=== PATIENT | male | born 1935 | race Caucasian/White ===

== ENCOUNTER 2018-10-14 09:29 | Emergency (ER) | payer BC, OTHER ==
[~2018-10-14] VITALS: Ht 175.3 cm; Wt 113.9 kg
[~2018-10-14 09:29] MED LIST: AMLO10TA6 PO; ASPI-630 PO; BUDE10.2 IH; FURO20TA3 PO; ISOS10TA4 PO; LOSA1TAB19 PO; LOSA25TA54 PO; MECL12.52 PO; METO25TA4 PO; MULT-245 PO; NIAC50TA3 PO; NITR1OIN TD; OMEG500C PO; PROAIR HFA8.5 GM INH; TAMS0.4C2 PO
--- NOTE | 2018-10-14 09:59 | PHYS DOC ---
Past Medical History Past Medical History: Asthma, COPD (none smoker), High Cholesterol, Hypertension, Stroke Past Surgical History: Knee Replacement, Other Additional Past Surgical Histo: CARDIAC CATH WITH STENTS Alcohol Use: None Drug Use: None Adult General Chief Complaint Chief Complaint: Congestion HPI HPI Patient is a 83 year old male with history of hypertension, high cholesterol, asthma, COPD-nonsmoker, bronchitis, who presents today complaining of cough and nasal congestion for one week. Patient denies any fever. Patient states he has been trying to use [id number] remedies with no relief. PCP Dr. Oakley Review of Systems Review of Systems Constitutional: Denies fever or chills [] Eyes: Denies change in visual acuity, redness, or eye pain [] HENT: Reports nasal congestion, denies sore throat [] Respiratory: Reports cough, denies shortness of breath [] Cardiovascular: No additional information not addressed in HPI [] GI: Denies abdominal pain, nausea, vomiting, bloody stools or diarrhea [] : Denies dysuria or hematuria [] Musculoskeletal: Denies back pain or joint pain [] Integument: Denies rash or skin lesions [] Neurologic: Denies headache, focal weakness or sensory changes [] All other systems were reviewed and found to be within normal limits, except as documented in this note. Current Medications Current Medications Current Medications Medications (Trade) Dose Ordered Sig/Adri Start Time Stop Time Status Last Admin Dose Admin Albuterol/ Ipratropium (Duoneb) 3 ml 1X ONCE 10/14/18 10:00 10/14/18 10:01 DC 10/14/18 10:11 3 ML Benzonatate (Tessalon Perle) 100 mg 1X ONCE 10/14/18 10:00 10/14/18 10:01 DC 10/14/18 10:17 100 MG Prednisone (Prednisone) 50 mg 1X ONCE 10/14/18 10:00 10/14/18 10:01 DC 10/14/18 10:17 50 MG Allergies Allergies Allergies Coded Allergies Type Severity Reaction Last Updated Verified No Known Drug Allergies 09/05/14 No Physical Exam Physical Exam Constitutional: Well developed, well nourished, no acute distress, non-toxic appearance. [] HENT: Normocephalic, atraumatic, bilateral external ears normal, oropharynx moist, no oral exudates, patient sounds congested nasally, posterior pharynx with mild erythema and post nasal drainage Eyes: PERRLA, EOMI, conjunctiva normal, no discharge. [] Neck: Normal range of motion, no tenderness, supple, no stridor. [] Cardiovascular:Heart rate regular rhythm, no murmur [] Lungs & Thorax: Diffuse wheezing throughout the lung bases. Abdomen: Bowel sounds normal, soft, no tenderness, no masses, no pulsatile masses. [] Skin: Warm, dry, no erythema, no rash. [] Back: No tenderness, no CVA tenderness. [] Extremities: No tenderness, no cyanosis, no clubbing, ROM intact, no edema. [] Neurologic: Alert and oriented X 3, normal motor function, normal sensory function, no focal deficits noted. [] Psychologic: Affect normal, judgement normal, mood normal. [] Current Patient Data Vital Signs Vital Signs Date Time Temp Pulse Resp B/P (MAP) Pulse Ox O2 Delivery O2 Flow Rate FiO2 10/14/18 10:13 82 16 141/73 (95) 99 Room Air 10/14/18 09:38 97.6 97.6 EKG EKG [] Radiology/Procedures Radiology/Procedures []PROCEDURE: CHEST PA & LATERAL Chest, 2 views, 10/14/2018: HISTORY: Cough and congestion The heart size and pulmonary vascularity are normal. No pulmonary infiltrate is seen. There is no evidence of pleural fluid. Moderate hypertrophic spurring is present in the spine. IMPRESSION: No acute cardiopulmonary abnormality is detected. Electronically signed by: Chan Mcginnis MD (10/14/2018 11:07 AM) [facility] DICTATED and SIGNED BY: CHAN MCGINNIS MD DATE: 10/14/18 3771 Course & Med Decision Making Course & Med Decision Making Pertinent Labs and Imaging studies reviewed. (See chart for details) This is a 83-year-old male patient presented to the ED today with cough and nasal congestion for one week. Chest x-ray interpreted by radiologist was negative for any acute findings, patient was given a DuoNeb treatment, prednisone and Tessalon Perles, his lungs have cleared up, he states he feels better. Patient likely has bronchitis. Will discharge patient with albuterol inhaler, Tessalon Perles, prednisone for 5 days and doxycycline. Follow-up with primary care doctor in one week Dragkatina Disclaimer Dragon Disclaimer This electronic medical record was generated, in whole or in part, using a voice recognition dictation system. Departure Departure Impression: Primary Impression: Acute bronchitis Additional Impression: URI (upper respiratory infection) Disposition: 01 HOME, SELF-CARE Condition: STABLE Referrals: CHRIS OAKLEY MD (PCP) follow up in 1-2 weeks Patient Instructions: Acute Bronchitis, Upper Respiratory Infection, Adult, [id number] Additional Instructions: You were evaluated in the emergency room and noted to have acute bronchitis. Take the prescribed medications as ordered. Follow-up with your doctor in the next 1-2 weeks. Come back to the ED at any point symptoms worsen. Scripts Doxycycline Hyclate (DOXYCYCLINE HYCLATE) 100 Mg Tablet.dr 1 TAB PO BID, #14 TAB Prov: DANAE KAT APRN 10/14/18 Prednisone (PREDNISONE) 50 Mg Tablet 1 TAB PO DAILY, #4 TAB Prov: DANAE KAT APRN 10/14/18 Benzonatate (TESSALON PERLE) 100 Mg Capsule 1 CAP PO TID, #21 CAP Prov: DANAE KAT APRN 10/14/18 Albuterol Sulfate (VENTOLIN HFA INHALER) 18 Gm Hfa.aer.ad 2 PUFF INH Q4HRS for FOR ASTHMA, #1 INHALER 0 Refills Prov: DANAE KAT APRN 10/14/18 Problem Qualifiers Primary Impression: Acute bronchitis Bronchitis organism: unspecified organism Qualified Codes: J20.9 - Acute bronchitis, unspecified Additional Impression: URI (upper respiratory infection) URI type: unspecified URI Qualified Codes: J06.9 - Acute upper respiratory infection, unspecified DANAE KAT APRN Oct 14, 2018 09:59
[2018-10-14] MEDS ORDERED: predniSONE 10 MG TABLET PO ONE (10:00)
[2018-10-14] MEDS ORDERED: IPRATRPIUM/ALBUTEROL 0.5/2.5MG 3 ML NEBU. NEB ONE (10:00)
[2018-10-14] MEDS ORDERED: BENZONATATE 100 MG CAPSULE. PO ONE (10:00)
--- NOTE | 2018-10-14 11:11 | RAD ---
Chest, 2 views, 10/14/2018: HISTORY: Cough and congestion The heart size and pulmonary vascularity are normal. No pulmonary infiltrate is seen. There is no evidence of pleural fluid. Moderate hypertrophic spurring is present in the spine. IMPRESSION: No acute cardiopulmonary abnormality is detected. Electronically signed by: Chan Mcginnis MD (10/14/2018 11:07 AM) [facility]
[2018-10-14 12:00] VITALS: BP 151/66
[2018-10-14] MEDS ORDERED: VENTOLIN HFA18 GM INH (12:04)
[2018-10-14] MEDS ORDERED: BENZ100C PO (12:04)
[2018-10-14] MEDS ORDERED: DOXY100T9 PO (12:04)
[2018-10-14] MEDS ORDERED: PRED50TA PO (12:04)
== END 2018-10-14 12:04 | disposition home or self-care (01) ==
LOC: ER 09:29
DX: J06.9 Acute upper respiratory infection, unspecified (principal); J20.9 Acute bronchitis, unspecified; I10 Essential (primary) hypertension; E78.00 Pure hypercholesterolemia, unspecified; J44.9 Chronic obstructive pulmonary disease, unspecified; Z86.73 Personal history of transient ischemic attack (TIA), and cerebral infarction without residual deficits
CPT/HCPCS: 71046; 94640; 99284; J7512; J7620

== ENCOUNTER 2019-04-04 21:46 | Inpatient (IN) | payer BC ==
[~2019-04-04] VITALS: Ht 175.3 cm; Wt 120.2 kg
[~2019-04-04 21:46] MED LIST changes: +ALBU2.5V8 INH; -AMLO10TA6 PO; +AMLO10TA8 PO; +BENZ100C PO; +DOXY100T9 PO; +PRED50TA PO; -PROAIR HFA8.5 GM INH; +VENTOLIN HFA18 GM INH
[2019-04-04 22:53] LABS: BASO # 0.1 x10^3/uL (0.0-0.2); BASO % 0 % (0-3); EOS % 0 % (0-3); HEMATOCRIT 44.6 % (39.0-53.0); HEMOGLOBIN 14.7 g/dL (13.0-17.5); LYMPH % 10 % (24-48); MEAN CORPUSCULAR HEMOGLOBIN 29 pg (25-35); MEAN CORPUSCULAR HGB CONC 33 g/dL (31-37); MEAN CORPUSCULAR VOLUME 89 fL (79-100); MONO # 1.4 x10^3/uL (0.0-1.1); MONO % 7 % (0-9); NEUT % 83 % (31-73); PLATELET COUNT 232 x10^3/uL (140-400); RED CELL DISTRIBUTION WIDTH 14.6 % (11.5-14.5); WHITE BLOOD COUNT 20.4 x10^3/uL (4.0-11.0)
[2019-04-04] MEDS ORDERED: IV NORMAL SALINE 1000ML BAG 1,000 ML IV ONE (23:00)
[2019-04-04 23:03] LABS: PROTHROMBIN TIME PATIENT 16.7 SEC (11.7-14.0)
[2019-04-04 23:16] LABS: ALBUMIN 2.1 g/dL (3.4-5.0); ALBUMIN/GLOBULIN RATIO 0.6 (1.0-1.7); CALCIUM 7.8 mg/dL (8.5-10.1); CREATININE 9.8 mg/dL (0.7-1.3); GFR 5.1; MAGNESIUM 2.4 mg/dL (1.8-2.4); POTASSIUM 4.6 mmol/L (3.5-5.1); TOTAL BILIRUBIN 0.6 mg/dL (0.2-1.0); TOTAL PROTEIN 5.4 g/dL (6.4-8.2)
--- NOTE | 2019-04-04 23:41 | PHYS DOC ---
Past Medical History Past Medical History: Asthma, COPD, High Cholesterol, Hypertension, Stroke Past Surgical History: Knee Replacement, Other Additional Past Surgical Histo: CARDIAC CATH WITH STENTS; cataracts Alcohol Use: None Drug Use: None Adult General Chief Complaint Chief Complaint: ABDOMINAL PAIN HPI HPI Patient is a 83 year old [f__sex] who presents with [] Review of Systems Review of Systems Constitutional: Denies fever or chills [] Eyes: Denies change in visual acuity, redness, or eye pain [] HENT: Denies nasal congestion or sore throat [] Respiratory: Denies cough or shortness of breath [] Cardiovascular: No additional information not addressed in HPI [] GI: Denies abdominal pain, nausea, vomiting, bloody stools or diarrhea [] : Denies dysuria or hematuria [] Musculoskeletal: Denies back pain or joint pain [] Integument: Denies rash or skin lesions [] Neurologic: Denies headache, focal weakness or sensory changes [] Endocrine: Denies polyuria or polydipsia [] All other systems were reviewed and found to be within normal limits, except as documented in this note. Current Medications Current Medications Current Medications Medications (Trade) Dose Ordered Sig/Adri Start Time Stop Time Status Last Admin Dose Admin Sodium Chloride 1,000 ml @ 1,000 mls/hr 1X ONCE 04/04/19 23:00 04/04/19 23:59 04/04/19 22:55 1,000 MLS/HR Vancomycin HCl (Vancomycin Oral Solution) 125 mg 1X ONCE 04/05/19 00:00 04/05/19 00:01 Allergies Allergies Allergies Coded Allergies Type Severity Reaction Last Updated Verified No Known Drug Allergies 09/05/14 No Physical Exam Physical Exam Constitutional: Well developed, well nourished, no acute distress, non-toxic appearance. [] HENT: Normocephalic, atraumatic, bilateral external ears normal, oropharynx moist, no oral exudates, nose normal. [] Eyes: PERRLA, EOMI, conjunctiva normal, no discharge. [] Neck: Normal range of motion, no tenderness, supple, no stridor. [] Cardiovascular:Heart rate regular rhythm, no murmur [] Lungs & Thorax: Bilateral breath sounds clear to auscultation [] Abdomen: Bowel sounds normal, soft, no tenderness, no masses, no pulsatile masses. [] Skin: Warm, dry, no erythema, no rash. [] Back: No tenderness, no CVA tenderness. [] Extremities: No tenderness, no cyanosis, no clubbing, ROM intact, no edema. [] Neurologic: Alert and oriented X 3, normal motor function, normal sensory function, no focal deficits noted. [] Psychologic: Affect normal, judgement normal, mood normal. [] Current Patient Data Vital Signs Vital Signs Date Time Temp Pulse Resp B/P (MAP) Pulse Ox O2 Delivery O2 Flow Rate FiO2 04/04/19 23:24 82 20 99/57 (71) 97 Room Air 04/04/19 21:51 79.6 79.6 Lab Values Laboratory Tests Test 04/04/19 22:10 White Blood Count 20.4 x10^3/uL (4.0-11.0) H Red Blood Count 5.00 x10^6/uL (4.30-5.70) Hemoglobin 14.7 g/dL (13.0-17.5) Hematocrit 44.6 % (39.0-53.0) Mean Corpuscular Volume 89 fL (79-100) Mean Corpuscular Hemoglobin 29 pg (25-35) Mean Corpuscular Hemoglobin Concent 33 g/dL (31-37) Red Cell Distribution Width 14.6 % (11.5-14.5) H Platelet Count 232 x10^3/uL (140-400) Neutrophils (%) (Auto) 83 % (31-73) H Lymphocytes (%) (Auto) 10 % (24-48) L Monocytes (%) (Auto) 7 % (0-9) Eosinophils (%) (Auto) 0 % (0-3) Basophils (%) (Auto) 0 % (0-3) Neutrophils # (Auto) 17.0 x10^3uL (1.8-7.7) H Lymphocytes # (Auto) 2.0 x10^3/uL (1.0-4.8) Monocytes # (Auto) 1.4 x10^3/uL (0.0-1.1) H Eosinophils # (Auto) 0.0 x10^3/uL (0.0-0.7) Basophils # (Auto) 0.1 x10^3/uL (0.0-0.2) Platelet Estimate Pending Prothrombin Time 16.7 SEC (11.7-14.0) H Prothrombin Time INR 1.4 (0.8-1.1) H PTT 27 SEC (24-38) Sodium Level 128 mmol/L (136-145) L Potassium Level 4.6 mmol/L (3.5-5.1) Chloride Level 94 mmol/L (98-107) L Carbon Dioxide Level 11 mmol/L (21-32) *L Anion Gap 23 (6-14) H Blood Urea Nitrogen 115 mg/dL (8-26) H Creatinine 9.8 mg/dL (0.7-1.3) H Estimated GFR (Cockcroft-Gault) 5.1 BUN/Creatinine Ratio 12 (6-20) Glucose Level 109 mg/dL (70-99) H Lactic Acid Level 1.5 mmol/L (0.4-2.0) Calcium Level 7.8 mg/dL (8.5-10.1) L Magnesium Level 2.4 mg/dL (1.8-2.4) Total Bilirubin 0.6 mg/dL (0.2-1.0) Aspartate Amino Transferase (AST) 19 U/L (15-37) Alanine Aminotransferase (ALT) 21 U/L (16-63) Alkaline Phosphatase 62 U/L (46-116) Total Protein 5.4 g/dL (6.4-8.2) L Albumin 2.1 g/dL (3.4-5.0) L Albumin/Globulin Ratio 0.6 (1.0-1.7) L Lipase 102 U/L (73-393) Laboratory Tests 04/04/19 22:10 Laboratory Tests 04/04/19 22:10 EKG EKG [] Radiology/Procedures Radiology/Procedures [] Course & Med Decision Making Course & Med Decision Making Pertinent Labs and Imaging studies reviewed. (See chart for details) [] Dragon Disclaimer Dragon Disclaimer This electronic medical record was generated, in whole or in part, using a voice recognition dictation system. Departure Departure Impression: Primary Impression: Clostridium difficile colitis Additional Impressions: Acute renal failure Metabolic acidosis Hyponatremia Disposition: ADMITTED INPATIENT Admitting Physician: Balwinder Oakley Referrals: BALWINDER OAKLEY MD (PCP) Problem Qualifiers Additional Impressions: Acute renal failure Acute renal failure type: unspecified Qualified Codes: N17.9 - Acute kidney failure, unspecified BALWINDER CRAWLEY DO April 04, 2019 23:41
[2019-04-04] MEDS ORDERED: fentaNYL PF VIAL 100 MCG/2 ML VIAL IV PRN (23:45)
[2019-04-04] MEDS ORDERED: ONDANSETRON PF 4 MG/2 ML VIAL. IV PRN (23:45)
[2019-04-05] MEDS ORDERED: VANCOMYCIN 125 MG/2.5 ML ORAL SOLUTION. PO ONE
[2019-04-05] MEDS: SODIUM BICARBONATE VIAL 100 MEQ in IV 1/2 NORMAL SALINE 1,000 ML IV SCH ×4 (00:23→22:53)
--- NOTE | 2019-04-05 00:29 | RAD ---
PQRS Compliance statement: One or more of the following individualized dose reduction techniques were utilized for this examination: 1. Automated exposure control. 2. Adjustment of the mA and/or kV according to patient size. 3. Use of iterative reconstruction technique. Indication:Abdominal pain, diarrhea. TECHNIQUE: CT abdomen and pelvis without IV contrast with multiplanar reformats. COMPARISON: None FINDINGS: Limited evaluation of solid abdominal and pelvic organs due to lack of IV contrast. Heart is normal in size. No pericardial or pleural effusion. 5 mm triangular opacity in the left lower lobe. Otherwise, clear lung bases. Noncontrast appearance of the liver, spleen, gallbladder, pancreas, adrenals and kidneys within normal limits. No enlarged retroperitoneal or pelvic adenopathy. No free pelvic fluid. Trace perihepatic and perisplenic ascites. Long segment circumferential wall thickening is seen of the descending colon, transverse colon and ascending colon. Normal appendix. No evidence of bowel obstruction. No pneumoperitoneum or pneumatosis intestinalis. Small bowel within normal limits. Prostate is enlarged measuring 7.0 x 5.7 cm. Urinary bladder demonstrates no radiopaque stones. No suspicious bony lesion. Multilevel disc disease in the visualized spine. IMPRESSION: Limited evaluation of solid abdominal and pelvic organs due to lack of IV contrast. 1. Long segment colitis. 2. Enlarged prostate. Clinically correlate with physical exam and PSA. 3. Left lower lobe triangular opacity, nonspecific and may be intrapulmonic lymph node. CT chest in 6 month recommended. Electronically signed by: Shreyas Coronel DO (04/05/2019 12:26 AM) [facility]
[2019-04-05 02:22] LABS: FECAL OB PT NEGATIVE (NEG)
[2019-04-05 03:00] VITALS: BP 133/68
[2019-04-05 03:32] LABS: % LYMPHS 8 % (24-48); % MONOS 7 % (0-10); % SEGS 85 % (35-66); PLT ESTIMATE ADEQUATE (ADEQUATE); TOXIC VACUOLATION SLIGHT
[2019-04-05 07:00] VITALS: BP 122/56
[2019-04-05 07:34] LABS: CALCIUM 7.5 mg/dL (8.5-10.1); CREATININE 9.9 mg/dL (0.7-1.3); GFR 5.1; POTASSIUM 4.4 mmol/L (3.5-5.1)
--- NOTE | 2019-04-05 07:47 | RAD ---
RENAL COMPLETE BILATERAL History: Acute renal failure Comparison: None. Findings: Multiple sonographic images of the kidneys and retroperitoneal structures are submitted. Right kidney measured 11.6 x 5.4 x 5.2 cm. Left kidney measures 11 x 6.3 x 4.3 cm. There is no hydronephrosis of either kidney. There is increased echogenicity of the renal parenchyma bilaterally. There is prostatomegaly on the order of 5.6 x 5 x 3.9 cm. Urinary bladder morphology is within normal limits. Impression: 1. There is no hydronephrosis of either kidney. Both kidneys are echogenic, may be seen with medical renal disease. 2. There is prostatomegaly. Electronically signed by: Des Cisneros MD (04/05/2019 7:44 AM) [id number]
[2019-04-05] MEDS ORDERED: VANCOMYCIN 125 MG/2.5 ML ORAL SOLUTION. PO SCH ×2 (09:00→13:00)
[2019-04-05 11:00] VITALS: BP 105/58
[2019-04-05] MEDS ORDERED: ONDANSETRON PF 4 MG/2 ML VIAL. IV PRN (11:15)
[2019-04-05] MEDS ORDERED: fentaNYL PF VIAL 100 MCG/2 ML VIAL IV PRN (11:15)
[2019-04-05] MEDS ORDERED: ACETAMINOPHEN 325 MG TABLET. PO PRN (11:15)
--- NOTE | 2019-04-05 11:33 | PDOC ---
Provider Note Provider Note history and physical dictated # [id number] CHRIS STEIN MD April 05, 2019 11:33
[2019-04-05] MEDS ORDERED: LIDOCAINE 2% JELLY 6ML IN APPLICATOR. MM ONE (11:45)
[2019-04-05] MEDS: NYSTATIN TOPICAL POWDER 15GM BOTTLE. TP SCH ×2 (11:52→21:28)
[2019-04-05] MEDS: TAMSULOSIN 0.4 MG CAP.ER.24H. PO SCH (11:53)
[2019-04-05] MEDS: VANCOMYCIN 125 MG/2.5 ML ORAL SOLUTION. PO SCH ×3 (11:53→21:29)
[2019-04-05] MEDS: ISOSORBIDE MONONITRATE ER 30 MG TAB.ER.24H PO SCH (11:54)
[2019-04-05] MEDS: METOPROLOL SUCC 24HR ER 25 MG TAB.ER.24H. PO SCH (11:54)
[2019-04-05] MEDS: IPRATRPIUM/ALBUTEROL 0.5/2.5MG 3 ML NEBU. NEB SCH ×3 (12:00→21:03)
--- NOTE | 2019-04-05 12:08 | PDOC2 ---
GI CONSULT Reason For Consult: diarrhea HPI: HPI: 83 year old male who began having 10 - 20 BMs on saturday. His BMs are nonbloody. He denies N/V/ Abd pain. He recently took abx for a cold. Labs with WBC 20/4, Na down to 129 and occult blood negative. CT A/P with Long segment circumferential wall thickening is seen of the descending colon, transverse colon and ascending colon. PMH: PMH: Past Medical History Past Medical History: Asthma, COPD, High Cholesterol, Hypertension, Stroke Past Surgical History: Knee Replacement, Other Additional Past Surgical Histo: CARDIAC CATH WITH STENTS; cataracts Alcohol Use: None Drug Use: None Meds: per MAR FMH: no CRC All NKDA Social History: Smoke: No ALCOHOL: none Drugs: None ROS: GEN: Denies fevers, chills, sweats HEENT: Denies blurred vision, sore throat CV: Denies chest pain RESP: recent cold treated with Abx GI: Per HPI : Denies hematuria, dysuria ENDO: Denies weight changes NEURO: Denies confusion, dizziness MSK: Denies weakness, joint pain/swelling SKIN: Denies jaundice, pruritus VItals: Vitals: Vital Signs Date Time Temp Pulse Resp B/P (MAP) Pulse Ox O2 Delivery O2 Flow Rate FiO2 04/05/19 07:00 Room Air 04/05/19 07:00 97.7 65 18 122/56 (78) 97 97.7 Labs: Labs: Laboratory Tests Test 04/04/19 22:10 04/04/19 23:59 04/05/19 07:05 White Blood Count 20.4 x10^3/uL (4.0-11.0) Red Blood Count 5.00 x10^6/uL (4.30-5.70) Hemoglobin 14.7 g/dL (13.0-17.5) Hematocrit 44.6 % (39.0-53.0) Mean Corpuscular Volume 89 fL (79-100) Mean Corpuscular Hemoglobin 29 pg (25-35) Mean Corpuscular Hemoglobin Concent 33 g/dL (31-37) Red Cell Distribution Width 14.6 % (11.5-14.5) Platelet Count 232 x10^3/uL (140-400) Neutrophils (%) (Auto) 83 % (31-73) Lymphocytes (%) (Auto) 10 % (24-48) Monocytes (%) (Auto) 7 % (0-9) Eosinophils (%) (Auto) 0 % (0-3) Basophils (%) (Auto) 0 % (0-3) Neutrophils # (Auto) 17.0 x10^3uL (1.8-7.7) Lymphocytes # (Auto) 2.0 x10^3/uL (1.0-4.8) Monocytes # (Auto) 1.4 x10^3/uL (0.0-1.1) Eosinophils # (Auto) 0.0 x10^3/uL (0.0-0.7) Basophils # (Auto) 0.1 x10^3/uL (0.0-0.2) Segmented Neutrophils % 85 % (35-66) Lymphocytes % 8 % (24-48) Monocytes % 7 % (0-10) Toxic Vacuolation Slight Platelet Estimate Adequate (ADEQUATE) Prothrombin Time 16.7 SEC (11.7-14.0) Prothromb Time International Ratio 1.4 (0.8-1.1) Activated Partial Thromboplast Time 27 SEC (24-38) Sodium Level 128 mmol/L (136-145) 129 mmol/L (136-145) Potassium Level 4.6 mmol/L (3.5-5.1) 4.4 mmol/L (3.5-5.1) Chloride Level 94 mmol/L (98-107) 96 mmol/L (98-107) Carbon Dioxide Level 11 mmol/L (21-32) 12 mmol/L (21-32) Anion Gap 23 (6-14) 21 (6-14) Blood Urea Nitrogen 115 mg/dL (8-26) 113 mg/dL (8-26) Creatinine 9.8 mg/dL (0.7-1.3) 9.9 mg/dL (0.7-1.3) Estimated GFR (Cockcroft-Gault) 5.1 5.1 BUN/Creatinine Ratio 12 (6-20) Glucose Level 109 mg/dL (70-99) 101 mg/dL (70-99) Lactic Acid Level 1.5 mmol/L (0.4-2.0) Calcium Level 7.8 mg/dL (8.5-10.1) 7.5 mg/dL (8.5-10.1) Magnesium Level 2.4 mg/dL (1.8-2.4) Total Bilirubin 0.6 mg/dL (0.2-1.0) Aspartate Amino Transf (AST/SGOT) 19 U/L (15-37) Alanine Aminotransferase (ALT/SGPT) 21 U/L (16-63) Alkaline Phosphatase 62 U/L (46-116) Total Protein 5.4 g/dL (6.4-8.2) Albumin 2.1 g/dL (3.4-5.0) Albumin/Globulin Ratio 0.6 (1.0-1.7) Lipase 102 U/L (73-393) Stool Occult Blood Negative (NEG) Imaging: Imaging: PROCEDURE: CT ABDOMEN PELVIS WO CONTRAST PQRS Compliance statement: One or more of the following individualized dose reduction techniques were utilized for this examination: 1. Automated exposure control. 2. Adjustment of the mA and/or kV according to patient size. 3. Use of iterative reconstruction technique. Indication:Abdominal pain, diarrhea. TECHNIQUE: CT abdomen and pelvis without IV contrast with multiplanar reformats. COMPARISON: None FINDINGS: Limited evaluation of solid abdominal and pelvic organs due to lack of IV contrast. Heart is normal in size. No pericardial or pleural effusion. 5 mm triangular opacity in the left lower lobe. Otherwise, clear lung bases. Noncontrast appearance of the liver, spleen, gallbladder, pancreas, adrenals and kidneys within normal limits. No enlarged retroperitoneal or pelvic adenopathy. No free pelvic fluid. Trace perihepatic and perisplenic ascites. Long segment circumferential wall thickening is seen of the descending colon, transverse colon and ascending colon. Normal appendix. No evidence of bowel obstruction. No pneumoperitoneum or pneumatosis intestinalis. Small bowel within normal limits. Prostate is enlarged measuring 7.0 x 5.7 cm. Urinary bladder demonstrates no radiopaque stones. No suspicious bony lesion. Multilevel disc disease in the visualized spine. IMPRESSION: Limited evaluation of solid abdominal and pelvic organs due to lack of IV contrast. 1. Long segment colitis. 2. Enlarged prostate. Clinically correlate with physical exam and PSA. 3. Left lower lobe triangular opacity, nonspecific and may be intrapulmonic lymph node. CT chest in 6 month recommended. Electronically signed by: Shreyas Coronel DO (04/05/2019 12:26 AM) [id number] RENAL COMPLETE BILATERAL History: Acute renal failure Comparison: None. Findings: Multiple sonographic images of the kidneys and retroperitoneal structures are submitted. Right kidney measured 11.6 x 5.4 x 5.2 cm. Left kidney measures 11 x 6.3 x 4.3 cm. There is no hydronephrosis of either kidney. There is increased echogenicity of the renal parenchyma bilaterally. There is prostatomegaly on the order of 5.6 x 5 x 3.9 cm. Urinary bladder morphology is within normal limits. Impression: 1. There is no hydronephrosis of either kidney. Both kidneys are echogenic, may be seen with medical renal disease. 2. There is prostatomegaly. Electronically signed by: Des Cisneros MD (04/05/2019 7:44 AM) [id number] PE: GEN: NAD HEENT: Atraumatic, PERRLA LUNGS: CTAB HEART: RRR, no murmurs ABD: NABS, S/ND/NT, no masses EXTREMITY: No edema SKIN: No rashes, no jaundice NEURO/PSYCH: A & O 3 A/P: A/P: A&P) 1) Colitis: Long segment circumferential wall thickening is seen of the descending colon, transverse colon and ascending colon. 2) Cdiff with recent abx use for cold: vanco and colestipol 3) Diarrhea4) Hyponatrmia 4) Leukocytosis GERALD DANIELS MD April 05, 2019 12:08
[2019-04-05] MEDS: COLESTIPOL HCL 1 GM TABLET PO SCH ×2 (12:53→22:53)
--- NOTE | 2019-04-05 12:57 | PDOC ---
Infectious Disease Note Vital Sign Vital Signs Vital Signs Date Time Temp Pulse Resp B/P (MAP) Pulse Ox O2 Delivery O2 Flow Rate FiO2 04/05/19 11:54 66 105/58 04/05/19 11:00 97.9 17 97 Room Air 97.9 Labs Lab Laboratory Tests Test 04/04/19 22:10 04/04/19 23:59 04/05/19 07:05 White Blood Count 20.4 x10^3/uL (4.0-11.0) Red Blood Count 5.00 x10^6/uL (4.30-5.70) Hemoglobin 14.7 g/dL (13.0-17.5) Hematocrit 44.6 % (39.0-53.0) Mean Corpuscular Volume 89 fL (79-100) Mean Corpuscular Hemoglobin 29 pg (25-35) Mean Corpuscular Hemoglobin Concent 33 g/dL (31-37) Red Cell Distribution Width 14.6 % (11.5-14.5) Platelet Count 232 x10^3/uL (140-400) Neutrophils (%) (Auto) 83 % (31-73) Lymphocytes (%) (Auto) 10 % (24-48) Monocytes (%) (Auto) 7 % (0-9) Eosinophils (%) (Auto) 0 % (0-3) Basophils (%) (Auto) 0 % (0-3) Neutrophils # (Auto) 17.0 x10^3uL (1.8-7.7) Lymphocytes # (Auto) 2.0 x10^3/uL (1.0-4.8) Monocytes # (Auto) 1.4 x10^3/uL (0.0-1.1) Eosinophils # (Auto) 0.0 x10^3/uL (0.0-0.7) Basophils # (Auto) 0.1 x10^3/uL (0.0-0.2) Segmented Neutrophils % 85 % (35-66) Lymphocytes % 8 % (24-48) Monocytes % 7 % (0-10) Toxic Vacuolation Slight Platelet Estimate Adequate (ADEQUATE) Prothrombin Time 16.7 SEC (11.7-14.0) Prothromb Time International Ratio 1.4 (0.8-1.1) Activated Partial Thromboplast Time 27 SEC (24-38) Sodium Level 128 mmol/L (136-145) 129 mmol/L (136-145) Potassium Level 4.6 mmol/L (3.5-5.1) 4.4 mmol/L (3.5-5.1) Chloride Level 94 mmol/L (98-107) 96 mmol/L (98-107) Carbon Dioxide Level 11 mmol/L (21-32) 12 mmol/L (21-32) Anion Gap 23 (6-14) 21 (6-14) Blood Urea Nitrogen 115 mg/dL (8-26) 113 mg/dL (8-26) Creatinine 9.8 mg/dL (0.7-1.3) 9.9 mg/dL (0.7-1.3) Estimated GFR (Cockcroft-Gault) 5.1 5.1 BUN/Creatinine Ratio 12 (6-20) Glucose Level 109 mg/dL (70-99) 101 mg/dL (70-99) Lactic Acid Level 1.5 mmol/L (0.4-2.0) Calcium Level 7.8 mg/dL (8.5-10.1) 7.5 mg/dL (8.5-10.1) Magnesium Level 2.4 mg/dL (1.8-2.4) Total Bilirubin 0.6 mg/dL (0.2-1.0) Aspartate Amino Transf (AST/SGOT) 19 U/L (15-37) Alanine Aminotransferase (ALT/SGPT) 21 U/L (16-63) Alkaline Phosphatase 62 U/L (46-116) Total Protein 5.4 g/dL (6.4-8.2) Albumin 2.1 g/dL (3.4-5.0) Albumin/Globulin Ratio 0.6 (1.0-1.7) Lipase 102 U/L (73-393) Stool Occult Blood Negative (NEG) Objective Assessment pt seen, consult dictated Plan Plan of Care -- LIZZIE DANIELS MD April 05, 2019 12:57
--- NOTE | 2019-04-05 13:04 | HP ---
ADMIT DATE: 04/05/2019 LOCATION: He is in room 444. HISTORY OF PRESENT ILLNESS: The patient is an 83-year-old morbidly obese white male who has a history of hypertension, hyperlipidemia and coronary artery disease, who also has a history of asthma and was initially seen in the office on 03/20/2019 with asthma exacerbation and acute bronchitis with bronchospasm, treated with a 7-day course of Augmentin and an 8-day course of tapering prednisone, who was seen in the office on 03/30/2019 with a 4-day history of loose stools. The patient had completed his Augmentin and stool was sent for Clostridium difficile toxin. He was given a prescription that was sent to the Pharmacy for oral vancomycin liquid 125 mg every 6 hours as Clostridium difficile colitis was suspected. Stool was sent for Clostridium difficile toxin and the results were not obtained by myself until 04/03/2019. However, he could not fill the oral vancomycin at any pharmacy and on , 04/02/2019, in the morning, a prescription for Flagyl 500 mg p.o. every 8 hours was sent to the Pharmacy. He started the Flagyl, but he did not like the bitter taste and did not like taking it. While he was at home, he was still having 4-5 loose stools a day, liquid mixed in with some formed stool. He denied any abdominal cramping. He denied any fever or blood in the stool or nausea or vomiting, but had a decreased appetite. He also was drinking water. He did take his 's Aleve. In the office, on 03/30/2019, his amlodipine was discontinued, as his systolic blood pressure was 118, but his losartan was continued. He had laboratory test on 03/30/2019 with serum creatinine 1.15, with a baseline of 1.03 and his BUN was 32, with a baseline of 25. The patient had taken Imodium and Pepto-Bismol prior to his 03/30/2019 appointment. The patient became very weak yesterday and needed help to get on his feet and continued to have 4-5 loose stools a day. He went to the Emergency Room at [facility] on 04/04/2019. He had a CAT scan of his abdomen and pelvis, which showed thickening of the bowel wall, involving the ascending, transverse and descending colon. He had a white count that was elevated at 20.4 and his BUN was 115 with a creatinine of 9.8 with a bicarbonate level of 11. His albumin was 2.1. The patient received IV fluids in the Emergency Room and was given a bag of normal saline and then started normal saline at 125 mL an hour, which was switched to IV half normal saline with 3 amps of sodium bicarbonate at 125 mL an hour. He says he has urinated some, but he had some bladder incontinence. So, a Sharp catheter will be placed. He was noted to have an enlarged prostate on his CAT scan of his abdomen and pelvis. Renal ultrasound showed no evidence of hydronephrosis. The patient was started on oral vancomycin 125 mg p.o. q.i.d. He is therefore admitted for further evaluation and treatment of his Clostridium difficile colitis, acute kidney injury and metabolic acidosis. ALLERGIES AND INTOLERANCES: None. MEDICATIONS PRIOR TO ADMISSION: Include aspirin 325 mg every day, atorvastatin 10 mg at bedtime, finasteride 5 mg every day, fish oil 1 g daily, Flomax 0.4 mg every day, Imdur 30 mg every day, losartan 100 mg every day, metoprolol succinate 25 mg every day, ProAir inhaler p.r.n., Symbicort 160/4.5 mcg 2 puffs b.i.d. and Zofran 4 mg p.o. every 6 hours p.r.n. His amlodipine was stopped on 03/30/2019. PAST MEDICAL HISTORY: Past history is significant for morbid obesity, osteoarthritis, hypertension, hyperlipidemia, coronary artery disease, benign prostatic hypertrophy and asthma. He had right total knee arthroplasty, left cataract extraction and benign prostate biopsy. He had a cardiac catheterization in 2010, which showed disease of the circumflex coronary artery. His last colonoscopy was in 2010. He had a basal cell carcinoma removed from the left cheek. SOCIAL HISTORY: He does not drink alcohol nor does he smoke cigarettes. He is . FAMILY HISTORY: Noncontributory. REVIEW OF SYSTEMS: GENERAL: He denies any fever, chills or sweats in the last 3 days. CARDIOVASCULAR: No chest pain. PULMONARY: Occasional cough. No shortness of breath. GASTROINTESTINAL: He had the diarrhea. ENDOCRINE: No diabetes mellitus. SKIN: No rashes, but the FORK ASSEMBLER notes some redness in the buttock area. He apparently had some small amount of liquid stool noted by the FORK ASSEMBLER also this morning. PHYSICAL EXAMINATION: VITAL SIGNS: Temperature is 97.7 degrees, apical pulse is regular at 65, respiratory rate 18, blood pressure 122/56 and oxygen saturation 97% on room air. HEENT: Eyes, gaze is conjugate. Extraocular muscles are intact. Mouth, tongue is midline. He is edentulous. NECK: There is no cervical lymphadenopathy or thyroid enlargement. HEART: Reveals an S1, S2. There is no S3 or murmur. LUNGS: Clear. ABDOMEN: Obese and soft. Bowel sounds are positive. It is mildly distended. He did not have any tenderness in the abdomen. No rebound. EXTREMITIES: Lower extremities with trace to 1+ pretibial and bipedal edema bilaterally. SKIN: No rashes. I did not look at his buttock area. NEUROLOGICAL EXAMINATION: Shows he is coherent. 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 He is able to dorsiflex and plantar flex his feet, bend his knees and raise his legs up in the air. Both feet are warm. LABORATORY DATA: Review of his laboratory tests, his white count was 20.4, hemoglobin 14.7 with a platelet count of 232,000, polys 83 and lymphocytes 10 on the white cell differential. His INR was 1.4 with a PTT of 27. Sodium was 128, potassium 4.6, chloride 94 and total CO2 was 11 last night around 10:10 p.m. His BUN was 115, creatinine 9.8 and blood sugar 109. Liver function tests were normal. Albumin 2.1. Lipase was normal at 102 today. This morning, his sodium is 129, potassium 4.4, chloride 96, total CO2 is 12, BUN 113, creatinine 9.9, blood sugar 101 and his calcium level is 7.5. Stool was negative for occult blood. In the office, as mentioned, the stool was positive for Clostridium difficile toxin. He had a renal ultrasound, which showed no hydronephrosis. He had an enlarged prostate. He had a CAT scan of the abdomen and pelvis done, without IV contrast, which showed a long segment of colitis involving the ascending, transverse and descending colon, with prostate enlargement, measuring 7 x 5.7 cm. He had a left lower lobe triangular opacity, nonspecific and could be an lymph node and a CAT scan of the chest was recommended in 6 months. I do not see a urinalysis here or a chest x-ray. I do not see any EKG on the chart. ASSESSMENT: 1. Clostridium difficile colitis. 2. Acute kidney injury, most likely secondary to intravascular volume depletion from the diarrhea and also contributing could be the nonsteroidal anti-inflammatory drug that he took at home and also the losartan. 3. Hyponatremia. 4. Metabolic acidosis secondary to the diarrhea and acute kidney injury. 5. History of hypertension. 6. Hyperlipidemia. 7. Coronary artery disease. 8. Asthma. 9. Morbid obesity. 10. Debility from his acute illness. PLAN: The plan at this time is to consult Dr. Gil Wiseman for Infectious Disease, Dr. Wong for GI and Dr. Antonio Wiseman for Nephrology. We will increase his IV fluids to 150 mL an hour to try to improve his acute renal function to treat his acute kidney injury. We will continue with oral vancomycin. We will continue the sodium bicarbonate drip and increase the rate to 150 an hour. We will repeat the CBC and BMP tomorrow. We will renew the finasteride and the Flomax and the Imdur and the metoprolol from home. We will put him on DuoNebs nebulized treatments q.i.d. and IV Zofran p.r.n. Change the fentanyl to 25 mcg IV every 2 hours p.r.n. to every 4 hours p.r.n. and use only if necessary. We will make him n.p.o., except for sips of his water for his medications to help rest his colon. CHRIS STEIN MD DR: CHAPARRO/rhett JOB#: [id number] / [id number]
[2019-04-05] MEDS ORDERED: MAGNESIUM SULFATE 2GM 50 ML IV PRN (13:15)
[2019-04-05] MEDS ORDERED: IV NORMAL SALINE 500ML BAG 500 ML IV PRN (13:15)
--- NOTE | 2019-04-05 13:18 | PDOC2 ---
CONSULT Date of Consult Date of Consult DATE: 04/05/19 TIME: 13:13 Reason for Consult Reason for Consult: Acute kidney injury Referring Physician Referring Physician: Adin Identification/Chief Complaint Chief Complaint Diarrhea, now positive for C. difficile colitis Source Source: Chart review, Patient History of Present Illness Reason for Visit: Mr. Perez is a pleasant 83-year-old obese gentleman who is not the best historian with regards to his health issues. I have reviewed Dr. Oakley's detailed history of present illness for his current health issues. It appears that he does not have known underlying renal insufficiency. He has had diarrhea and presented to the hospital due to increased generalized weakness. At presentation here he was noted to have a sodium of 128 bicarbonate of 11, anion gap 23 BUN of 115 and a creatinine of 9.8. As reported by Dr. Oakley he has been taken his 's Aleve. Patient would not admit to the same. His lactic acid was only 1.5 at presentation. He has no current uremic symptoms. Denies nausea vomiting etc. at this time. A UA is not available at this time since his urine has been mixed with his liquid stools. A Sharp catheter is currently being placed and he is not happy about it. Past Medical History Past Medical History PAST MEDICAL HISTORY: Past history is significant for morbid obesity, osteoarthritis, hypertension, hyperlipidemia, coronary artery disease, benign prostatic hypertrophy and asthma. He had right total knee arthroplasty, left cataract extraction and benign prostate biopsy. He had a cardiac catheterization in 2010, which showed disease of the circumflex coronary artery. His last colonoscopy was in 2010. He had a basal cell carcinoma removed from the left cheek. Cataract extraction and lens implants, CVA/TIA SOCIAL HISTORY: He does not drink alcohol nor does he smoke cigarettes. He is and lives with his family FAMILY HISTORY: Noncontributory at his age Social History No ALCOHOL: none Drugs: None Lives: with Family Current Problem List Problem List Problems Medical Problems: (1) Acute renal failure Status: Acute (2) Clostridium difficile colitis Status: Acute (3) Hyponatremia Status: Acute (4) Metabolic acidosis Status: Acute Current Medications Current Medications Current Medications Sodium Chloride 1,000 ml @ 1,000 mls/hr 1X ONCE IV Last administered on 04/04/19at 22:55; Start 04/04/19 at 23:00; Stop 04/04/19 at 23:59; Status DC Vancomycin HCl (Vancomycin Oral Solution) 125 mg 1X ONCE PO Last administered on 04/04/19at 23:51; Start 04/05/19 at 00:00; Stop 04/05/19 at 00:01; Status DC Ondansetron HCl (Zofran) 4 mg PRN Q8HRS PRN IV NAUSEA/VOMITING 1ST CHOICE; Start 04/04/19 at 23:45; Stop 04/05/19 at 23:44 Fentanyl Citrate (Fentanyl 2ml Vial) 25 mcg PRN Q2HRS PRN IV SEVERE PAIN; Start 04/04/19 at 23:45; Stop 04/05/19 at 11:21; Status DC Vancomycin HCl (Vancomycin Oral Solution) 125 mg [id number] PO Last administered on 04/05/19at 08:04; Start 04/05/19 at 09:00; Stop 04/05/19 at 11:24; Status DC Sodium Bicarbonate 100 meq/Sodium Chloride 1,100 ml @ 125 mls/hr Q8H48M IV Last administered on 04/05/19at 08:05; Start 04/05/19 at 00:00; Stop 04/05/19 at 15:59 Sodium Bicarbonate 100 meq/Sodium Chloride 1,100 ml @ 150 mls/hr Q7H20M IV ; Start 04/05/19 at 16:00 Fentanyl Citrate (Fentanyl 2ml Vial) 25 mcg PRN Q4HRS PRN IV SEVERE PAIN; Start 04/05/19 at 11:15 Vancomycin HCl (Vancomycin Oral Solution) 125 mg [id number] PO Last administered on 04/05/19at 11:53; Start 04/05/19 at 13:00 Tamsulosin HCl (Flomax) 0.4 mg DAILY PO Last administered on 04/05/19at 11:53; Start 04/05/19 at 12:30 Metoprolol Succinate (Toprol Xl) 25 mg DAILY PO ; Start 04/05/19 at 12:30 Isosorbide Mononitrate (Imdur) 30 mg DAILY PO ; Start 04/05/19 at 12:30 Nystatin (Nystop) 1 dionna BID TP Last administered on 04/05/19at 11:52; Start 04/05/19 at 12:30 Ondansetron HCl (Zofran) 4 mg PRN Q6HRS PRN IV NAUSEA/VOMITING; Start 04/05/19 at 11:15 Albuterol/ Ipratropium (Duoneb) 3 ml RTQID NEB ; Start 04/05/19 at 12:00 Acetaminophen (Tylenol) 325 mg PRN Q6HRS PRN PO MILD PAIN / TEMP; Start 04/05/19 at 11:15 Lidocaine HCl (Glydo (Lidocaine) Jelly) 1 dionna 1X ONCE MM ; Start 04/05/19 at 11:45; Stop 04/05/19 at 11:46; Status DC Metronidazole 100 ml @ 100 mls/hr Q8HRS IV ; Start 04/05/19 at 12:30; Stop 04/05/19 at 12:30; Status DC Vancomycin HCl (Vancomycin Oral Solution) 125 mg [id number] PO ; Start 04/05/19 at 13:00; Stop 04/05/19 at 13:00; Status DC Colestipol HCl (Colestid) 1 gm BID@10,22 PO ; Start 04/05/19 at 13:00 Active Scripts Active Reported Proair Hfa Inhaler (Albuterol Sulfate) 8.5 Gm Hfa.aer.ad 1 Puff INH PRN Q6HRS PRN Losartan-Hctz 50-12.5 Mg Tab (Losartan/Hydrochlorothiazide) 1 Each Tablet 1 Each PO DAILY Metoprolol Tartrate 25 Mg Tablet 25 Mg PO BID Furosemide 20 Mg Tablet 20 Mg PO DAILY Isosorbide Mononitrate 10 Mg Tablet 10 Mg PO DAILY Amlodipine Besylate 10 Mg Tablet 10 Mg PO DAILY Tamsulosin Hcl 0.4 Mg Cap.er.24h 0.4 Mg PO DAILY Fish Oil ([place]-3 Fatty Acids) 500 Mg Capsule.dr 1,000 Mg PO DAILY Multi Vitamin Daily (Multivitamin) 1 Each Tablet 1 Each PO Symbicort 160-4.5 Mcg Inhaler (Budesonide/Formoterol Fumarate) 10.2 Gm Hfa.aer.ad 1 Puff IH BID Aspirin 81 Mg Tab.chew 325 Tab PO DAILY Losartan Potassium (Losartan Potassium) 25 Mg Tablet 1 Tab PO DAILY Allergies Allergies: Coded Allergies: No Known Drug Allergies (Unverified , 09/05/14) ROS Review of System 14 point review of systems reviewed with the patient is grossly negative other than as outlined in history of present illness. Physical Exam Physical Exam General Appearance: Awake Alert Oriented x 3 In no Distress Eyes: VIsion Unchanged Conjunctiva Normal EN: No EN Drainage Mucous Memb. moist Neck: no JVD no JVP Supple no Thyromegaly; short thick neck CVS: S1 S2 no Murmur No Gallop No Rub no Edema Resp: no Rales no Rhonchi no Acc. Muscle use GI: Bowel sounds are hypoactive NO Bruit Non Tender Non Distended, obese abdomen : no CVA tenderness; no Suprapubic Tenderness SKIN: no visible Rashes Breast Exam deferred Mu.Sk: Adequate ROM no Muscle Atrophy Heme: Unable to palpate Obvious LAD no palp Splenomegaly NEURO: Good Strength and Tone Cranial Nerves II - XII grossly intact Psych: not Depressed no Active hallucination Vital Signs Vital Signs Date Time Temp Pulse Resp B/P (MAP) Pulse Ox O2 Delivery O2 Flow Rate FiO2 04/05/19 11:54 66 105/58 04/05/19 11:00 97.9 17 97 Room Air 97.9 Assessment & Plan ARF: Differentials include sepsis associated with C. difficile colitis, volume depletion associated with diarrhea, allergic interstitial nephritis associated with recent antibiotic use cannot be ruled out. A low likelihood appears to be the possibility of ANCA vasculitis given his history of asthma. Current FLuid and E-lyte status does not necessitate emergent need for Dialysis. Will re- evaluate for Dialysis in am. Assess response to volume repletion. Hyponatremia: Continue with isotonic IV fluids as ordered Wide anion gap metabolic acidosis check phosphorus. Lactate is normal. Hypocalcemia: Patient is asymptomatic at this time. This corrects for low albumin. Severe intravascular volume depletion: IV fluids as ordered. Continue same her now. Oliguria: Urine output difficult to document in the setting of perfuse diarrhea hence Sharp catheter has been placed HTN: Current BP meds reviewed. See orders for changes. Discussed Plan of Care and prognosis etc. at length with family. Labs Labs Laboratory Tests Test 04/04/19 22:10 04/04/19 23:59 04/05/19 07:05 White Blood Count 20.4 x10^3/uL (4.0-11.0) Red Blood Count 5.00 x10^6/uL (4.30-5.70) Hemoglobin 14.7 g/dL (13.0-17.5) Hematocrit 44.6 % (39.0-53.0) Mean Corpuscular Volume 89 fL (79-100) Mean Corpuscular Hemoglobin 29 pg (25-35) Mean Corpuscular Hemoglobin Concent 33 g/dL (31-37) Red Cell Distribution Width 14.6 % (11.5-14.5) Platelet Count 232 x10^3/uL (140-400) Neutrophils (%) (Auto) 83 % (31-73) Lymphocytes (%) (Auto) 10 % (24-48) Monocytes (%) (Auto) 7 % (0-9) Eosinophils (%) (Auto) 0 % (0-3) Basophils (%) (Auto) 0 % (0-3) Neutrophils # (Auto) 17.0 x10^3uL (1.8-7.7) Lymphocytes # (Auto) 2.0 x10^3/uL (1.0-4.8) Monocytes # (Auto) 1.4 x10^3/uL (0.0-1.1) Eosinophils # (Auto) 0.0 x10^3/uL (0.0-0.7) Basophils # (Auto) 0.1 x10^3/uL (0.0-0.2) Segmented Neutrophils % 85 % (35-66) Lymphocytes % 8 % (24-48) Monocytes % 7 % (0-10) Toxic Vacuolation Slight Platelet Estimate Adequate (ADEQUATE) Prothrombin Time 16.7 SEC (11.7-14.0) Prothromb Time International Ratio 1.4 (0.8-1.1) Activated Partial Thromboplast Time 27 SEC (24-38) Sodium Level 128 mmol/L (136-145) 129 mmol/L (136-145) Potassium Level 4.6 mmol/L (3.5-5.1) 4.4 mmol/L (3.5-5.1) Chloride Level 94 mmol/L (98-107) 96 mmol/L (98-107) Carbon Dioxide Level 11 mmol/L (21-32) 12 mmol/L (21-32) Anion Gap 23 (6-14) 21 (6-14) Blood Urea Nitrogen 115 mg/dL (8-26) 113 mg/dL (8-26) Creatinine 9.8 mg/dL (0.7-1.3) 9.9 mg/dL (0.7-1.3) Estimated GFR (Cockcroft-Gault) 5.1 5.1 BUN/Creatinine Ratio 12 (6-20) Glucose Level 109 mg/dL (70-99) 101 mg/dL (70-99) Lactic Acid Level 1.5 mmol/L (0.4-2.0) Calcium Level 7.8 mg/dL (8.5-10.1) 7.5 mg/dL (8.5-10.1) Magnesium Level 2.4 mg/dL (1.8-2.4) Total Bilirubin 0.6 mg/dL (0.2-1.0) Aspartate Amino Transf (AST/SGOT) 19 U/L (15-37) Alanine Aminotransferase (ALT/SGPT) 21 U/L (16-63) Alkaline Phosphatase 62 U/L (46-116) Total Protein 5.4 g/dL (6.4-8.2) Albumin 2.1 g/dL (3.4-5.0) Albumin/Globulin Ratio 0.6 (1.0-1.7) Lipase 102 U/L (73-393) Stool Occult Blood Negative (NEG) Laboratory Tests Test 04/04/19 22:10 04/04/19 23:59 04/05/19 07:05 White Blood Count 20.4 x10^3/uL (4.0-11.0) Red Blood Count 5.00 x10^6/uL (4.30-5.70) Hemoglobin 14.7 g/dL (13.0-17.5) Hematocrit 44.6 % (39.0-53.0) Mean Corpuscular Volume 89 fL (79-100) Mean Corpuscular Hemoglobin 29 pg (25-35) Mean Corpuscular Hemoglobin Concent 33 g/dL (31-37) Red Cell Distribution Width 14.6 % (11.5-14.5) Platelet Count 232 x10^3/uL (140-400) Neutrophils (%) (Auto) 83 % (31-73) Lymphocytes (%) (Auto) 10 % (24-48) Monocytes (%) (Auto) 7 % (0-9) Eosinophils (%) (Auto) 0 % (0-3) Basophils (%) (Auto) 0 % (0-3) Neutrophils # (Auto) 17.0 x10^3uL (1.8-7.7) Lymphocytes # (Auto) 2.0 x10^3/uL (1.0-4.8) Monocytes # (Auto) 1.4 x10^3/uL (0.0-1.1) Eosinophils # (Auto) 0.0 x10^3/uL (0.0-0.7) Basophils # (Auto) 0.1 x10^3/uL (0.0-0.2) Segmented Neutrophils % 85 % (35-66) Lymphocytes % 8 % (24-48) Monocytes % 7 % (0-10) Toxic Vacuolation Slight Platelet Estimate Adequate (ADEQUATE) Prothrombin Time 16.7 SEC (11.7-14.0) Prothromb Time International Ratio 1.4 (0.8-1.1) Activated Partial Thromboplast Time 27 SEC (24-38) Sodium Level 128 mmol/L (136-145) 129 mmol/L (136-145) Potassium Level 4.6 mmol/L (3.5-5.1) 4.4 mmol/L (3.5-5.1) Chloride Level 94 mmol/L (98-107) 96 mmol/L (98-107) Carbon Dioxide Level 11 mmol/L (21-32) 12 mmol/L (21-32) Anion Gap 23 (6-14) 21 (6-14) Blood Urea Nitrogen 115 mg/dL (8-26) 113 mg/dL (8-26) Creatinine 9.8 mg/dL (0.7-1.3) 9.9 mg/dL (0.7-1.3) Estimated GFR (Cockcroft-Gault) 5.1 5.1 BUN/Creatinine Ratio 12 (6-20) Glucose Level 109 mg/dL (70-99) 101 mg/dL (70-99) Lactic Acid Level 1.5 mmol/L (0.4-2.0) Calcium Level 7.8 mg/dL (8.5-10.1) 7.5 mg/dL (8.5-10.1) Magnesium Level 2.4 mg/dL (1.8-2.4) Total Bilirubin 0.6 mg/dL (0.2-1.0) Aspartate Amino Transf (AST/SGOT) 19 U/L (15-37) Alanine Aminotransferase (ALT/SGPT) 21 U/L (16-63) Alkaline Phosphatase 62 U/L (46-116) Total Protein 5.4 g/dL (6.4-8.2) Albumin 2.1 g/dL (3.4-5.0) Albumin/Globulin Ratio 0.6 (1.0-1.7) Lipase 102 U/L (73-393) Stool Occult Blood Negative (NEG) Review All relevant outside records, renal labs, imaging studies, telemetry/EKG's were reviewed. Images Images US Impression: 1. There is no hydronephrosis of either kidney. Both kidneys are echogenic, may be seen with medical renal disease. 2. There is prostatomegaly. CT ABd/ Pelvias: IMPRESSION: Limited evaluation of solid abdominal and pelvic organs due to lack of IV contrast. 1. Long segment colitis. 2. Enlarged prostate. Clinically correlate with physical exam and PSA. 3. Left lower lobe triangular opacity, nonspecific and may be intrapulmonic lymph node. CT chest in 6 month recommended. ROSE DANIELS MD April 05, 2019 13:18
[2019-04-05 14:04] LABS: URIC ACID 14.8 mg/dL (3.5-7.2)
--- NOTE | 2019-04-05 14:24 | RAD ---
CHEST AP ONLY Clinical indications: Hypertension. COMPARISON: October 14, 2018. Findings: No acute lung infiltrate or pleural effusion or pulmonary edema or lung mass or pneumothorax is seen. The heart size, pulmonary vasculature, mediastinum and both hector are unremarkable. Impression: No acute radiographic abnormality is seen. Electronically signed by: Sb Vee MD (04/05/2019 2:21 PM) [facility]
[2019-04-05 15:00] VITALS: BP 112/57
--- NOTE | 2019-04-05 15:41 | EKG ---
[facility] [address] [place] [address] Test Date: 2019-04-05 Test Time: 15:19:55 Pat Name: SHAHEEN FORREST Department: Room: 444 Gender: M Fruit Sorter: : 1935 Requested By: CHRIS STEIN Order Number: [id number] Reading MD: Measurements Intervals [place] Rate: 95 P: 28 OK: 142 QRS: 54 QRSD: 88 T: 28 QT: 368 QTc: 466 Interpretive Statements SINUS RHYTHM ATRIAL PREMATURE COMPLEX(ES) OTHERWISE NORMAL ECG RI6.01 No previous ECG available for comparison
[2019-04-05 16:17] LABS: CLARITY,URINE TURBID; COLOR,URINE RED; PROTEIN,URINE 100 mg/dL (NEG-TRACE); UROBILINOGEN,URINE 0.2 mg/dL (0.2 mg/dL)
[2019-04-05 16:24] LABS: RBC,URINE TNTC /HPF (0-2)
[2019-04-05 16:27] LABS: BACTERIA,URINE 0 /HPF (0-FEW); HYALINE CASTS, URINE FEW /HPF; WBC,URINE >40 /HPF (0-4)
[2019-04-05 19:00] VITALS: BP 109/57
[2019-04-05 23:00] VITALS: BP 103/55
--- NOTE | 2019-04-06 02:28 | CONS ---
DATE OF CONSULTATION: 04/05/2019 REQUESTING PHYSICIAN: Dr. Oakley. REASON FOR CONSULTATION: C. diff. HISTORY OF PRESENT ILLNESS: This is an 83-year-old gentleman, who was admitted after having severe diarrhea and some abdominal pain. The patient says it started about a week or 10 days ago. The patient was seen by Dr. Oakley, diagnosed with C. diff, started on Flagyl and it continued to not get into control; hence, he came to the ER and admitted. The patient had a white count of 20,000, creatinine of 9.9 that is new with BUN 113 and bicarbonate was down to 11. The patient is put on vancomycin and Flagyl and Flagyl has been discontinued now. The patient is otherwise alert, awake. He denies any abdominal pain right now. He denies any chest pain, nausea, vomiting. Denies any headache, visual symptoms, fever or chills. PAST MEDICAL HISTORY: Positive for COPD, hyperlipidemia, hypertension, CVA, obesity, knee replacement done as well as cardiac stenting done, cataract extraction done, benign prostatic hypertrophy. SOCIAL HISTORY: Negative for smoking, alcohol, illicit drug use. ALLERGIES: No known drug allergies. CURRENT MEDICATIONS: Reviewed. REVIEW OF SYSTEMS: As per HPI, all other systems reviewed are negative. PHYSICAL EXAMINATION: GENERAL: Alert, oriented gentleman, not in distress. VITAL SIGNS: Stable, afebrile. HEENT: NAD. NECK: Supple. No JVP, no lymphadenopathy. LUNGS: Clear. HEART: S1, S2 regular. ABDOMEN: Slightly distended, no organomegaly appreciated. No rebound or guarding. EXTREMITIES: About 1+ to 2+ pitting edema present. No cyanosis. NEUROLOGICAL: The patient is alert, awake and appropriate. No focal neurologic deficit. LABORATORY DATA: White count is 20.4, BUN and creatinine is 113 and 9.9. Stool for C. diff was outpatient done, is not done here yet. CT of the abdomen and pelvis showed colitis and enlarged prostate. IMPRESSION: 1. Clostridium difficile colitis. 2. Leukocytosis. 3. Acute kidney injury. 4. Hypertension. 5. Obesity. 6. Cerebrovascular accident. RECOMMENDATIONS: We would continue with p.o. vancomycin. No need for Flagyl. Supportive care, hydration, monitoring of the WBC and we will continue to follow. Thank you very much, Dr. Oakley for giving me the opportunity to participate in this patient's care. LIZZIE DANIELS MD DR: FREDRICK/rhett JOB#: [id number] / [id number]
[2019-04-06 03:00] VITALS: BP 115/64
[2019-04-06 04:48] LABS: BASO % 0 % (0-3); EOS % 0 % (0-3); HEMATOCRIT 43.2 % (39.0-53.0); HEMOGLOBIN 14.3 g/dL (13.0-17.5); LYMPH # 1.5 x10^3/uL (1.0-4.8); LYMPH % 9 % (24-48); MEAN CORPUSCULAR HEMOGLOBIN 29 pg (25-35); MEAN CORPUSCULAR HGB CONC 33 g/dL (31-37); MEAN CORPUSCULAR VOLUME 88 fL (79-100); MONO % 6 % (0-9); NEUT # 13.8 x10^3uL (1.8-7.7); NEUT % 85 % (31-73); PLATELET COUNT 200 x10^3/uL (140-400); RED BLOOD COUNT 4.88 x10^6/uL (4.30-5.70); RED CELL DISTRIBUTION WIDTH 14.1 % (11.5-14.5); WHITE BLOOD COUNT 16.3 x10^3/uL (4.0-11.0)
[2019-04-06 05:24] LABS: ALBUMIN 1.9 g/dL (3.4-5.0); CALCIUM 7.2 mg/dL (8.5-10.1); CREATININE 9.5 mg/dL (0.7-1.3); GFR 5.3; MAGNESIUM 2.2 mg/dL (1.8-2.4); POTASSIUM 3.6 mmol/L (3.5-5.1)
[2019-04-06] MEDS: SODIUM BICARBONATE VIAL 100 MEQ in IV 1/2 NORMAL SALINE 1,000 ML IV SCH ×2 (06:23→15:05)
[2019-04-06 07:00] VITALS: BP 114/57
[2019-04-06] MEDS: IPRATRPIUM/ALBUTEROL 0.5/2.5MG 3 ML NEBU. NEB SCH ×4 (08:29→20:00)
--- NOTE | 2019-04-06 08:33 | PDOC ---
PROGRESS NOTES Subjective Subjective last BM 3 PM yesterday per patient. passing gas.. no nausea or vomiting or abdominal pain. afebrile. stool neg for c. diff but positive in office. lab reviewed. renal function the same. still with metabolic acidosis. 400 cc urine output. wbc better 16K. Objective Objective Vital Signs Date Time Temp Pulse Resp B/P (MAP) Pulse Ox O2 Delivery O2 Flow Rate FiO2 04/06/19 03:00 98.1 108 17 115/64 (81) 96 Room Air 98.1 Intake and Output 04/06/19 06:59 Intake Total 440 ml Output Total 400 ml Balance 40 ml Intake Oral 440 ml Output Urine Total 400 ml # Voids 1 # Bowel Movements 3 Physical Exam Abdomen: Soft, Other (mild tenderness LUQ. no rebound. obese and soft) Heart: Regular rate, Normal S1, Normal S2 Extremities: No edema General: Alert HEENT: Atraumatic Lungs: Clear to auscultation Neuro: Normal speech Psych/Mental Status: Mental status NL Skin: No rashes Assessment Assessment Problems1. Clostridium difficile colitis. stool for c. diff positive in office and neg in hospital 2. Acute kidney injury, most likely secondary to intravascular volume depletion from the diarrhea and also contributing could be the nonsteroidal anti-inflammatory drug that he took at home and also the losartan. 3. Hyponatremia. 4. Metabolic acidosis secondary to the diarrhea and acute kidney injury. 5. History of hypertension. 6. Hyperlipidemia. 7. Coronary artery disease. 8. Asthma. 9. Morbid obesity. 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 Labs Laboratory Tests Test 04/04/19 22:10 04/04/19 23:59 04/05/19 07:05 04/05/19 15:30 White Blood Count 20.4 x10^3/uL (4.0-11.0) Red Blood Count 5.00 x10^6/uL (4.30-5.70) Hemoglobin 14.7 g/dL (13.0-17.5) Hematocrit 44.6 % (39.0-53.0) Mean Corpuscular Volume 89 fL (79-100) Mean Corpuscular Hemoglobin 29 pg (25-35) Mean Corpuscular Hemoglobin Concent 33 g/dL (31-37) Red Cell Distribution Width 14.6 % (11.5-14.5) Platelet Count 232 x10^3/uL (140-400) Neutrophils (%) (Auto) 83 % (31-73) Lymphocytes (%) (Auto) 10 % (24-48) Monocytes (%) (Auto) 7 % (0-9) Eosinophils (%) (Auto) 0 % (0-3) Basophils (%) (Auto) 0 % (0-3) Neutrophils # (Auto) 17.0 x10^3uL (1.8-7.7) Lymphocytes # (Auto) 2.0 x10^3/uL (1.0-4.8) Monocytes # (Auto) 1.4 x10^3/uL (0.0-1.1) Eosinophils # (Auto) 0.0 x10^3/uL (0.0-0.7) Basophils # (Auto) 0.1 x10^3/uL (0.0-0.2) Segmented Neutrophils % 85 % (35-66) Lymphocytes % 8 % (24-48) Monocytes % 7 % (0-10) Toxic Vacuolation Slight Platelet Estimate Adequate (ADEQUATE) Prothrombin Time 16.7 SEC (11.7-14.0) Prothromb Time International Ratio 1.4 (0.8-1.1) Activated Partial Thromboplast Time 27 SEC (24-38) Sodium Level 128 mmol/L (136-145) 129 mmol/L (136-145) Potassium Level 4.6 mmol/L (3.5-5.1) 4.4 mmol/L (3.5-5.1) Chloride Level 94 mmol/L (98-107) 96 mmol/L (98-107) Carbon Dioxide Level 11 mmol/L (21-32) 12 mmol/L (21-32) Anion Gap 23 (6-14) 21 (6-14) Blood Urea Nitrogen 115 mg/dL (8-26) 113 mg/dL (8-26) Creatinine 9.8 mg/dL (0.7-1.3) 9.9 mg/dL (0.7-1.3) Estimated GFR (Cockcroft-Gault) 5.1 5.1 BUN/Creatinine Ratio 12 (6-20) Glucose Level 109 mg/dL (70-99) 101 mg/dL (70-99) Lactic Acid Level 1.5 mmol/L (0.4-2.0) Calcium Level 7.8 mg/dL (8.5-10.1) 7.5 mg/dL (8.5-10.1) Magnesium Level 2.4 mg/dL (1.8-2.4) Total Bilirubin 0.6 mg/dL (0.2-1.0) Aspartate Amino Transf (AST/SGOT) 19 U/L (15-37) Alanine Aminotransferase (ALT/SGPT) 21 U/L (16-63) Alkaline Phosphatase 62 U/L (46-116) Total Protein 5.4 g/dL (6.4-8.2) Albumin 2.1 g/dL (3.4-5.0) Albumin/Globulin Ratio 0.6 (1.0-1.7) Lipase 102 U/L (73-393) Stool Occult Blood Negative (NEG) Clostridium difficile Toxin B Gene Negative (Negative) Uric Acid 14.8 mg/dL (3.5-7.2) Creatine Kinase 65 U/L (39-308) Urine Collection Type Unknown Urine Color Red Urine Clarity Turbid Urine pH 5.0 Urine Specific [place] 1.015 Urine Protein 100 mg/dL (NEG-TRACE) Urine Glucose (UA) Negative mg/dL (NEG) Urine Ketones (Stick) 15 mg/dL (NEG) Urine Blood Large (NEG) Urine Nitrite (NEG) Urine Bilirubin (NEG) Urine Urobilinogen Dipstick 0.2 mg/dL (0.2 mg/dL) Urine Leukocyte Esterase Large (NEG) Urine RBC Tntc /HPF (0-2) Urine WBC >40 /HPF (0-4) Urine Bacteria 0 /HPF (0-FEW) Urine Hyaline Casts Few /HPF Test 04/06/19 03:55 White Blood Count 16.3 x10^3/uL (4.0-11.0) Red Blood Count 4.88 x10^6/uL (4.30-5.70) Hemoglobin 14.3 g/dL (13.0-17.5) Hematocrit 43.2 % (39.0-53.0) Mean Corpuscular Volume 88 fL (79-100) Mean Corpuscular Hemoglobin 29 pg (25-35) Mean Corpuscular Hemoglobin Concent 33 g/dL (31-37) Red Cell Distribution Width 14.1 % (11.5-14.5) Platelet Count 200 x10^3/uL (140-400) Neutrophils (%) (Auto) 85 % (31-73) Lymphocytes (%) (Auto) 9 % (24-48) Monocytes (%) (Auto) 6 % (0-9) Eosinophils (%) (Auto) 0 % (0-3) Basophils (%) (Auto) 0 % (0-3) Neutrophils # (Auto) 13.8 x10^3uL (1.8-7.7) Lymphocytes # (Auto) 1.5 x10^3/uL (1.0-4.8) Monocytes # (Auto) 1.0 x10^3/uL (0.0-1.1) Eosinophils # (Auto) 0.0 x10^3/uL (0.0-0.7) Basophils # (Auto) 0.0 x10^3/uL (0.0-0.2) Sodium Level 131 mmol/L (136-145) Potassium Level 3.6 mmol/L (3.5-5.1) Chloride Level 95 mmol/L (98-107) Carbon Dioxide Level 14 mmol/L (21-32) Anion Gap 22 (6-14) Blood Urea Nitrogen 110 mg/dL (8-26) Creatinine 9.5 mg/dL (0.7-1.3) Estimated GFR (Cockcroft-Gault) 5.3 Glucose Level 88 mg/dL (70-99) Calcium Level 7.2 mg/dL (8.5-10.1) Phosphorus Level 9.0 mg/dL (2.6-4.7) Magnesium Level 2.2 mg/dL (1.8-2.4) Albumin 1.9 g/dL (3.4-5.0) Laboratory Tests Test 04/05/19 15:30 04/06/19 03:55 Urine Collection Type Unknown Urine Color Red Urine Clarity Turbid Urine pH 5.0 Urine Specific [place] 1.015 Urine Protein 100 mg/dL (NEG-TRACE) Urine Glucose (UA) Negative mg/dL (NEG) Urine Ketones (Stick) 15 mg/dL (NEG) Urine Blood Large (NEG) Urine Nitrite (NEG) Urine Bilirubin (NEG) Urine Urobilinogen Dipstick 0.2 mg/dL (0.2 mg/dL) Urine Leukocyte Esterase Large (NEG) Urine RBC Tntc /HPF (0-2) Urine WBC >40 /HPF (0-4) Urine Bacteria 0 /HPF (0-FEW) Urine Hyaline Casts Few /HPF White Blood Count 16.3 x10^3/uL (4.0-11.0) Red Blood Count 4.88 x10^6/uL (4.30-5.70) Hemoglobin 14.3 g/dL (13.0-17.5) Hematocrit 43.2 % (39.0-53.0) Mean Corpuscular Volume 88 fL (79-100) Mean Corpuscular Hemoglobin 29 pg (25-35) Mean Corpuscular Hemoglobin Concent 33 g/dL (31-37) Red Cell Distribution Width 14.1 % (11.5-14.5) Platelet Count 200 x10^3/uL (140-400) Neutrophils (%) (Auto) 85 % (31-73) Lymphocytes (%) (Auto) 9 % (24-48) Monocytes (%) (Auto) 6 % (0-9) Eosinophils (%) (Auto) 0 % (0-3) Basophils (%) (Auto) 0 % (0-3) Neutrophils # (Auto) 13.8 x10^3uL (1.8-7.7) Lymphocytes # (Auto) 1.5 x10^3/uL (1.0-4.8) Monocytes # (Auto) 1.0 x10^3/uL (0.0-1.1) Eosinophils # (Auto) 0.0 x10^3/uL (0.0-0.7) Basophils # (Auto) 0.0 x10^3/uL (0.0-0.2) Sodium Level 131 mmol/L (136-145) Potassium Level 3.6 mmol/L (3.5-5.1) Chloride Level 95 mmol/L (98-107) Carbon Dioxide Level 14 mmol/L (21-32) Anion Gap 22 (6-14) Blood Urea Nitrogen 110 mg/dL (8-26) Creatinine 9.5 mg/dL (0.7-1.3) Estimated GFR (Cockcroft-Gault) 5.3 Glucose Level 88 mg/dL (70-99) Calcium Level 7.2 mg/dL (8.5-10.1) Phosphorus Level 9.0 mg/dL (2.6-4.7) Magnesium Level 2.2 mg/dL (1.8-2.4) Albumin 1.9 g/dL (3.4-5.0) Medications Current Medications Sodium Chloride 1,000 ml @ 1,000 mls/hr 1X ONCE IV Last administered on 04/04/19at 22:55; Start 04/04/19 at 23:00; Stop 04/04/19 at 23:59; Status DC Vancomycin HCl (Vancomycin Oral Solution) 125 mg 1X ONCE PO Last administered on 04/04/19at 23:51; Start 04/05/19 at 00:00; Stop 04/05/19 at 00:01; Status DC Ondansetron HCl (Zofran) 4 mg PRN Q8HRS PRN IV NAUSEA/VOMITING 1ST CHOICE; Start 04/04/19 at 23:45; Stop 04/05/19 at 13:24; Status DC Fentanyl Citrate (Fentanyl 2ml Vial) 25 mcg PRN Q2HRS PRN IV SEVERE PAIN; Start 04/04/19 at 23:45; Stop 04/05/19 at 11:21; Status DC Vancomycin HCl (Vancomycin Oral Solution) 125 mg [id number] PO Last administered on 04/05/19at 08:04; Start 04/05/19 at 09:00; Stop 04/05/19 at 11:24; Status DC Sodium Bicarbonate 100 meq/Sodium Chloride 1,100 ml @ 125 mls/hr Q8H48M IV Last administered on 04/05/19at 08:05; Start 04/05/19 at 00:00; Stop 04/05/19 at 15:59; Status DC Sodium Bicarbonate 100 meq/Sodium Chloride 1,100 ml @ 150 mls/hr Q7H20M IV Last administered on 04/06/19at 06:23; Start 04/05/19 at 16:00 Fentanyl Citrate (Fentanyl 2ml Vial) 25 mcg PRN Q4HRS PRN IV MODERATE TO SEVERE PAIN; Start 04/05/19 at 11:15 Vancomycin HCl (Vancomycin Oral Solution) 125 mg [id number] PO Last administered on 04/05/19at 21:29; Start 04/05/19 at 13:00 Tamsulosin HCl (Flomax) 0.4 mg DAILY PO Last administered on 04/05/19at 11:53; Start 04/05/19 at 12:30 Metoprolol Succinate (Toprol Xl) 25 mg DAILY PO ; Start 04/05/19 at 12:30 Isosorbide Mononitrate (Imdur) 30 mg DAILY PO ; Start 04/05/19 at 12:30 Nystatin (Nystop) 1 dionna BID TP Last administered on 04/05/19at 21:28; Start 04/05/19 at 12:30 Ondansetron HCl (Zofran) 4 mg PRN Q6HRS PRN IV NAUSEA/VOMITING; Start 04/05/19 at 11:15 Albuterol/ Ipratropium (Duoneb) 3 ml RTQID NEB Last administered on 04/05/19at 21:03; Start 04/05/19 at 12:00 Acetaminophen (Tylenol) 325 mg PRN Q6HRS PRN PO MILD PAIN / TEMP; Start 04/05/19 at 11:15 Lidocaine HCl (Glydo (Lidocaine) Jelly) 1 dionna 1X ONCE MM Last administered on 04/05/19at 12:54; Start 04/05/19 at 11:45; Stop 04/05/19 at 11:46; Status DC Metronidazole 100 ml @ 100 mls/hr Q8HRS IV ; Start 04/05/19 at 12:30; Stop 04/05/19 at 12:30; Status DC Vancomycin HCl (Vancomycin Oral Solution) 125 mg [id number] PO ; Start 04/05/19 at 13:00; Stop 04/05/19 at 13:00; Status DC Colestipol HCl (Colestid) 1 gm BID@10,22 PO Last administered on 04/05/19at 22:53; Start 04/05/19 at 13:00 Sodium Chloride 500 ml @ 0 mls/hr PRN QID PRN IV UO< 30cc/hr over previous 6hrs; Start 04/05/19 at 13:15 Magnesium Sulfate 50 ml @ 25 mls/hr PRN DAILY PRN IV for Mag < 1.7 on am labs; Start 04/05/19 at 13:15 Active Scripts Active Reported Proair Hfa Inhaler (Albuterol Sulfate) 8.5 Gm Hfa.aer.ad 1 Puff INH PRN Q6HRS PRN Losartan-Hctz 50-12.5 Mg Tab (Losartan/Hydrochlorothiazide) 1 Each Tablet 1 Each PO DAILY Metoprolol Tartrate 25 Mg Tablet 25 Mg PO BID Furosemide 20 Mg Tablet 20 Mg PO DAILY Isosorbide Mononitrate 10 Mg Tablet 10 Mg PO DAILY Amlodipine Besylate 10 Mg Tablet 10 Mg PO DAILY Tamsulosin Hcl 0.4 Mg Cap.er.24h 0.4 Mg PO DAILY Fish Oil ([place]-3 Fatty Acids) 500 Mg Capsule.dr 1,000 Mg PO DAILY Multi Vitamin Daily (Multivitamin) 1 Each Tablet 1 Each PO Symbicort 160-4.5 Mcg Inhaler (Budesonide/Formoterol Fumarate) 10.2 Gm Hfa.aer.ad 1 Puff IH BID Aspirin 81 Mg Tab.chew 325 Tab PO DAILY Losartan Potassium (Losartan Potassium) 25 Mg Tablet 1 Tab PO DAILY Vitals/I & O Vital Sign - Last 24 Hours 04/05/19 04/05/19 04/05/19 04/05/19 11:00 11:54 11:54 15:00 Temp 97.9 97.7 97.9 97.7 Pulse 66 66 66 75 Resp 17 17 B/P (MAP) 105/58 (74) 105/58 105/58 112/57 (75) Pulse Ox 97 97 O2 Delivery Room Air Room Air 04/05/19 04/05/19 04/05/19 04/05/19 15:26 19:00 20:00 21:04 Temp 97.5 97.5 Pulse 84 Resp 17 B/P (MAP) 109/57 (74) Pulse Ox 92 97 O2 Delivery Room Air Room Air Room Air Room Air 04/05/19 04/06/19 23:00 03:00 Temp 98.0 98.1 98.0 98.1 Pulse 101 108 Resp 17 17 B/P (MAP) 103/55 (71) 115/64 (81) Pulse Ox 97 96 O2 Delivery Room Air Room Air Intake and Output 04/05/19 04/05/19 04/06/19 14:59 22:59 06:59 Intake Total 440 ml Output Total 400 ml Balance 440 ml -400 ml CHRIS STEIN MD April 06, 2019 08:33
[2019-04-06] MEDS: METOPROLOL SUCC 24HR ER 25 MG TAB.ER.24H. PO SCH (09:00)
[2019-04-06] MEDS: NYSTATIN TOPICAL POWDER 15GM BOTTLE. TP SCH ×2 (09:00→20:55)
[2019-04-06] MEDS ORDERED: PHYTONADIONE 10 MG/ML ORAL SOLUTION. PO ONE (09:30)
[2019-04-06 09:35] LABS: PROTHROMBIN TIME PATIENT 17.2 SEC (11.7-14.0)
--- NOTE | 2019-04-06 09:49 | PDOC ---
SUBJECTIVE ROS Follow-up for acute kidney injury Patient claims is feeling good overall. No further diarrhea currently. Sharp catheter in place now. CVS: no Orthopnea, no CP RESP: no SOB, no SULLIVAN GI: no Nausea, no Vomiting : no Dysuria, no Urgency OBJECTIVE Vital Signs Vital Signs Date Time Temp Pulse Resp B/P (MAP) Pulse Ox O2 Delivery O2 Flow Rate FiO2 04/06/19 08:29 96 Room Air 04/06/19 07:00 98.2 97 16 114/57 (76) 98.2 I & 0 Intake and Output 04/06/19 07:00 Intake Total 440 ml Output Total 400 ml Balance 40 ml Intake Oral 440 ml Output Urine Total 400 ml # Voids 1 # Bowel Movements 3 PHYSICAL EXAM Physical Exam General Appearance: Awake Alert Oriented x 3 In no Distress Eyes: VIsion Unchanged Conjunctiva Normal EN: No EN Drainage Mucous Memb. moist Neck: no JVD no JVP Supple no Thyromegaly; short thick neck CVS: S1 S2 no Murmur No Gallop No Rub no Edema Resp: no Rales no Rhonchi no Acc. Muscle use GI: Bowel sounds are hypoactive NO Bruit Non Tender Non Distended, obese abdomen : no CVA tenderness; no Suprapubic Tenderness SKIN: no visible Rashes Breast Exam deferred Mu.Sk: Adequate ROM no Muscle Atrophy Heme: Unable to palpate Obvious LAD no palp Splenomegaly NEURO: Good Strength and Tone Cranial Nerves II - XII grossly intact Psych: not Depressed no Active hallucination Assessment & Plan ARF: Differentials include sepsis associated with C. difficile colitis, volume depletion associated with diarrhea, allergic interstitial nephritis associated with recent antibiotic use cannot be ruled out. A low likelihood appears to be the possibility of ANCA vasculitis given his history of asthma. Current FLuid and E-lyte status does not necessitate emergent need for Dialysis. Will re- evaluate for Dialysis in am. Assess response to volume repletion. Hematuria: Clear to Me If This Is Due To His Prostate Is Due To Possible Vasculitic Process. Serologies As Ordered. Check Sedimentation Rate. If Sedimentation Rate Is Elevated I Have a Low Suspicion for a Kidney Biopsy Especially since He Has Not Responded to IV Fluids Alone yet. Hyponatremia: Improving with isotonic IV fluids as ordered Wide anion gap metabolic acidosis suspect early due to elevated phosphorus. Lactate is normal. Hyperphosphatemia: Start calcium based binder Hypocalcemia: Patient is asymptomatic at this time. This corrects for low albumin. Elevated phosphorus may be contributed to the same also Severe intravascular volume depletion: IV fluids as ordered. Continue same for now. Oliguria: Urine output picking up now. May need IV albumin also for volume repletion HTN: Current BP meds reviewed. See orders for changes. History of BPH: May have contributed to hematuria while Sharp was placed. Remains on Flomax for now. Urine does appears somewhat dark and concentrated, hence continue IV fluids another day Marginally elevated INR: We'll use vitamin K PO 1 given recent C. difficile and antibiotic use Discussed Plan of Care and prognosis etc. at length with patient regarding possible need for upcoming dialysis and/or kidney biopsy. COMMENT/RELEVANT DATA Meds Current Medications Medications (Trade) Dose Ordered Sig/Adri Start Time Stop Time Status Last Admin Dose Admin Acetaminophen (Tylenol) 325 mg PRN Q6HRS PRN 04/05/19 11:15 Albuterol/ Ipratropium (Duoneb) 3 ml RTQID 04/05/19 12:00 04/06/19 08:29 3 ML Colestipol HCl (Colestid) 1 gm BID@10,22 04/05/19 13:00 04/05/19 22:53 1 GM Fentanyl Citrate (Fentanyl 2ml Vial) 25 mcg PRN Q4HRS PRN 04/05/19 11:15 Isosorbide Mononitrate (Imdur) 30 mg DAILY 04/05/19 12:30 Lidocaine HCl (Glydo (Lidocaine) Jelly) 1 dionna 1X ONCE 04/05/19 11:45 04/05/19 11:46 DC 04/05/19 12:54 1 DIONNA Magnesium Sulfate 50 ml @ 25 mls/hr PRN DAILY PRN 04/05/19 13:15 Metoprolol Succinate (Toprol Xl) 25 mg DAILY 04/05/19 12:30 Metronidazole 100 ml @ 100 mls/hr Q8HRS 04/05/19 12:30 04/05/19 12:30 DC Nystatin (Nystop) 1 dionna BID 04/05/19 12:30 04/05/19 21:28 1 DIONNA Ondansetron HCl (Zofran) 4 mg PRN Q6HRS PRN 04/05/19 11:15 Phytonadione (Mephyton Oral Soln) 5 mg 1X ONCE 04/06/19 09:30 04/06/19 09:31 DC Sodium Bicarbonate 100 meq/Sodium Chloride 1,100 ml @ 125 mls/hr Q8H48M 04/05/19 16:00 04/06/19 06:23 150 MLS/HR Sodium Bicarbonate (Sodium Bicarb Adult 8.4% Syr) 50 meq Q2H 04/06/19 09:30 04/06/19 11:31 Sodium Chloride 500 ml @ 0 mls/hr PRN QID PRN 04/05/19 13:15 Tamsulosin HCl (Flomax) 0.4 mg DAILY 04/05/19 12:30 04/05/19 11:53 0.4 MG Vancomycin HCl (Vancomycin Oral Solution) 125 mg [id number] 04/05/19 13:00 04/05/19 13:00 DC Lab Laboratory Tests Test 04/05/19 15:30 04/06/19 03:55 Urine Collection Type Unknown Urine Color Red Urine Clarity Turbid Urine pH 5.0 Urine Specific [place] 1.015 Urine Protein 100 mg/dL (NEG-TRACE) Urine Glucose (UA) Negative mg/dL (NEG) Urine Ketones (Stick) 15 mg/dL (NEG) Urine Blood Large (NEG) Urine Nitrite (NEG) Urine Bilirubin (NEG) Urine Urobilinogen Dipstick 0.2 mg/dL (0.2 mg/dL) Urine Leukocyte Esterase Large (NEG) Urine RBC Tntc /HPF (0-2) Urine WBC >40 /HPF (0-4) Urine Bacteria 0 /HPF (0-FEW) Urine Hyaline Casts Few /HPF White Blood Count 16.3 x10^3/uL (4.0-11.0) Red Blood Count 4.88 x10^6/uL (4.30-5.70) Hemoglobin 14.3 g/dL (13.0-17.5) Hematocrit 43.2 % (39.0-53.0) Mean Corpuscular Volume 88 fL (79-100) Mean Corpuscular Hemoglobin 29 pg (25-35) Mean Corpuscular Hemoglobin Concent 33 g/dL (31-37) Red Cell Distribution Width 14.1 % (11.5-14.5) Platelet Count 200 x10^3/uL (140-400) Neutrophils (%) (Auto) 85 % (31-73) Lymphocytes (%) (Auto) 9 % (24-48) Monocytes (%) (Auto) 6 % (0-9) Eosinophils (%) (Auto) 0 % (0-3) Basophils (%) (Auto) 0 % (0-3) Neutrophils # (Auto) 13.8 x10^3uL (1.8-7.7) Lymphocytes # (Auto) 1.5 x10^3/uL (1.0-4.8) Monocytes # (Auto) 1.0 x10^3/uL (0.0-1.1) Eosinophils # (Auto) 0.0 x10^3/uL (0.0-0.7) Basophils # (Auto) 0.0 x10^3/uL (0.0-0.2) Sodium Level 131 mmol/L (136-145) Potassium Level 3.6 mmol/L (3.5-5.1) Chloride Level 95 mmol/L (98-107) Carbon Dioxide Level 14 mmol/L (21-32) Anion Gap 22 (6-14) Blood Urea Nitrogen 110 mg/dL (8-26) Creatinine 9.5 mg/dL (0.7-1.3) Estimated GFR (Cockcroft-Gault) 5.3 Glucose Level 88 mg/dL (70-99) Calcium Level 7.2 mg/dL (8.5-10.1) Phosphorus Level 9.0 mg/dL (2.6-4.7) Magnesium Level 2.2 mg/dL (1.8-2.4) Albumin 1.9 g/dL (3.4-5.0) Results All relevant outside records, renal labs, imaging studies, telemetry/EKG's were reviewed. ROSE DANIELS MD April 06, 2019 09:49
[2019-04-06] MEDS: TAMSULOSIN 0.4 MG CAP.ER.24H. PO SCH (09:56)
[2019-04-06] MEDS: ISOSORBIDE MONONITRATE ER 30 MG TAB.ER.24H PO SCH (09:58)
[2019-04-06] MEDS: VANCOMYCIN 125 MG/2.5 ML ORAL SOLUTION. PO SCH ×4 (10:00→20:54)
--- NOTE | 2019-04-06 10:53 | PDOC ---
Infectious Disease Note Subjective: Subjective pt is doing ok no n/v/abdo pain loose bm is improving in frequency d/w RN ROS: ROS Negative except for above. Vital Signs: Vital Signs Vital Signs Date Time Temp Pulse Resp B/P (MAP) Pulse Ox O2 Delivery O2 Flow Rate FiO2 04/06/19 09:58 97 114/57 04/06/19 08:29 96 Room Air 04/06/19 07:00 98.2 16 98.2 Physical Exam: PHYSICAL EXAM HEENT: alert awake, no icterus NECK: Supple. No JVP, no lymphadenopathy. LUNGS: Clear. HEART: S1, S2 regular. ABDOMEN: Slightly distended, no organomegaly appreciated. No rebound or guarding. EXTREMITIES: About 1+ to 2+ pitting edema present. No cyanosis. NEUROLOGICAL: The patient is alert, awake and appropriate. No focal neurologic deficit. Medications: Inpatient Meds: Current Medications Medications (Trade) Dose Ordered Sig/Adri Start Time Stop Time Status Last Admin Dose Admin Acetaminophen (Tylenol) 325 mg PRN Q6HRS PRN 04/05/19 11:15 Albuterol/ Ipratropium (Duoneb) 3 ml RTQID 04/05/19 12:00 04/06/19 08:29 3 ML Calcium Acetate (Phoslo) 1,334 mg [id number] 04/06/19 12:00 Colestipol HCl (Colestid) 1 gm BID@10,22 04/05/19 13:00 04/05/19 22:53 1 GM Fentanyl Citrate (Fentanyl 2ml Vial) 25 mcg PRN Q4HRS PRN 04/05/19 11:15 Isosorbide Mononitrate (Imdur) 30 mg DAILY 04/05/19 12:30 04/06/19 09:58 30 MG Lidocaine HCl (Glydo (Lidocaine) Jelly) 1 dionna 1X ONCE 04/05/19 11:45 04/05/19 11:46 DC 04/05/19 12:54 1 DIONNA Magnesium Sulfate 50 ml @ 25 mls/hr PRN DAILY PRN 04/05/19 13:15 Metoprolol Succinate (Toprol Xl) 25 mg DAILY 04/05/19 12:30 Metronidazole 100 ml @ 100 mls/hr Q8HRS 04/05/19 12:30 04/05/19 12:30 DC Nystatin (Nystop) 1 dionna BID 04/05/19 12:30 04/06/19 09:00 1 DIONNA Ondansetron HCl (Zofran) 4 mg PRN Q6HRS PRN 04/05/19 11:15 Phytonadione (Mephyton Oral Soln) 5 mg 1X ONCE 04/06/19 09:30 04/06/19 09:31 DC 04/06/19 10:00 5 MG Sodium Bicarbonate 100 meq/Sodium Chloride 1,100 ml @ 125 mls/hr Q8H48M 04/05/19 16:00 04/06/19 06:23 150 MLS/HR Sodium Bicarbonate (Sodium Bicarb Adult 8.4% Syr) 50 meq Q2H 04/06/19 09:30 04/06/19 11:31 Sodium Chloride 500 ml @ 0 mls/hr PRN QID PRN 04/05/19 13:15 Tamsulosin HCl (Flomax) 0.4 mg DAILY 04/05/19 12:30 04/06/19 09:56 0.4 MG Vancomycin HCl (Vancomycin Oral Solution) 125 mg [id number] 04/05/19 13:00 04/05/19 13:00 DC Labs: Lab Laboratory Tests Test 04/05/19 15:30 04/06/19 03:55 04/06/19 09:00 Urine Collection Type Unknown Urine Color Red Urine Clarity Turbid Urine pH 5.0 Urine Specific [place] 1.015 Urine Protein 100 mg/dL (NEG-TRACE) Urine Glucose (UA) Negative mg/dL (NEG) Urine Ketones (Stick) 15 mg/dL (NEG) Urine Blood Large (NEG) Urine Nitrite (NEG) Urine Bilirubin (NEG) Urine Urobilinogen Dipstick 0.2 mg/dL (0.2 mg/dL) Urine Leukocyte Esterase Large (NEG) Urine RBC Tntc /HPF (0-2) Urine WBC >40 /HPF (0-4) Urine Bacteria 0 /HPF (0-FEW) Urine Hyaline Casts Few /HPF White Blood Count 16.3 x10^3/uL (4.0-11.0) Red Blood Count 4.88 x10^6/uL (4.30-5.70) Hemoglobin 14.3 g/dL (13.0-17.5) Hematocrit 43.2 % (39.0-53.0) Mean Corpuscular Volume 88 fL (79-100) Mean Corpuscular Hemoglobin 29 pg (25-35) Mean Corpuscular Hemoglobin Concent 33 g/dL (31-37) Red Cell Distribution Width 14.1 % (11.5-14.5) Platelet Count 200 x10^3/uL (140-400) Neutrophils (%) (Auto) 85 % (31-73) Lymphocytes (%) (Auto) 9 % (24-48) Monocytes (%) (Auto) 6 % (0-9) Eosinophils (%) (Auto) 0 % (0-3) Basophils (%) (Auto) 0 % (0-3) Neutrophils # (Auto) 13.8 x10^3uL (1.8-7.7) Lymphocytes # (Auto) 1.5 x10^3/uL (1.0-4.8) Monocytes # (Auto) 1.0 x10^3/uL (0.0-1.1) Eosinophils # (Auto) 0.0 x10^3/uL (0.0-0.7) Basophils # (Auto) 0.0 x10^3/uL (0.0-0.2) Sodium Level 131 mmol/L (136-145) Potassium Level 3.6 mmol/L (3.5-5.1) Chloride Level 95 mmol/L (98-107) Carbon Dioxide Level 14 mmol/L (21-32) Anion Gap 22 (6-14) Blood Urea Nitrogen 110 mg/dL (8-26) Creatinine 9.5 mg/dL (0.7-1.3) Estimated GFR (Cockcroft-Gault) 5.3 Glucose Level 88 mg/dL (70-99) Calcium Level 7.2 mg/dL (8.5-10.1) Phosphorus Level 9.0 mg/dL (2.6-4.7) Magnesium Level 2.2 mg/dL (1.8-2.4) Albumin 1.9 g/dL (3.4-5.0) Prothrombin Time 17.2 SEC (11.7-14.0) Prothromb Time International Ratio 1.4 (0.8-1.1) Activated Partial Thromboplast Time 31 SEC (24-38) Objective: Assessment: 1. Clostridium difficile colitis. 2. Leukocytosis.from above,improving 3. Acute kidney injury ,metabolic acidosis 4. Hypertension. 5. Obesity. 6. Cerebrovascular accident. Plan: Plan of Care continue with p.o. vancomycin. Supportive care, maintain hydration, monitoring of the WBC and electrolytes KELY DANIELS MD April 06, 2019 10:53
[2019-04-06 11:00] VITALS: BP 117/55
[2019-04-06] MEDS: COLESTIPOL HCL 1 GM TABLET PO SCH ×2 (11:28→22:22)
[2019-04-06] MEDS: SODIUM BICARB ADULT 8.4% 50 MEQ/50 ML DISP.SYRIN. IV SCH ×2 (11:29→13:17)
[2019-04-06] MEDS: CALCIUM ACETATE 667 MG CAPSULE PO SCH ×2 (13:13→16:30)
--- NOTE | 2019-04-06 14:39 | PDOC ---
G I PROGRESS NOTE Subjective Asleep, not awakened. Objective Others' notes reviewed. Diarrhea apparently better. Physical Exam No PE. Review of Relevant I have reviewed the following items arnav (where applicable) has been applied. Labs Laboratory Tests Test 04/04/19 22:10 04/04/19 23:59 04/05/19 07:05 04/05/19 15:30 White Blood Count 20.4 x10^3/uL (4.0-11.0) Red Blood Count 5.00 x10^6/uL (4.30-5.70) Hemoglobin 14.7 g/dL (13.0-17.5) Hematocrit 44.6 % (39.0-53.0) Mean Corpuscular Volume 89 fL (79-100) Mean Corpuscular Hemoglobin 29 pg (25-35) Mean Corpuscular Hemoglobin Concent 33 g/dL (31-37) Red Cell Distribution Width 14.6 % (11.5-14.5) Platelet Count 232 x10^3/uL (140-400) Neutrophils (%) (Auto) 83 % (31-73) Lymphocytes (%) (Auto) 10 % (24-48) Monocytes (%) (Auto) 7 % (0-9) Eosinophils (%) (Auto) 0 % (0-3) Basophils (%) (Auto) 0 % (0-3) Neutrophils # (Auto) 17.0 x10^3uL (1.8-7.7) Lymphocytes # (Auto) 2.0 x10^3/uL (1.0-4.8) Monocytes # (Auto) 1.4 x10^3/uL (0.0-1.1) Eosinophils # (Auto) 0.0 x10^3/uL (0.0-0.7) Basophils # (Auto) 0.1 x10^3/uL (0.0-0.2) Segmented Neutrophils % 85 % (35-66) Lymphocytes % 8 % (24-48) Monocytes % 7 % (0-10) Toxic Vacuolation Slight Platelet Estimate Adequate (ADEQUATE) Prothrombin Time 16.7 SEC (11.7-14.0) Prothromb Time International Ratio 1.4 (0.8-1.1) Activated Partial Thromboplast Time 27 SEC (24-38) Sodium Level 128 mmol/L (136-145) 129 mmol/L (136-145) Potassium Level 4.6 mmol/L (3.5-5.1) 4.4 mmol/L (3.5-5.1) Chloride Level 94 mmol/L (98-107) 96 mmol/L (98-107) Carbon Dioxide Level 11 mmol/L (21-32) 12 mmol/L (21-32) Anion Gap 23 (6-14) 21 (6-14) Blood Urea Nitrogen 115 mg/dL (8-26) 113 mg/dL (8-26) Creatinine 9.8 mg/dL (0.7-1.3) 9.9 mg/dL (0.7-1.3) Estimated GFR (Cockcroft-Gault) 5.1 5.1 BUN/Creatinine Ratio 12 (6-20) Glucose Level 109 mg/dL (70-99) 101 mg/dL (70-99) Lactic Acid Level 1.5 mmol/L (0.4-2.0) Calcium Level 7.8 mg/dL (8.5-10.1) 7.5 mg/dL (8.5-10.1) Magnesium Level 2.4 mg/dL (1.8-2.4) Total Bilirubin 0.6 mg/dL (0.2-1.0) Aspartate Amino Transf (AST/SGOT) 19 U/L (15-37) Alanine Aminotransferase (ALT/SGPT) 21 U/L (16-63) Alkaline Phosphatase 62 U/L (46-116) Total Protein 5.4 g/dL (6.4-8.2) Albumin 2.1 g/dL (3.4-5.0) Albumin/Globulin Ratio 0.6 (1.0-1.7) Lipase 102 U/L (73-393) Stool Occult Blood Negative (NEG) Clostridium difficile Toxin B Gene Negative (Negative) Uric Acid 14.8 mg/dL (3.5-7.2) Creatine Kinase 65 U/L (39-308) Urine Collection Type Unknown Urine Color Red Urine Clarity Turbid Urine pH 5.0 Urine Specific [place] 1.015 Urine Protein 100 mg/dL (NEG-TRACE) Urine Glucose (UA) Negative mg/dL (NEG) Urine Ketones (Stick) 15 mg/dL (NEG) Urine Blood Large (NEG) Urine Nitrite (NEG) Urine Bilirubin (NEG) Urine Urobilinogen Dipstick 0.2 mg/dL (0.2 mg/dL) Urine Leukocyte Esterase Large (NEG) Urine RBC Tntc /HPF (0-2) Urine WBC >40 /HPF (0-4) Urine Bacteria 0 /HPF (0-FEW) Urine Hyaline Casts Few /HPF Test 04/06/19 03:55 04/06/19 09:00 White Blood Count 16.3 x10^3/uL (4.0-11.0) Red Blood Count 4.88 x10^6/uL (4.30-5.70) Hemoglobin 14.3 g/dL (13.0-17.5) Hematocrit 43.2 % (39.0-53.0) Mean Corpuscular Volume 88 fL (79-100) Mean Corpuscular Hemoglobin 29 pg (25-35) Mean Corpuscular Hemoglobin Concent 33 g/dL (31-37) Red Cell Distribution Width 14.1 % (11.5-14.5) Platelet Count 200 x10^3/uL (140-400) Neutrophils (%) (Auto) 85 % (31-73) Lymphocytes (%) (Auto) 9 % (24-48) Monocytes (%) (Auto) 6 % (0-9) Eosinophils (%) (Auto) 0 % (0-3) Basophils (%) (Auto) 0 % (0-3) Neutrophils # (Auto) 13.8 x10^3uL (1.8-7.7) Lymphocytes # (Auto) 1.5 x10^3/uL (1.0-4.8) Monocytes # (Auto) 1.0 x10^3/uL (0.0-1.1) Eosinophils # (Auto) 0.0 x10^3/uL (0.0-0.7) Basophils # (Auto) 0.0 x10^3/uL (0.0-0.2) Sodium Level 131 mmol/L (136-145) Potassium Level 3.6 mmol/L (3.5-5.1) Chloride Level 95 mmol/L (98-107) Carbon Dioxide Level 14 mmol/L (21-32) Anion Gap 22 (6-14) Blood Urea Nitrogen 110 mg/dL (8-26) Creatinine 9.5 mg/dL (0.7-1.3) Estimated GFR (Cockcroft-Gault) 5.3 Glucose Level 88 mg/dL (70-99) Calcium Level 7.2 mg/dL (8.5-10.1) Phosphorus Level 9.0 mg/dL (2.6-4.7) Magnesium Level 2.2 mg/dL (1.8-2.4) Albumin 1.9 g/dL (3.4-5.0) Erythrocyte Sedimentation Rate 8 (0-15) Prothrombin Time 17.2 SEC (11.7-14.0) Prothromb Time International Ratio 1.4 (0.8-1.1) Activated Partial Thromboplast Time 31 SEC (24-38) Laboratory Tests Test 04/05/19 15:30 04/06/19 03:55 04/06/19 09:00 Urine Collection Type Unknown Urine Color Red Urine Clarity Turbid Urine pH 5.0 Urine Specific [place] 1.015 Urine Protein 100 mg/dL (NEG-TRACE) Urine Glucose (UA) Negative mg/dL (NEG) Urine Ketones (Stick) 15 mg/dL (NEG) Urine Blood Large (NEG) Urine Nitrite (NEG) Urine Bilirubin (NEG) Urine Urobilinogen Dipstick 0.2 mg/dL (0.2 mg/dL) Urine Leukocyte Esterase Large (NEG) Urine RBC Tntc /HPF (0-2) Urine WBC >40 /HPF (0-4) Urine Bacteria 0 /HPF (0-FEW) Urine Hyaline Casts Few /HPF White Blood Count 16.3 x10^3/uL (4.0-11.0) Red Blood Count 4.88 x10^6/uL (4.30-5.70) Hemoglobin 14.3 g/dL (13.0-17.5) Hematocrit 43.2 % (39.0-53.0) Mean Corpuscular Volume 88 fL (79-100) Mean Corpuscular Hemoglobin 29 pg (25-35) Mean Corpuscular Hemoglobin Concent 33 g/dL (31-37) Red Cell Distribution Width 14.1 % (11.5-14.5) Platelet Count 200 x10^3/uL (140-400) Neutrophils (%) (Auto) 85 % (31-73) Lymphocytes (%) (Auto) 9 % (24-48) Monocytes (%) (Auto) 6 % (0-9) Eosinophils (%) (Auto) 0 % (0-3) Basophils (%) (Auto) 0 % (0-3) Neutrophils # (Auto) 13.8 x10^3uL (1.8-7.7) Lymphocytes # (Auto) 1.5 x10^3/uL (1.0-4.8) Monocytes # (Auto) 1.0 x10^3/uL (0.0-1.1) Eosinophils # (Auto) 0.0 x10^3/uL (0.0-0.7) Basophils # (Auto) 0.0 x10^3/uL (0.0-0.2) Sodium Level 131 mmol/L (136-145) Potassium Level 3.6 mmol/L (3.5-5.1) Chloride Level 95 mmol/L (98-107) Carbon Dioxide Level 14 mmol/L (21-32) Anion Gap 22 (6-14) Blood Urea Nitrogen 110 mg/dL (8-26) Creatinine 9.5 mg/dL (0.7-1.3) Estimated GFR (Cockcroft-Gault) 5.3 Glucose Level 88 mg/dL (70-99) Calcium Level 7.2 mg/dL (8.5-10.1) Phosphorus Level 9.0 mg/dL (2.6-4.7) Magnesium Level 2.2 mg/dL (1.8-2.4) Albumin 1.9 g/dL (3.4-5.0) Erythrocyte Sedimentation Rate 8 (0-15) Prothrombin Time 17.2 SEC (11.7-14.0) Prothromb Time International Ratio 1.4 (0.8-1.1) Activated Partial Thromboplast Time 31 SEC (24-38) Vitals/I & O Vital Sign - Last 24 Hours 04/05/19 04/05/19 04/05/19 04/05/19 15:00 15:26 19:00 20:00 Temp 97.7 97.5 97.7 97.5 Pulse 75 84 Resp 17 17 B/P (MAP) 112/57 (75) 109/57 (74) Pulse Ox 97 92 97 O2 Delivery Room Air Room Air Room Air Room Air 04/05/19 04/05/19 04/06/19 04/06/19 21:04 23:00 03:00 07:00 Temp 98.0 98.1 98.2 98.0 98.1 98.2 Pulse 101 108 97 Resp 17 17 16 B/P (MAP) 103/55 (71) 115/64 (81) 114/57 (76) Pulse Ox 97 96 97 O2 Delivery Room Air Room Air Room Air Room Air 04/06/19 04/06/19 04/06/19 04/06/19 08:00 08:29 09:00 09:58 Pulse 97 97 B/P (MAP) 114/57 114/57 Pulse Ox 96 O2 Delivery Room Air Room Air 04/06/19 04/06/19 11:00 12:32 Temp 97.8 97.8 Pulse 107 Resp 18 B/P (MAP) 117/55 (75) Pulse Ox 98 96 O2 Delivery Room Air Room Air Intake and Output 04/05/19 04/05/19 04/06/19 15:00 23:00 07:00 Intake Total 440 ml Output Total 200 ml 200 ml Balance 440 ml -200 ml -200 ml Problem List Problems Medical Problems: (1) Acute renal failure Status: Acute (2) Clostridium difficile colitis Status: Acute (3) Hyponatremia Status: Acute (4) Metabolic acidosis Status: Acute Assessment C.diff colitis, historically better. Plan of Care: Continue current Tx, Mgmt Plan of Care Note Continue vancomycin. CHRIS BENDER MD April 06, 2019 14:39
[2019-04-06 15:00] VITALS: BP 99/50
[2019-04-06 19:00] VITALS: BP 114/64
[2019-04-06 23:00] VITALS: BP 112/60
[2019-04-07] VITALS (27 sets, daily range): BP systolic 100–140; BP diastolic 17–73
[2019-04-07] MEDS: SODIUM BICARBONATE VIAL 100 MEQ in IV 1/2 NORMAL SALINE 1,000 ML IV SCH (00:28)
[2019-04-07 04:43] LABS: BASO # 0.1 x10^3/uL (0.0-0.2); BASO % 0 % (0-3); EOS # 0.1 x10^3/uL (0.0-0.7); EOS % 1 % (0-3); HEMATOCRIT 40.5 % (39.0-53.0); HEMOGLOBIN 13.5 g/dL (13.0-17.5); LYMPH # 1.4 x10^3/uL (1.0-4.8); LYMPH % 9 % (24-48); MEAN CORPUSCULAR HEMOGLOBIN 29 pg (25-35); MEAN CORPUSCULAR HGB CONC 33 g/dL (31-37); MEAN CORPUSCULAR VOLUME 89 fL (79-100); MONO # 1.2 x10^3/uL (0.0-1.1); MONO % 8 % (0-9); NEUT # 12.4 x10^3uL (1.8-7.7); NEUT % 82 % (31-73); PLATELET COUNT 168 x10^3/uL (140-400); RED BLOOD COUNT 4.58 x10^6/uL (4.30-5.70); RED CELL DISTRIBUTION WIDTH 14.3 % (11.5-14.5); WHITE BLOOD COUNT 15.1 x10^3/uL (4.0-11.0)
[2019-04-07 05:04] LABS: ALBUMIN 1.7 g/dL (3.4-5.0); CALCIUM 7.2 mg/dL (8.5-10.1); GFR 5.7; MAGNESIUM 2.1 mg/dL (1.8-2.4); PHOSPHORUS 8.4 mg/dL (2.6-4.7); POTASSIUM 3.4 mmol/L (3.5-5.1)
[2019-04-07] MEDS: IPRATRPIUM/ALBUTEROL 0.5/2.5MG 3 ML NEBU. NEB SCH ×4 (08:41→20:40)
[2019-04-07] MEDS: NYSTATIN TOPICAL POWDER 15GM BOTTLE. TP SCH ×2 (09:00→22:32)
--- NOTE | 2019-04-07 09:14 | PDOC ---
Infectious Disease Note Subjective: Subjective pt is doing ok no f/c/ n/v/abdo pain loose bm is improving in frequency d/w RN ROS: ROS Negative except for above. Vital Signs: Vital Signs Vital Signs Date Time Temp Pulse Resp B/P (MAP) Pulse Ox O2 Delivery O2 Flow Rate FiO2 04/07/19 08:42 98 Room Air 04/07/19 07:00 98.1 73 18 105/61 (76) 98.1 Physical Exam: PHYSICAL EXAM HEENT: alert awake, no icterus NECK: Supple. No JVP, no lymphadenopathy. LUNGS: Clear. HEART: S1, S2 regular. ABDOMEN: Slightly distended, no organomegaly appreciated. No rebound or guarding. EXTREMITIES: About 1+ to 2+ pitting edema present. No cyanosis. NEUROLOGICAL: The patient is alert, awake and appropriate. No focal neurologic deficit. Medications: Inpatient Meds: Current Medications Medications (Trade) Dose Ordered Sig/Adri Start Time Stop Time Status Last Admin Dose Admin Acetaminophen (Tylenol) 325 mg PRN Q6HRS PRN 04/05/19 11:15 Albuterol/ Ipratropium (Duoneb) 3 ml RTQID 04/05/19 12:00 04/07/19 08:41 3 ML Calcium Acetate (Phoslo) 1,334 mg [id number] 04/06/19 12:00 04/06/19 16:30 1,334 MG Colestipol HCl (Colestid) 1 gm BID@10,22 04/05/19 13:00 04/06/19 22:22 1 GM Fentanyl Citrate (Fentanyl 2ml Vial) 25 mcg PRN Q4HRS PRN 04/05/19 11:15 Isosorbide Mononitrate (Imdur) 30 mg DAILY 04/05/19 12:30 04/06/19 09:58 30 MG Lidocaine HCl (Glydo (Lidocaine) Jelly) 1 dionna 1X ONCE 04/05/19 11:45 04/05/19 11:46 DC 04/05/19 12:54 1 DIONNA Magnesium Sulfate 50 ml @ 25 mls/hr PRN DAILY PRN 04/05/19 13:15 Metoprolol Succinate (Toprol Xl) 25 mg DAILY 04/05/19 12:30 Metronidazole 100 ml @ 100 mls/hr Q8HRS 04/05/19 12:30 04/05/19 12:30 DC Nystatin (Nystop) 1 dionna BID 04/05/19 12:30 04/06/19 20:55 1 DIONNA Ondansetron HCl (Zofran) 4 mg PRN Q6HRS PRN 04/05/19 11:15 Phytonadione (Mephyton Oral Soln) 5 mg 1X ONCE 04/06/19 09:30 04/06/19 09:31 DC 04/06/19 10:00 5 MG Sodium Bicarbonate 100 meq/Sodium Chloride 1,100 ml @ 125 mls/hr Q8H48M 04/05/19 16:00 04/07/19 00:28 125 MLS/HR Sodium Bicarbonate (Sodium Bicarb Adult 8.4% Syr) 50 meq Q2H 04/06/19 09:30 04/06/19 11:31 DC 04/06/19 13:17 50 MEQ Sodium Chloride 500 ml @ 0 mls/hr PRN QID PRN 04/05/19 13:15 Tamsulosin HCl (Flomax) 0.4 mg DAILY 04/05/19 12:30 04/06/19 09:56 0.4 MG Vancomycin HCl (Vancomycin Oral Solution) 125 mg [id number] 04/05/19 13:00 04/05/19 13:00 DC Labs: Lab Laboratory Tests Test 04/07/19 04:30 White Blood Count 15.1 x10^3/uL (4.0-11.0) Red Blood Count 4.58 x10^6/uL (4.30-5.70) Hemoglobin 13.5 g/dL (13.0-17.5) Hematocrit 40.5 % (39.0-53.0) Mean Corpuscular Volume 89 fL (79-100) Mean Corpuscular Hemoglobin 29 pg (25-35) Mean Corpuscular Hemoglobin Concent 33 g/dL (31-37) Red Cell Distribution Width 14.3 % (11.5-14.5) Platelet Count 168 x10^3/uL (140-400) Neutrophils (%) (Auto) 82 % (31-73) Lymphocytes (%) (Auto) 9 % (24-48) Monocytes (%) (Auto) 8 % (0-9) Eosinophils (%) (Auto) 1 % (0-3) Basophils (%) (Auto) 0 % (0-3) Neutrophils # (Auto) 12.4 x10^3uL (1.8-7.7) Lymphocytes # (Auto) 1.4 x10^3/uL (1.0-4.8) Monocytes # (Auto) 1.2 x10^3/uL (0.0-1.1) Eosinophils # (Auto) 0.1 x10^3/uL (0.0-0.7) Basophils # (Auto) 0.1 x10^3/uL (0.0-0.2) Sodium Level 133 mmol/L (136-145) Potassium Level 3.4 mmol/L (3.5-5.1) Chloride Level 95 mmol/L (98-107) Carbon Dioxide Level 20 mmol/L (21-32) Anion Gap 18 (6-14) Blood Urea Nitrogen 109 mg/dL (8-26) Creatinine 9.0 mg/dL (0.7-1.3) Estimated GFR (Cockcroft-Gault) 5.7 Glucose Level 107 mg/dL (70-99) Calcium Level 7.2 mg/dL (8.5-10.1) Phosphorus Level 8.4 mg/dL (2.6-4.7) Magnesium Level 2.1 mg/dL (1.8-2.4) Albumin 1.7 g/dL (3.4-5.0) Objective: Assessment: 1. Clostridium difficile colitis historically prior to admission,failed outpt flagyl,improving. 2. Leukocytosis.likely from above,improving 3. Acute kidney injury ,metabolic acidosis uo improving slowly 4. Hypertension. 5. Obesity. 6. Cerebrovascular accident. Plan: Plan of Care continue with p.o. vancomycin for now. if diarrhea recurs send stool for O and P Supportive care, maintain hydration, monitoring of the WBC and electrolytes KELY DANIELS MD April 07, 2019 09:14
--- NOTE | 2019-04-07 09:28 | NUR ---
IP: Pt diagnosed with C.diff per clinic visit. Current test is negative, However, pt continues to have liquid stool. Pt to remain in contact plus precautions using brown sign.
[2019-04-07] MEDS ORDERED: POTASSIUM CHLORIDE 20 MEQ TABLET.ER. PO ONE (10:15)
[2019-04-07] MEDS: IV NORMAL SALINE 1000ML BAG 1,000 ML IV SCH (10:15)
--- NOTE | 2019-04-07 10:18 | PDOC ---
Subjective: Subjective: Describes formed stools. Has been NPO this morning (?per renal) Objective: Vital Signs: Vital Signs Date Time Temp Pulse Resp B/P (MAP) Pulse Ox O2 Delivery O2 Flow Rate FiO2 04/07/19 08:42 98 Room Air 04/07/19 07:00 98.1 73 18 105/61 (76) 98.1 Labs: Laboratory Tests Test 04/07/19 04:30 White Blood Count 15.1 x10^3/uL Red Blood Count 4.58 x10^6/uL Hemoglobin 13.5 g/dL Hematocrit 40.5 % Mean Corpuscular Volume 89 fL Mean Corpuscular Hemoglobin 29 pg Mean Corpuscular Hemoglobin Concent 33 g/dL Red Cell Distribution Width 14.3 % Platelet Count 168 x10^3/uL Neutrophils (%) (Auto) 82 % Lymphocytes (%) (Auto) 9 % Monocytes (%) (Auto) 8 % Eosinophils (%) (Auto) 1 % Basophils (%) (Auto) 0 % Neutrophils # (Auto) 12.4 x10^3uL Lymphocytes # (Auto) 1.4 x10^3/uL Monocytes # (Auto) 1.2 x10^3/uL Eosinophils # (Auto) 0.1 x10^3/uL Basophils # (Auto) 0.1 x10^3/uL Sodium Level 133 mmol/L Potassium Level 3.4 mmol/L Chloride Level 95 mmol/L Carbon Dioxide Level 20 mmol/L Anion Gap 18 Blood Urea Nitrogen 109 mg/dL Creatinine 9.0 mg/dL Estimated GFR (Cockcroft-Gault) 5.7 Glucose Level 107 mg/dL Calcium Level 7.2 mg/dL Phosphorus Level 8.4 mg/dL Magnesium Level 2.1 mg/dL Albumin 1.7 g/dL PE: GEN: NAD - RN present to get him cleaned up LUNGS: CTAB HEART: RRR ABD: S/ND/NT NEURO/PSYCH: A & O 3 A/P: C Diff colitis - improved HARVEY -- Continue vanco. ?still needs JUSTIN Wan April 07, 2019 10:18
--- NOTE | 2019-04-07 10:21 | PDOC ---
PROGRESS NOTES Subjective Subjective feels okay. says he had 3 small loose bowel movements . denies abdominal pain. afebrile. lab reviewed. [id number] and creatinine 9.0 unchanged and bicarbonate better 20 and potassium low 3.4. urine output 300cc/24 hours. not short of breath. no nausea or vomiting . 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 wbc lower 15K Objective Objective Vital Signs Date Time Temp Pulse Resp B/P (MAP) Pulse Ox O2 Delivery O2 Flow Rate FiO2 04/07/19 08:42 98 Room Air 04/07/19 07:00 98.1 73 18 105/61 (76) 98.1 Intake and Output 04/07/19 07:00 Intake Total 6983 ml Output Total 375 ml Balance 6608 ml IV Total 6983 ml Output Urine Total 375 ml # Bowel Movements 2 Physical Exam Abdomen: Normal bowel sounds, Soft, No tenderness Heart: Regular rate, Normal S1, Normal S2 Extremities: Other (trace edema legs) General: Alert HEENT: Atraumatic Lungs: Clear to auscultation Neuro: Normal speech Psych/Mental Status: Mental status NL Skin: No rashes Assessment Assessment Problems1. Clostridium difficile colitis. stool for c. diff positive in office and neg in hospital 2. Acute kidney injury, most likely secondary to intravascular volume depletion from the diarrhea and also contributing could be the nonsteroidal anti-inflammatory drug that he took at home and also the losartan. 3. Hyponatremia. better 4. Metabolic acidosis secondary to the diarrhea and acute kidney injury. improved 5. History of hypertension. 6. Hyperlipidemia. 7. Coronary artery disease. 8. Asthma. 9. Morbid obesity. 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 Labs Laboratory Tests Test 04/05/19 15:30 04/06/19 03:55 04/06/19 09:00 04/07/19 04:30 Urine Collection Type Unknown Urine Color Red Urine Clarity Turbid Urine pH 5.0 Urine Specific [place] 1.015 Urine Protein 100 mg/dL (NEG-TRACE) Urine Glucose (UA) Negative mg/dL (NEG) Urine Ketones (Stick) 15 mg/dL (NEG) Urine Blood Large (NEG) Urine Nitrite (NEG) Urine Bilirubin (NEG) Urine Urobilinogen Dipstick 0.2 mg/dL (0.2 mg/dL) Urine Leukocyte Esterase Large (NEG) Urine RBC Tntc /HPF (0-2) Urine WBC >40 /HPF (0-4) Urine Bacteria 0 /HPF (0-FEW) Urine Hyaline Casts Few /HPF Urine Random Sodium <60 mmol/L (Not Estab.) White Blood Count 16.3 x10^3/uL (4.0-11.0) 15.1 x10^3/uL (4.0-11.0) Red Blood Count 4.88 x10^6/uL (4.30-5.70) 4.58 x10^6/uL (4.30-5.70) Hemoglobin 14.3 g/dL (13.0-17.5) 13.5 g/dL (13.0-17.5) Hematocrit 43.2 % (39.0-53.0) 40.5 % (39.0-53.0) Mean Corpuscular Volume 88 fL (79-100) 89 fL (79-100) Mean Corpuscular Hemoglobin 29 pg (25-35) 29 pg (25-35) Mean Corpuscular Hemoglobin Concent 33 g/dL (31-37) 33 g/dL (31-37) Red Cell Distribution Width 14.1 % (11.5-14.5) 14.3 % (11.5-14.5) Platelet Count 200 x10^3/uL (140-400) 168 x10^3/uL (140-400) Neutrophils (%) (Auto) 85 % (31-73) 82 % (31-73) Lymphocytes (%) (Auto) 9 % (24-48) 9 % (24-48) Monocytes (%) (Auto) 6 % (0-9) 8 % (0-9) Eosinophils (%) (Auto) 0 % (0-3) 1 % (0-3) Basophils (%) (Auto) 0 % (0-3) 0 % (0-3) Neutrophils # (Auto) 13.8 x10^3uL (1.8-7.7) 12.4 x10^3uL (1.8-7.7) Lymphocytes # (Auto) 1.5 x10^3/uL (1.0-4.8) 1.4 x10^3/uL (1.0-4.8) Monocytes # (Auto) 1.0 x10^3/uL (0.0-1.1) 1.2 x10^3/uL (0.0-1.1) Eosinophils # (Auto) 0.0 x10^3/uL (0.0-0.7) 0.1 x10^3/uL (0.0-0.7) Basophils # (Auto) 0.0 x10^3/uL (0.0-0.2) 0.1 x10^3/uL (0.0-0.2) Sodium Level 131 mmol/L (136-145) 133 mmol/L (136-145) Potassium Level 3.6 mmol/L (3.5-5.1) 3.4 mmol/L (3.5-5.1) Chloride Level 95 mmol/L (98-107) 95 mmol/L (98-107) Carbon Dioxide Level 14 mmol/L (21-32) 20 mmol/L (21-32) Anion Gap 22 (6-14) 18 (6-14) Blood Urea Nitrogen 110 mg/dL (8-26) 109 mg/dL (8-26) Creatinine 9.5 mg/dL (0.7-1.3) 9.0 mg/dL (0.7-1.3) Estimated GFR (Cockcroft-Gault) 5.3 5.7 Glucose Level 88 mg/dL (70-99) 107 mg/dL (70-99) Calcium Level 7.2 mg/dL (8.5-10.1) 7.2 mg/dL (8.5-10.1) Phosphorus Level 9.0 mg/dL (2.6-4.7) 8.4 mg/dL (2.6-4.7) Magnesium Level 2.2 mg/dL (1.8-2.4) 2.1 mg/dL (1.8-2.4) Albumin 1.9 g/dL (3.4-5.0) 1.7 g/dL (3.4-5.0) Erythrocyte Sedimentation Rate 8 (0-15) Prothrombin Time 17.2 SEC (11.7-14.0) Prothromb Time International Ratio 1.4 (0.8-1.1) Activated Partial Thromboplast Time 31 SEC (24-38) Laboratory Tests Test 04/07/19 04:30 White Blood Count 15.1 x10^3/uL (4.0-11.0) Red Blood Count 4.58 x10^6/uL (4.30-5.70) Hemoglobin 13.5 g/dL (13.0-17.5) Hematocrit 40.5 % (39.0-53.0) Mean Corpuscular Volume 89 fL (79-100) Mean Corpuscular Hemoglobin 29 pg (25-35) Mean Corpuscular Hemoglobin Concent 33 g/dL (31-37) Red Cell Distribution Width 14.3 % (11.5-14.5) Platelet Count 168 x10^3/uL (140-400) Neutrophils (%) (Auto) 82 % (31-73) Lymphocytes (%) (Auto) 9 % (24-48) Monocytes (%) (Auto) 8 % (0-9) Eosinophils (%) (Auto) 1 % (0-3) Basophils (%) (Auto) 0 % (0-3) Neutrophils # (Auto) 12.4 x10^3uL (1.8-7.7) Lymphocytes # (Auto) 1.4 x10^3/uL (1.0-4.8) Monocytes # (Auto) 1.2 x10^3/uL (0.0-1.1) Eosinophils # (Auto) 0.1 x10^3/uL (0.0-0.7) Basophils # (Auto) 0.1 x10^3/uL (0.0-0.2) Sodium Level 133 mmol/L (136-145) Potassium Level 3.4 mmol/L (3.5-5.1) Chloride Level 95 mmol/L (98-107) Carbon Dioxide Level 20 mmol/L (21-32) Anion Gap 18 (6-14) Blood Urea Nitrogen 109 mg/dL (8-26) Creatinine 9.0 mg/dL (0.7-1.3) Estimated GFR (Cockcroft-Gault) 5.7 Glucose Level 107 mg/dL (70-99) Calcium Level 7.2 mg/dL (8.5-10.1) Phosphorus Level 8.4 mg/dL (2.6-4.7) Magnesium Level 2.1 mg/dL (1.8-2.4) Albumin 1.7 g/dL (3.4-5.0) Medications Current Medications Sodium Chloride 1,000 ml @ 1,000 mls/hr 1X ONCE IV Last administered on 04/04/19at 22:55; Start 04/04/19 at 23:00; Stop 04/04/19 at 23:59; Status DC Vancomycin HCl (Vancomycin Oral Solution) 125 mg 1X ONCE PO Last administered on 04/04/19at 23:51; Start 04/05/19 at 00:00; Stop 04/05/19 at 00:01; Status DC Ondansetron HCl (Zofran) 4 mg PRN Q8HRS PRN IV NAUSEA/VOMITING 1ST CHOICE; Start 04/04/19 at 23:45; Stop 04/05/19 at 13:24; Status DC Fentanyl Citrate (Fentanyl 2ml Vial) 25 mcg PRN Q2HRS PRN IV SEVERE PAIN; S tart 04/04/19 at 23:45; Stop 04/05/19 at 11:21; Status DC Vancomycin HCl (Vancomycin Oral Solution) 125 mg [id number] PO Last administered on 04/05/19at 08:04; Start 04/05/19 at 09:00; Stop 04/05/19 at 11:24; Status DC Sodium Bicarbonate 100 meq/Sodium Chloride 1,100 ml @ 125 mls/hr Q8H48M IV Last administered on 04/05/19at 08:05; Start 04/05/19 at 00:00; Stop 04/05/19 at 15:59; Status DC Sodium Bicarbonate 100 meq/Sodium Chloride 1,100 ml @ 125 mls/hr Q8H48M IV Last administered on 04/07/19at 00:28; Start 04/05/19 at 16:00 Fentanyl Citrate (Fentanyl 2ml Vial) 25 mcg PRN Q4HRS PRN IV MODERATE TO SEVERE PAIN; Start 04/05/19 at 11:15 Vancomycin HCl (Vancomycin Oral Solution) 125 mg [id number] PO Last administered on 04/06/19at 20:54; Start 04/05/19 at 13:00 Tamsulosin HCl (Flomax) 0.4 mg DAILY PO Last administered on 04/06/19at 09:56; Start 04/05/19 at 12:30 Metoprolol Succinate (Toprol Xl) 25 mg DAILY PO ; Start 04/05/19 at 12:30 Isosorbide Mononitrate (Imdur) 30 mg DAILY PO Last administered on 04/06/19at 09:58; Start 04/05/19 at 12:30 Nystatin (Nystop) 1 dionna BID TP Last administered on 04/06/19at 20:55; Start 04/05/19 at 12:30 Ondansetron HCl (Zofran) 4 mg PRN Q6HRS PRN IV NAUSEA/VOMITING; Start 04/05/19 at 11:15 Albuterol/ Ipratropium (Duoneb) 3 ml RTQID NEB Last administered on 04/07/19at 08:41; Start 04/05/19 at 12:00 Acetaminophen (Tylenol) 325 mg PRN Q6HRS PRN PO MILD PAIN / TEMP; Start 04/05/19 at 11:15 Lidocaine HCl (Glydo (Lidocaine) Jelly) 1 dionna 1X ONCE MM Last administered on 04/05/19at 12:54; Start 04/05/19 at 11:45; Stop 04/05/19 at 11:46; Status DC Metronidazole 100 ml @ 100 mls/hr Q8HRS IV ; Start 04/05/19 at 12:30; Stop 04/05/19 at 12:30; Status DC Vancomycin HCl (Vancomycin Oral Solution) 125 mg [id number] PO ; Start 04/05/19 at 13:00; Stop 04/05/19 at 13:00; Status DC Colestipol HCl (Colestid) 1 gm BID@10,22 PO Last administered on 04/06/19at 22:22; Start 04/05/19 at 13:00 Sodium Chloride 500 ml @ 0 mls/hr PRN QID PRN IV UO< 30cc/hr over previous 6hrs; Start 04/05/19 at 13:15 Magnesium Sulfate 50 ml @ 25 mls/hr PRN DAILY PRN IV for Mag < 1.7 on am labs; Start 04/05/19 at 13:15 Phytonadione (Mephyton Oral Soln) 5 mg 1X ONCE PO Last administered on 04/06/19at 10:00; Start 04/06/19 at 09:30; Stop 04/06/19 at 09:31; Status DC Sodium Bicarbonate (Sodium Bicarb Adult 8.4% Syr) 50 meq Q2H IV Last administered on 04/06/19at 13:17; Start 04/06/19 at 09:30; Stop 04/06/19 at 11:31; Status DC Calcium Acetate (Phoslo) 1,334 mg TIDWMEALS PO Last administered on 04/06/19at 16:30; Start 04/06/19 at 12:00 Active Scripts Active Reported Proair Hfa Inhaler (Albuterol Sulfate) 8.5 Gm Hfa.aer.ad 1 Puff INH PRN Q6HRS PRN Losartan-Hctz 50-12.5 Mg Tab (Losartan/Hydrochlorothiazide) 1 Each Tablet 1 Each PO DAILY Metoprolol Tartrate 25 Mg Tablet 25 Mg PO BID Furosemide 20 Mg Tablet 20 Mg PO DAILY Isosorbide Mononitrate 10 Mg Tablet 10 Mg PO DAILY Amlodipine Besylate 10 Mg Tablet 10 Mg PO DAILY Tamsulosin Hcl 0.4 Mg Cap.er.24h 0.4 Mg PO DAILY Fish Oil ([place]-3 Fatty Acids) 500 Mg Capsule.dr 1,000 Mg PO DAILY Multi Vitamin Daily (Multivitamin) 1 Each Tablet 1 Each PO Symbicort 160-4.5 Mcg Inhaler (Budesonide/Formoterol Fumarate) 10.2 Gm Hfa.aer.ad 1 Puff IH BID Aspirin 81 Mg Tab.chew 325 Tab PO DAILY Losartan Potassium (Losartan Potassium) 25 Mg Tablet 1 Tab PO DAILY Vitals/I & O Vital Sign - Last 24 Hours 04/06/19 04/06/19 04/06/19 04/06/19 11:00 12:32 15:00 16:53 Temp 97.8 97.7 97.8 97.7 Pulse 107 109 Resp 18 18 B/P (MAP) 117/55 (75) 99/50 (66) Pulse Ox 98 96 93 96 O2 Delivery Room Air Room Air Room Air Room Air 04/06/19 04/06/19 04/06/19 04/07/19 19:00 19:45 23:00 03:00 Temp 97.9 97.9 98.2 97.9 97.9 98.2 Pulse 110 108 100 Resp 18 18 18 B/P (MAP) 114/64 (81) 112/60 (77) 112/54 (73) Pulse Ox 96 95 95 O2 Delivery Room Air Room Air Room Air Room Air 04/07/19 04/07/19 07:00 08:42 Temp 98.1 98.1 Pulse 73 Resp 18 B/P (MAP) 105/61 (76) Pulse Ox 95 98 O2 Delivery Room Air Room Air Intake and Output 04/06/19 04/06/19 04/07/19 15:00 23:00 07:00 Intake Total 6983 ml Output Total 300 ml 75 ml Balance -300 ml 6908 ml CHRIS STEIN MD April 07, 2019 10:21
--- NOTE | 2019-04-07 10:27 | PDOC ---
Renal-Progress Notes Subjective Notes Notes NO NEW COMPLAINTS History of Present Illness Hx of present illness HARVEY PERSISTS, LESS DIARRHEA Vitals Vitals Vital Signs Date Time Temp Pulse Resp B/P (MAP) Pulse Ox O2 Delivery O2 Flow Rate FiO2 04/07/19 08:42 98 Room Air 04/07/19 07:00 98.1 73 18 105/61 (76) 98.1 Weight Weight [ ] I.O. Intake and Output Intake and Output 04/07/19 07:00 Intake Total 6983 ml Output Total 375 ml Balance 6608 ml IV Total 6983 ml Output Urine Total 375 ml # Bowel Movements 2 Labs Labs Laboratory Tests Test 04/07/19 04:30 White Blood Count 15.1 x10^3/uL (4.0-11.0) Red Blood Count 4.58 x10^6/uL (4.30-5.70) Hemoglobin 13.5 g/dL (13.0-17.5) Hematocrit 40.5 % (39.0-53.0) Mean Corpuscular Volume 89 fL (79-100) Mean Corpuscular Hemoglobin 29 pg (25-35) Mean Corpuscular Hemoglobin Concent 33 g/dL (31-37) Red Cell Distribution Width 14.3 % (11.5-14.5) Platelet Count 168 x10^3/uL (140-400) Neutrophils (%) (Auto) 82 % (31-73) Lymphocytes (%) (Auto) 9 % (24-48) Monocytes (%) (Auto) 8 % (0-9) Eosinophils (%) (Auto) 1 % (0-3) Basophils (%) (Auto) 0 % (0-3) Neutrophils # (Auto) 12.4 x10^3uL (1.8-7.7) Lymphocytes # (Auto) 1.4 x10^3/uL (1.0-4.8) Monocytes # (Auto) 1.2 x10^3/uL (0.0-1.1) Eosinophils # (Auto) 0.1 x10^3/uL (0.0-0.7) Basophils # (Auto) 0.1 x10^3/uL (0.0-0.2) Sodium Level 133 mmol/L (136-145) Potassium Level 3.4 mmol/L (3.5-5.1) Chloride Level 95 mmol/L (98-107) Carbon Dioxide Level 20 mmol/L (21-32) Anion Gap 18 (6-14) Blood Urea Nitrogen 109 mg/dL (8-26) Creatinine 9.0 mg/dL (0.7-1.3) Estimated GFR (Cockcroft-Gault) 5.7 Glucose Level 107 mg/dL (70-99) Calcium Level 7.2 mg/dL (8.5-10.1) Phosphorus Level 8.4 mg/dL (2.6-4.7) Magnesium Level 2.1 mg/dL (1.8-2.4) Albumin 1.7 g/dL (3.4-5.0) Review of Systems Constitutional: yes: alert, oriented Ears/Nose/Throat: Yes: no symptom reported Eyes: Yes: no symptom reported Pulmonary: Yes no symptom reported Cardiovascular: Yes no symptom reported Gastrointestional: Yes: diarrhea Genitourinary: Yes: no symptom reported Musculoskeletal: Yes: no symptom reported Skin: Yes no symptom reported Psychiatric/Neurological: Yes: no symptom reported Endocrine: Yes: no symptom reported Physical Exam General Appearance: no apparent distress Skin: warm Respiratory: bilateral CTA Heart: S1S2, RRR Abdomen: soft, bowel sounds present Genitourinary: bladder flat Extremities: pulses present Neurology: alert Assessment Assessment IMP [id number] UTI LEUCOCYTOSIS C DIF MET ACIDOSIS BPH MORBID OBESITY LOW K PLAN WILL NEED TO START HD FOR NOW WILL HAVE IR PLACE A TEMP HD CATHETER WILL ALSO HAVE IR DO RENAL BIOPSY-LIKELY ATN PT AGREEABLE TO PLAN ANTIBIOTICS F/U K CRISTO ESQUIVEL MD April 07, 2019 10:27
[2019-04-07 11:16] LABS: C3 COMPLEMENT 71 mg/dL (82-167); C4 COMPLEMENT 13 mg/dL (14-44)
[2019-04-07] MEDS: CALCIUM ACETATE 667 MG CAPSULE PO SCH ×3 (12:00→17:50)
[2019-04-07] MEDS ORDERED: LIDOCAINE WITH 8.4% SOD BICARB 3 ML DISP.SYRIN. ONE ×2 (12:27→12:59)
[2019-04-07] MEDS ORDERED: MIDAZOLAM HCL/PF 2 MG/2 ML VIAL. ONE (12:31)
[2019-04-07] MEDS ORDERED: fentaNYL PF VIAL 100 MCG/2 ML VIAL ONE (12:32)
[2019-04-07] MEDS ORDERED: GELATIN SPONGE SIZE 12-7MM SPONGE. ONE (12:34)
--- NOTE | 2019-04-07 12:50 | NUR ---
Pt left unit at approximately 1250 for kidney biopsy and temporary dialysis catheter placement. Transported via bed by IR staff.
[2019-04-07] MEDS ORDERED: HEPARIN for IV BOLUS 10,000 UNIT/10 ML VIAL. ONE (13:00)
[2019-04-07] MEDS: VANCOMYCIN 125 MG/2.5 ML ORAL SOLUTION. PO SCH ×4 (13:00→22:32)
--- NOTE | 2019-04-07 13:29 | NUR ---
[facility] after renal Bx complete. Monitoring will resume in new procedure.
[2019-04-07] MEDS ORDERED: fentaNYL PF VIAL 100 MCG/2 ML VIAL IV ONE (13:30)
[2019-04-07] MEDS ORDERED: MIDAZOLAM HCL/PF 2 MG/2 ML VIAL. IV ONE (13:30)
--- NOTE | 2019-04-07 14:04 | PDOC ---
MODERATE SEDATION ASSESSMENT RISKS/ALTERNATIVES Risks/Alternatives Risks and alternatives of this type of sedation and procedure discussed with: RISK/ALTERNATIVES: Patient H & P ON CHART H & P H & P on chart and reviewed for co-morbid conditions and appropriate labs. H&P ON CHART: Yes STATUS PREG STATUS ASSESSED: Yes MEDS/ALLERGIES REVIEWED Meds/Allergies Reviewed Medications and Allergies including time and route of recently administered narcotics and sedatives. MEDS/ALLERGIES REVIEWED: Yes ASA RATING ASA RATING: II AIRWAY ASSESSMENT Airway Assessment Airway patency, oral function limitations, presence of caps, crowns, dentures, partials, and ability to extend neck assessed. AIRWAY ASSESSMENT: Yes MALLAMPATI SCORE MALLAMPATI SCORE: II PRE-SEDATION ASSESSMENT PRE-SEDATION ASSESSMENT: Yes KIERRA SIGALA MD April 07, 2019 14:04
--- NOTE | 2019-04-07 14:07 | PDOC ---
BRIEF OPERATIVE NOTE Pre-Op Diagnosis ARF Post-Op Diagnosis same Procedure Performed CT renal biopsy and Temp HD Catheter Placement Surgeon Ginny Anesthesia Type: Conscious Sedation Findings 5 x 18g cores of the left kidney. 20cm De Temp HD catheter with good manual flows. Complications No immediate KIERRA SIGALA MD April 07, 2019 14:07
[2019-04-07] MEDS ORDERED: LIDOCAINE WITH 8.4% SOD BICARB 3 ML DISP.SYRIN. IJ ONE (14:15)
--- NOTE | 2019-04-07 14:25 | NUR ---
Pt returned from IR at approximately 1425. Pt VSS, A&OX4, stated he was thirsty. Pt bed was at 40 degree, v/s frequents started and site checked no bleeding present. Pt given water and jello. Will continue to monitor.
--- NOTE | 2019-04-07 14:43 | NUR ---
SW following for discharge planning. Discussed with RN, pt is from home with , having a temporary dialysis cath placed and biopsy today. Currently on IV vancomycin, PT/OT recommending SNU. SW to meet with pt when more appropriate as he just came back from surgery, pt will have dialysis tomorrow. AVINASH attempted to call pt's , Janet ([phone]), however there was no answer and no option to leave a message. SW will try again at a later time. RN notified. AVINASH will continue to follow.
--- NOTE | 2019-04-07 15:19 | NUR ---
Wound care: Patient seen per wound care consult. See wound assessment. Patient has stage II pressure ulcer to bilateral buttocks/coccyx area. Wound cleansed, assessed, and measured. Recommendations for calazime cream, a P-500 bed, and turn every 2 hours. Calazime cream applied. No other wounds noted upon complete head to toe assessment. Dressing change instructions left in room. A p-500 bed ordered. Call light in reach and head of bed lowered. Will follow patient regarding wound care.
--- NOTE | 2019-04-07 16:14 | NUR ---
AVINASH met with pt and pt's to discuss discharge planning. Pt agreeable to SNU and would like referral sent to [facility] or [facility]. [facility] does not take pt's insurance, SW faxed referral to [facility] ([phone], fax: [phone]). AVINASH will continue to follow.
[2019-04-07] MEDS: TAMSULOSIN 0.4 MG CAP.ER.24H. PO SCH (17:50)
[2019-04-07] MEDS: ISOSORBIDE MONONITRATE ER 30 MG TAB.ER.24H PO SCH (17:51)
[2019-04-07] MEDS: METOPROLOL SUCC 24HR ER 25 MG TAB.ER.24H. PO SCH (17:53)
[2019-04-07] MEDS: SODIUM BICARBONATE 650 MG TABLET. PO SCH ×2 (17:58→22:32)
--- NOTE | 2019-04-07 20:10 | NUR ---
Potassium not given by this nurse. Non administered to get off of emar.
[2019-04-08 03:00] VITALS: BP 119/53
[2019-04-08 05:35] LABS: HEMATOCRIT 40.7 % (39.0-53.0); HEMOGLOBIN 13.9 g/dL (13.0-17.5); RED BLOOD COUNT 4.59 x10^6/uL (4.30-5.70); RED CELL DISTRIBUTION WIDTH 14.2 % (11.5-14.5); WHITE BLOOD COUNT 13.4 x10^3/uL (4.0-11.0)
[2019-04-08 05:42] LABS: ALBUMIN 1.8 g/dL (3.4-5.0); CALCIUM 7.4 mg/dL (8.5-10.1); CREATININE 7.9 mg/dL (0.7-1.3); GFR 6.6; MAGNESIUM 2.2 mg/dL (1.8-2.4); PHOSPHORUS 7.6 mg/dL (2.6-4.7); POTASSIUM 3.3 mmol/L (3.5-5.1)
[2019-04-08 07:00] VITALS: BP 119/55
[2019-04-08] MEDS: IPRATRPIUM/ALBUTEROL 0.5/2.5MG 3 ML NEBU. NEB SCH ×4 (07:00→20:02)
[2019-04-08] MEDS: VANCOMYCIN 125 MG/2.5 ML ORAL SOLUTION. PO SCH ×4 (08:14→21:12)
[2019-04-08] MEDS: TAMSULOSIN 0.4 MG CAP.ER.24H. PO SCH (08:15)
[2019-04-08] MEDS: SODIUM BICARBONATE 650 MG TABLET. PO SCH ×2 (08:15→21:12)
[2019-04-08] MEDS: ISOSORBIDE MONONITRATE ER 30 MG TAB.ER.24H PO SCH (08:15)
[2019-04-08] MEDS: CALCIUM ACETATE 667 MG CAPSULE PO SCH ×3 (08:15→17:20)
[2019-04-08] MEDS: METOPROLOL SUCC 24HR ER 25 MG TAB.ER.24H. PO SCH (08:16)
[2019-04-08] MEDS: NYSTATIN TOPICAL POWDER 15GM BOTTLE. TP SCH ×2 (08:16→21:00)
--- NOTE | 2019-04-08 08:47 | PDOC ---
Infectious Disease Note Subjective: Subjective pt is doing ok no f/c/ n/v/abdo pain no diarrhea tolerating clear liquids well d/w RN ROS: ROS Negative except for above. Vital Signs: Vital Signs Vital Signs Date Time Temp Pulse Resp B/P (MAP) Pulse Ox O2 Delivery O2 Flow Rate FiO2 04/08/19 08:16 97 119/53 04/08/19 07:01 Room Air 04/08/19 03:00 97.8 18 94 97.8 04/07/19 14:17 2.0 Physical Exam: PHYSICAL EXAM HEENT: alert awake, no icterus NECK: Supple.HDC in place LUNGS: Clear. HEART: S1, S2 regular. ABDOMEN: Slightly distended, no organomegaly appreciated. No rebound or guarding. EXTREMITIES: About 1+ to 2+ pitting edema present. No cyanosis. NEURO alert, awake and appropriate. No focal neurologic deficit. Medications: Inpatient Meds: Current Medications Medications (Trade) Dose Ordered Sig/Adri Start Time Stop Time Status Last Admin Dose Admin Acetaminophen (Tylenol) 325 mg PRN Q6HRS PRN 04/05/19 11:15 Albuterol/ Ipratropium (Duoneb) 3 ml RTQID 04/05/19 12:00 04/08/19 07:00 3 ML Calcium Acetate (Phoslo) 1,334 mg TIDWMEALS 04/06/19 12:00 04/08/19 08:15 1,334 MG Colestipol HCl (Colestid) 1 gm BID@10,22 04/05/19 13:00 04/07/19 14:56 DC 04/06/19 22:22 1 GM Fentanyl Citrate (Fentanyl 2ml Vial) 50 mcg 1X ONCE 04/07/19 13:30 04/07/19 13:31 DC 04/07/19 14:10 50 MCG Gelatin (Gelfoam Size 12-7mm) 1 each STK-MED ONCE 04/07/19 12:34 04/07/19 12:35 DC Heparin Sodium (Porcine) (Heparin Sodium) 2,500 unit 1X ONCE 04/07/19 14:15 04/07/19 14:16 DC 04/07/19 14:10 2,500 UNIT Isosorbide Mononitrate (Imdur) 30 mg DAILY 04/05/19 12:30 04/08/19 08:15 30 MG Lidocaine HCl (Glydo (Lidocaine) Jelly) 1 dionna 1X ONCE 04/05/19 11:45 04/05/19 11:46 DC 04/05/19 12:54 1 DIONNA Lidocaine/Sodium Bicarbonate (Buffered Lidocaine 1%) 12 ml 1X ONCE 04/07/19 14:15 04/07/19 14:16 DC 04/07/19 14:11 12 ML Magnesium Sulfate 50 ml @ 25 mls/hr PRN DAILY PRN 04/05/19 13:15 Metoprolol Succinate (Toprol Xl) 25 mg DAILY 04/05/19 12:30 04/08/19 08:16 25 MG Metronidazole 100 ml @ 100 mls/hr Q8HRS 04/05/19 12:30 04/05/19 12:30 DC Midazolam HCl (Versed) 2 mg 1X ONCE 04/07/19 13:30 04/07/19 13:31 DC 04/07/19 14:10 2 MG Nystatin (Nystop) 1 dionna BID 04/05/19 12:30 04/08/19 08:16 1 DIONNA Ondansetron HCl (Zofran) 4 mg PRN Q6HRS PRN 04/05/19 11:15 Phytonadione (Mephyton Oral Soln) 5 mg 1X ONCE 04/06/19 09:30 04/06/19 09:31 DC 04/06/19 10:00 5 MG Potassium Chloride (Klor-Con) 20 meq 1X ONCE 04/07/19 10:15 04/07/19 10:24 DC Sodium Bicarbonate 100 meq/Sodium Chloride 1,100 ml @ 125 mls/hr Q8H48M 04/05/19 16:00 04/07/19 10:17 DC 04/07/19 00:28 125 MLS/HR Sodium Bicarbonate (Sodium Bicarbonate) 1,300 mg BID 04/07/19 11:00 04/08/19 08:15 1,300 MG Sodium Bicarbonate (Sodium Bicarb Adult 8.4% Syr) 50 meq Q2H 04/06/19 09:30 04/06/19 11:31 DC 04/06/19 13:17 50 MEQ Sodium Chloride 1,000 ml @ 40 mls/hr Q24H 04/07/19 10:15 04/07/19 10:15 40 MLS/HR Tamsulosin HCl (Flomax) 0.4 mg DAILY 04/05/19 12:30 04/08/19 08:15 0.4 MG Vancomycin HCl (Vancomycin Oral Solution) 125 mg [id number] 04/05/19 13:00 04/05/19 13:00 DC Labs: Lab Laboratory Tests Test 04/08/19 04:40 04/08/19 07:58 White Blood Count 13.4 x10^3/uL (4.0-11.0) Red Blood Count 4.59 x10^6/uL (4.30-5.70) Hemoglobin 13.9 g/dL (13.0-17.5) Hematocrit 40.7 % (39.0-53.0) Mean Corpuscular Volume 89 fL (79-100) Mean Corpuscular Hemoglobin 30 pg (25-35) Mean Corpuscular Hemoglobin Concent 34 g/dL (31-37) Red Cell Distribution Width 14.2 % (11.5-14.5) Platelet Count 153 x10^3/uL (140-400) Sodium Level 136 mmol/L (136-145) Potassium Level 3.3 mmol/L (3.5-5.1) Chloride Level 97 mmol/L (98-107) Carbon Dioxide Level 27 mmol/L (21-32) Anion Gap 12 (6-14) Blood Urea Nitrogen 105 mg/dL (8-26) Creatinine 7.9 mg/dL (0.7-1.3) Estimated GFR (Cockcroft-Gault) 6.6 Glucose Level 114 mg/dL (70-99) Calcium Level 7.4 mg/dL (8.5-10.1) Phosphorus Level 7.6 mg/dL (2.6-4.7) Magnesium Level 2.2 mg/dL (1.8-2.4) Albumin 1.8 g/dL (3.4-5.0) Glucose (Fingerstick) 114 mg/dL (70-99) Objective: Assessment: 1. Clostridium difficile colitis historically prior to admission,failed outpt flagyl,improving. 2. Leukocytosis.likely from above,improving 3. Acute kidney injury ,metabolic acidosis,awaiting renal w/u 4. Hypertension. 5. Obesity. 6. Cerebrovascular accident. Plan: Plan of Care continue with p.o. vancomycin for now Supportive care, maintain hydration, monitoring of the WBC and electrolytes awaiting dialysis session KELY DANIELS MD April 08, 2019 08:47
--- NOTE | 2019-04-08 09:09 | RAD ---
Procedure: CT-guided left renal biopsy and ultrasound and fluoroscopic guided temporary hemodialysis catheter placement Clinical Indication: 83-year-old with acute renal failure Sedation: Conscious sedation was administered with a total intraprocedural [id number] time of 73 minutes. The patient was monitored by a qualified independent observer throughout the time of sedation. Please refer to the medical record for exact doses of medications utilized to achieve moderate sedation. Antibiotics: None Exposure: Kerma-Area Product: 0.1 Gycm2 Sterility: All elements of maximal sterile barrier technique including the use of a cap, mask, sterile gown, sterile gloves, large sterile sheet, appropriate hand hygiene, and 2% chlorhexidine for cutaneous antisepsis (or acceptable alternative antiseptic per current guidelines) were followed for this procedure. If ultrasound guidance was utilized, sterile ultrasound techniques were followed including use of a sterile probe cover. Consent: The procedure was explained in its entirety to the patient or the patients designated distribution sales representative by a member of the treatment team, including a discussion of the risks, benefits and commonly accepted alternatives to the procedure, as well as the expected consequences of no therapy whatsoever. Discussion of the risks included, but was not limited to, those that are most frequent and those that are rare but possibly severe or life-threatening, as well as the possibility of unforeseen complications. Technique and Findings: Following informed consent, the patient was prepped and draped in usual sterile fashion. Preliminary CT scan of the area of interest was performed. Under periodic CT surveillance, a 17-gauge needle guide was advanced into the inferior pole cortex of the left kidney. 6 separate 18-gauge core biopsy passes were performed, with the specimen divided between formalin and Balwinder's solution. Gelfoam pledgets were applied as the needle guide was removed and hemostasis was achieved with manual compression. The patient was then transferred to the fluoroscopy suite where they once again were prepped and draped in usual sterile fashion. Ultrasound interrogation of the right neck revealed patency and compressibility of the right internal jugular vein. A hardcopy ultrasound image was recorded as a 21-gauge micropuncture needle was used to gain access to this vein. The needle was exchanged over wire for serial dilators followed by 20 [address] [place] temporary hemodialysis catheter which was positioned under fluoroscopy with the distal tip in the mid right atrium. Manual flows were assessed and found to be excellent. The catheter was flushed, packed with heparin, capped, and sutured to the skin. Complications: No immediate Impression: 1. CT-guided left renal biopsy as described. 2. Ultrasound and fluoroscopic guided temporary hemodialysis catheter as described. PQRS Compliance Statement: One or more of the following individualized dose reduction techniques were utilized for this examination: 1. Automated exposure control 2. Adjustment of the mA and/or kV according to patient size 3. Use of iterative reconstruction technique
--- NOTE | 2019-04-08 09:10 | RAD ---
Procedure: Ultrasound and fluoroscopic guided temporary hemodialysis catheter placement Impression: Please refer to the combined dictation for the CT-guided renal biopsy and temporary hemodialysis catheter placement of the same day for detailed description of this procedure.
--- NOTE | 2019-04-08 09:18 | PDOC ---
Subjective: Subjective: No diarrhea. On clear liquid diet - no n/v, no abd pain - would like more to eat. Would like his pillows adjusted. Objective: Objective: Had renal biopsy and temp HD cath placed yesterday. Vital Signs: Vital Signs Date Time Temp Pulse Resp B/P (MAP) Pulse Ox O2 Delivery O2 Flow Rate FiO2 04/08/19 08:16 97 119/53 04/08/19 07:01 Room Air 04/08/19 07:00 98.4 18 94 98.4 04/07/19 14:17 2.0 Labs: Laboratory Tests Test 04/08/19 04:40 04/08/19 07:58 White Blood Count 13.4 x10^3/uL Red Blood Count 4.59 x10^6/uL Hemoglobin 13.9 g/dL Hematocrit 40.7 % Mean Corpuscular Volume 89 fL Mean Corpuscular Hemoglobin 30 pg Mean Corpuscular Hemoglobin Concent 34 g/dL Red Cell Distribution Width 14.2 % Platelet Count 153 x10^3/uL Sodium Level 136 mmol/L Potassium Level 3.3 mmol/L Chloride Level 97 mmol/L Carbon Dioxide Level 27 mmol/L Anion Gap 12 Blood Urea Nitrogen 105 mg/dL Creatinine 7.9 mg/dL Estimated GFR (Cockcroft-Gault) 6.6 Glucose Level 114 mg/dL Calcium Level 7.4 mg/dL Phosphorus Level 7.6 mg/dL Magnesium Level 2.2 mg/dL Albumin 1.8 g/dL Glucose (Fingerstick) 114 mg/dL PE: GEN: NAD, eating jello LUNGS: CTAB HEART: RRR ABD: S/ND/NT NEURO/PSYCH: A & O 3 A/P: C Diff colitis HARVEY -- Okay to ADAT per GI. Continue vanco. JUSTIN SWEENEY April 08, 2019 09:18
--- NOTE | 2019-04-08 10:18 | PDOC ---
PROGRESS NOTES Subjective Subjective feels okay. discussed with dr. orr and patients nurse. small loose BM this morning. urine output improved to 600cc and creatinine better 7.9. hemodialysis catheter placed yesterday and had a left kidney biopsy yesterday. not short of breath. wbc better. back is itchy. Objective Objective Vital Signs Date Time Temp Pulse Resp B/P (MAP) Pulse Ox O2 Delivery O2 Flow Rate FiO2 04/08/19 08:16 97 119/53 04/08/19 07:01 Room Air 04/08/19 07:00 98.4 18 94 98.4 04/07/19 14:17 2.0 Intake and Output 04/08/19 07:00 Output Total 625 ml Balance -625 ml Output Urine Total 625 ml # Bowel Movements 3 Physical Exam Abdomen: Soft, Other (obese) Heart: Regular rate, Normal S1, Normal S2 Extremities: No edema General: Alert HEENT: Atraumatic Lungs: Clear to auscultation Neuro: Normal speech Psych/Mental Status: Mental status NL Skin: No rashes Assessment Assessment Problems1. Clostridium difficile colitis. stool for c. diff positive in office and neg in hospital 2. Acute kidney injury, most likely secondary to intravascular volume depletion from the diarrhea and also contributing could be the nonsteroidal anti-inflammatory drug that he took at home and also the losartan.creatinine b morro and improved urine output 3. Hyponatremia. better 4. Metabolic acidosis secondary to the diarrhea and acute kidney injury. improved 5. History of hypertension. 6. Hyperlipidemia. 7. Coronary artery disease. 8. Asthma. 9. Morbid obesity. 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 orr await kidney biopsy continue oral vancomycin hemodialysis today lab tomorrow calamine lotion Comment Review of Relevant I have reviewed the following items arnav (where applicable) has been applied. Labs Laboratory Tests Test 04/07/19 04:30 04/08/19 04:40 04/08/19 07:58 White Blood Count 15.1 x10^3/uL (4.0-11.0) 13.4 x10^3/uL (4.0-11.0) Red Blood Count 4.58 x10^6/uL (4.30-5.70) 4.59 x10^6/uL (4.30-5.70) Hemoglobin 13.5 g/dL (13.0-17.5) 13.9 g/dL (13.0-17.5) Hematocrit 40.5 % (39.0-53.0) 40.7 % (39.0-53.0) Mean Corpuscular Volume 89 fL (79-100) 89 fL (79-100) Mean Corpuscular Hemoglobin 29 pg (25-35) 30 pg (25-35) Mean Corpuscular Hemoglobin Concent 33 g/dL (31-37) 34 g/dL (31-37) Red Cell Distribution Width 14.3 % (11.5-14.5) 14.2 % (11.5-14.5) Platelet Count 168 x10^3/uL (140-400) 153 x10^3/uL (140-400) Neutrophils (%) (Auto) 82 % (31-73) Lymphocytes (%) (Auto) 9 % (24-48) Monocytes (%) (Auto) 8 % (0-9) Eosinophils (%) (Auto) 1 % (0-3) Basophils (%) (Auto) 0 % (0-3) Neutrophils # (Auto) 12.4 x10^3uL (1.8-7.7) Lymphocytes # (Auto) 1.4 x10^3/uL (1.0-4.8) Monocytes # (Auto) 1.2 x10^3/uL (0.0-1.1) Eosinophils # (Auto) 0.1 x10^3/uL (0.0-0.7) Basophils # (Auto) 0.1 x10^3/uL (0.0-0.2) Sodium Level 133 mmol/L (136-145) 136 mmol/L (136-145) Potassium Level 3.4 mmol/L (3.5-5.1) 3.3 mmol/L (3.5-5.1) Chloride Level 95 mmol/L (98-107) 97 mmol/L (98-107) Carbon Dioxide Level 20 mmol/L (21-32) 27 mmol/L (21-32) Anion Gap 18 (6-14) 12 (6-14) Blood Urea Nitrogen 109 mg/dL (8-26) 105 mg/dL (8-26) Creatinine 9.0 mg/dL (0.7-1.3) 7.9 mg/dL (0.7-1.3) Estimated GFR (Cockcroft-Gault) 5.7 6.6 Glucose Level 107 mg/dL (70-99) 114 mg/dL (70-99) Calcium Level 7.2 mg/dL (8.5-10.1) 7.4 mg/dL (8.5-10.1) Phosphorus Level 8.4 mg/dL (2.6-4.7) 7.6 mg/dL (2.6-4.7) Magnesium Level 2.1 mg/dL (1.8-2.4) 2.2 mg/dL (1.8-2.4) Albumin 1.7 g/dL (3.4-5.0) 1.8 g/dL (3.4-5.0) Glucose (Fingerstick) 114 mg/dL (70-99) Laboratory Tests Test 04/08/19 04:40 04/08/19 07:58 White Blood Count 13.4 x10^3/uL (4.0-11.0) Red Blood Count 4.59 x10^6/uL (4.30-5.70) Hemoglobin 13.9 g/dL (13.0-17.5) Hematocrit 40.7 % (39.0-53.0) Mean Corpuscular Volume 89 fL (79-100) Mean Corpuscular Hemoglobin 30 pg (25-35) Mean Corpuscular Hemoglobin Concent 34 g/dL (31-37) Red Cell Distribution Width 14.2 % (11.5-14.5) Platelet Count 153 x10^3/uL (140-400) Sodium Level 136 mmol/L (136-145) Potassium Level 3.3 mmol/L (3.5-5.1) Chloride Level 97 mmol/L (98-107) Carbon Dioxide Level 27 mmol/L (21-32) Anion Gap 12 (6-14) Blood Urea Nitrogen 105 mg/dL (8-26) Creatinine 7.9 mg/dL (0.7-1.3) Estimated GFR (Cockcroft-Gault) 6.6 Glucose Level 114 mg/dL (70-99) Calcium Level 7.4 mg/dL (8.5-10.1) Phosphorus Level 7.6 mg/dL (2.6-4.7) Magnesium Level 2.2 mg/dL (1.8-2.4) Albumin 1.8 g/dL (3.4-5.0) Glucose (Fingerstick) 114 mg/dL (70-99) Medications Current Medications Sodium Chloride 1,000 ml @ 1,000 mls/hr 1X ONCE IV Last administered on 04/04/19at 22:55; Start 04/04/19 at 23:00; Stop 04/04/19 at 23:59; Status DC Vancomycin HCl (Vancomycin Oral Solution) 125 mg 1X ONCE PO Last administered on 04/04/19at 23:51; Start 04/05/19 at 00:00; Stop 04/05/19 at 00:01; Status DC Ondansetron HCl (Zofran) 4 mg PRN Q8HRS PRN IV NAUSEA/VOMITING 1ST CHOICE; Start 04/04/19 at 23:45; Stop 04/05/19 at 13:24; Status DC Fentanyl Citrate (Fentanyl 2ml Vial) 25 mcg PRN Q2HRS PRN IV SEVERE PAIN; Start 04/04/19 at 23:45; Stop 04/05/19 at 11:21; Status DC Vancomycin HCl (Vancomycin Oral Solution) 125 mg [id number] PO Last administered on 04/05/19at 08:04; Start 04/05/19 at 09:00; Stop 04/05/19 at 11:24; Status DC Sodium Bicarbonate 100 meq/Sodium Chloride 1,100 ml @ 125 mls/hr Q8H48M IV Last administered on 04/05/19at 08:05; Start 04/05/19 at 00:00; Stop 04/05/19 at 15:59; Status DC Sodium Bicarbonate 100 meq/Sodium Chloride 1,100 ml @ 125 mls/hr Q8H48M IV Last administered on 04/07/19at 00:28; Start 04/05/19 at 16:00; Stop 04/07/19 at 10:17; Status DC Fentanyl Citrate (Fentanyl 2ml Vial) 25 mcg PRN Q4HRS PRN IV MODERATE TO SEVERE PAIN; Start 04/05/19 at 11:15; Stop 04/07/19 at 10:18; Status DC Vancomycin HCl (Vancomycin Oral Solution) 125 mg [id number] PO Last administered on 04/08/19at 08:14; Start 04/05/19 at 13:00 Tamsulosin HCl (Flomax) 0.4 mg DAILY PO Last administered on 04/08/19 08:15; Start 04/05/19 at 12:30 Metoprolol Succinate (Toprol Xl) 25 mg DAILY PO Last administered on 04/08/19 08:16; Start 04/05/19 at 12:30 Isosorbide Mononitrate (Imdur) 30 mg DAILY PO Last administered on 04/08/19 08:15; Start 04/05/19 at 12:30 Nystatin (Nystop) 1 dionna BID TP Last administered on 04/08/19at 08:16; Start 04/05/19 at 12:30 Ondansetron HCl (Zofran) 4 mg PRN Q6HRS PRN IV NAUSEA/VOMITING; Start 04/05/19 at 11:15 Albuterol/ Ipratropium (Duoneb) 3 ml RTQID NEB Last administered on 04/08/19at 07:00; Start 04/05/19 at 12:00 Acetaminophen (Tylenol) 325 mg PRN Q6HRS PRN PO MILD PAIN / TEMP; Start 04/05/19 at 11:15 Lidocaine HCl (Glydo (Lidocaine) Jelly) 1 dionna 1X ONCE MM Last administered on 04/05/19at 12:54; Start 04/05/19 at 11:45; Stop 04/05/19 at 11:46; Status DC Metronidazole 100 ml @ 100 mls/hr Q8HRS IV ; Start 04/05/19 at 12:30; Stop 04/05/19 at 12:30; Status DC Vancomycin HCl (Vancomycin Oral Solution) 125 mg [id number] PO ; Start 04/05/19 at 13:00; Stop 04/05/19 at 13:00; Status DC Colestipol HCl (Colestid) 1 gm BID@10,22 PO Last administered on 04/06/19at 22:22; Start 04/05/19 at 13:00; Stop 04/07/19 at 14:56; Status DC Sodium Chloride 500 ml @ 0 mls/hr PRN QID PRN IV UO< 30cc/hr over previous 6hrs; Start 04/05/19 at 13:15; Stop 04/07/19 at 10:18; Status DC Magnesium Sulfate 50 ml @ 25 mls/hr PRN DAILY PRN IV for Mag < 1.7 on am labs; Start 04/05/19 at 13:15 Phytonadione (Mephyton Oral Soln) 5 mg 1X ONCE PO Last administered on 03/12 05/29at 10:00; Start 04/06/19 at 09:30; Stop 04/06/19 at 09:31; Status DC Sodium Bicarbonate (Sodium Bicarb Adult 8.4% Syr) 50 meq Q2H IV Last administered on 04/06/19at 13:17; Start 04/06/19 at 09:30; Stop 04/06/19 at 11:31; Status DC Calcium Acetate (Phoslo) 1,334 mg [id number] PO Last administered on 04/08/19at 08:15; Start 04/06/19 at 12:00 Sodium Bicarbonate (Sodium Bicarbonate) 1,300 mg BID PO Last administered on 04/08/19at 08:15; Start 04/07/19 at 11:00 Potassium Chloride (Klor-Con) 20 meq 1X ONCE PO ; Start 04/07/19 at 10:15; Stop 04/07/19 at 10:24; Status DC Sodium Chloride 1,000 ml @ 40 mls/hr Q24H IV Last administered on 04/07/19at 10:15; Start 04/07/19 at 10:15 Lidocaine/Sodium Bicarbonate (Buffered Lidocaine 1%) 3 ml STK-MED ONCE .ROUTE ; Start 04/07/19 at 12:27; Stop 04/07/19 at 12:28; Status DC Midazolam HCl (Versed) 2 mg STK-MED ONCE .ROUTE ; Start 04/07/19 at 12:31; Stop 04/07/19 at 12:32; Status DC Fentanyl Citrate (Fentanyl 2ml Vial) 100 mcg STK-MED ONCE .ROUTE ; Start 04/07/19 at 12:32; Stop 04/07/19 at 12:33; Status DC Gelatin (Gelfoam Size 12-7mm) 1 each STK-MED ONCE .ROUTE ; Start 04/07/19 at 12:34; Stop 04/07/19 at 12:35; Status DC Lidocaine/Sodium Bicarbonate (Buffered Lidocaine 1%) 3 ml STK-MED ONCE .ROUTE ; Start 04/07/19 at 12:59; Stop 04/07/19 at 13:00; Status DC Heparin Sodium (Porcine) (Heparin Sodium) 10,000 unit STK-MED ONCE .ROUTE ; Start 04/07/19 at 13:00; Stop 04/07/19 at 13:01; Status DC Midazolam HCl (Versed) 2 mg 1X ONCE IV Last administered on 04/07/19at 14:10; Start 04/07/19 at 13:30; Stop 04/07/19 at 13:31; Status DC Fentanyl Citrate (Fentanyl 2ml Vial) 50 mcg 1X ONCE IV Last administered on 04/07/19at 14:10; Start 04/07/19 at 13:30; Stop 04/07/19 at 13:31; Status DC Lidocaine/Sodium Bicarbonate (Buffered Lidocaine 1%) 12 ml 1X ONCE IJ Last administered on 04/07/19at 14:11; Start 04/07/19 at 14:15; Stop 04/07/19 at 14:16; Status DC Heparin Sodium (Porcine) (Heparin Sodium) 2,500 unit 1X ONCE INT CAT Last administered on 04/07/19at 14:10; Start 04/07/19 at 14:15; Stop 04/07/19 at 14:16; Status DC Active Scripts Active Reported Proair Hfa Inhaler (Albuterol Sulfate) 8.5 Gm Hfa.aer.ad 1 Puff INH PRN Q6HRS PRN Losartan-Hctz 50-12.5 Mg Tab (Losartan/Hydrochlorothiazide) 1 Each Tablet 1 Each PO DAILY Metoprolol Tartrate 25 Mg Tablet 25 Mg PO BID Furosemide 20 Mg Tablet 20 Mg PO DAILY Isosorbide Mononitrate 10 Mg Tablet 10 Mg PO DAILY Amlodipine Besylate 10 Mg Tablet 10 Mg PO DAILY Tamsulosin Hcl 0.4 Mg Cap.er.24h 0.4 Mg PO DAILY Fish Oil (Mears-3 Fatty Acids) 500 Mg Capsule.dr 1,000 Mg PO DAILY Multi Vitamin Daily (Multivitamin) 1 Each Tablet 1 Each PO Symbicort 160-4.5 Mcg Inhaler (Budesonide/Formoterol Fumarate) 10.2 Gm Hfa.aer.ad 1 Puff IH BID Aspirin 81 Mg Tab.chew 325 Tab PO DAILY Losartan Potassium (Losartan Potassium) 25 Mg Tablet 1 Tab PO DAILY Vitals/I & O Vital Sign - Last 24 Hours 04/07/19 04/07/19 04/07/19 04/07/19 11:00 12:31 13:03 13:08 Temp 98.2 98.2 Pulse 105 102 108 Resp 16 18 18 B/P (MAP) 124/55 (78) Pulse Ox 96 98 93 95 O2 Delivery Room Air Room Air Room Air Nasal Cannula O2 Flow Rate 2.0 04/07/19 04/07/19 04/07/19 04/07/19 13:13 13:18 13:21 13:26 Pulse 106 108 107 94 Resp 18 16 18 18 Pulse Ox 94 93 93 93 O2 Delivery Nasal Cannula Nasal Cannula Nasal Cannula Nasal Cannula O2 Flow Rate 2.0 2.0 2.0 2.0 04/07/19 04/07/19 04/07/19 04/07/19 13:40 13:45 13:50 13:55 Pulse 104 103 100 103 Resp 20 20 18 18 Pulse Ox 98 99 100 99 O2 Delivery Nasal Cannula Nasal Cannula Nasal Cannula Nasal Cannula O2 Flow Rate 2.0 2.0 2.0 2.0 04/07/19 04/07/19 04/07/19 04/07/19 14:00 14:05 14:10 14:12 Pulse 100 98 103 Resp 16 16 16 16 Pulse Ox 100 100 O2 Delivery Nasal Cannula Nasal Cannula Nasal Cannula O2 Flow Rate 2.0 2.0 2.0 04/07/19 04/07/19 04/07/19 04/07/19 14:17 14:22 14:30 14:45 Pulse 103 104 99 100 Resp 16 B/P (MAP) 125/59 (81) 120/52 (74) 100/54 (69) Pulse Ox 100 96 96 98 O2 Delivery Nasal Cannula O2 Flow Rate 2.0 04/07/19 04/07/19 04/07/19 04/07/19 15:00 15:00 15:16 15:30 Temp 98.1 98.1 Pulse 98 99 97 99 Resp 18 B/P (MAP) 124/67 (86) 120/52 (74) 138/17 (57) 125/60 (81) Pulse Ox 96 96 98 98 O2 Delivery Room Air 04/07/19 04/07/19 04/07/19 04/07/19 16:00 17:00 17:31 17:51 Pulse 99 101 80 B/P (MAP) 130/55 (80) 139/65 (89) 130/55 Pulse Ox 98 95 O2 Delivery Room Air 04/07/19 04/07/19 04/07/19 04/07/19 17:53 19:00 20:40 21:45 Temp 97.7 97.7 Pulse 80 69 Resp 18 B/P (MAP) 130/55 110/62 (78) Pulse Ox 95 O2 Delivery Room Air Room Air Room Air 04/07/19 04/08/19 04/08/19 04/08/19 23:00 03:00 07:00 07:01 Temp 98.4 97.8 98.4 98.4 97.8 98.4 Pulse 105 97 97 Resp 18 18 18 B/P (MAP) 128/48 (74) 119/53 (75) 119/55 (76) Pulse Ox 93 94 94 O2 Delivery Room Air Room Air Room Air Room Air 04/08/19 04/08/19 08:15 08:16 Pulse 97 97 B/P (MAP) 119/53 119/53 Intake and Output 04/07/19 04/07/19 04/08/19 15:00 23:00 07:00 Output Total 400 ml 225 ml Balance -400 ml -225 ml CHRIS STEIN MD April 08, 2019 10:18
--- NOTE | 2019-04-08 10:45 | PDOC ---
Renal-Progress Notes Subjective Notes Notes NO NEW COMPLAINTS History of Present Illness Hx of present illness IMPROVING Vitals Vitals Vital Signs Date Time Temp Pulse Resp B/P (MAP) Pulse Ox O2 Delivery O2 Flow Rate FiO2 04/08/19 08:16 97 119/53 04/08/19 07:01 Room Air 04/08/19 07:00 98.4 18 94 98.4 04/07/19 14:17 2.0 Weight Weight [ ] I.O. Intake and Output Intake and Output 04/08/19 07:00 Output Total 625 ml Balance -625 ml Output Urine Total 625 ml # Bowel Movements 3 Labs Labs Laboratory Tests Test 04/08/19 04:40 04/08/19 07:58 White Blood Count 13.4 x10^3/uL (4.0-11.0) Red Blood Count 4.59 x10^6/uL (4.30-5.70) Hemoglobin 13.9 g/dL (13.0-17.5) Hematocrit 40.7 % (39.0-53.0) Mean Corpuscular Volume 89 fL (79-100) Mean Corpuscular Hemoglobin 30 pg (25-35) Mean Corpuscular Hemoglobin Concent 34 g/dL (31-37) Red Cell Distribution Width 14.2 % (11.5-14.5) Platelet Count 153 x10^3/uL (140-400) Sodium Level 136 mmol/L (136-145) Potassium Level 3.3 mmol/L (3.5-5.1) Chloride Level 97 mmol/L (98-107) Carbon Dioxide Level 27 mmol/L (21-32) Anion Gap 12 (6-14) Blood Urea Nitrogen 105 mg/dL (8-26) Creatinine 7.9 mg/dL (0.7-1.3) Estimated GFR (Cockcroft-Gault) 6.6 Glucose Level 114 mg/dL (70-99) Calcium Level 7.4 mg/dL (8.5-10.1) Phosphorus Level 7.6 mg/dL (2.6-4.7) Magnesium Level 2.2 mg/dL (1.8-2.4) Albumin 1.8 g/dL (3.4-5.0) Glucose (Fingerstick) 114 mg/dL (70-99) Review of Systems Constitutional: yes: alert, oriented Ears/Nose/Throat: Yes: no symptom reported Eyes: Yes: no symptom reported Pulmonary: Yes no symptom reported Cardiovascular: Yes no symptom reported Gastrointestional: Yes: diarrhea Genitourinary: Yes: no symptom reported Musculoskeletal: Yes: no symptom reported Skin: Yes no symptom reported Psychiatric/Neurological: Yes: no symptom reported Endocrine: Yes: no symptom reported Physical Exam General Appearance: no apparent distress Skin: warm Respiratory: bilateral CTA Heart: S1S2, RRR Abdomen: soft, bowel sounds present Genitourinary: bladder flat Extremities: pulses present Neurology: alert Assessment Assessment IMP [id number] IMPROVING UO UTI LEUCOCYTOSIS C DIF MET ACIDOSIS BPH MORBID OBESITY LOW K S/P TEMP HD CATH AND RENAL BX PLAN ANTIBIOTICS REPLACE K HD TODAY UF MINIMAL LOOKS LIKE HE MAY BE RECOVERING EXPECT ONLY ATN ON RENAL BX CONT WITH IVF'S D/W DR STEIN WILL FOLLOW CRISTO ESQUIVEL MD April 08, 2019 10:45
[2019-04-08] MEDS: CALAMINE/ZINC OXIDE TOPICAL SUSPENSION 177ML BOTTLE. TP SCH ×2 (11:00→21:00)
[2019-04-08] MEDS ORDERED: IV NORMAL SALINE 1000ML BAG 1,000 ML IV PRN ×2 (11:05)
[2019-04-08] MEDS ORDERED: diphenhydrAMINE 50 MG/ML VIAL IV PRN ×2 (11:15)
[2019-04-08] MEDS ORDERED: DIALYSIS PATIENT. MC PRN (11:15)
[2019-04-08] MEDS ORDERED: POTASSIUM CHLORIDE 20 MEQ TABLET.ER. PO ONE (11:30)
--- NOTE | 2019-04-08 11:32 | NUR ---
AVINASH following for discharge planning. Discussed with RN, pt starting temporary dialysis today. SNU referral sent to [facility]. Pt's insurance will need to auth for SNU placement. Pt is not ready for discharge, AVINASH advised [facility] to wait until further notice before submitting for insurance auth. AVINASH will continue to follow.
[2019-04-08 15:00] VITALS: BP 129/60
[2019-04-08] MEDS: IV NORMAL SALINE 1000ML BAG 1,000 ML IV SCH ×2 (15:34→20:15)
[2019-04-08] MEDS: MULTIVITAMIN with MINERAL TABLET. PO SCH (15:35)
[2019-04-08 19:00] VITALS: BP 113/86
[2019-04-08 23:00] VITALS: BP 100/70
[2019-04-09 03:00] VITALS: BP 127/45
[2019-04-09 04:04] LABS: BASO % 0 % (0-3); EOS # 0.1 x10^3/uL (0.0-0.7); EOS % 1 % (0-3); HEMATOCRIT 41.1 % (39.0-53.0); HEMOGLOBIN 13.3 g/dL (13.0-17.5); LYMPH # 1.2 x10^3/uL (1.0-4.8); LYMPH % 10 % (24-48); MEAN CORPUSCULAR HEMOGLOBIN 29 pg (25-35); MEAN CORPUSCULAR HGB CONC 33 g/dL (31-37); MEAN CORPUSCULAR VOLUME 90 fL (79-100); MONO # 0.8 x10^3/uL (0.0-1.1); MONO % 7 % (0-9); NEUT # 10.4 x10^3uL (1.8-7.7); NEUT % 83 % (31-73); PLATELET COUNT 151 x10^3/uL (140-400); RED BLOOD COUNT 4.55 x10^6/uL (4.30-5.70); RED CELL DISTRIBUTION WIDTH 14.2 % (11.5-14.5); WHITE BLOOD COUNT 12.6 x10^3/uL (4.0-11.0)
[2019-04-09 04:20] LABS: ALBUMIN 1.7 g/dL (3.4-5.0); CALCIUM 7.6 mg/dL (8.5-10.1); CREATININE 4.7 mg/dL (0.7-1.3); PHOSPHORUS 4.2 mg/dL (2.6-4.7); POTASSIUM 3.5 mmol/L (3.5-5.1)
--- NOTE | 2019-04-09 04:36 | NUR ---
Pt c/o itchiness all along their back. Upon assessment on their back, notice red patchy dot along their neck to the sacrum. Pictures taken in chart. Will continue to monitor.
[2019-04-09] MEDS: IV NORMAL SALINE 1000ML BAG 1,000 ML IV SCH ×2 (06:37→17:19)
[2019-04-09 07:00] VITALS: BP 134/47
[2019-04-09] MEDS: IPRATRPIUM/ALBUTEROL 0.5/2.5MG 3 ML NEBU. NEB SCH ×4 (07:27→18:06)
[2019-04-09] MEDS ORDERED: POTASSIUM CHLORIDE 20 MEQ TABLET.ER. PO ONE (08:45)
--- NOTE | 2019-04-09 08:45 | PDOC ---
PROGRESS NOTES Subjective Subjective had 3 BM this morning. lab reviewed. dialysis went well. wbc lower. bun 54 and creatinine 4.7. 701 cc urine output noted. potassium 3.5. feels well. denies abdominal pain. tolerates clear liquids Objective Objective Vital Signs Date Time Temp Pulse Resp B/P (MAP) Pulse Ox O2 Delivery O2 Flow Rate FiO2 04/09/19 07:28 96 Room Air 04/09/19 03:00 98.2 96 16 127/45 (72) 98.2 04/07/19 14:17 2.0 Intake and Output 04/09/19 06:59 Intake Total 500 ml Output Total 701 ml Balance -201 ml Intake Oral 500 ml Output Urine Total 700 ml Stool Total 1 ml # Voids 1 # Bowel Movements 3 Physical Exam Abdomen: Soft, No tenderness, Other (obese) Heart: Regular rate, Normal S1, Normal S2 Extremities: No edema General: Alert HEENT: Atraumatic Lungs: Clear to auscultation Neuro: Normal speech Psych/Mental Status: Mental status NL Skin: Other (red macular rash suspect from laying on back and perspiration) Assessment Assessment Problems1. Clostridium difficile colitis. stool for c. diff positive in office and neg in hospital 2. Acute kidney injury, most likely secondary to intravascular volume depletion from the diarrhea and also contributing could be the nonsteroidal anti-inflammatory drug that he took at home and also the losartan.creatinine better and improved urine output 3. Hyponatremia. better 4. Metabolic acidosis secondary to the diarrhea and acute kidney injury. improved 5. History of hypertension. 6. Hyperlipidemia. 7. Coronary artery disease. 8. Asthma. 9. Morbid obesity. 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 Labs Laboratory Tests Test 04/08/19 04:40 04/08/19 07:58 04/08/19 16:36 04/09/19 03:05 White Blood Count 13.4 x10^3/uL (4.0-11.0) 12.6 x10^3/uL (4.0-11.0) Red Blood Count 4.59 x10^6/uL (4.30-5.70) 4.55 x10^6/uL (4.30-5.70) Hemoglobin 13.9 g/dL (13.0-17.5) 13.3 g/dL (13.0-17.5) Hematocrit 40.7 % (39.0-53.0) 41.1 % (39.0-53.0) Mean Corpuscular Volume 89 fL (79-100) 90 fL (79-100) Mean Corpuscular Hemoglobin 30 pg (25-35) 29 pg (25-35) Mean Corpuscular Hemoglobin Concent 34 g/dL (31-37) 33 g/dL (31-37) Red Cell Distribution Width 14.2 % (11.5-14.5) 14.2 % (11.5-14.5) Platelet Count 153 x10^3/uL (140-400) 151 x10^3/uL (140-400) Sodium Level 136 mmol/L (136-145) 143 mmol/L (136-145) Potassium Level 3.3 mmol/L (3.5-5.1) 3.5 mmol/L (3.5-5.1) Chloride Level 97 mmol/L (98-107) 104 mmol/L (98-107) Carbon Dioxide Level 27 mmol/L (21-32) 32 mmol/L (21-32) Anion Gap 12 (6-14) 7 (6-14) Blood Urea Nitrogen 105 mg/dL (8-26) 54 mg/dL (8-26) Creatinine 7.9 mg/dL (0.7-1.3) 4.7 mg/dL (0.7-1.3) Estimated GFR (Cockcroft-Gault) 6.6 12.0 Glucose Level 114 mg/dL (70-99) 108 mg/dL (70-99) Calcium Level 7.4 mg/dL (8.5-10.1) 7.6 mg/dL (8.5-10.1) Phosphorus Level 7.6 mg/dL (2.6-4.7) 4.2 mg/dL (2.6-4.7) Magnesium Level 2.2 mg/dL (1.8-2.4) 2.0 mg/dL (1.8-2.4) Albumin 1.8 g/dL (3.4-5.0) 1.7 g/dL (3.4-5.0) Hepatitis B Surface Antigen Nonreactive (Nonreactive) Hepatitis B Surface Antibody, Quant <3.1 mIU/mL (Immunity>9.9) Hepatitis B Core Total Antibody Negative (Negative) Glucose (Fingerstick) 114 mg/dL (70-99) 92 mg/dL (70-99) Neutrophils (%) (Auto) 83 % (31-73) Lymphocytes (%) (Auto) 10 % (24-48) Monocytes (%) (Auto) 7 % (0-9) Eosinophils (%) (Auto) 1 % (0-3) Basophils (%) (Auto) 0 % (0-3) Neutrophils # (Auto) 10.4 x10^3uL (1.8-7.7) Lymphocytes # (Auto) 1.2 x10^3/uL (1.0-4.8) Monocytes # (Auto) 0.8 x10^3/uL (0.0-1.1) Eosinophils # (Auto) 0.1 x10^3/uL (0.0-0.7) Basophils # (Auto) 0.0 x10^3/uL (0.0-0.2) Laboratory Tests Test 04/08/19 16:36 04/09/19 03:05 Glucose (Fingerstick) 92 mg/dL (70-99) White Blood Count 12.6 x10^3/uL (4.0-11.0) Red Blood Count 4.55 x10^6/uL (4.30-5.70) Hemoglobin 13.3 g/dL (13.0-17.5) Hematocrit 41.1 % (39.0-53.0) Mean Corpuscular Volume 90 fL (79-100) Mean Corpuscular Hemoglobin 29 pg (25-35) Mean Corpuscular Hemoglobin Concent 33 g/dL (31-37) Red Cell Distribution Width 14.2 % (11.5-14.5) Platelet Count 151 x10^3/uL (140-400) Neutrophils (%) (Auto) 83 % (31-73) Lymphocytes (%) (Auto) 10 % (24-48) Monocytes (%) (Auto) 7 % (0-9) Eosinophils (%) (Auto) 1 % (0-3) Basophils (%) (Auto) 0 % (0-3) Neutrophils # (Auto) 10.4 x10^3uL (1.8-7.7) Lymphocytes # (Auto) 1.2 x10^3/uL (1.0-4.8) Monocytes # (Auto) 0.8 x10^3/uL (0.0-1.1) Eosinophils # (Auto) 0.1 x10^3/uL (0.0-0.7) Basophils # (Auto) 0.0 x10^3/uL (0.0-0.2) Sodium Level 143 mmol/L (136-145) Potassium Level 3.5 mmol/L (3.5-5.1) Chloride Level 104 mmol/L (98-107) Carbon Dioxide Level 32 mmol/L (21-32) Anion Gap 7 (6-14) Blood Urea Nitrogen 54 mg/dL (8-26) Creatinine 4.7 mg/dL (0.7-1.3) Estimated GFR (Cockcroft-Gault) 12.0 Glucose Level 108 mg/dL (70-99) Calcium Level 7.6 mg/dL (8.5-10.1) Phosphorus Level 4.2 mg/dL (2.6-4.7) Magnesium Level 2.0 mg/dL (1.8-2.4) Albumin 1.7 g/dL (3.4-5.0) Microbiology 04/05/19 Urine Culture - Final, Complete 04/05/19 Urine Culture Result 1 (MARISELA) - Final, Complete Medications Current Medications Sodium Chloride 1,000 ml @ 1,000 mls/hr 1X ONCE IV Last administered on 04/04/19at 22:55; Start 04/04/19 at 23:00; Stop 04/04/19 at 23:59; Status DC Vancomycin HCl (Vancomycin Oral Solution) 125 mg 1X ONCE PO Last administered on 04/04/19at 23:51; Start 04/05/19 at 00:00; Stop 04/05/19 at 00:01; Status DC Ondansetron HCl (Zofran) 4 mg PRN Q8HRS PRN IV NAUSEA/VOMITING 1ST CHOICE; Start 04/04/19 at 23:45; Stop 04/05/19 at 13:24; Status DC Fentanyl Citrate (Fentanyl 2ml Vial) 25 mcg PRN Q2HRS PRN IV SEVERE PAIN; Start 04/04/19 at 23:45; Stop 04/05/19 at 11:21; Status DC Vancomycin HCl (Vancomycin Oral Solution) 125 mg [id number] PO Last administered on 04/05/19at 08:04; Start 04/05/19 at 09:00; Stop 04/05/19 at 11:24; Status DC Sodium Bicarbonate 100 meq/Sodium Chloride 1,100 ml @ 125 mls/hr Q8H48M IV Last administered on 04/05/19at 08:05; Start 04/05/19 at 00:00; Stop 04/05/19 at 15:59; Status DC Sodium Bicarbonate 100 meq/Sodium Chloride 1,100 ml @ 125 mls/hr Q8H48M IV Last administered on 04/07/19at 00:28; Start 04/05/19 at 16:00; Stop 04/07/19 at 10:17; Status DC Fentanyl Citrate (Fentanyl 2ml Vial) 25 mcg PRN Q4HRS PRN IV MODERATE TO SEVERE PAIN; Start 04/05/19 at 11:15; Stop 04/07/19 at 10:18; Status DC Vancomycin HCl (Vancomycin Oral Solution) 125 mg [id number] PO Last administered on 04/08/19at 21:12; Start 04/05/19 at 13:00 Tamsulosin HCl (Flomax) 0.4 mg DAILY PO Last administered on 04/08/19 08:15; Start 04/05/19 at 12:30 Metoprolol Succinate (Toprol Xl) 25 mg DAILY PO Last administered on 04/08/19 08:16; Start 04/05/19 at 12:30 Isosorbide Mononitrate (Imdur) 30 mg DAILY PO Last administered on 04/08/19 08:15; Start 04/05/19 at 12:30 Nystatin (Nystop) 1 dionna BID TP Last administered on 04/08/19at 21:00; Start 04/05/19 at 12:30 Ondansetron HCl (Zofran) 4 mg PRN Q6HRS PRN IV NAUSEA/VOMITING; Start 04/05/19 at 11:15 Albuterol/ Ipratropium (Duoneb) 3 ml RTQID NEB Last administered on 04/09/19at 07:27; Start 04/05/19 at 12:00 Acetaminophen (Tylenol) 325 mg PRN Q6HRS PRN PO MILD PAIN / TEMP; Start 04/05/19 at 11:15 Lidocaine HCl (Glydo (Lidocaine) Jelly) 1 dionna 1X ONCE MM Last administered on 04/05/19at 12:54; Start 04/05/19 at 11:45; Stop 04/05/19 at 11:46; Status DC Metronidazole 100 ml @ 100 mls/hr Q8HRS IV ; Start 04/05/19 at 12:30; Stop 04/05/19 at 12:30; Status DC Vancomycin HCl (Vancomycin Oral Solution) 125 mg [id number] PO ; Start 04/05/19 at 13:00; Stop 04/05/19 at 13:00; Status DC Colestipol HCl (Colestid) 1 gm BID@10,22 PO Last administered on 04/06/19at 22:22; Start 04/05/19 at 13:00; Stop 04/07/19 at 14:56; Status DC Sodium Chloride 500 ml @ 0 mls/hr PRN QID PRN IV UO< 30cc/hr over previous 6hrs; Start 04/05/19 at 13:15; Stop 04/07/19 at 10:18; Status DC Magnesium Sulfate 50 ml @ 25 mls/hr PRN DAILY PRN IV for Mag < 1.7 on am labs; Start 04/05/19 at 13:15 Phytonadione (Mephyton Oral Soln) 5 mg 1X ONCE PO Last administered on 04/06/19at 10:00; Start 04/06/19 at 09:30; Stop 04/06/19 at 09:31; Status DC Sodium Bicarbonate (Sodium Bicarb Adult 8.4% Syr) 50 meq Q2H IV Last administered on 04/06/19at 13:17; Start 04/06/19 at 09:30; Stop 04/06/19 at 11:31; Status DC Calcium Acetate (Phoslo) 1,334 mg TIDWMEALS PO Last administered on 04/08/19at 17:20; Start 04/06/19 at 12:00 Sodium Bicarbonate (Sodium Bicarbonate) 1,300 mg BID PO Last administered on 04/08/19at 21:12; Start 04/07/19 at 11:00 Potassium Chloride (Klor-Con) 20 meq 1X ONCE PO ; Start 04/07/19 at 10:15; Stop 04/07/19 at 10:24; Status DC Sodium Chloride 1,000 ml @ 100 mls/hr Q10H IV Last administered on 04/09/19at 06:37; Start 04/07/19 at 10:15 Lidocaine/Sodium Bicarbonate (Buffered Lidocaine 1%) 3 ml STK-MED ONCE .ROUTE ; Start 04/07/19 at 12:27; Stop 04/07/19 at 12:28; Status DC Midazolam HCl (Versed) 2 mg STK-MED ONCE .ROUTE ; Start 04/07/19 at 12:31; Stop 04/07/19 at 12:32; Status DC Fentanyl Citrate (Fentanyl 2ml Vial) 100 mcg STK-MED ONCE .ROUTE ; Start 04/07/19 at 12:32; Stop 04/07/19 at 12:33; Status DC Gelatin (Gelfoam Size 12-7mm) 1 each STK-MED ONCE .ROUTE ; Start 04/07/19 at 12:34; Stop 04/07/19 at 12:35; Status DC Lidocaine/Sodium Bicarbonate (Buffered Lidocaine 1%) 3 ml STK-MED ONCE .ROUTE ; Start 04/07/19 at 12:59; Stop 04/07/19 at 13:00; Status DC Heparin Sodium (Porcine) (Heparin Sodium) 10,000 unit STK-MED ONCE .ROUTE ; Start 04/07/19 at 13:00; Stop 04/07/19 at 13:01; Status DC Midazolam HCl (Versed) 2 mg 1X ONCE IV Last administered on 04/07/19at 14:10; Start 04/07/19 at 13:30; Stop 04/07/19 at 13:31; Status DC Fentanyl Citrate (Fentanyl 2ml Vial) 50 mcg 1X ONCE IV Last administered on 04/07/19at 14:10; Start 04/07/19 at 13:30; Stop 04/07/19 at 13:31; Status DC Lidocaine/Sodium Bicarbonate (Buffered Lidocaine 1%) 12 ml 1X ONCE IJ Last administered on 04/07/19at 14:11; Start 04/07/19 at 14:15; Stop 04/07/19 at 14:16; Status DC Heparin Sodium (Porcine) (Heparin Sodium) 2,500 unit 1X ONCE INT CAT Last administered on 04/07/19at 14:10; Start 04/07/19 at 14:15; Stop 04/07/19 at 14:16; Status DC Calamine (Calamine Lotion) 1 dionna BID TP Last administered on 04/08/19at 21:00; Start 04/08/19 at 11:00 Multivitamins (Thera M Plus) 1 tab DAILY PO Last administered on 04/08/19at 15:35; Start 04/08/19 at 11:30 Potassium Chloride (Klor-Con) 20 meq 1X ONCE PO Last administered on 04/08/19at 15:35; Start 04/08/19 at 11:30; Stop 04/08/19 at 11:31; Status DC Sodium Chloride 1,000 ml @ 1,000 mls/hr Q1H PRN IV hypotension; Start 04/08/19 at 11:05; Stop 04/08/19 at 17:04; Status DC Diphenhydramine HCl (Benadryl) 25 mg 1X PRN PRN IV ITCHING; Start 04/08/19 at 11:15; Stop 04/09/19 at 11:14 Diphenhydramine HCl (Benadryl) 25 mg 1X PRN PRN IV ITCHING; Start 04/08/19 at 11:15; Stop 04/09/19 at 11:14 Sodium Chloride 1,000 ml @ 400 mls/hr Q2H30M PRN IV PATENCY; Start 04/08/19 at 11:05; Stop 04/08/19 at 23:04; Status DC Info (PHARMACY MONITORING -- do not chart) 1 each PRN DAILY PRN MC SEE COMMENTS; Start 04/08/19 at 11:15 Active Scripts Active Reported Proair Hfa Inhaler (Albuterol Sulfate) 8.5 Gm Hfa.aer.ad 1 Puff INH PRN Q6HRS PRN Losartan-Hctz 50-12.5 Mg Tab (Losartan/Hydrochlorothiazide) 1 Each Tablet 1 Each PO DAILY Metoprolol Tartrate 25 Mg Tablet 25 Mg PO BID Furosemide 20 Mg Tablet 20 Mg PO DAILY Isosorbide Mononitrate 10 Mg Tablet 10 Mg PO DAILY Amlodipine Besylate 10 Mg Tablet 10 Mg PO DAILY Tamsulosin Hcl 0.4 Mg Cap.er.24h 0.4 Mg PO DAILY Fish Oil (Pegram-3 Fatty Acids) 500 Mg Capsule.dr 1,000 Mg PO DAILY Multi Vitamin Daily (Multivitamin) 1 Each Tablet 1 Each PO Symbicort 160-4.5 Mcg Inhaler (Budesonide/Formoterol Fumarate) 10.2 Gm Hfa. aer.ad 1 Puff IH BID Aspirin 81 Mg Tab.chew 325 Tab PO DAILY Losartan Potassium (Losartan Potassium) 25 Mg Tablet 1 Tab PO DAILY Vitals/I & O Vital Sign - Last 24 Hours 04/08/19 04/08/19 04/08/19 04/08/19 15:00 15:19 19:00 20:00 Temp 98.0 98.0 98.0 98.0 Pulse 94 98 Resp 18 16 B/P (MAP) 129/60 (83) 113/86 (95) Pulse Ox 94 94 O2 Delivery Room Air Room Air Room Air Room Air 04/08/19 04/08/19 04/09/19 04/09/19 20:03 23:00 03:00 07:28 Temp 98.6 98.2 98.6 98.2 Pulse 98 96 Resp 16 16 B/P (MAP) 100/70 (80) 127/45 (72) Pulse Ox 94 96 96 O2 Delivery Room Air Room Air Room Air Room Air Intake and Output 04/08/19 04/08/19 04/09/19 14:59 22:59 06:59 Intake Total 400 ml 100 ml Output Total 451 ml 250 ml Balance -51 ml -150 ml CHRIS STEIN MD April 09, 2019 08:45
[2019-04-09 09:20] LABS: GLOMERULAR BASEMENT ABDY 2 units (0-20)
[2019-04-09] MEDS: ISOSORBIDE MONONITRATE ER 30 MG TAB.ER.24H PO SCH (09:22)
[2019-04-09] MEDS: VANCOMYCIN 125 MG/2.5 ML ORAL SOLUTION. PO SCH ×4 (09:23→20:00)
[2019-04-09] MEDS: MULTIVITAMIN with MINERAL TABLET. PO SCH (09:23)
[2019-04-09] MEDS: CALCIUM ACETATE 667 MG CAPSULE PO SCH ×3 (09:23→17:18)
[2019-04-09] MEDS: METOPROLOL SUCC 24HR ER 25 MG TAB.ER.24H. PO SCH (09:23)
[2019-04-09] MEDS: TAMSULOSIN 0.4 MG CAP.ER.24H. PO SCH (09:23)
[2019-04-09] MEDS: NYSTATIN TOPICAL POWDER 15GM BOTTLE. TP SCH ×2 (09:24→19:55)
[2019-04-09] MEDS: CALAMINE/ZINC OXIDE TOPICAL SUSPENSION 177ML BOTTLE. TP SCH ×2 (09:29→19:55)
--- NOTE | 2019-04-09 09:59 | PDOC ---
Infectious Disease Note Subjective: Subjective pt is doing ok no f/c/ n/v/abdo pain few loose bowel movements but improving tolerated dialysis session well yesterday ROS: ROS Negative except for above. Vital Signs: Vital Signs Vital Signs Date Time Temp Pulse Resp B/P (MAP) Pulse Ox O2 Delivery O2 Flow Rate FiO2 04/09/19 09:23 102 134/47 04/09/19 07:28 96 Room Air 04/09/19 07:00 97.6 18 97.6 Physical Exam: PHYSICAL EXAM HEENT: alert awake, no icterus NECK: Supple.HDC in place LUNGS: Clear. HEART: S1, S2 regular. ABDOMEN: Slightly distended, no organomegaly appreciated. No rebound or guarding. EXTREMITIES: About 1+ to 2+ pitting edema present. No cyanosis. NEURO alert, awake and appropriate. No focal neurologic deficit. Medications: Inpatient Meds: Current Medications Medications (Trade) Dose Ordered Sig/Adri Start Time Stop Time Status Last Admin Dose Admin Acetaminophen (Tylenol) 325 mg PRN Q6HRS PRN 04/05/19 11:15 Albuterol/ Ipratropium (Duoneb) 3 ml RTQID 04/05/19 12:00 04/09/19 07:27 3 ML Calamine (Calamine Lotion) 1 dionna BID 04/08/19 11:00 04/09/19 09:29 1 DIONNA Calcium Acetate (Phoslo) 1,334 mg TIDWMEALS 04/06/19 12:00 04/09/19 09:23 1,334 MG Colestipol HCl (Colestid) 1 gm BID@,04/05/19 13:00 04/07/19 14:56 DC 04/06/19 22:22 1 GM Diphenhydramine HCl (Benadryl) 25 mg 1X PRN PRN 04/08/19 11:15 04/09/19 11:14 Fentanyl Citrate (Fentanyl 2ml Vial) 50 mcg 1X ONCE 04/07/19 13:30 04/07/19 13:31 DC 04/07/19 14:10 50 MCG Gelatin (Gelfoam Size 12-7mm) 1 each STK-MED ONCE 04/07/19 12:34 04/07/19 12:35 DC Heparin Sodium (Porcine) (Heparin Sodium) 2,500 unit 1X ONCE 04/07/19 14:15 04/07/19 14:16 DC 04/07/19 14:10 2,500 UNIT Info (PHARMACY MONITORING -- do not chart) 1 each PRN DAILY PRN 04/08/19 11:15 Isosorbide Mononitrate (Imdur) 30 mg DAILY 04/05/19 12:30 04/09/19 09:22 30 MG Lidocaine HCl (Glydo (Lidocaine) Jelly) 1 dionna 1X ONCE 04/05/19 11:45 04/05/19 11:46 DC 04/05/19 12:54 1 DIONNA Lidocaine/Sodium Bicarbonate (Buffered Lidocaine 1%) 12 ml 1X ONCE 04/07/19 14:15 04/07/19 14:16 DC 04/07/19 14:11 12 ML Magnesium Sulfate 50 ml @ 25 mls/hr PRN DAILY PRN 04/05/19 13:15 Metoprolol Succinate (Toprol Xl) 25 mg DAILY 04/05/19 12:30 04/09/19 09:23 25 MG Metronidazole 100 ml @ 100 mls/hr Q8HRS 04/05/19 12:30 04/05/19 12:30 DC Midazolam HCl (Versed) 2 mg 1X ONCE 04/07/19 13:30 04/07/19 13:31 DC 04/07/19 14:10 2 MG Multivitamins (Thera M Plus) 1 tab DAILY 04/08/19 11:30 04/09/19 09:23 1 TAB Nystatin (Nystop) 1 dionna BID 04/05/19 12:30 04/09/19 09:24 1 DIONNA Ondansetron HCl (Zofran) 4 mg PRN Q6HRS PRN 04/05/19 11:15 Phytonadione (Mephyton Oral Soln) 5 mg 1X ONCE 04/06/19 09:30 04/06/19 09:31 DC 04/06/19 10:00 5 MG Potassium Chloride (Klor-Con) 20 meq 1X ONCE 04/09/19 08:45 04/09/19 08:46 DC 04/09/19 09:28 20 MEQ Sodium Bicarbonate 100 meq/Sodium Chloride 1,100 ml @ 125 mls/hr Q8H48M 04/05/19 16:00 04/07/19 10:17 DC 04/07/19 00:28 125 MLS/HR Sodium Bicarbonate (Sodium Bicarbonate) 1,300 mg BID 04/07/19 11:00 04/09/19 08:41 DC 04/08/19 21:12 1,300 MG Sodium Bicarbonate (Sodium Bicarb Adult 8.4% Syr) 50 meq Q2H 04/06/19 09:30 04/06/19 11:31 DC 04/06/19 13:17 50 MEQ Sodium Chloride 1,000 ml @ 400 mls/hr Q2H30M PRN 04/08/19 11:05 04/08/19 23:04 DC Tamsulosin HCl (Flomax) 0.4 mg DAILY 04/05/19 12:30 04/09/19 09:23 0.4 MG Vancomycin HCl (Vancomycin Oral Solution) 125 mg [id number] 04/05/19 13:00 04/05/19 13:00 DC Labs: Lab Laboratory Tests Test 04/08/19 16:36 04/09/19 03:05 Glucose (Fingerstick) 92 mg/dL (70-99) White Blood Count 12.6 x10^3/uL (4.0-11.0) Red Blood Count 4.55 x10^6/uL (4.30-5.70) Hemoglobin 13.3 g/dL (13.0-17.5) Hematocrit 41.1 % (39.0-53.0) Mean Corpuscular Volume 90 fL (79-100) Mean Corpuscular Hemoglobin 29 pg (25-35) Mean Corpuscular Hemoglobin Concent 33 g/dL (31-37) Red Cell Distribution Width 14.2 % (11.5-14.5) Platelet Count 151 x10^3/uL (140-400) Neutrophils (%) (Auto) 83 % (31-73) Lymphocytes (%) (Auto) 10 % (24-48) Monocytes (%) (Auto) 7 % (0-9) Eosinophils (%) (Auto) 1 % (0-3) Basophils (%) (Auto) 0 % (0-3) Neutrophils # (Auto) 10.4 x10^3uL (1.8-7.7) Lymphocytes # (Auto) 1.2 x10^3/uL (1.0-4.8) Monocytes # (Auto) 0.8 x10^3/uL (0.0-1.1) Eosinophils # (Auto) 0.1 x10^3/uL (0.0-0.7) Basophils # (Auto) 0.0 x10^3/uL (0.0-0.2) Sodium Level 143 mmol/L (136-145) Potassium Level 3.5 mmol/L (3.5-5.1) Chloride Level 104 mmol/L (98-107) Carbon Dioxide Level 32 mmol/L (21-32) Anion Gap 7 (6-14) Blood Urea Nitrogen 54 mg/dL (8-26) Creatinine 4.7 mg/dL (0.7-1.3) Estimated GFR (Cockcroft-Gault) 12.0 Glucose Level 108 mg/dL (70-99) Calcium Level 7.6 mg/dL (8.5-10.1) Phosphorus Level 4.2 mg/dL (2.6-4.7) Magnesium Level 2.0 mg/dL (1.8-2.4) Albumin 1.7 g/dL (3.4-5.0) Objective: Assessment: 1. Clostridium difficile colitis historically prior to admission,failed outpt flagyl,improving. 2. Leukocytosis.likely from above,improving 3. Acute kidney injury ,metabolic acidosis,awaiting renal w/u,improving on HDC 4. Hypertension. 5. Obesity. 6. Cerebrovascular accident. Plan: Plan of Care continue with p.o. vancomycin for now Supportive care, maintain hydration, monitoring of the WBC and electrolytes KELY DANIELS MD April 09, 2019 09:58
[2019-04-09 11:00] VITALS: BP 121/52
--- NOTE | 2019-04-09 11:23 | PDOC ---
Renal-Progress Notes Subjective Notes Notes HE IS MAKING MORE URINE History of Present Illness Hx of present illness FEELING BETTER Vitals Vitals Vital Signs Date Time Temp Pulse Resp B/P (MAP) Pulse Ox O2 Delivery O2 Flow Rate FiO2 04/09/19 11:13 96 Room Air 04/09/19 09:23 102 134/47 04/09/19 07:00 97.6 18 97.6 Weight Weight [ ] I.O. Intake and Output Intake and Output 04/09/19 07:00 Intake Total 500 ml Output Total 701 ml Balance -201 ml Intake Oral 500 ml Output Urine Total 700 ml Stool Total 1 ml # Voids 1 # Bowel Movements 3 Labs Labs Laboratory Tests Test 04/08/19 16:36 04/09/19 03:05 Glucose (Fingerstick) 92 mg/dL (70-99) White Blood Count 12.6 x10^3/uL (4.0-11.0) Red Blood Count 4.55 x10^6/uL (4.30-5.70) Hemoglobin 13.3 g/dL (13.0-17.5) Hematocrit 41.1 % (39.0-53.0) Mean Corpuscular Volume 90 fL (79-100) Mean Corpuscular Hemoglobin 29 pg (25-35) Mean Corpuscular Hemoglobin Concent 33 g/dL (31-37) Red Cell Distribution Width 14.2 % (11.5-14.5) Platelet Count 151 x10^3/uL (140-400) Neutrophils (%) (Auto) 83 % (31-73) Lymphocytes (%) (Auto) 10 % (24-48) Monocytes (%) (Auto) 7 % (0-9) Eosinophils (%) (Auto) 1 % (0-3) Basophils (%) (Auto) 0 % (0-3) Neutrophils # (Auto) 10.4 x10^3uL (1.8-7.7) Lymphocytes # (Auto) 1.2 x10^3/uL (1.0-4.8) Monocytes # (Auto) 0.8 x10^3/uL (0.0-1.1) Eosinophils # (Auto) 0.1 x10^3/uL (0.0-0.7) Basophils # (Auto) 0.0 x10^3/uL (0.0-0.2) Sodium Level 143 mmol/L (136-145) Potassium Level 3.5 mmol/L (3.5-5.1) Chloride Level 104 mmol/L (98-107) Carbon Dioxide Level 32 mmol/L (21-32) Anion Gap 7 (6-14) Blood Urea Nitrogen 54 mg/dL (8-26) Creatinine 4.7 mg/dL (0.7-1.3) Estimated GFR (Cockcroft-Gault) 12.0 Glucose Level 108 mg/dL (70-99) Calcium Level 7.6 mg/dL (8.5-10.1) Phosphorus Level 4.2 mg/dL (2.6-4.7) Magnesium Level 2.0 mg/dL (1.8-2.4) Albumin 1.7 g/dL (3.4-5.0) Micro Micro Microbiology 04/05/19 Urine Culture - Final, Complete 04/05/19 Urine Culture Result 1 (MARISELA) - Final, Complete Review of Systems Constitutional: yes: alert, oriented Ears/Nose/Throat: Yes: no symptom reported Eyes: Yes: no symptom reported Pulmonary: Yes no symptom reported Cardiovascular: Yes no symptom reported Gastrointestional: Yes: diarrhea Genitourinary: Yes: no symptom reported Musculoskeletal: Yes: no symptom reported Skin: Yes no symptom reported Psychiatric/Neurological: Yes: no symptom reported Endocrine: Yes: no symptom reported Physical Exam General Appearance: no apparent distress Skin: warm Respiratory: bilateral CTA Heart: S1S2, RRR Abdomen: soft, bowel sounds present Genitourinary: bladder flat Extremities: pulses present Neurology: alert Assessment Assessment IMP [id number] UO UTI LEUCOCYTOSIS C DIF MET ACIDOSIS BPH MORBID OBESITY LOW K-BETTER S/P TEMP HD CATH AND RENAL BX PLAN ANTIBIOTICS HOLD HD TODAY LOOKS LIKE HE MAY BE RECOVERING EXPECT ONLY ATN ON RENAL BX CONT WITH IVF'S WILL FOLLOW CRISTO ESQUIVEL MD April 09, 2019 11:23
[2019-04-09 12:17] LABS: KAPPA FREE 107.8 mg/L (3.3-19.4); KAPPA LAMBDA RATIO 2.39 (0.26-1.65); LAMBDA FREE 45.1 mg/L (5.7-26.3)
--- NOTE | 2019-04-09 12:35 | PDOC ---
Subjective: Subjective: No GI complaints. Objective: Objective: Reviewed w/ RN - wonders about advancing diet, had a stool yesterday, wonders if he still needs contact precautions. Vital Signs: Vital Signs Date Time Temp Pulse Resp B/P (MAP) Pulse Ox O2 Delivery O2 Flow Rate FiO2 04/09/19 11:13 96 Room Air 04/09/19 11:00 97.6 95 18 121/52 (75) 97.6 Labs: Laboratory Tests Test 04/08/19 16:36 04/09/19 03:05 Glucose (Fingerstick) 92 mg/dL White Blood Count 12.6 x10^3/uL Red Blood Count 4.55 x10^6/uL Hemoglobin 13.3 g/dL Hematocrit 41.1 % Mean Corpuscular Volume 90 fL Mean Corpuscular Hemoglobin 29 pg Mean Corpuscular Hemoglobin Concent 33 g/dL Red Cell Distribution Width 14.2 % Platelet Count 151 x10^3/uL Neutrophils (%) (Auto) 83 % Lymphocytes (%) (Auto) 10 % Monocytes (%) (Auto) 7 % Eosinophils (%) (Auto) 1 % Basophils (%) (Auto) 0 % Neutrophils # (Auto) 10.4 x10^3uL Lymphocytes # (Auto) 1.2 x10^3/uL Monocytes # (Auto) 0.8 x10^3/uL Eosinophils # (Auto) 0.1 x10^3/uL Basophils # (Auto) 0.0 x10^3/uL Sodium Level 143 mmol/L Potassium Level 3.5 mmol/L Chloride Level 104 mmol/L Carbon Dioxide Level 32 mmol/L Anion Gap 7 Blood Urea Nitrogen 54 mg/dL Creatinine 4.7 mg/dL Estimated GFR (Cockcroft-Gault) 12.0 Glucose Level 108 mg/dL Calcium Level 7.6 mg/dL Phosphorus Level 4.2 mg/dL Magnesium Level 2.0 mg/dL Albumin 1.7 g/dL PE: GEN: NAD - up to chair eating lunch LUNGS: CTAB HEART: RRR ABD: S/ND/NT NEURO/PSYCH: A & O 3 A/P: C Diff colitis - diarrhea improved HARVEY - better -- Okay to ADAT per GI - defer to Dr. Oakley. Continue vanco per JUSTIN HARDING April 09, 2019 12:35
[2019-04-09 14:14] LABS: ALBUM 2.1 g/dL (2.9-4.4); ALPHA 1 0.3 g/dL (0.0-0.4); ALPHA 2 0.9 g/dL (0.4-1.0); BETA 0.6 g/dL (0.7-1.3); GAMMA 0.5 g/dL (0.4-1.8); IMMUNOGLOBULIN A 276 mg/dL (61-437); IMMUNOGLOBULIN G 560 mg/dL (700-1600); IMMUNOGLOBULIN M 36 mg/dL (15-143); PROTEIN TOTAL 4.4 g/dL (6.0-8.5); SPEP AG RATIO 0.9 (0.7-1.7)
[2019-04-09 15:00] VITALS: BP 124/57
--- NOTE | 2019-04-09 15:10 | NUR ---
AVINASH following for discharge planning. Discussed with RN, pt accepted at [facility] pending insurance auth. AVINASH contacted Dr. Oakley this morning to determine anticipated discharge date, AVINASH has not received a message back. [facility] is yet to submit for insurance auth. AVINASH will continue to follow.
[2019-04-09 17:13] LABS: C ANCA <1:20 titer (Neg:<1:20); P ANCA <1:20 titer (Neg:<1:20)
[2019-04-09 19:25] VITALS: BP 119/59
[2019-04-09 23:38] VITALS: BP 134/65
[2019-04-10] MEDS: IV NORMAL SALINE 1000ML BAG 1,000 ML IV SCH ×3 (02:15→22:16)
[2019-04-10 03:32] VITALS: BP 122/66
[2019-04-10 05:21] LABS: ALBUMIN 1.7 g/dL (3.4-5.0); CALCIUM 7.8 mg/dL (8.5-10.1); GFR 14.4; POTASSIUM 3.4 mmol/L (3.5-5.1)
[2019-04-10 07:00] VITALS: BP 128/63
[2019-04-10] MEDS: IPRATRPIUM/ALBUTEROL 0.5/2.5MG 3 ML NEBU. NEB SCH ×4 (07:28→20:09)
[2019-04-10] MEDS: TAMSULOSIN 0.4 MG CAP.ER.24H. PO SCH (08:46)
[2019-04-10] MEDS: METOPROLOL SUCC 24HR ER 25 MG TAB.ER.24H. PO SCH (08:46)
[2019-04-10] MEDS: MULTIVITAMIN with MINERAL TABLET. PO SCH (08:46)
[2019-04-10] MEDS: ISOSORBIDE MONONITRATE ER 30 MG TAB.ER.24H PO SCH (08:46)
[2019-04-10] MEDS: CALCIUM ACETATE 667 MG CAPSULE PO SCH ×3 (08:46→16:52)
[2019-04-10] MEDS: VANCOMYCIN 125 MG/2.5 ML ORAL SOLUTION. PO SCH ×4 (08:47→22:15)
[2019-04-10] MEDS: NYSTATIN TOPICAL POWDER 15GM BOTTLE. TP SCH ×2 (08:48→22:16)
[2019-04-10] MEDS: CALAMINE/ZINC OXIDE TOPICAL SUSPENSION 177ML BOTTLE. TP SCH ×2 (08:48→22:16)
--- NOTE | 2019-04-10 09:21 | NUR ---
SW following. Discussed with RN, pt possibly ready for discharge to [facility] today. AVINASH did not hear back from Dr. Oakley yesterday so did not have insurance auth started by [facility]. Per RN, pt probably having dialysis today. AVINASH contacted [facility] and advised to start insurance auth. SW will continue to follow, possible discharge today or tomorrow, pending insurance.
--- NOTE | 2019-04-10 10:29 | NUR ---
SW following. Dr. Oakley advised pt is not ready to discharge and will be here through the weekend. RN notified.
--- NOTE | 2019-04-10 10:34 | NUR ---
Per Dr. Oakley, maintain quintero catheter to monitor I&O, as pt is incontinent. Maintain clear liquid diet to allow bowel rest, as diarrhea persists.
[2019-04-10 11:00] VITALS: BP 102/50
--- NOTE | 2019-04-10 11:26 | PDOC ---
Infectious Disease Note Subjective: Subjective pt is doing ok no f/c/ n/v/abdo pain still having few loose bowel movements ROS: ROS Negative except for above. Vital Signs: Vital Signs Vital Signs Date Time Temp Pulse Resp B/P (MAP) Pulse Ox O2 Delivery O2 Flow Rate FiO2 04/10/19 11:02 95 Room Air 04/10/19 08:46 93 128/63 04/10/19 07:00 98.2 18 98.2 Physical Exam: PHYSICAL EXAM HEENT: alert awake, no icterus NECK: Supple.HDC in place LUNGS: Clear. HEART: S1, S2 regular. ABDOMEN: distended, no tenderness , no rebound or guarding. EXTREMITIES: About 1+ to 2+ pitting edema present. No cyanosis. NEURO alert, awake and appropriate. No focal neurologic deficit. Medications: Inpatient Meds: Current Medications Medications (Trade) Dose Ordered Sig/Adri Start Time Stop Time Status Last Admin Dose Admin Acetaminophen (Tylenol) 325 mg PRN Q6HRS PRN 04/05/19 11:15 Albuterol/ Ipratropium (Duoneb) 3 ml RTQID 04/05/19 12:00 04/10/19 11:01 3 ML Calamine (Calamine Lotion) 1 dionna BID 04/08/19 11:00 04/10/19 08:48 1 DIONNA Calcium Acetate (Phoslo) 1,334 mg TIDWMEALS 04/06/19 12:00 04/10/19 08:46 1,334 MG Colestipol HCl (Colestid) 1 gm BID@10,22 04/05/19 13:00 04/07/19 14:56 DC 04/06/19 22:22 1 GM Diphenhydramine HCl (Benadryl) 25 mg 1X PRN PRN 04/08/19 11:15 04/09/19 11:14 DC Fentanyl Citrate (Fentanyl 2ml Vial) 50 mcg 1X ONCE 04/07/19 13:30 04/07/19 13:31 DC 04/07/19 14:10 50 MCG Gelatin (Gelfoam Size 12-7mm) 1 each STK-MED ONCE 04/07/19 12:34 04/07/19 12:35 DC Heparin Sodium (Porcine) (Heparin Sodium) 2,500 unit 1X ONCE 04/07/19 14:15 04/07/19 14:16 DC 04/07/19 14:10 2,500 UNIT Info (PHARMACY MONITORING -- do not chart) 1 each PRN DAILY PRN 04/08/19 11:15 Isosorbide Mononitrate (Imdur) 30 mg DAILY 04/05/19 12:30 04/10/19 08:46 30 MG Lidocaine HCl (Glydo (Lidocaine) Jelly) 1 dionna 1X ONCE 04/05/19 11:45 04/05/19 11:46 DC 04/05/19 12:54 1 DIONNA Lidocaine/Sodium Bicarbonate (Buffered Lidocaine 1%) 12 ml 1X ONCE 04/07/19 14:15 04/07/19 14:16 DC 04/07/19 14:11 12 ML Magnesium Sulfate 50 ml @ 25 mls/hr PRN DAILY PRN 04/05/19 13:15 Metoprolol Succinate (Toprol Xl) 25 mg DAILY 04/05/19 12:30 04/10/19 08:46 25 MG Metronidazole 100 ml @ 100 mls/hr Q8HRS 04/05/19 12:30 04/05/19 12:30 DC Midazolam HCl (Versed) 2 mg 1X ONCE 04/07/19 13:30 04/07/19 13:31 DC 04/07/19 14:10 2 MG Multivitamins (Thera M Plus) 1 tab DAILY 04/08/19 11:30 04/10/19 08:46 1 TAB Nystatin (Nystop) 1 dionna BID 04/05/19 12:30 04/10/19 08:48 1 DIONNA Ondansetron HCl (Zofran) 4 mg PRN Q6HRS PRN 04/05/19 11:15 Phytonadione (Mephyton Oral Soln) 5 mg 1X ONCE 04/06/19 09:30 04/06/19 09:31 DC 04/06/19 10:00 5 MG Potassium Chloride (Klor-Con) 20 meq 1X ONCE 04/09/19 08:45 04/09/19 08:46 DC 04/09/19 09:28 20 MEQ Sodium Bicarbonate 100 meq/Sodium Chloride 1,100 ml @ 125 mls/hr Q8H48M 04/05/19 16:00 04/07/19 10:17 DC 04/07/19 00:28 125 MLS/HR Sodium Bicarbonate (Sodium Bicarbonate) 1,300 mg BID 04/07/19 11:00 04/09/19 08:41 DC 04/08/19 21:12 1,300 MG Sodium Bicarbonate (Sodium Bicarb Adult 8.4% Syr) 50 meq Q2H 04/06/19 09:30 04/06/19 11:31 DC 04/06/19 13:17 50 MEQ Sodium Chloride 1,000 ml @ 400 mls/hr Q2H30M PRN 04/08/19 11:05 04/08/19 23:04 DC Tamsulosin HCl (Flomax) 0.4 mg DAILY 04/05/19 12:30 04/10/19 08:46 0.4 MG Vancomycin HCl (Vancomycin Oral Solution) 125 mg [id number] 04/05/19 13:00 04/05/19 13:00 DC Labs: Lab Laboratory Tests Test 04/10/19 04:05 Sodium Level 142 mmol/L (136-145) Potassium Level 3.4 mmol/L (3.5-5.1) Chloride Level 105 mmol/L (98-107) Carbon Dioxide Level 28 mmol/L (21-32) Anion Gap 9 (6-14) Blood Urea Nitrogen 54 mg/dL (8-26) Creatinine 4.0 mg/dL (0.7-1.3) Estimated GFR (Cockcroft-Gault) 14.4 Glucose Level 113 mg/dL (70-99) Calcium Level 7.8 mg/dL (8.5-10.1) Phosphorus Level 4.0 mg/dL (2.6-4.7) Magnesium Level 1.9 mg/dL (1.8-2.4) Albumin 1.7 g/dL (3.4-5.0) Objective: Assessment: 1. Clostridium difficile colitis historically prior to admission,failed outpt flagyl,improving. 2. Leukocytosis.likely from above,improving 3. Acute kidney injury ,metabolic acidosis,awaiting renal w/u,improving on HDC 4. Hypertension. 5. Obesity. 6. Cerebrovascular accident. Plan: Plan of Care continue with p.o. vancomycin for now Supportive care, maintain hydration, monitoring of the WBC and electrolytes KELY DANIELS MD April 10, 2019 11:26
--- NOTE | 2019-04-10 11:35 | PDOC ---
Objective: Objective: Reviewed w/ RN - plans to keep to clears, had a couple loose stools this m orning. Vital Signs: Vital Signs Date Time Temp Pulse Resp B/P (MAP) Pulse Ox O2 Delivery O2 Flow Rate FiO2 04/10/19 11:02 95 Room Air 04/10/19 08:46 93 128/63 04/10/19 07:00 98.2 18 98.2 Labs: Laboratory Tests Test 04/10/19 04:05 Sodium Level 142 mmol/L Potassium Level 3.4 mmol/L Chloride Level 105 mmol/L Carbon Dioxide Level 28 mmol/L Anion Gap 9 Blood Urea Nitrogen 54 mg/dL Creatinine 4.0 mg/dL Estimated GFR (Cockcroft-Gault) 14.4 Glucose Level 113 mg/dL Calcium Level 7.8 mg/dL Phosphorus Level 4.0 mg/dL Magnesium Level 1.9 mg/dL Albumin 1.7 g/dL PE: GEN: NAD NEURO/PSYCH: sleeping, not awakened A/P: C Diff colitis, HARVEY -- Defer diet to Dr. Oakley. Could restart Colestid if needed. Continue vanco per ID. JUSTIN SWEENEY April 10, 2019 11:35
--- NOTE | 2019-04-10 11:40 | PDOC ---
Renal-Progress Notes Subjective Notes Notes NO NEW COMPLAINTS History of Present Illness Hx of present illness IMPROVING Vitals Vitals Vital Signs Date Time Temp Pulse Resp B/P (MAP) Pulse Ox O2 Delivery O2 Flow Rate FiO2 04/10/19 11:02 95 Room Air 04/10/19 08:46 93 128/63 04/10/19 07:00 98.2 18 98.2 Weight Weight [ ] I.O. Intake and Output Intake and Output 04/10/19 07:00 Intake Total 2870 ml Output Total 754 ml Balance 2116 ml Intake Oral 1870 ml IV Total 1000 ml Output Urine Total 750 ml Stool Total 4 ml # Bowel Movements 3 Labs Labs Laboratory Tests Test 04/10/19 04:05 Sodium Level 142 mmol/L (136-145) Potassium Level 3.4 mmol/L (3.5-5.1) Chloride Level 105 mmol/L (98-107) Carbon Dioxide Level 28 mmol/L (21-32) Anion Gap 9 (6-14) Blood Urea Nitrogen 54 mg/dL (8-26) Creatinine 4.0 mg/dL (0.7-1.3) Estimated GFR (Cockcroft-Gault) 14.4 Glucose Level 113 mg/dL (70-99) Calcium Level 7.8 mg/dL (8.5-10.1) Phosphorus Level 4.0 mg/dL (2.6-4.7) Magnesium Level 1.9 mg/dL (1.8-2.4) Albumin 1.7 g/dL (3.4-5.0) Micro Micro Microbiology 04/05/19 Urine Culture - Final, Complete 04/05/19 Urine Culture Result 1 (MARISELA) - Final, Complete Review of Systems Constitutional: yes: alert, oriented Ears/Nose/Throat: Yes: no symptom reported Eyes: Yes: no symptom reported Pulmonary: Yes no symptom reported Cardiovascular: Yes no symptom reported Gastrointestional: Yes: diarrhea Genitourinary: Yes: no symptom reported Musculoskeletal: Yes: no symptom reported Skin: Yes no symptom reported Psychiatric/Neurological: Yes: no symptom reported Endocrine: Yes: no symptom reported Physical Exam General Appearance: no apparent distress Skin: warm Respiratory: bilateral CTA Heart: S1S2, RRR Abdomen: soft, bowel sounds present Genitourinary: bladder flat Extremities: pulses present Neurology: alert Assessment Assessment [id number] UO AND CLEARANCE-RENAL BX SHOWED JUST ATN-NO GN UTI LEUCOCYTOSIS C DIF MET ACIDOSIS BPH MORBID OBESITY LOW K-BETTER PLAN ANTIBIOTICS CONT TO HOLD HD TODAY LOOKS LIKE HE IS RECOVERING CONT WITH IVF'S REPLACE K WILL FOLLOW CATHETER OUT BY SATURDAY IF RENAL FXN CONTINUES TO IMPROVE CRISTO ESQUIVEL MD April 10, 2019 11:40
[2019-04-10] MEDS ORDERED: POTASSIUM CHLORIDE 20 MEQ TABLET.ER. PO ONE (11:45)
--- NOTE | 2019-04-10 13:15 | PDOC ---
PROGRESS NOTES Subjective Subjective has some loose stools with mucus per nurse. creatinine better 4.0 and had 700 cc urine output. no dialysis yesterday and today. feels okay. drinking clear liquids. Objective Objective Vital Signs Date Time Temp Pulse Resp B/P (MAP) Pulse Ox O2 Delivery O2 Flow Rate FiO2 04/10/19 11:02 95 Room Air 04/10/19 11:00 97.9 104 16 102/50 (67) 97.9 04/07/19 14:17 2.0 Intake and Output 04/10/19 07:00 Intake Total 2870 ml Output Total 754 ml Balance 2116 ml Intake Oral 1870 ml IV Total 1000 ml Output Urine Total 750 ml Stool Total 4 ml # Bowel Movements 3 Physical Exam Abdomen: Soft, No tenderness Heart: Regular rate, Normal S1, Normal S2 Extremities: No edema General: Alert HEENT: Atraumatic Lungs: Clear to auscultation Neuro: Normal speech Psych/Mental Status: Mental status NL Skin: No rashes Assessment Assessment Problems. Clostridium difficile colitis. stool for c. diff positive in office and neg in hospital 2. Acute kidney injury, most likely secondary to intravascular volume depletion from the diarrhea and also contributing could be the nonsteroidal anti-inflammatory drug that he took at home and also the losartan.creatinine better and improved urine output 3. Hyponatremia.resolved 4. Metabolic acidosis secondary to the diarrhea and acute kidney injury. improved 5. History of hypertension. 6. Hyperlipidemia. 7. Coronary artery disease. 8. Asthma. 9. Morbid obesity. 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 Labs Laboratory Tests Test 04/08/19 16:36 04/09/19 03:05 04/10/19 04:05 Glucose (Fingerstick) 92 mg/dL (70-99) White Blood Count 12.6 x10^3/uL (4.0-11.0) Red Blood Count 4.55 x10^6/uL (4.30-5.70) Hemoglobin 13.3 g/dL (13.0-17.5) Hematocrit 41.1 % (39.0-53.0) Mean Corpuscular Volume 90 fL (79-100) Mean Corpuscular Hemoglobin 29 pg (25-35) Mean Corpuscular Hemoglobin Concent 33 g/dL (31-37) Red Cell Distribution Width 14.2 % (11.5-14.5) Platelet Count 151 x10^3/uL (140-400) Neutrophils (%) (Auto) 83 % (31-73) Lymphocytes (%) (Auto) 10 % (24-48) Monocytes (%) (Auto) 7 % (0-9) Eosinophils (%) (Auto) 1 % (0-3) Basophils (%) (Auto) 0 % (0-3) Neutrophils # (Auto) 10.4 x10^3uL (1.8-7.7) Lymphocytes # (Auto) 1.2 x10^3/uL (1.0-4.8) Monocytes # (Auto) 0.8 x10^3/uL (0.0-1.1) Eosinophils # (Auto) 0.1 x10^3/uL (0.0-0.7) Basophils # (Auto) 0.0 x10^3/uL (0.0-0.2) Sodium Level 143 mmol/L (136-145) 142 mmol/L (136-145) Potassium Level 3.5 mmol/L (3.5-5.1) 3.4 mmol/L (3.5-5.1) Chloride Level 104 mmol/L (98-107) 105 mmol/L (98-107) Carbon Dioxide Level 32 mmol/L (21-32) 28 mmol/L (21-32) Anion Gap 7 (6-14) 9 (6-14) Blood Urea Nitrogen 54 mg/dL (8-26) 54 mg/dL (8-26) Creatinine 4.7 mg/dL (0.7-1.3) 4.0 mg/dL (0.7-1.3) Estimated GFR (Cockcroft-Gault) 12.0 14.4 Glucose Level 108 mg/dL (70-99) 113 mg/dL (70-99) Calcium Level 7.6 mg/dL (8.5-10.1) 7.8 mg/dL (8.5-10.1) Phosphorus Level 4.2 mg/dL (2.6-4.7) 4.0 mg/dL (2.6-4.7) Magnesium Level 2.0 mg/dL (1.8-2.4) 1.9 mg/dL (1.8-2.4) Albumin 1.7 g/dL (3.4-5.0) 1.7 g/dL (3.4-5.0) Laboratory Tests Test 04/10/19 04:05 Sodium Level 142 mmol/L (136-145) Potassium Level 3.4 mmol/L (3.5-5.1) Chloride Level 105 mmol/L (98-107) Carbon Dioxide Level 28 mmol/L (21-32) Anion Gap 9 (6-14) Blood Urea Nitrogen 54 mg/dL (8-26) Creatinine 4.0 mg/dL (0.7-1.3) Estimated GFR (Cockcroft-Gault) 14.4 Glucose Level 113 mg/dL (70-99) Calcium Level 7.8 mg/dL (8.5-10.1) Phosphorus Level 4.0 mg/dL (2.6-4.7) Magnesium Level 1.9 mg/dL (1.8-2.4) Albumin 1.7 g/dL (3.4-5.0) Microbiology 04/05/19 Urine Culture - Final, Complete 04/05/19 Urine Culture Result 1 (MARISELA) - Final, Complete Medications Current Medications Sodium Chloride 1,000 ml @ 1,000 mls/hr 1X ONCE IV Last administered on 04/04/19at 22:55; Start 04/04/19 at 23:00; Stop 04/04/19 at 23:59; Status DC Vancomycin HCl (Vancomycin Oral Solution) 125 mg 1X ONCE PO Last administered on 04/04/19at 23:51; Start 04/05/19 at 00:00; Stop 04/05/19 at 00:01; Status DC Ondansetron HCl (Zofran) 4 mg PRN Q8HRS PRN IV NAUSEA/VOMITING 1ST CHOICE; Start 04/04/19 at 23:45; Stop 04/05/19 at 13:24; Status DC Fentanyl Citrate (Fentanyl 2ml Vial) 25 mcg PRN Q2HRS PRN IV SEVERE PAIN; Start 04/04/19 at 23:45; Stop 04/05/19 at 11:21; Status DC Vancomycin HCl (Vancomycin Oral Solution) 125 mg [id number] PO Last administered on 04/05/19at 08:04; Start 04/05/19 at 09:00; Stop 04/05/19 at 11:24; Status DC Sodium Bicarbonate 100 meq/Sodium Chloride 1,100 ml @ 125 mls/hr Q8H48M IV Last administered on 04/05/19at 08:05; Start 04/05/19 at 00:00; Stop 04/05/19 at 15:59; Status DC Sodium Bicarbonate 100 meq/Sodium Chloride 1,100 ml @ 125 mls/hr Q8H48M IV Last administered on 04/07/19at 00:28; Start 04/05/19 at 16:00; Stop 04/07/19 at 10:17; Status DC Fentanyl Citrate (Fentanyl 2ml Vial) 25 mcg PRN Q4HRS PRN IV MODERATE TO SEVERE PAIN; Start 04/05/19 at 11:15; Stop 04/07/19 at 10:18; Status DC Vancomycin HCl (Vancomycin Oral Solution) 125 mg [id number] PO Last administered on 04/10/19 08:47; Start 04/05/19 at 13:00 Tamsulosin HCl (Flomax) 0.4 mg DAILY PO Last administered on 04/10/19 08:46; Start 04/05/19 at 12:30 Metoprolol Succinate (Toprol Xl) 25 mg DAILY PO Last administered on 04/10/19 08:46; Start 04/05/19 at 12:30 Isosorbide Mononitrate (Imdur) 30 mg DAILY PO Last administered on 04/10/19 08:46; Start 04/05/19 at 12:30 Nystatin (Nystop) 1 dionna BID TP Last administered on 04/10/19 08:48; Start 04/05/19 at 12:30 Ondansetron HCl (Zofran) 4 mg PRN Q6HRS PRN IV NAUSEA/VOMITING; Start 04/05/19 at 11:15 Albuterol/ Ipratropium (Duoneb) 3 ml RTQID NEB Last administered on 04/10/19at 11:01; Start 04/05/19 at 12:00 Acetaminophen (Tylenol) 325 mg PRN Q6HRS PRN PO MILD PAIN / TEMP; Start 04/05/19 at 11:15 Lidocaine HCl (Glydo (Lidocaine) Jelly) 1 dionna 1X ONCE MM Last administered on 04/05/19at 12:54; Start 04/05/19 at 11:45; Stop 04/05/19 at 11:46; Status DC Metronidazole 100 ml @ 100 mls/hr Q8HRS IV ; Start 04/05/19 at 12:30; Stop 04/05/19 at 12:30; Status DC Vancomycin HCl (Vancomycin Oral Solution) 125 mg [id number] PO ; Start 04/05/19 at 13:00; Stop 04/05/19 at 13:00; Status DC Colestipol HCl (Colestid) 1 gm BID@10,22 PO Last administered on 04/06/19at 22:22; Start 04/05/19 at 13:00; Stop 04/07/19 at 14:56; Status DC Sodium Chloride 500 ml @ 0 mls/hr PRN QID PRN IV UO< 30cc/hr over previous 6hrs; Start 04/05/19 at 13:15; Stop 04/07/19 at 10:18; Status DC Magnesium Sulfate 50 ml @ 25 mls/hr PRN DAILY PRN IV for Mag < 1.7 on am labs; Start 04/05/19 at 13:15 Phytonadione (Mephyton Oral Soln) 5 mg 1X ONCE PO Last administered on 04/06/19at 10:00; Start 04/06/19 at 09:30; Stop 04/06/19 at 09:31; Status DC Sodium Bicarbonate (Sodium Bicarb Adult 8.4% Syr) 50 meq Q2H IV Last administered on 04/06/19at 13:17; Start 04/06/19 at 09:30; Stop 04/06/19 at 11:31; Status DC Calcium Acetate (Phoslo) 1,334 mg TIDWMEALS PO Last administered on 04/10/19at 11:26; Start 04/06/19 at 12:00 Sodium Bicarbonate (Sodium Bicarbonate) 1,300 mg BID PO Last administered on 04/08/19at 21:12; Start 04/07/19 at 11:00; Stop 04/09/19 at 08:41; Status DC Potassium Chloride (Klor-Con) 20 meq 1X ONCE PO ; Start 04/07/19 at 10:15; Stop 04/07/19 at 10:24; Status DC Sodium Chloride 1,000 ml @ 100 mls/hr Q10H IV Last administered on 04/10/19at 11:25; Start 04/07/19 at 10:15 Lidocaine/Sodium Bicarbonate (Buffered Lidocaine 1%) 3 ml STK-MED ONCE .ROUTE ; Start 04/07/19 at 12:27; Stop 04/07/19 at 12:28; Status DC Midazolam HCl (Versed) 2 mg STK-MED ONCE .ROUTE ; Start 04/07/19 at 12:31; Stop 04/07/19 at 12:32; Status DC Fentanyl Citrate (Fentanyl 2ml Vial) 100 mcg STK-MED ONCE .ROUTE ; Start 04/07/19 at 12:32; Stop 04/07/19 at 12:33; Status DC Gelatin (Gelfoam Size 12-7mm) 1 each STK-MED ONCE .ROUTE ; Start 04/07/19 at 12:34; Stop 04/07/19 at 12:35; Status DC Lidocaine/Sodium Bicarbonate (Buffered Lidocaine 1%) 3 ml STK-MED ONCE .ROUTE ; Start 04/07/19 at 12:59; Stop 04/07/19 at 13:00; Status DC Heparin Sodium (Porcine) (Heparin Sodium) 10,000 unit STK-MED ONCE .ROUTE ; Start 04/07/19 at 13:00; Stop 04/07/19 at 13:01; Status DC Midazolam HCl (Versed) 2 mg 1X ONCE IV Last administered on 04/07/19at 14:10; Start 04/07/19 at 13:30; Stop 04/07/19 at 13:31; Status DC Fentanyl Citrate (Fentanyl 2ml Vial) 50 mcg 1X ONCE IV Last administered on 04/07/19at 14:10; Start 04/07/19 at 13:30; Stop 04/07/19 at 13:31; Status DC Lidocaine/Sodium Bicarbonate (Buffered Lidocaine 1%) 12 ml 1X ONCE IJ Last administered on 04/07/19at 14:11; Start 04/07/19 at 14:15; Stop 04/07/19 at 14:16; Status DC Heparin Sodium (Porcine) (Heparin Sodium) 2,500 unit 1X ONCE INT CAT Last administered on 04/07/19at 14:10; Start 04/07/19 at 14:15; Stop 04/07/19 at 14:16; Status DC Calamine (Calamine Lotion) 1 dionna BID TP Last administered on 04/10/19at 08:48; Start 04/08/19 at 11:00 Multivitamins (Thera M Plus) 1 tab DAILY PO Last administered on 04/10/19at 08:46; Start 04/08/19 at 11:30 Potassium Chloride (Klor-Con) 20 meq 1X ONCE PO Last administered on 04/08/19at 15:35; Start 04/08/19 at 11:30; Stop 04/08/19 at 11:31; Status DC Sodium Chloride 1,000 ml @ 1,000 mls/hr Q1H PRN IV hypotension; Start 04/08/19 at 11:05; Stop 04/08/19 at 17:04; Status DC Diphenhydramine HCl (Benadryl) 25 mg 1X PRN PRN IV ITCHING; Start 04/08/19 at 11:15; Stop 04/09/19 at 11:14; Status DC Diphenhydramine HCl (Benadryl) 25 mg 1X PRN PRN IV ITCHING; Start 04/08/19 at 11:15; Stop 04/09/19 at 11:14; Status DC Sodium Chloride 1,000 ml @ 400 mls/hr Q2H30M PRN IV PATENCY; Start 04/08/19 at 11:05; Stop 04/08/19 at 23:04; Status DC Info (PHARMACY MONITORING -- do not chart) 1 each PRN DAILY PRN MC SEE COMMENTS; Start 04/08/19 at 11:15 Potassium Chloride (Klor-Con) 20 meq 1X ONCE PO Last administered on 04/09/19at 09:28; Start 04/09/19 at 08:45; Stop 04/09/19 at 08:46; Status DC Potassium Chloride (Klor-Con) 40 meq 1X ONCE PO ; Start 04/10/19 at 11:45; Stop 04/10/19 at 11:46; Status DC Active Scripts Active Reported Proair Hfa Inhaler (Albuterol Sulfate) 8.5 Gm Hfa.aer.ad 1 Puff INH PRN Q6HRS PRN Losartan-Hctz 50-12.5 Mg Tab (Losartan/Hydrochlorothiazide) 1 Each Tablet 1 Each PO DAILY Metoprolol Tartrate 25 Mg Tablet 25 Mg PO BID Furosemide 20 Mg Tablet 20 Mg PO DAILY Isosorbide Mononitrate 10 Mg Tablet 10 Mg PO DAILY Amlodipine Besylate 10 Mg Tablet 10 Mg PO DAILY Tamsulosin Hcl 0.4 Mg Cap.er.24h 0.4 Mg PO DAILY Fish Oil ([place]-3 Fatty Acids) 500 Mg Capsule.dr 1,000 Mg PO DAILY Multi Vitamin Daily (Multivitamin) 1 Each Tablet 1 Each PO Symbicort 160-4.5 Mcg Inhaler (Budesonide/Formoterol Fumarate) 10.2 Gm Hfa.aer.ad 1 Puff IH BID Aspirin 81 Mg Tab.chew 325 Tab PO DAILY Losartan Potassium (Losartan Potassium) 25 Mg Tablet 1 Tab PO DAILY Vitals/I & O Vital Sign - Last 24 Hours 04/09/19 04/09/19 04/09/19 04/09/19 15:00 15:32 18:07 19:25 Temp 97.9 98.4 97.9 98.4 Pulse 97 95 Resp 20 18 B/P (MAP) 124/57 (79) 119/59 (79) Pulse Ox 96 96 96 94 O2 Delivery Room Air Room Air Room Air Room Air 04/09/19 04/09/19 04/10/19 04/10/19 20:00 23:38 03:32 07:00 Temp 98.4 98.3 98.2 98.4 98.3 98.2 Pulse 103 97 93 Resp 22 22 18 B/P (MAP) 134/65 (88) 122/66 (84) 128/63 (84) Pulse Ox 93 94 95 O2 Delivery Room Air Room Air Room Air Room Air 04/10/19 04/10/19 04/10/19 04/10/19 07:29 08:00 08:46 08:46 Pulse 93 93 B/P (MAP) 128/63 128/63 Pulse Ox 95 O2 Delivery Room Air Room Air 04/10/19 04/10/19 11:00 11:02 Temp 97.9 97.9 Pulse 104 Resp 16 B/P (MAP) 102/50 (67) Pulse Ox 96 95 O2 Delivery Room Air Room Air Intake and Output 04/09/19 04/09/19 04/10/19 15:00 23:00 07:00 Intake Total 530 ml 1100 ml 1240 ml Output Total 2 ml 2 ml 750 ml Balance 528 ml 1098 ml 490 ml CHRIS STEIN MD April 10, 2019 13:15
[2019-04-10 13:18] LABS: PROTEINASE 3 ANTIBODY <3.5 U/mL (0.0-3.5)
[2019-04-10 15:00] VITALS: BP 118/52
[2019-04-10 19:00] VITALS: BP 118/65
[2019-04-10 23:00] VITALS: BP 136/83
[2019-04-11 03:00] VITALS: BP 116/53
[2019-04-11 05:11] LABS: BASO % 0 % (0-3); EOS # 0.2 x10^3/uL (0.0-0.7); EOS % 2 % (0-3); HEMATOCRIT 38.4 % (39.0-53.0); HEMOGLOBIN 12.5 g/dL (13.0-17.5); LYMPH # 1.1 x10^3/uL (1.0-4.8); LYMPH % 10 % (24-48); MEAN CORPUSCULAR HEMOGLOBIN 29 pg (25-35); MEAN CORPUSCULAR HGB CONC 33 g/dL (31-37); MEAN CORPUSCULAR VOLUME 90 fL (79-100); MONO # 1.1 x10^3/uL (0.0-1.1); MONO % 9 % (0-9); NEUT # 9.2 x10^3uL (1.8-7.7); NEUT % 79 % (31-73); PLATELET COUNT 133 x10^3/uL (140-400); RED BLOOD COUNT 4.26 x10^6/uL (4.30-5.70); RED CELL DISTRIBUTION WIDTH 14.3 % (11.5-14.5); WHITE BLOOD COUNT 11.7 x10^3/uL (4.0-11.0)
[2019-04-11 05:48] LABS: ALBUMIN 1.7 g/dL (3.4-5.0); CALCIUM 7.5 mg/dL (8.5-10.1); CREATININE 3.3 mg/dL (0.7-1.3); PHOSPHORUS 3.4 mg/dL (2.6-4.7); POTASSIUM 3.3 mmol/L (3.5-5.1)
[2019-04-11 07:00] VITALS: BP 138/78
[2019-04-11] MEDS: IPRATRPIUM/ALBUTEROL 0.5/2.5MG 3 ML NEBU. NEB SCH ×4 (07:39→19:47)
[2019-04-11] MEDS: TAMSULOSIN 0.4 MG CAP.ER.24H. PO SCH (08:20)
[2019-04-11] MEDS: CALCIUM ACETATE 667 MG CAPSULE PO SCH ×3 (08:20→17:55)
[2019-04-11] MEDS: VANCOMYCIN 125 MG/2.5 ML ORAL SOLUTION. PO SCH ×4 (08:20→21:52)
[2019-04-11] MEDS: METOPROLOL SUCC 24HR ER 25 MG TAB.ER.24H. PO SCH (08:21)
[2019-04-11] MEDS: ISOSORBIDE MONONITRATE ER 30 MG TAB.ER.24H PO SCH (08:22)
[2019-04-11] MEDS: CALAMINE/ZINC OXIDE TOPICAL SUSPENSION 177ML BOTTLE. TP SCH ×2 (08:22→21:55)
[2019-04-11] MEDS: MULTIVITAMIN with MINERAL TABLET. PO SCH (08:22)
[2019-04-11] MEDS: NYSTATIN TOPICAL POWDER 15GM BOTTLE. TP SCH ×2 (08:22→21:53)
[2019-04-11 11:00] VITALS: BP 122/60
--- NOTE | 2019-04-11 11:05 | PDOC ---
PROGRESS NOTES Subjective Subjective feels better. less diarrhea. dry cough occasionally,. not short of breath. lab reviewed. potassium 3.3. bun 50 and creatinine better 3.3. urine output improved to 1200cc. Objective Objective Vital Signs Date Time Temp Pulse Resp B/P (MAP) Pulse Ox O2 Delivery O2 Flow Rate FiO2 04/11/19 10:48 Room Air 04/11/19 08:22 100 138/78 04/11/19 07:41 96 04/11/19 03:00 98.7 18 98.7 04/07/19 14:17 2.0 Intake and Output 04/11/19 07:00 Intake Total 1950 ml Output Total 1200 ml Balance 750 ml Intake Oral 1950 ml Output Urine Total 1200 ml # Bowel Movements 5 Physical Exam Abdomen: Soft, No tenderness, Other (obese) Heart: Regular rate, Normal S1, Normal S2 Extremities: No edema General: Alert HEENT: Atraumatic Lungs: Other (clear. decreased breath sounds) Neuro: Normal speech Psych/Mental Status: Mental status NL Skin: No rashes Assessment Assessment Problems Clostridium difficile colitis. stool for c. diff positive in office and neg in hospital 2. Acute kidney injury, most likely secondary to intravascular volume depletion from the diarrhea and also contributing could be the nonsteroidal anti-inflammatory drug that he took at home and also the losartan.creatinine better and improved urine output 3. Hyponatremia.resolved 4. Metabolic acidosis secondary to the diarrhea and acute kidney injury. improved 5. History of hypertension. 6. Hyperlipidemia. 7. Coronary artery disease. 8. Asthma. 9. Morbid obesity. 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 Labs Laboratory Tests Test 04/10/19 04:05 04/11/19 04:30 04/11/19 04:35 Sodium Level 142 mmol/L (136-145) 142 mmol/L (136-145) Potassium Level 3.4 mmol/L (3.5-5.1) 3.3 mmol/L (3.5-5.1) Chloride Level 105 mmol/L (98-107) 106 mmol/L (98-107) Carbon Dioxide Level 28 mmol/L (21-32) 26 mmol/L (21-32) Anion Gap 9 (6-14) 10 (6-14) Blood Urea Nitrogen 54 mg/dL (8-26) 50 mg/dL (8-26) Creatinine 4.0 mg/dL (0.7-1.3) 3.3 mg/dL (0.7-1.3) Estimated GFR (Cockcroft-Gault) 14.4 18.0 Glucose Level 113 mg/dL (70-99) 108 mg/dL (70-99) Calcium Level 7.8 mg/dL (8.5-10.1) 7.5 mg/dL (8.5-10.1) Phosphorus Level 4.0 mg/dL (2.6-4.7) 3.4 mg/dL (2.6-4.7) Magnesium Level 1.9 mg/dL (1.8-2.4) Albumin 1.7 g/dL (3.4-5.0) 1.7 g/dL (3.4-5.0) White Blood Count 11.7 x10^3/uL (4.0-11.0) Red Blood Count 4.26 x10^6/uL (4.30-5.70) Hemoglobin 12.5 g/dL (13.0-17.5) Hematocrit 38.4 % (39.0-53.0) Mean Corpuscular Volume 90 fL (79-100) Mean Corpuscular Hemoglobin 29 pg (25-35) Mean Corpuscular Hemoglobin Concent 33 g/dL (31-37) Red Cell Distribution Width 14.3 % (11.5-14.5) Platelet Count 133 x10^3/uL (140-400) Neutrophils (%) (Auto) 79 % (31-73) Lymphocytes (%) (Auto) 10 % (24-48) Monocytes (%) (Auto) 9 % (0-9) Eosinophils (%) (Auto) 2 % (0-3) Basophils (%) (Auto) 0 % (0-3) Neutrophils # (Auto) 9.2 x10^3uL (1.8-7.7) Lymphocytes # (Auto) 1.1 x10^3/uL (1.0-4.8) Monocytes # (Auto) 1.1 x10^3/uL (0.0-1.1) Eosinophils # (Auto) 0.2 x10^3/uL (0.0-0.7) Basophils # (Auto) 0.0 x10^3/uL (0.0-0.2) Laboratory Tests Test 04/11/19 04:30 04/11/19 04:35 White Blood Count 11.7 x10^3/uL (4.0-11.0) Red Blood Count 4.26 x10^6/uL (4.30-5.70) Hemoglobin 12.5 g/dL (13.0-17.5) Hematocrit 38.4 % (39.0-53.0) Mean Corpuscular Volume 90 fL (79-100) Mean Corpuscular Hemoglobin 29 pg (25-35) Mean Corpuscular Hemoglobin Concent 33 g/dL (31-37) Red Cell Distribution Width 14.3 % (11.5-14.5) Platelet Count 133 x10^3/uL (140-400) Neutrophils (%) (Auto) 79 % (31-73) Lymphocytes (%) (Auto) 10 % (24-48) Monocytes (%) (Auto) 9 % (0-9) Eosinophils (%) (Auto) 2 % (0-3) Basophils (%) (Auto) 0 % (0-3) Neutrophils # (Auto) 9.2 x10^3uL (1.8-7.7) Lymphocytes # (Auto) 1.1 x10^3/uL (1.0-4.8) Monocytes # (Auto) 1.1 x10^3/uL (0.0-1.1) Eosinophils # (Auto) 0.2 x10^3/uL (0.0-0.7) Basophils # (Auto) 0.0 x10^3/uL (0.0-0.2) Sodium Level 142 mmol/L (136-145) Potassium Level 3.3 mmol/L (3.5-5.1) Chloride Level 106 mmol/L (98-107) Carbon Dioxide Level 26 mmol/L (21-32) Anion Gap 10 (6-14) Blood Urea Nitrogen 50 mg/dL (8-26) Creatinine 3.3 mg/dL (0.7-1.3) Estimated GFR (Cockcroft-Gault) 18.0 Glucose Level 108 mg/dL (70-99) Calcium Level 7.5 mg/dL (8.5-10.1) Phosphorus Level 3.4 mg/dL (2.6-4.7) Albumin 1.7 g/dL (3.4-5.0) Microbiology 04/05/19 Urine Culture - Final, Complete 04/05/19 Urine Culture Result 1 (MARISELA) - Final, Complete Medications Current Medications Sodium Chloride 1,000 ml @ 1,000 mls/hr 1X ONCE IV Last administered on 04/04/19at 22:55; Start 04/04/19 at 23:00; Stop 04/04/19 at 23:59; Status DC Vancomycin HCl (Vancomycin Oral Solution) 125 mg 1X ONCE PO Last administered on 04/04/19at 23:51; Start 04/05/19 at 00:00; Stop 04/05/19 at 00:01; Status DC Ondansetron HCl (Zofran) 4 mg PRN Q8HRS PRN IV NAUSEA/VOMITING 1ST CHOICE; Start 04/04/19 at 23:45; Stop 04/05/19 at 13:24; Status DC Fentanyl Citrate (Fentanyl 2ml Vial) 25 mcg PRN Q2HRS PRN IV SEVERE PAIN; Start 04/04/19 at 23:45; Stop 04/05/19 at 11:21; Status DC Vancomycin HCl (Vancomycin Oral Solution) 125 mg [id number] PO Last administered on 04/05/19at 08:04; Start 04/05/19 at 09:00; Stop 04/05/19 at 11:24; Status DC Sodium Bicarbonate 100 meq/Sodium Chloride 1,100 ml @ 125 mls/hr Q8H48M IV Last administered on 04/05/19at 08:05; Start 04/05/19 at 00:00; Stop 04/05/19 at 15:59; Status DC Sodium Bicarbonate 100 meq/Sodium Chloride 1,100 ml @ 125 mls/hr Q8H48M IV Last administered on 04/07/19at 00:28; Start 04/05/19 at 16:00; Stop 04/07/19 at 10:17; Status DC Fentanyl Citrate (Fentanyl 2ml Vial) 25 mcg PRN Q4HRS PRN IV MODERATE TO SEVERE PAIN; Start 04/05/19 at 11:15; Stop 04/07/19 at 10:18; Status DC Vancomycin HCl (Vancomycin Oral Solution) 125 mg [id number] PO Last administered on 04/11/19 08:20; Start 04/05/19 at 13:00 Tamsulosin HCl (Flomax) 0.4 mg DAILY PO Last administered on 04/11/19 08:20; Start 04/05/19 at 12:30 Metoprolol Succinate (Toprol Xl) 25 mg DAILY PO Last administered on 04/11/19 08:21; Start 04/05/19 at 12:30 Isosorbide Mononitrate (Imdur) 30 mg DAILY PO Last administered on 04/11/19 08:22; Start 04/05/19 at 12:30 Nystatin (Nystop) 1 dionna BID TP Last administered on 04/11/19 08:22; Start 04/05/19 at 12:30 Ondansetron HCl (Zofran) 4 mg PRN Q6HRS PRN IV NAUSEA/VOMITING; Start 04/05/19 at 11:15 Albuterol/ Ipratropium (Duoneb) 3 ml RTQID NEB Last administered on 04/11/19at 10:47; Start 04/05/19 at 12:00 Acetaminophen (Tylenol) 325 mg PRN Q6HRS PRN PO MILD PAIN / TEMP; Start 04/05/19 at 11:15 Lidocaine HCl (Glydo (Lidocaine) Jelly) 1 dionna 1X ONCE MM Last administered on 04/05/19at 12:54; Start 04/05/19 at 11:45; Stop 04/05/19 at 11:46; Status DC Metronidazole 100 ml @ 100 mls/hr Q8HRS IV ; Start 04/05/19 at 12:30; Stop 04/05/19 at 12:30; Status DC Vancomycin HCl (Vancomycin Oral Solution) 125 mg [id number] PO ; Start 04/05/19 at 13:00; Stop 04/05/19 at 13:00; Status DC Colestipol HCl (Colestid) 1 gm BID@10,22 PO Last administered on 04/06/19at 22:22; Start 04/05/19 at 13:00; Stop 04/07/19 at 14:56; Status DC Sodium Chloride 500 ml @ 0 mls/hr PRN QID PRN IV UO< 30cc/hr over previous 6hrs; Start 04/05/19 at 13:15; Stop 04/07/19 at 10:18; Status DC Magnesium Sulfate 50 ml @ 25 mls/hr PRN DAILY PRN IV for Mag < 1.7 on am labs; Start 04/05/19 at 13:15 Phytonadione (Mephyton Oral Soln) 5 mg 1X ONCE PO Last administered on 04/06/19at 10:00; Start 04/06/19 at 09:30; Stop 04/06/19 at 09:31; Status DC Sodium Bicarbonate (Sodium Bicarb Adult 8.4% Syr) 50 meq Q2H IV Last administered on 04/06/19at 13:17; Start 04/06/19 at 09:30; Stop 04/06/19 at 11:31; Status DC Calcium Acetate (Phoslo) 1,334 mg TIDWMEALS PO Last administered on 04/11/19at 08:20; Start 04/06/19 at 12:00 Sodium Bicarbonate (Sodium Bicarbonate) 1,300 mg BID PO Last administered on 04/08/19at 21:12; Start 04/07/19 at 11:00; Stop 04/09/19 at 08:41; Status DC Potassium Chloride (Klor-Con) 20 meq 1X ONCE PO ; Start 04/07/19 at 10:15; Stop 04/07/19 at 10:24; Status DC Sodium Chloride 1,000 ml @ 75 mls/hr [id number] IV Last administered on 04/10/19at 22:16; Start 04/07/19 at 10:15 Lidocaine/Sodium Bicarbonate (Buffered Lidocaine 1%) 3 ml STK-MED ONCE .ROUTE ; Start 04/07/19 at 12:27; Stop 04/07/19 at 12:28; Status DC Midazolam HCl (Versed) 2 mg STK-MED ONCE .ROUTE ; Start 04/07/19 at 12:31; Stop 04/07/19 at 12:32; Status DC Fentanyl Citrate (Fentanyl 2ml Vial) 100 mcg STK-MED ONCE .ROUTE ; Start 04/07/19 at 12:32; Stop 04/07/19 at 12:33; Status DC Gelatin (Gelfoam Size 12-7mm) 1 each STK-MED ONCE .ROUTE ; Start 04/07/19 at 12:34; Stop 04/07/19 at 12:35; Status DC Lidocaine/Sodium Bicarbonate (Buffered Lidocaine 1%) 3 ml STK-MED ONCE .ROUTE ; Start 04/07/19 at 12:59; Stop 04/07/19 at 13:00; Status DC Heparin Sodium (Porcine) (Heparin Sodium) 10,000 unit STK-MED ONCE .ROUTE ; Start 04/07/19 at 13:00; Stop 04/07/19 at 13:01; Status DC Midazolam HCl (Versed) 2 mg 1X ONCE IV Last administered on 04/07/19at 14:10; Start 04/07/19 at 13:30; Stop 04/07/19 at 13:31; Status DC Fentanyl Citrate (Fentanyl 2ml Vial) 50 mcg 1X ONCE IV Last administered on 04/07/19at 14:10; Start 04/07/19 at 13:30; Stop 04/07/19 at 13:31; Status DC Lidocaine/Sodium Bicarbonate (Buffered Lidocaine 1%) 12 ml 1X ONCE IJ Last administered on 04/07/19at 14:11; Start 04/07/19 at 14:15; Stop 04/07/19 at 14:16; Status DC Heparin Sodium (Porcine) (Heparin Sodium) 2,500 unit 1X ONCE INT CAT Last administered on 04/07/19at 14:10; Start 04/07/19 at 14:15; Stop 04/07/19 at 14:16; Status DC Calamine (Calamine Lotion) 1 dionna BID TP Last administered on 04/11/19at 08:22; Start 04/08/19 at 11:00 Multivitamins (Thera M Plus) 1 tab DAILY PO Last administered on 04/11/19at 08:22; Start 04/08/19 at 11:30 Potassium Chloride (Klor-Con) 20 meq 1X ONCE PO Last administered on 04/08/19at 15:35; Start 04/08/19 at 11:30; Stop 04/08/19 at 11:31; Status DC Sodium Chloride 1,000 ml @ 1,000 mls/hr Q1H PRN IV hypotension; Start 04/08/19 at 11:05; Stop 04/08/19 at 17:04; Status DC Diphenhydramine HCl (Benadryl) 25 mg 1X PRN PRN IV ITCHING; Start 04/08/19 at 11:15; Stop 04/09/19 at 11:14; Status DC Diphenhydramine HCl (Benadryl) 25 mg 1X PRN PRN IV ITCHING; Start 04/08/19 at 11:15; Stop 04/09/19 at 11:14; Status DC Sodium Chloride 1,000 ml @ 400 mls/hr Q2H30M PRN IV PATENCY; Start 04/08/19 at 11:05; Stop 04/08/19 at 23:04; Status DC Info (PHARMACY MONITORING -- do not chart) 1 each PRN DAILY PRN MC SEE COMMENTS; Start 04/08/19 at 11:15 Potassium Chloride (Klor-Con) 20 meq 1X ONCE PO Last administered on 04/09/19at 09:28; Start 04/09/19 at 08:45; Stop 04/09/19 at 08:46; Status DC Potassium Chloride (Klor-Con) 40 meq 1X ONCE PO Last administered on 04/10/19at 13:19; Start 04/10/19 at 11:45; Stop 04/10/19 at 11:46; Status DC Lactobacillus Rhamnosus (Culturelle) 1 cap BID PO ; Start 04/11/19 at 09:00 Active Scripts Active Reported Proair Hfa Inhaler (Albuterol Sulfate) 8.5 Gm Hfa.aer.ad 1 Puff INH PRN Q6HRS PRN Losartan-Hctz 50-12.5 Mg Tab (Losartan/Hydrochlorothiazide) 1 Each Tablet 1 Each PO DAILY Metoprolol Tartrate 25 Mg Tablet 25 Mg PO BID Furosemide 20 Mg Tablet 20 Mg PO DAILY Isosorbide Mononitrate 10 Mg Tablet 10 Mg PO DAILY Amlodipine Besylate 10 Mg Tablet 10 Mg PO DAILY Tamsulosin Hcl 0.4 Mg Cap.er.24h 0.4 Mg PO DAILY Fish Oil ([place]-3 Fatty Acids) 500 Mg Capsule.dr 1,000 Mg PO DAILY Multi Vitamin Daily (Multivitamin) 1 Each Tablet 1 Each PO Symbicort 160-4.5 Mcg Inhaler (Budesonide/Formoterol Fumarate) 10.2 Gm Hfa.aer.ad 1 Puff IH BID Aspirin 81 Mg Tab.chew 325 Tab PO DAILY Losartan Potassium (Losartan Potassium) 25 Mg Tablet 1 Tab PO DAILY Vitals/I & O Vital Sign - Last 24 Hours 04/10/19 04/10/19 04/10/19 04/10/19 15:00 15:20 19:00 20:00 Temp 98.1 98.1 98.1 98.1 Pulse 53 57 Resp 16 18 B/P (MAP) 118/52 (74) 118/65 (82) Pulse Ox 97 97 94 O2 Delivery Room Air Room Air Room Air Room Air 04/10/19 04/10/19 04/11/19 04/11/19 20:09 23:00 03:00 07:41 Temp 98.5 98.7 98.5 98.7 Pulse 57 97 Resp 18 18 B/P (MAP) 136/83 (100) 116/53 (74) Pulse Ox 97 92 93 96 O2 Delivery Room Air Room Air Room Air Room Air 04/11/19 04/11/19 04/11/19 08:21 08:22 10:48 Pulse 100 100 B/P (MAP) 138/78 138/78 O2 Delivery Room Air Intake and Output 04/10/19 04/10/19 04/11/19 15:00 23:00 07:00 Intake Total 1950 ml Output Total 600 ml 600 ml Balance -600 ml 1350 ml CHRIS STEIN MD Apr 11, 2019 11:05
[2019-04-11] MEDS ORDERED: POTASSIUM CHLORIDE 20 MEQ TABLET.ER. PO ONE (11:15)
[2019-04-11] MEDS: LACTOBACILLUS RHAMNOSUS GG 1 CAPSULE. PO SCH ×2 (12:07→21:52)
[2019-04-11] MEDS: IV NORMAL SALINE 1000ML BAG 1,000 ML IV SCH ×2 (12:08→21:53)
[2019-04-11 15:00] VITALS: BP 127/66
--- NOTE | 2019-04-11 15:08 | PDOC ---
Infectious Disease Note Subjective Subjective Says having less bouts of diarrhea, averaging 2-3 small stools a day Still feeling little bloated Appetite alright Deneis N/V/cramps/F/C ROS ROS per HPI Vital Sign Vital Signs Vital Signs Date Time Temp Pulse Resp B/P (MAP) Pulse Ox O2 Delivery O2 Flow Rate FiO2 04/11/19 11:00 98.1 100 18 122/60 (80) 95 Room Air 98.1 Physical Exam PHYSICAL EXAM GENERAL: Propped up in bed, alert, NAD HEENT: Oral cavity dry NECK: Supple. LUNGS: Clear. HEART: S1, S2 ABDOMEN: Obese, distended, soft, NT, + BS EXTREMITIES: Generalized trace edema, no cyanosis NEURO Alert, responding appropriately RIJ/HDC clean Labs Lab Laboratory Tests Test 04/11/19 04:30 04/11/19 04:35 White Blood Count 11.7 x10^3/uL (4.0-11.0) Red Blood Count 4.26 x10^6/uL (4.30-5.70) Hemoglobin 12.5 g/dL (13.0-17.5) Hematocrit 38.4 % (39.0-53.0) Mean Corpuscular Volume 90 fL (79-100) Mean Corpuscular Hemoglobin 29 pg (25-35) Mean Corpuscular Hemoglobin Concent 33 g/dL (31-37) Red Cell Distribution Width 14.3 % (11.5-14.5) Platelet Count 133 x10^3/uL (140-400) Neutrophils (%) (Auto) 79 % (31-73) Lymphocytes (%) (Auto) 10 % (24-48) Monocytes (%) (Auto) 9 % (0-9) Eosinophils (%) (Auto) 2 % (0-3) Basophils (%) (Auto) 0 % (0-3) Neutrophils # (Auto) 9.2 x10^3uL (1.8-7.7) Lymphocytes # (Auto) 1.1 x10^3/uL (1.0-4.8) Monocytes # (Auto) 1.1 x10^3/uL (0.0-1.1) Eosinophils # (Auto) 0.2 x10^3/uL (0.0-0.7) Basophils # (Auto) 0.0 x10^3/uL (0.0-0.2) Sodium Level 142 mmol/L (136-145) Potassium Level 3.3 mmol/L (3.5-5.1) Chloride Level 106 mmol/L (98-107) Carbon Dioxide Level 26 mmol/L (21-32) Anion Gap 10 (6-14) Blood Urea Nitrogen 50 mg/dL (8-26) Creatinine 3.3 mg/dL (0.7-1.3) Estimated GFR (Cockcroft-Gault) 18.0 Glucose Level 108 mg/dL (70-99) Calcium Level 7.5 mg/dL (8.5-10.1) Phosphorus Level 3.4 mg/dL (2.6-4.7) Albumin 1.7 g/dL (3.4-5.0) Micro Objective Assessment Clostridium difficile colitis historically prior to admission 04/03, failed outpt Flagyl, improving. repeat PCR neg on 04/04 Leukocytosis, likely from above, improving Acute kidney injury, metabolic acidosis, on HDC Hypertension. Obesity. Cerebrovascular accident. Plan Plan of Care continue with p.o. vancomycin through 04/16 Probiotics maintain hydration Call with questions Attending Co-Sign Attending Co-Sign The patient was seen and interviewed as well as examined at the bedside. The chart was reviewed. The case was discussed. Agree with the plan of care. INESSA MURRAY APRN Apr 11, 2019 15:08 JONAS MORIN MD Apr 11, 2019 16:30
[2019-04-11] MEDS: guaiFENesin DM 200MG/20MG 10 ML SYRUP PO PRN ×2 (15:40→21:52)
--- NOTE | 2019-04-11 15:52 | PDOC ---
SUBJECTIVE ROS Stable, No complaints /concerns voiced by Pt packer inspector OBJECTIVE Vital Signs Vital Signs Date Time Temp Pulse Resp B/P (MAP) Pulse Ox O2 Delivery O2 Flow Rate FiO2 04/11/19 15:19 Room Air 04/11/19 11:00 98.1 100 18 122/60 (80) 95 98.1 I & 0 Intake and Output 04/11/19 07:00 Intake Total 1950 ml Output Total 1200 ml Balance 750 ml Intake Oral 1950 ml Output Urine Total 1200 ml # Bowel Movements 5 PHYSICAL EXAM Physical Exam GENERAL: NAD HEENT: Oral cavity moist NECK: Supple. LUNGS: Clear. HEART: S1, S2 ABDOMEN: soft, NT, + BS EXTREMITIES: trace edema, NEURO Alert, Grossly normal /HDC- Rt DIAGNOSIS/ASSESSMENT Assessment & Plan HARVEY- ATN - Improving renal function and UOP S/P Renal Bx showed ATN , No GN HD x1 ,Monitor , Remove HD catheter on Saturday based on renal recovery C DIF- On PO Vanc ID following Hypokalemia- replace as needed MET acidosis- Resolved Hypertension stable Hx of Cerebrovascular accident. COMMENT/RELEVANT DATA Meds Current Medications Medications (Trade) Dose Ordered Sig/Adri Start Time Stop Time Status Last Admin Dose Admin Acetaminophen (Tylenol) 325 mg PRN Q6HRS PRN 04/05/19 11:15 Albuterol/ Ipratropium (Duoneb) 3 ml RTQID 04/05/19 12:00 04/11/19 15:19 3 ML Calamine (Calamine Lotion) 1 dionna BID 04/08/19 11:00 04/11/19 08:22 1 DIONNA Calcium Acetate (Phoslo) 1,334 mg TIDWMEALS 04/06/19 12:00 04/11/19 12:07 1,334 MG Colestipol HCl (Colestid) 1 gm BID@10,22 04/05/19 13:00 04/07/19 14:56 DC 04/06/19 22:22 1 GM Diphenhydramine HCl (Benadryl) 25 mg 1X PRN PRN 04/08/19 11:15 04/09/19 11:14 DC Fentanyl Citrate (Fentanyl 2ml Vial) 50 mcg 1X ONCE 04/07/19 13:30 04/07/19 13:31 DC 04/07/19 14:10 50 MCG Gelatin (Gelfoam Size 12-7mm) 1 each STK-MED ONCE 04/07/19 12:34 04/07/19 12:35 DC Guaifenesin (Robitussin Dm) 10 ml PRN Q6HRS PRN 04/11/19 13:00 04/11/19 15:40 10 ML Heparin Sodium (Porcine) (Heparin Sodium) 2,500 unit 1X ONCE 04/07/19 14:15 04/07/19 14:16 DC 04/07/19 14:10 2,500 UNIT Info (PHARMACY MONITORING -- do not chart) 1 each PRN DAILY PRN 04/08/19 11:15 Isosorbide Mononitrate (Imdur) 30 mg DAILY 04/05/19 12:30 04/11/19 08:22 30 MG Lactobacillus Rhamnosus (Culturelle) 1 cap BID 04/11/19 09:00 04/11/19 12:07 1 CAP Lidocaine HCl (Glydo (Lidocaine) Jelly) 1 dionna 1X ONCE 04/05/19 11:45 04/05/19 11:46 DC 04/05/19 12:54 1 DIONNA Lidocaine/Sodium Bicarbonate (Buffered Lidocaine 1%) 12 ml 1X ONCE 04/07/19 14:15 04/07/19 14:16 DC 04/07/19 14:11 12 ML Magnesium Sulfate 50 ml @ 25 mls/hr PRN DAILY PRN 04/05/19 13:15 Metoprolol Succinate (Toprol Xl) 25 mg DAILY 04/05/19 12:30 04/11/19 08:21 25 MG Metronidazole 100 ml @ 100 mls/hr Q8HRS 04/05/19 12:30 04/05/19 12:30 DC Midazolam HCl (Versed) 2 mg 1X ONCE 04/07/19 13:30 04/07/19 13:31 DC 04/07/19 14:10 2 MG Multivitamins (Thera M Plus) 1 tab DAILY 04/08/19 11:30 04/11/19 08:22 1 TAB Nystatin (Nystop) 1 dionna BID 04/05/19 12:30 04/11/19 08:22 1 DIONNA Ondansetron HCl (Zofran) 4 mg PRN Q6HRS PRN 04/05/19 11:15 Phytonadione (Mephyton Oral Soln) 5 mg 1X ONCE 04/06/19 09:30 04/06/19 09:31 DC 04/06/19 10:00 5 MG Potassium Chloride (Klor-Con) 40 meq 1X ONCE 04/11/19 11:15 04/11/19 11:16 DC 04/11/19 12:07 40 MEQ Sodium Bicarbonate 100 meq/Sodium Chloride 1,100 ml @ 125 mls/hr Q8H48M 04/05/19 16:00 04/07/19 10:17 DC 04/07/19 00:28 125 MLS/HR Sodium Bicarbonate (Sodium Bicarbonate) 1,300 mg BID 04/07/19 11:00 04/09/19 08:41 DC 04/08/19 21:12 1,300 MG Sodium Bicarbonate (Sodium Bicarb Adult 8.4% Syr) 50 meq Q2H 04/06/19 09:30 04/06/19 11:31 DC 04/06/19 13:17 50 MEQ Sodium Chloride 1,000 ml @ 400 mls/hr Q2H30M PRN 04/08/19 11:05 04/08/19 23:04 DC Tamsulosin HCl (Flomax) 0.4 mg DAILY 04/05/19 12:30 04/11/19 08:20 0.4 MG Vancomycin HCl (Vancomycin Oral Solution) 125 mg [id number] 04/05/19 13:00 04/05/19 13:00 DC Lab Laboratory Tests Test 04/11/19 04:30 04/11/19 04:35 White Blood Count 11.7 x10^3/uL (4.0-11.0) Red Blood Count 4.26 x10^6/uL (4.30-5.70) Hemoglobin 12.5 g/dL (13.0-17.5) Hematocrit 38.4 % (39.0-53.0) Mean Corpuscular Volume 90 fL (79-100) Mean Corpuscular Hemoglobin 29 pg (25-35) Mean Corpuscular Hemoglobin Concent 33 g/dL (31-37) Red Cell Distribution Width 14.3 % (11.5-14.5) Platelet Count 133 x10^3/uL (140-400) Neutrophils (%) (Auto) 79 % (31-73) Lymphocytes (%) (Auto) 10 % (24-48) Monocytes (%) (Auto) 9 % (0-9) Eosinophils (%) (Auto) 2 % (0-3) Basophils (%) (Auto) 0 % (0-3) Neutrophils # (Auto) 9.2 x10^3uL (1.8-7.7) Lymphocytes # (Auto) 1.1 x10^3/uL (1.0-4.8) Monocytes # (Auto) 1.1 x10^3/uL (0.0-1.1) Eosinophils # (Auto) 0.2 x10^3/uL (0.0-0.7) Basophils # (Auto) 0.0 x10^3/uL (0.0-0.2) Sodium Level 142 mmol/L (136-145) Potassium Level 3.3 mmol/L (3.5-5.1) Chloride Level 106 mmol/L (98-107) Carbon Dioxide Level 26 mmol/L (21-32) Anion Gap 10 (6-14) Blood Urea Nitrogen 50 mg/dL (8-26) Creatinine 3.3 mg/dL (0.7-1.3) Estimated GFR (Cockcroft-Gault) 18.0 Glucose Level 108 mg/dL (70-99) Calcium Level 7.5 mg/dL (8.5-10.1) Phosphorus Level 3.4 mg/dL (2.6-4.7) Albumin 1.7 g/dL (3.4-5.0) Results All relevant outside records, renal labs, imaging studies, telemetry/EKG's were reviewed. KAYLA TERRAZAS MD Apr 11, 2019 15:52
[2019-04-11 19:00] VITALS: BP 150/66
[2019-04-11 23:52] VITALS: BP 135/60
[2019-04-12 03:00] VITALS: BP 151/73
[2019-04-12] MEDS: guaiFENesin DM 200MG/20MG 10 ML SYRUP PO PRN ×3 (06:22→20:53)
[2019-04-12 06:50] LABS: ALBUMIN 1.7 g/dL (3.4-5.0); CALCIUM 7.5 mg/dL (8.5-10.1); GFR 20.1; PHOSPHORUS 3.3 mg/dL (2.6-4.7); POTASSIUM 3.5 mmol/L (3.5-5.1)
[2019-04-12 07:00] VITALS: BP 135/66
[2019-04-12] MEDS: IPRATRPIUM/ALBUTEROL 0.5/2.5MG 3 ML NEBU. NEB SCH ×4 (07:17→19:21)
[2019-04-12] MEDS: MULTIVITAMIN with MINERAL TABLET. PO SCH (08:24)
[2019-04-12] MEDS: METOPROLOL SUCC 24HR ER 25 MG TAB.ER.24H. PO SCH (08:24)
[2019-04-12] MEDS: CALCIUM ACETATE 667 MG CAPSULE PO SCH ×3 (08:25→16:36)
[2019-04-12] MEDS: LACTOBACILLUS RHAMNOSUS GG 1 CAPSULE. PO SCH ×2 (08:25→20:53)
[2019-04-12] MEDS: TAMSULOSIN 0.4 MG CAP.ER.24H. PO SCH (08:25)
[2019-04-12] MEDS: ISOSORBIDE MONONITRATE ER 30 MG TAB.ER.24H PO SCH (08:25)
[2019-04-12] MEDS: VANCOMYCIN 125 MG/2.5 ML ORAL SOLUTION. PO SCH ×4 (08:25→20:53)
[2019-04-12] MEDS: CALAMINE/ZINC OXIDE TOPICAL SUSPENSION 177ML BOTTLE. TP SCH ×2 (08:26→20:55)
[2019-04-12] MEDS: NYSTATIN TOPICAL POWDER 15GM BOTTLE. TP SCH ×2 (08:26→20:55)
--- NOTE | 2019-04-12 09:13 | PDOC ---
SUBJECTIVE ROS Stable, No complaints /concerns voiced by Pt OBJECTIVE Vital Signs Vital Signs Date Time Temp Pulse Resp B/P (MAP) Pulse Ox O2 Delivery O2 Flow Rate FiO2 04/12/19 08:25 80 135/66 04/12/19 07:18 Room Air 04/12/19 07:00 98.8 18 95 98.8 I & 0 Intake and Output 04/12/19 06:59 Intake Total 1230 ml Output Total 1825 ml Balance -595 ml Intake Oral 1230 ml Output Urine Total 1825 ml # Bowel Movements 3 PHYSICAL EXAM Physical Exam GENERAL: NAD HEENT: Oral cavity moist NECK: Supple. LUNGS: Clear. HEART: S1, S2 ABDOMEN: soft, NT, + BS EXTREMITIES: trace edema, NEURO Alert, Grossly normal /HDC- Rt DIAGNOSIS/ASSESSMENT Assessment & Plan HARVEY- ATN - Improving renal function and UOP S/P Renal Bx showed ATN , No GN HD x1 ,Monitor scrotal edema- IV Lasix Re-eval tomorrow May need Scrotal US if no improvement C DIF- On PO Vanc ID following Hypokalemia- replace as needed MET acidosis- Resolved Hypertension stable Hx of Cerebrovascular accident. COMMENT/RELEVANT DATA Meds Current Medications Medications (Trade) Dose Ordered Sig/Adri Start Time Stop Time Status Last Admin Dose Admin Acetaminophen (Tylenol) 325 mg PRN Q6HRS PRN 04/05/19 11:15 Albuterol/ Ipratropium (Duoneb) 3 ml RTQID 04/05/19 12:00 04/12/19 07:17 3 ML Calamine (Calamine Lotion) 1 dionna BID 04/08/19 11:00 04/12/19 08:26 1 DIONNA Calcium Acetate (Phoslo) 1,334 mg TIDWMEALS 04/06/19 12:00 04/12/19 08:25 1,334 MG Colestipol HCl (Colestid) 1 gm BID@10,22 04/05/19 13:00 04/07/19 14:56 DC 04/06/19 22:22 1 GM Diphenhydramine HCl (Benadryl) 25 mg 1X PRN PRN 04/08/19 11:15 04/09/19 11:14 DC Fentanyl Citrate (Fentanyl 2ml Vial) 50 mcg 1X ONCE 04/07/19 13:30 04/07/19 13:31 DC 04/07/19 14:10 50 MCG Gelatin (Gelfoam Size 12-7mm) 1 each STK-MED ONCE 04/07/19 12:34 04/07/19 12:35 DC Guaifenesin (Robitussin Dm) 10 ml PRN Q6HRS PRN 04/11/19 13:00 04/12/19 06:22 10 ML Heparin Sodium (Porcine) (Heparin Sodium) 2,500 unit 1X ONCE 04/07/19 14:15 04/07/19 14:16 DC 04/07/19 14:10 2,500 UNIT Info (PHARMACY MONITORING -- do not chart) 1 each PRN DAILY PRN 04/08/19 11:15 Isosorbide Mononitrate (Imdur) 30 mg DAILY 04/05/19 12:30 04/12/19 08:25 30 MG Lactobacillus Rhamnosus (Culturelle) 1 cap BID 04/11/19 09:00 04/12/19 08:25 1 CAP Lidocaine HCl (Glydo (Lidocaine) Jelly) 1 dionna 1X ONCE 04/05/19 11:45 04/05/19 11:46 DC 04/05/19 12:54 1 DIONNA Lidocaine/Sodium Bicarbonate (Buffered Lidocaine 1%) 12 ml 1X ONCE 04/07/19 14:15 04/07/19 14:16 DC 04/07/19 14:11 12 ML Magnesium Sulfate 50 ml @ 25 mls/hr PRN DAILY PRN 04/05/19 13:15 Metoprolol Succinate (Toprol Xl) 25 mg DAILY 04/05/19 12:30 04/12/19 08:24 25 MG Metronidazole 100 ml @ 100 mls/hr Q8HRS 04/05/19 12:30 04/05/19 12:30 DC Midazolam HCl (Versed) 2 mg 1X ONCE 04/07/19 13:30 04/07/19 13:31 DC 04/07/19 14:10 2 MG Multivitamins (Thera M Plus) 1 tab DAILY 04/08/19 11:30 04/12/19 08:24 1 TAB Nystatin (Nystop) 1 dionna BID 04/05/19 12:30 04/12/19 08:26 1 DIONNA Ondansetron HCl (Zofran) 4 mg PRN Q6HRS PRN 04/05/19 11:15 Phytonadione (Mephyton Oral Soln) 5 mg 1X ONCE 04/06/19 09:30 04/06/19 09:31 DC 04/06/19 10:00 5 MG Potassium Chloride (Klor-Con) 40 meq 1X ONCE 04/11/19 11:15 04/11/19 11:16 DC 04/11/19 12:07 40 MEQ Sodium Bicarbonate 100 meq/Sodium Chloride 1,100 ml @ 125 mls/hr Q8H48M 04/05/19 16:00 04/07/19 10:17 DC 04/07/19 00:28 125 MLS/HR Sodium Bicarbonate (Sodium Bicarbonate) 1,300 mg BID 04/07/19 11:00 04/09/19 08:41 DC 04/08/19 21:12 1,300 MG Sodium Bicarbonate (Sodium Bicarb Adult 8.4% Syr) 50 meq Q2H 04/06/19 09:30 04/06/19 11:31 DC 04/06/19 13:17 50 MEQ Sodium Chloride 1,000 ml @ 400 mls/hr Q2H30M PRN 04/08/19 11:05 04/08/19 23:04 DC Tamsulosin HCl (Flomax) 0.4 mg DAILY 04/05/19 12:30 04/12/19 08:25 0.4 MG Vancomycin HCl (Vancomycin Oral Solution) 125 mg [id number] 04/05/19 13:00 04/05/19 13:00 DC Lab Laboratory Tests Test 04/12/19 05:40 Sodium Level 145 mmol/L (136-145) Potassium Level 3.5 mmol/L (3.5-5.1) Chloride Level 108 mmol/L (98-107) Carbon Dioxide Level 26 mmol/L (21-32) Anion Gap 11 (6-14) Blood Urea Nitrogen 44 mg/dL (8-26) Creatinine 3.0 mg/dL (0.7-1.3) Estimated GFR (Cockcroft-Gault) 20.1 Glucose Level 95 mg/dL (70-99) Calcium Level 7.5 mg/dL (8.5-10.1) Phosphorus Level 3.3 mg/dL (2.6-4.7) Magnesium Level 1.4 mg/dL (1.8-2.4) Albumin 1.7 g/dL (3.4-5.0) Results All relevant outside records, renal labs, imaging studies, telemetry/EKG's were reviewed. KAYLA TERRAZAS MD Apr 12, 2019 09:13
[2019-04-12] MEDS: IV NORMAL SALINE 1000ML BAG 1,000 ML IV SCH (09:59)
--- NOTE | 2019-04-12 10:16 | PDOC ---
PROGRESS NOTES Subjective Subjective nurse notes more diarrhea and scrotal edema. urine output improved to 1800 cc and serum creatinine better 3.0. will decrease iv normal saline and order iv lasix times 1 dose this morning. will place on lactose free diet. Objective Objective Vital Signs Date Time Temp Pulse Resp B/P (MAP) Pulse Ox O2 Delivery O2 Flow Rate FiO2 04/12/19 08:30 Room Air 04/12/19 08:25 80 135/66 04/12/19 07:00 98.8 18 95 98.8 04/07/19 14:17 2.0 Intake and Output0 04/12/19 06:59 Intake Total 1230 ml Output Total 1825 ml Balance -595 ml Intake Oral 1230 ml Output Urine Total 1825 ml # Bowel Movements 3 Physical Exam Abdomen: Soft, No tenderness, Other (obese) Heart: Regular rate, Normal S1, Normal S2 Extremities: Other (trace edema legs) General: Alert, Other (scrotal edema) HEENT: Atraumatic Lungs: Other (clear with decreased breath sounds) Neuro: Normal speech Psych/Mental Status: Mental status NL Skin: Other (red macular papular rash on back) Assessment Assessment ProblemsClostridium difficile colitis. stool for c. diff positive in office and neg in hospital. diarrhea worse today 2. Acute kidney injury, most likely secondary to intravascular volume depletion from the diarrhea and also contributing could be the nonsteroidal anti-inflammatory drug that he took at home and also the losartan.creatinine better and improved urine output 3. Hyponatremia.resolved 4. Metabolic acidosis secondary to the diarrhea and acute kidney injury. impr peggy 5. History of hypertension. 6. Hyperlipidemia. 7. Coronary artery disease. 8. Asthma. 9. Morbid obesity. 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 Labs Laboratory Tests Test 04/11/19 04:30 04/11/19 04:35 04/12/19 05:40 White Blood Count 11.7 x10^3/uL (4.0-11.0) Red Blood Count 4.26 x10^6/uL (4.30-5.70) Hemoglobin 12.5 g/dL (13.0-17.5) Hematocrit 38.4 % (39.0-53.0) Mean Corpuscular Volume 90 fL (79-100) Mean Corpuscular Hemoglobin 29 pg (25-35) Mean Corpuscular Hemoglobin Concent 33 g/dL (31-37) Red Cell Distribution Width 14.3 % (11.5-14.5) Platelet Count 133 x10^3/uL (140-400) Neutrophils (%) (Auto) 79 % (31-73) Lymphocytes (%) (Auto) 10 % (24-48) Monocytes (%) (Auto) 9 % (0-9) Eosinophils (%) (Auto) 2 % (0-3) Basophils (%) (Auto) 0 % (0-3) Neutrophils # (Auto) 9.2 x10^3uL (1.8-7.7) Lymphocytes # (Auto) 1.1 x10^3/uL (1.0-4.8) Monocytes # (Auto) 1.1 x10^3/uL (0.0-1.1) Eosinophils # (Auto) 0.2 x10^3/uL (0.0-0.7) Basophils # (Auto) 0.0 x10^3/uL (0.0-0.2) Sodium Level 142 mmol/L (136-145) 145 mmol/L (136-145) Potassium Level 3.3 mmol/L (3.5-5.1) 3.5 mmol/L (3.5-5.1) Chloride Level 106 mmol/L (98-107) 108 mmol/L (98-107) Carbon Dioxide Level 26 mmol/L (21-32) 26 mmol/L (21-32) Anion Gap 10 (6-14) 11 (6-14) Blood Urea Nitrogen 50 mg/dL (8-26) 44 mg/dL (8-26) Creatinine 3.3 mg/dL (0.7-1.3) 3.0 mg/dL (0.7-1.3) Estimated GFR (Cockcroft-Gault) 18.0 20.1 Glucose Level 108 mg/dL (70-99) 95 mg/dL (70-99) Calcium Level 7.5 mg/dL (8.5-10.1) 7.5 mg/dL (8.5-10.1) Phosphorus Level 3.4 mg/dL (2.6-4.7) 3.3 mg/dL (2.6-4.7) Albumin 1.7 g/dL (3.4-5.0) 1.7 g/dL (3.4-5.0) Magnesium Level 1.4 mg/dL (1.8-2.4) Laboratory Tests Test 04/12/19 05:40 Sodium Level 145 mmol/L (136-145) Potassium Level 3.5 mmol/L (3.5-5.1) Chloride Level 108 mmol/L (98-107) Carbon Dioxide Level 26 mmol/L (21-32) Anion Gap 11 (6-14) Blood Urea Nitrogen 44 mg/dL (8-26) Creatinine 3.0 mg/dL (0.7-1.3) Estimated GFR (Cockcroft-Gault) 20.1 Glucose Level 95 mg/dL (70-99) Calcium Level 7.5 mg/dL (8.5-10.1) Phosphorus Level 3.3 mg/dL (2.6-4.7) Magnesium Level 1.4 mg/dL (1.8-2.4) Albumin 1.7 g/dL (3.4-5.0) Microbiology 04/10/19 Stool Culture - Preliminary, Resulted 04/10/19 Stool Culture Result 1 (MARISELA) - Preliminary, Resulted 04/10/19 Campylobacter Antigen Assay - Preliminary, Resulted 04/10/19 Campylobactor Result 1 - Preliminary, Resulted 04/10/19 Shiga Toxin Test, Resulted Pending 04/05/19 Urine Culture - Final, Complete 04/05/19 Urine Culture Result 1 (MARISELA) - Final, Complete Medications Current Medications Sodium Chloride 1,000 ml @ 1,000 mls/hr 1X ONCE IV Last administered on 04/04/19at 22:55; Start 04/04/19 at 23:00; Stop 04/04/19 at 23:59; Status DC Vancomycin HCl (Vancomycin Oral Solution) 125 mg 1X ONCE PO Last administered on 04/04/19at 23:51; Start 04/05/19 at 00:00; Stop 04/05/19 at 00:01; Status DC Ondansetron HCl (Zofran) 4 mg PRN Q8HRS PRN IV NAUSEA/VOMITING 1ST CHOICE; Start 04/04/19 at 23:45; Stop 04/05/19 at 13:24; Status DC Fentanyl Citrate (Fentanyl 2ml Vial) 25 mcg PRN Q2HRS PRN IV SEVERE PAIN; Start 04/04/19 at 23:45; Stop 04/05/19 at 11:21; Status DC Vancomycin HCl (Vancomycin Oral Solution) 125 mg [id number] PO Last administered on 04/05/19at 08:04; Start 04/05/19 at 09:00; Stop 04/05/19 at 11:24; Status DC Sodium Bicarbonate 100 meq/Sodium Chloride 1,100 ml @ 125 mls/hr Q8H48M IV Last administered on 04/05/19at 08:05; Start 04/05/19 at 00:00; Stop 04/05/19 at 15:59; Status DC Sodium Bicarbonate 100 meq/Sodium Chloride 1,100 ml @ 125 mls/hr Q8H48M IV Las t administered on 04/07/19at 00:28; Start 04/05/19 at 16:00; Stop 04/07/19 at 10:17; Status DC Fentanyl Citrate (Fentanyl 2ml Vial) 25 mcg PRN Q4HRS PRN IV MODERATE TO SEVERE PAIN; Start 04/05/19 at 11:15; Stop 04/07/19 at 10:18; Status DC Vancomycin HCl (Vancomycin Oral Solution) 125 mg [id number] PO Last administered on 04/12/19 08:25; Start 04/05/19 at 13:00 Tamsulosin HCl (Flomax) 0.4 mg DAILY PO Last administered on 04/12/19 08:25; Start 04/05/19 at 12:30 Metoprolol Succinate (Toprol Xl) 25 mg DAILY PO Last administered on 04/12/19 08:24; Start 04/05/19 at 12:30 Isosorbide Mononitrate (Imdur) 30 mg DAILY PO Last administered on 04/12/19 08:25; Start 04/05/19 at 12:30 Nystatin (Nystop) 1 dionna BID TP Last administered on 6/2/19at 08:26; Start 04/05/19 at 12:30 Ondansetron HCl (Zofran) 4 mg PRN Q6HRS PRN IV NAUSEA/VOMITING; Start 04/05/19 at 11:15 Albuterol/ Ipratropium (Duoneb) 3 ml RTQID NEB Last administered on 04/12/19at 07:17; Start 04/05/19 at 12:00 Acetaminophen (Tylenol) 325 mg PRN Q6HRS PRN PO MILD PAIN / TEMP; Start 04/05/19 at 11:15 Lidocaine HCl (Glydo (Lidocaine) Jelly) 1 dionna 1X ONCE MM Last administered on 04/05/19at 12:54; Start 04/05/19 at 11:45; Stop 04/05/19 at 11:46; Status DC Metronidazole 100 ml @ 100 mls/hr Q8HRS IV ; Start 04/05/19 at 12:30; Stop 04/05/19 at 12:30; Status DC Vancomycin HCl (Vancomycin Oral Solution) 125 mg [id number] PO ; Start 04/05/19 at 13:00; Stop 04/05/19 at 13:00; Status DC Colestipol HCl (Colestid) 1 gm BID@10,22 PO Last administered on 04/06/19at 22:22; Start 04/05/19 at 13:00; Stop 04/07/19 at 14:56; Status DC Sodium Chloride 500 ml @ 0 mls/hr PRN QID PRN IV UO< 30cc/hr over previous 6hrs; Start 04/05/19 at 13:15; Stop 04/07/19 at 10:18; Status DC Magnesium Sulfate 50 ml @ 25 mls/hr PRN DAILY PRN IV for Mag < 1.7 on am labs; Start 04/05/19 at 13:15 Phytonadione (Mephyton Oral Soln) 5 mg 1X ONCE PO Last administered on 04/06/19 at 10:00; Start 04/06/19 at 09:30; Stop 04/06/19 at 09:31; Status DC Sodium Bicarbonate (Sodium Bicarb Adult 8.4% Syr) 50 meq Q2H IV Last administered on 04/06/19at 13:17; Start 04/06/19 at 09:30; Stop 04/06/19 at 11:31; Status DC Calcium Acetate (Phoslo) 1,334 mg TIDWMEALS PO Last administered on 04/12/19at 08:25; Start 04/06/19 at 12:00 Sodium Bicarbonate (Sodium Bicarbonate) 1,300 mg BID PO Last administered on 04/08/19at 21:12; Start 04/07/19 at 11:00; Stop 04/09/19 at 08:41; Status DC Potassium Chloride (Klor-Con) 20 meq 1X ONCE PO ; Start 04/07/19 at 10:15; Stop 04/07/19 at 10:24; Status DC Sodium Chloride 1,000 ml @ 75 mls/hr [id number] IV Last administered on 04/11/19at 21:53; Start 04/07/19 at 10:15 Lidocaine/Sodium Bicarbonate (Buffered Lidocaine 1%) 3 ml STK-MED ONCE .ROUTE ; Start 04/07/19 at 12:27; Stop 04/07/19 at 12:28; Status DC Midazolam HCl (Versed) 2 mg STK-MED ONCE .ROUTE ; Start 04/07/19 at 12:31; Stop 04/07/19 at 12:32; Status DC Fentanyl Citrate (Fentanyl 2ml Vial) 100 mcg STK-MED ONCE .ROUTE ; Start 04/07/19 at 12:32; Stop 04/07/19 at 12:33; Status DC Gelatin (Gelfoam Size 12-7mm) 1 each STK-MED ONCE .ROUTE ; Start 04/07/19 at 12:34; Stop 04/07/19 at 12:35; Status DC Lidocaine/Sodium Bicarbonate (Buffered Lidocaine 1%) 3 ml STK-MED ONCE .ROUTE ; Start 04/07/19 at 12:59; Stop 04/07/19 at 13:00; Status DC Heparin Sodium (Porcine) (Heparin Sodium) 10,000 unit STK-MED ONCE .ROUTE ; Start 04/07/19 at 13:00; Stop 04/07/19 at 13:01; Status DC Midazolam HCl (Versed) 2 mg 1X ONCE IV Last administered on 04/07/19at 14:10; Start 04/07/19 at 13:30; Stop 04/07/19 at 13:31; Status DC Fentanyl Citrate (Fentanyl 2ml Vial) 50 mcg 1X ONCE IV Last administered on 04/07/19at 14:10; Start 04/07/19 at 13:30; Stop 04/07/19 at 13:31; Status DC Lidocaine/Sodium Bicarbonate (Buffered Lidocaine 1%) 12 ml 1X ONCE IJ Last administered on 04/07/19at 14:11; Start 04/07/19 at 14:15; Stop 04/07/19 at 14:16; Status DC Heparin Sodium (Porcine) (Heparin Sodium) 2,500 unit 1X ONCE INT CAT Last administered on 04/07/19at 14:10; Start 04/07/19 at 14:15; Stop 04/07/19 at 14:16; Status DC Calamine (Calamine Lotion) 1 dionna BID TP Last administered on 04/12/19 08:26; Start 04/08/19 at 11:00 Multivitamins (Thera M Plus) 1 tab DAILY PO Last administered on 04/12/19at 08 :24; Start 04/08/19 at 11:30 Potassium Chloride (Klor-Con) 20 meq 1X ONCE PO Last administered on 04/08/19at 15:35; Start 04/08/19 at 11:30; Stop 04/08/19 at 11:31; Status DC Sodium Chloride 1,000 ml @ 1,000 mls/hr Q1H PRN IV hypotension; Start 04/08/19 at 11:05; Stop 04/08/19 at 17:04; Status DC Diphenhydramine HCl (Benadryl) 25 mg 1X PRN PRN IV ITCHING; Start 04/08/19 at 11:15; Stop 04/09/19 at 11:14; Status DC Diphenhydramine HCl (Benadryl) 25 mg 1X PRN PRN IV ITCHING; Start 04/08/19 at 11:15; Stop 04/09/19 at 11:14; Status DC Sodium Chloride 1,000 ml @ 400 mls/hr Q2H30M PRN IV PATENCY; Start 04/08/19 at 11:05; Stop 04/08/19 at 23:04; Status DC Info (PHARMACY MONITORING -- do not chart) 1 each PRN DAILY PRN MC SEE COMMENTS; Start 04/08/19 at 11:15 Potassium Chloride (Klor-Con) 20 meq 1X ONCE PO Last administered on 04/09/19at 09:28; Start 04/09/19 at 08:45; Stop 04/09/19 at 08:46; Status DC Potassium Chloride (Klor-Con) 40 meq 1X ONCE PO Last administered on 04/10/19at 13:19; Start 04/10/19 at 11:45; Stop 04/10/19 at 11:46; Status DC Lactobacillus Rhamnosus (Culturelle) 1 cap BID PO Last administered on 04/12/19at 08:25; Start 04/11/19 at 09:00 Potassium Chloride (Klor-Con) 40 meq 1X ONCE PO Last administered on 04/11/19at 12:07; Start 04/11/19 at 11:15; Stop 04/11/19 at 11:16; Status DC Guaifenesin (Robitussin Dm) 10 ml PRN Q6HRS PRN PO COUGH Last administered on 04/12/19at 06:22; Start 04/11/19 at 13:00 Active Scripts Active Reported Proair Hfa Inhaler (Albuterol Sulfate) 8.5 Gm Hfa.aer.ad 1 Puff INH PRN Q6HRS PRN Losartan-Hctz 50-12.5 Mg Tab (Losartan/Hydrochlorothiazide) 1 Each Tablet 1 Each PO DAILY Metoprolol Tartrate 25 Mg Tablet 25 Mg PO BID Furosemide 20 Mg Tablet 20 Mg PO DAILY Isosorbide Mononitrate 10 Mg Tablet 10 Mg PO DAILY Amlodipine Besylate 10 Mg Tablet 10 Mg PO DAILY Tamsulosin Hcl 0.4 Mg Cap.er.24h 0.4 Mg PO DAILY Fish Oil ([place]-3 Fatty Acids) 500 Mg Capsule.dr 1,000 Mg PO DAILY Multi Vitamin Daily (Multivitamin) 1 Each Tablet 1 Each PO Symbicort 160-4.5 Mcg Inhaler (Budesonide/Formoterol Fumarate) 10.2 Gm Hfa.aer.ad 1 Puff IH BID Aspirin 81 Mg Tab.chew 325 Tab PO DAILY Losartan Potassium (Losartan Potassium) 25 Mg Tablet 1 Tab PO DAILY Vitals/I & O Vital Sign - Last 24 Hours 04/11/19 04/11/19 04/11/19 04/11/19 10:48 11:00 15:00 15:19 Temp 98.1 98.0 98.1 98.0 Pulse 100 101 Resp 18 18 B/P (MAP) 122/60 (80) 127/66 (86) Pulse Ox 95 98 O2 Delivery Room Air Room Air Room Air Room Air 04/11/19 04/11/19 04/11/19 04/11/19 19:00 19:48 20:00 23:52 Temp 98.4 98.1 98.4 98.1 Pulse 103 66 Resp 18 18 B/P (MAP) 150/66 (94) 135/60 (85) Pulse Ox 96 90 O2 Delivery Room Air Room Air Room Air Room Air 04/12/19 04/12/19 04/12/19 04/12/19 03:00 07:00 07:18 08:24 Temp 98.2 98.8 98.2 98.8 Pulse 98 80 80 Resp 18 18 B/P (MAP) 151/73 (99) 135/66 (89) 135/66 Pulse Ox 96 95 O2 Delivery Room Air Room Air Room Air 04/12/19 04/12/19 08:25 08:30 Pulse 80 B/P (MAP) 135/66 O2 Delivery Room Air Intake and Output 04/11/19 04/11/19 04/12/19 14:59 22:59 06:59 Intake Total 480 ml 550 ml 200 ml Output Total 1125 ml 700 ml Balance 480 ml -575 ml -500 ml CHRIS STEIN MD Apr 12, 2019 10:16
[2019-04-12] MEDS ORDERED: MAGNESIUM SULFATE 4GM 100 ML IV ONE (10:30)
[2019-04-12] MEDS ORDERED: POTASSIUM CHLORIDE 20 MEQ TABLET.ER. PO ONE (10:30)
[2019-04-12] MEDS ORDERED: FUROSEMIDE 40 MG/4 ML VIAL. IVP ONE (10:30)
[2019-04-12 11:00] VITALS: BP 127/68
[2019-04-12 15:00] VITALS: BP 122/71
[2019-04-12 19:00] VITALS: BP 139/49
[2019-04-12 23:00] VITALS: BP 131/59
[2019-04-13] MEDS: IV NORMAL SALINE 1000ML BAG 1,000 ML IV SCH (01:14)
[2019-04-13 03:00] VITALS: BP 152/52
[2019-04-13 06:06] LABS: BASO % 0 % (0-3); EOS # 0.2 x10^3/uL (0.0-0.7); EOS % 2 % (0-3); HEMATOCRIT 38.4 % (39.0-53.0); HEMOGLOBIN 13.1 g/dL (13.0-17.5); LYMPH % 10 % (24-48); MEAN CORPUSCULAR HEMOGLOBIN 31 pg (25-35); MEAN CORPUSCULAR HGB CONC 34 g/dL (31-37); MEAN CORPUSCULAR VOLUME 90 fL (79-100); MONO # 1.1 x10^3/uL (0.0-1.1); MONO % 11 % (0-9); NEUT # 7.9 x10^3uL (1.8-7.7); NEUT % 77 % (31-73); PLATELET COUNT 138 x10^3/uL (140-400); RED BLOOD COUNT 4.25 x10^6/uL (4.30-5.70); RED CELL DISTRIBUTION WIDTH 14.4 % (11.5-14.5); WHITE BLOOD COUNT 10.3 x10^3/uL (4.0-11.0)
[2019-04-13 06:18] LABS: CALCIUM 7.9 mg/dL (8.5-10.1); CREATININE 2.7 mg/dL (0.7-1.3); GFR 22.7; POTASSIUM 3.5 mmol/L (3.5-5.1)
[2019-04-13 07:00] VITALS: BP 106/55
[2019-04-13] MEDS: IPRATRPIUM/ALBUTEROL 0.5/2.5MG 3 ML NEBU. NEB SCH ×4 (07:21→20:03)
[2019-04-13] MEDS: TAMSULOSIN 0.4 MG CAP.ER.24H. PO SCH (08:04)
[2019-04-13] MEDS: MULTIVITAMIN with MINERAL TABLET. PO SCH (08:04)
[2019-04-13] MEDS: LACTOBACILLUS RHAMNOSUS GG 1 CAPSULE. PO SCH ×2 (08:07→21:09)
[2019-04-13] MEDS: CALCIUM ACETATE 667 MG CAPSULE PO SCH (08:07)
[2019-04-13] MEDS: CALAMINE/ZINC OXIDE TOPICAL SUSPENSION 177ML BOTTLE. TP SCH ×2 (08:12→21:13)
[2019-04-13] MEDS: NYSTATIN TOPICAL POWDER 15GM BOTTLE. TP SCH ×2 (08:12→21:13)
[2019-04-13] MEDS: VANCOMYCIN 125 MG/2.5 ML ORAL SOLUTION. PO SCH ×4 (09:24→21:10)
--- NOTE | 2019-04-13 09:28 | PDOC ---
Subjective: Subjective: Had scrambled eggs and cream of wheat for breakfast. Says diarrhea is better now that he's not drinking milk. Objective: Objective: 4 stools charted. Vital Signs: Vital Signs Date Time Temp Pulse Resp B/P (MAP) Pulse Ox O2 Delivery O2 Flow Rate FiO2 04/13/19 07:22 96 Room Air 04/13/19 07:00 98.8 101 18 106/55 (72) 98.8 Labs: Laboratory Tests Test 04/13/19 05:22 04/13/19 05:23 Sodium Level 141 mmol/L Potassium Level 3.5 mmol/L Chloride Level 106 mmol/L Carbon Dioxide Level 26 mmol/L Anion Gap 9 Blood Urea Nitrogen 40 mg/dL Creatinine 2.7 mg/dL Estimated GFR (Cockcroft-Gault) 22.7 Glucose Level 104 mg/dL Calcium Level 7.9 mg/dL Magnesium Level 2.0 mg/dL White Blood Count 10.3 x10^3/uL Red Blood Count 4.25 x10^6/uL Hemoglobin 13.1 g/dL Hematocrit 38.4 % Mean Corpuscular Volume 90 fL Mean Corpuscular Hemoglobin 31 pg Mean Corpuscular Hemoglobin Concent 34 g/dL Red Cell Distribution Width 14.4 % Platelet Count 138 x10^3/uL Neutrophils (%) (Auto) 77 % Lymphocytes (%) (Auto) 10 % Monocytes (%) (Auto) 11 % Eosinophils (%) (Auto) 2 % Basophils (%) (Auto) 0 % Neutrophils # (Auto) 7.9 x10^3uL Lymphocytes # (Auto) 1.0 x10^3/uL Monocytes # (Auto) 1.1 x10^3/uL Eosinophils # (Auto) 0.2 x10^3/uL Basophils # (Auto) 0.0 x10^3/uL STOOL CULTURE Preliminary Preliminary report STOOL CULT RES 1 Preliminary Comment Microbiological testing to rule out the presence of possible pathogens is in progress. CAMPY Preliminary Preliminary report CAMPY RES 1 Preliminary Comment No Campylobacter species isolated. Performed at: [facility], [place], [place] [id number] Clothes Model: SHEEBA Godfrey MD, Phone: [phone] SHIGA TOXIN PENDING PE: GEN: NAD, some generalized edema LUNGS: CTAB HEART: RRR ABD: S/ND/NT NEURO/PSYCH: A & O 3 A/P: C Diff, HARVEY -- Could restart Colestid if needed. JUSTIN SWEENEY Apr 13, 2019 09:28
--- NOTE | 2019-04-13 10:11 | PDOC ---
PROGRESS NOTES Subjective Subjective feels better. says his diarrhea is less . ate solid food and off of milk. 3.1 liter urine output with iv lasix times 1. bun 40 and creatinine 2.7 improved. potassium 3.5 Objective Objective Vital Signs Date Time Temp Pulse Resp B/P (MAP) Pulse Ox O2 Delivery O2 Flow Rate FiO2 04/13/19 07:22 96 Room Air 04/13/19 07:00 98.8 101 18 106/55 (72) 98.8 04/07/19 14:17 2.0 Intake and Output 04/13/19 07:00 Intake Total 570 ml Output Total 3152 ml Balance -2582 ml Intake Oral 570 ml Output Urine Total 3150 ml Stool Total 2 ml # Bowel Movements 4 Physical Exam Abdomen: Normal bowel sounds, Soft, No tenderness, Other (obese) Heart: Regular rate, Normal S1, Normal S2 Extremities: Other (trace edema legs) General: Alert HEENT: Atraumatic Lungs: Clear to auscultation Neuro: Normal speech Psych/Mental Status: Mental status NL Skin: Other (rash on back macular papular) COMMENT scrotal edema Assessment Assessment ProblemsClostridium difficile colitis. stool for c. diff positive in office and neg in hospital. diarrhea worse today 2. Acute kidney injury, most likely secondary to intravascular volume depletion from the diarrhea and also contributing could be the nonsteroidal anti-inflammatory drug that he took at home and also the losartan.creatinine better and improved urine output 3. Hyponatremia.resolved 4. Metabolic acidosis secondary to the diarrhea and acute kidney injury. improved 5. History of hypertension. 6. Hyperlipidemia. 7. Coronary artery disease. 8. Asthma. 9. Morbid obesity. 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 Labs Laboratory Tests Test 04/12/19 05:40 04/13/19 05:22 04/13/19 05:23 Sodium Level 145 mmol/L (136-145) 141 mmol/L (136-145) Potassium Level 3.5 mmol/L (3.5-5.1) 3.5 mmol/L (3.5-5.1) Chloride Level 108 mmol/L (98-107) 106 mmol/L (98-107) Carbon Dioxide Level 26 mmol/L (21-32) 26 mmol/L (21-32) Anion Gap 11 (6-14) 9 (6-14) Blood Urea Nitrogen 44 mg/dL (8-26) 40 mg/dL (8-26) Creatinine 3.0 mg/dL (0.7-1.3) 2.7 mg/dL (0.7-1.3) Estimated GFR (Cockcroft-Gault) 20.1 22.7 Glucose Level 95 mg/dL (70-99) 104 mg/dL (70-99) Calcium Level 7.5 mg/dL (8.5-10.1) 7.9 mg/dL (8.5-10.1) Phosphorus Level 3.3 mg/dL (2.6-4.7) Magnesium Level 1.4 mg/dL (1.8-2.4) 2.0 mg/dL (1.8-2.4) Albumin 1.7 g/dL (3.4-5.0) White Blood Count 10.3 x10^3/uL (4.0-11.0) Red Blood Count 4.25 x10^6/uL (4.30-5.70) Hemoglobin 13.1 g/dL (13.0-17.5) Hematocrit 38.4 % (39.0-53.0) Mean Corpuscular Volume 90 fL (79-100) Mean Corpuscular Hemoglobin 31 pg (25-35) Mean Corpuscular Hemoglobin Concent 34 g/dL (31-37) Red Cell Distribution Width 14.4 % (11.5-14.5) Platelet Count 138 x10^3/uL (140-400) Neutrophils (%) (Auto) 77 % (31-73) Lymphocytes (%) (Auto) 10 % (24-48) Monocytes (%) (Auto) 11 % (0-9) Eosinophils (%) (Auto) 2 % (0-3) Basophils (%) (Auto) 0 % (0-3) Neutrophils # (Auto) 7.9 x10^3uL (1.8-7.7) Lymphocytes # (Auto) 1.0 x10^3/uL (1.0-4.8) Monocytes # (Auto) 1.1 x10^3/uL (0.0-1.1) Eosinophils # (Auto) 0.2 x10^3/uL (0.0-0.7) Basophils # (Auto) 0.0 x10^3/uL (0.0-0.2) Laboratory Tests Test 04/13/19 05:22 04/13/19 05:23 Sodium Level 141 mmol/L (136-145) Potassium Level 3.5 mmol/L (3.5-5.1) Chloride Level 106 mmol/L (98-107) Carbon Dioxide Level 26 mmol/L (21-32) Anion Gap 9 (6-14) Blood Urea Nitrogen 40 mg/dL (8-26) Creatinine 2.7 mg/dL (0.7-1.3) Estimated GFR (Cockcroft-Gault) 22.7 Glucose Level 104 mg/dL (70-99) Calcium Level 7.9 mg/dL (8.5-10.1) Magnesium Level 2.0 mg/dL (1.8-2.4) White Blood Count 10.3 x10^3/uL (4.0-11.0) Red Blood Count 4.25 x10^6/uL (4.30-5.70) Hemoglobin 13.1 g/dL (13.0-17.5) Hematocrit 38.4 % (39.0-53.0) Mean Corpuscular Volume 90 fL (79-100) Mean Corpuscular Hemoglobin 31 pg (25-35) Mean Corpuscular Hemoglobin Concent 34 g/dL (31-37) Red Cell Distribution Width 14.4 % (11.5-14.5) Platelet Count 138 x10^3/uL (140-400) Neutrophils (%) (Auto) 77 % (31-73) Lymphocytes (%) (Auto) 10 % (24-48) Monocytes (%) (Auto) 11 % (0-9) Eosinophils (%) (Auto) 2 % (0-3) Basophils (%) (Auto) 0 % (0-3) Neutrophils # (Auto) 7.9 x10^3uL (1.8-7.7) Lymphocytes # (Auto) 1.0 x10^3/uL (1.0-4.8) Monocytes # (Auto) 1.1 x10^3/uL (0.0-1.1) Eosinophils # (Auto) 0.2 x10^3/uL (0.0-0.7) Basophils # (Auto) 0.0 x10^3/uL (0.0-0.2) Microbiology 04/10/19 Stool Culture - Preliminary, Resulted 04/10/19 Stool Culture Result 1 (MARISELA) - Preliminary, Resulted 04/10/19 Campylobacter Antigen Assay - Preliminary, Resulted 04/10/19 Campylobactor Result 1 - Preliminary, Resulted 04/10/19 Shiga Toxin Test, Resulted Pending 04/05/19 Urine Culture - Final, Complete 04/05/19 Urine Culture Result 1 (MARISELA) - Final, Complete Medications Current Medications Sodium Chloride 1,000 ml @ 1,000 mls/hr 1X ONCE IV Last administered on 04/04/19at 22:55; Start 04/04/19 at 23:00; Stop 04/04/19 at 23:59; Status DC Vancomycin HCl (Vancomycin Oral Solution) 125 mg 1X ONCE PO Last administered on 04/04/19at 23:51; Start 04/05/19 at 00:00; Stop 04/05/19 at 00:01; Status DC Ondansetron HCl (Zofran) 4 mg PRN Q8HRS PRN IV NAUSEA/VOMITING 1ST CHOICE; Start 04/04/19 at 23:45; Stop 04/05/19 at 13:24; Status DC Fentanyl Citrate (Fentanyl 2ml Vial) 25 mcg PRN Q2HRS PRN IV SEVERE PAIN; Start 04/04/19 at 23:45; Stop 04/05/19 at 11:21; Status DC Vancomycin HCl (Vancomycin Oral Solution) 125 mg [id number] PO Last administered on 04/05/19at 08:04; Start 04/05/19 at 09:00; Stop 04/05/19 at 11:24; Status DC Sodium Bicarbonate 100 meq/Sodium Chloride 1,100 ml @ 125 mls/hr Q8H48M IV Last administered on 04/05/19at 08:05; Start 04/05/19 at 00:00; Stop 04/05/19 at 15:59; Status DC Sodium Bicarbonate 100 meq/Sodium Chloride 1,100 ml @ 125 mls/hr Q8H48M IV Last administered on 04/07/19at 00:28; Start 04/05/19 at 16:00; Stop 04/07/19 at 10:17; Status DC Fentanyl Citrate (Fentanyl 2ml Vial) 25 mcg PRN Q4HRS PRN IV MODERATE TO SEVERE PAIN; Start 04/05/19 at 11:15; Stop 04/07/19 at 10:18; Status DC Vancomycin HCl (Vancomycin Oral Solution) 125 mg [id number] PO Last administered on 04/13/19 09:24; Start 04/05/19 at 13:00 Tamsulosin HCl (Flomax) 0.4 mg DAILY PO Last administered on 04/13/19 08:04; Start 04/05/19 at 12:30 Metoprolol Succinate (Toprol Xl) 25 mg DAILY PO Last administered on 04/12/19 08:24; Start 04/05/19 at 12:30 Isosorbide Mononitrate (Imdur) 30 mg DAILY PO Last administered on 04/12/19 08:25; Start 04/05/19 at 12:30 Nystatin (Nystop) 1 dionna BID TP Last administered on 04/13/19 08:12; Start 04/05/19 at 12:30 Ondansetron HCl (Zofran) 4 mg PRN Q6HRS PRN IV NAUSEA/VOMITING; Start 04/05/19 at 11:15 Albuterol/ Ipratropium (Duoneb) 3 ml RTQID NEB Last administered on 04/13/19 07:21; Start 04/05/19 at 12:00 Acetaminophen (Tylenol) 325 mg PRN Q6HRS PRN PO MILD PAIN / TEMP; Start 04/05/19 at 11:15 Lidocaine HCl (Glydo (Lidocaine) Jelly) 1 dionna 1X ONCE MM Last administered on 04/05/19at 12:54; Start 04/05/19 at 11:45; Stop 04/05/19 at 11:46; Status DC Metronidazole 100 ml @ 100 mls/hr Q8HRS IV ; Start 04/05/19 at 12:30; Stop 04/05/19 at 12:30; Status DC Vancomycin HCl (Vancomycin Oral Solution) 125 mg [id number] PO ; Start 04/05/19 at 13:00; Stop 04/05/19 at 13:00; Status DC Colestipol HCl (Colestid) 1 gm BID@10,22 PO Last administered on 04/06/19at 22:22; Start 04/05/19 at 13:00; Stop 04/07/19 at 14:56; Status DC Sodium Chloride 500 ml @ 0 mls/hr PRN QID PRN IV UO< 30cc/hr over previous 6hrs; Start 04/05/19 at 13:15; Stop 04/07/19 at 10:18; Status DC Magnesium Sulfate 50 ml @ 25 mls/hr PRN DAILY PRN IV for Mag < 1.7 on am labs; Start 04/05/19 at 13:15 Phytonadione (Mephyton Oral Soln) 5 mg 1X ONCE PO Last administered on 04/06/19at 10:00; Start 04/06/19 at 09:30; Stop 04/06/19 at 09:31; Status DC Sodium Bicarbonate (Sodium Bicarb Adult 8.4% Syr) 50 meq Q2H IV Last administered on 04/06/19at 13:17; Start 04/06/19 at 09:30; Stop 04/06/19 at 11:31; Status DC Calcium Acetate (Phoslo) 1,334 mg TIDWMEALS PO Last administered on 04/13/19at 08:07; Start 04/06/19 at 12:00 Sodium Bicarbonate (Sodium Bicarbonate) 1,300 mg BID PO Last administered on 04/08/19at 21:12; Start 04/07/19 at 11:00; Stop 04/09/19 at 08:41; Status DC Potassium Chloride (Klor-Con) 20 meq 1X ONCE PO ; Start 04/07/19 at 10:15; Stop 04/07/19 at 10:24; Status DC Sodium Chloride 1,000 ml @ 40 mls/hr Q24H IV Last administered on 04/13/19at 01:14; Start 04/07/19 at 10:15 Lidocaine/Sodium Bicarbonate (Buffered Lidocaine 1%) 3 ml STK-MED ONCE .ROUTE ; Start 04/07/19 at 12:27; Stop 04/07/19 at 12:28; Status DC Midazolam HCl (Versed) 2 mg STK-MED ONCE .ROUTE ; Start 04/07/19 at 12:31; Stop 04/07/19 at 12:32; Status DC Fentanyl Citrate (Fentanyl 2ml Vial) 100 mcg STK-MED ONCE .ROUTE ; Start 04/07/19 at 12:32; Stop 04/07/19 at 12:33; Status DC Gelatin (Gelfoam Size 12-7mm) 1 each STK-MED ONCE .ROUTE ; Start 04/07/19 at 12:34; Stop 04/07/19 at 12:35; Status DC Lidocaine/Sodium Bicarbonate (Buffered Lidocaine 1%) 3 ml STK-MED ONCE .ROUTE ; Start 04/07/19 at 12:59; Stop 04/07/19 at 13:00; Status DC Heparin Sodium (Porcine) (Heparin Sodium) 10,000 unit STK-MED ONCE .ROUTE ; Start 04/07/19 at 13:00; Stop 04/07/19 at 13:01; Status DC Midazolam HCl (Versed) 2 mg 1X ONCE IV Last administered on 04/07/19at 14:10; Start 04/07/19 at 13:30; Stop 04/07/19 at 13:31; Status DC Fentanyl Citrate (Fentanyl 2ml Vial) 50 mcg 1X ONCE IV Last administered on 04/07/19at 14:10; Start 04/07/19 at 13:30; Stop 04/07/19 at 13:31; Status DC Lidocaine/Sodium Bicarbonate (Buffered Lidocaine 1%) 12 ml 1X ONCE IJ Last administered on 04/07/19at 14:11; Start 04/07/19 at 14:15; Stop 04/07/19 at 14:16; Status DC Heparin Sodium (Porcine) (Heparin Sodium) 2,500 unit 1X ONCE INT CAT Last administered on 04/07/19at 14:10; Start 04/07/19 at 14:15; Stop 04/07/19 at 14:16; Status DC Calamine (Calamine Lotion) 1 dionna BID TP Last administered on 04/13/19at 08:12; Start 04/08/19 at 11:00 Multivitamins (Thera M Plus) 1 tab DAILY PO Last administered on 04/13/19at 08:04; Start 04/08/19 at 11:30 Potassium Chloride (Klor-Con) 20 meq 1X ONCE PO Last administered on 04/08/19at 15:35; Start 04/08/19 at 11:30; Stop 04/08/19 at 11:31; Status DC Sodium Chloride 1,000 ml @ 1,000 mls/hr Q1H PRN IV hypotension; Start 04/08/19 at 11:05; Stop 04/08/19 at 17:04; Status DC Diphenhydramine HCl (Benadryl) 25 mg 1X PRN PRN IV ITCHING; Start 04/08/19 at 11:15; Stop 04/09/19 at 11:14; Status DC Diphenhydramine HCl (Benadryl) 25 mg 1X PRN PRN IV ITCHING; Start 04/08/19 at 11:15; Stop 04/09/19 at 11:14; Status DC Sodium Chloride 1,000 ml @ 400 mls/hr Q2H30M PRN IV PATENCY; Start 04/08/19 at 11:05; Stop 04/08/19 at 23:04; Status DC Info (PHARMACY MONITORING -- do not chart) 1 each PRN DAILY PRN MC SEE COMME NTS; Start 04/08/19 at 11:15 Potassium Chloride (Klor-Con) 20 meq 1X ONCE PO Last administered on 04/09/19at 09:28; Start 04/09/19 at 08:45; Stop 04/09/19 at 08:46; Status DC Potassium Chloride (Klor-Con) 40 meq 1X ONCE PO Last administered on 04/10/19at 13:19; Start 04/10/19 at 11:45; Stop 04/10/19 at 11:46; Status DC Lactobacillus Rhamnosus (Culturelle) 1 cap BID PO Last administered on 04/13/19at 08:07; Start 04/11/19 at 09:00 Potassium Chloride (Klor-Con) 40 meq 1X ONCE PO Last administered on 04/11/19at 12:07; Start 04/11/19 at 11:15; Stop 04/11/19 at 11:16; Status DC Guaifenesin (Robitussin Dm) 10 ml PRN Q6HRS PRN PO COUGH Last administered on 04/12/19at 20:53; Start 04/11/19 at 13:00 Magnesium Sulfate/ Dextrose 100 ml @ 25 mls/hr 1X ONCE IV Last administered on 04/12/19at 11:27; Start 04/12/19 at 10:30; Stop 04/12/19 at 14:29; Status DC Furosemide (Lasix) 40 mg 1X ONCE IVP Last administered on 04/12/19at 11:24; Start 04/12/19 at 10:30; Stop 04/12/19 at 10:31; Status DC Potassium Chloride (Klor-Con) 40 meq 1X ONCE PO Last administered on 04/12/19at 11:25; Start 04/12/19 at 10:30; Stop 04/12/19 at 10:31; Status DC Active Scripts Active Reported Proair Hfa Inhaler (Albuterol Sulfate) 8.5 Gm Hfa.aer.ad 1 Puff INH PRN Q6HRS PRN Losartan-Hctz 50-12.5 Mg Tab (Losartan/Hydrochlorothiazide) 1 Each Tablet 1 Each PO DAILY Metoprolol Tartrate 25 Mg Tablet 25 Mg PO BID Furosemide 20 Mg Tablet 20 Mg PO DAILY Isosorbide Mononitrate 10 Mg Tablet 10 Mg PO DAILY Amlodipine Besylate 10 Mg Tablet 10 Mg PO DAILY Tamsulosin Hcl 0.4 Mg Cap.er.24h 0.4 Mg PO DAILY Fish Oil ([place]-3 Fatty Acids) 500 Mg Capsule.dr 1,000 Mg PO DAILY Multi Vitamin Daily (Multivitamin) 1 Each Tablet 1 Each PO Symbicort 160-4.5 Mcg Inhaler (Budesonide/Formoterol Fumarate) 10.2 Gm Hfa.aer.ad 1 Puff IH BID Aspirin 81 Mg Tab.chew 325 Tab PO DAILY Losartan Potassium (Losartan Potassium) 25 Mg Tablet 1 Tab PO DAILY Vitals/I & O Vital Sign - Last 24 Hours 04/12/19 04/12/19 04/12/19 04/12/19 11:00 11:10 15:00 15:02 Temp 98.5 98.7 98.5 98.7 Pulse 100 82 Resp 20 21 B/P (MAP) 127/68 (87) 122/71 (88) Pulse Ox 97 96 O2 Delivery Room Air Room Air Room Air Room Air 04/12/19 04/12/19 04/12/19 04/12/19 19:00 19:23 20:15 23:00 Temp 98.4 98.4 98.4 98.4 Pulse 103 Resp 20 16 B/P (MAP) 139/49 (79) 131/59 (83) Pulse Ox 97 97 96 O2 Delivery Room Air Room Air Room Air Room Air 04/13/19 04/13/19 04/13/19 03:00 07:00 07:22 Temp 98.6 98.8 98.6 98.8 Pulse 96 101 Resp 22 18 B/P (MAP) 152/52 (85) 106/55 (72) Pulse Ox 95 95 96 O2 Delivery Room Air Room Air Room Air Intake and Output 04/12/19 04/12/19 04/13/19 15:00 23:00 07:00 Intake Total 570 ml Output Total 1750 ml 600 ml 802 ml Balance -1750 ml -600 ml -232 ml CHRIS STEIN MD Apr 13, 2019 10:11
[2019-04-13] MEDS ORDERED: LACT1CAP19 PO (10:20)
[2019-04-13] MEDS ORDERED: VANC500V PO (10:20)
[2019-04-13] MEDS ORDERED: [UNRECOGNIZED DRUG - CODE] TP (10:20)
[2019-04-13] MEDS ORDERED: ISOS30TA4 PO (10:20)
[2019-04-13] MEDS ORDERED: NYST60PO TP (10:20)
[2019-04-13] MEDS ORDERED: ASPI81TA50 PO (10:20)
--- NOTE | 2019-04-13 10:23 | SNU/HH DC ---
DISCHARGE ORDERS DISCHARGE INFORMATION: DISCHARGE DATE: Apr 13, 2019 FINAL DIAGNOSIS Problems Medical Problems: (1) Acute renal failure Status: Acute (2) Clostridium difficile colitis Status: Acute (3) Hyponatremia Status: Acute (4) Metabolic acidosis Status: Acute CODE STATUS: Code Status: Full FPC: SNF STAY <30 DAYS: Yes POST DISCHARGE ORDERS: ACTIVITY ORDERS: Other, see below (assist when out of bed) WEIGHT BEARING STATUS: No restrictions DIET AFTER DISCHARGE: Renal OTHER ORDERS: order cbc and bmp every M-W-F FOLLOW-UP: PHYSICIAN FOLLOW-UP: dr. stein at [facility] ADDITIONAL FOLLOW-UP: continue quintero and record urine output every shift LAB ORDERS FOR FOLLOW-UP: cbc and bmp every M-W-F TREATMENT/EQUIPMENT ORDERS: Physical Therapy For: Evalulation/Treatment Occupational Therapy For: Evaluation/Treatment DISCHARGE MEDICATIONS: Home Meds Active Scripts Aspirin (ASPIR-LOW) 81 Mg Tablet.dr, 1 TAB PO DAILY for CAD for 30 Days, #30 TAB 3 Refills Prov:CHRIS STEIN MD 04/13/19 Calamine/Zinc Oxide (CALAMINE LOTION) 177 Ml Lotion, 1 GABRIEL TP BID for apply to back rash for 30 Days, MISC Prov:CHRIS STEIN MD 04/13/19 Nystatin (NYSTOP) 60 Gm Powder, 1 GABRIEL TP BID for rash for 30 Days, MISC Prov:CHRIS STEIN MD 04/13/19 Lactobacillus Rhamnosus Gg (CULTURELLE) 1 Each Cap.sprink, 1 CAP PO BID for probiotic for 30 Days, #60 CAP Prov:CHRIS STEIN MD 04/13/19 Isosorbide Mononitrate (ISOSORBIDE MONONITRATE ER) 30 Mg Tab.er.24h, 30 MG PO DAILY for for heart, #30 TAB.SR Prov:CHRIS STEIN MD 04/13/19 Vancomycin Hcl (VANCOMYCIN HCL) 500 Mg Vial, 125 MG PO [id number] for c. diff for 14 Days, #12 EACH Prov:CHRIS STEIN MD 04/13/19 Reported Medications Albuterol Sulfate (PROAIR HFA INHALER) 8.5 Gm Hfa.aer.ad, 1 PUFF INH PRN Q6HRS PRN for SHORTNESS OF BREATH, INHALER 0 Refills 01/03/17 Losartan/Hydrochlorothiazide (LOSARTAN-HCTZ 50-12.5 MG TAB) 1 Each Tablet, 1 EACH PO DAILY, TAB 01/03/17 Metoprolol Tartrate (METOPROLOL TARTRATE) 25 Mg Tablet, 25 MG PO BID for FOR HYPERTENSION, #60 TAB 0 Refills 01/03/17 Furosemide (FUROSEMIDE) 20 Mg Tablet, 20 MG PO DAILY, TAB 01/03/17 Isosorbide Mononitrate (ISOSORBIDE MONONITRATE) 10 Mg Tablet, 10 MG PO DAILY, TAB 01/03/17 Amlodipine Besylate (AMLODIPINE BESYLATE) 10 Mg Tablet, 10 MG PO DAILY, TAB 01/03/17 Tamsulosin Hcl (TAMSULOSIN HCL) 0.4 Mg Cap.er.24h, 0.4 MG PO DAILY for urine, TAB 01/03/17 [place]-3 Fatty Acids (FISH OIL) 500 Mg Capsule.dr, 1000 MG PO DAILY for heart 01/03/17 Multivitamin (MULTI VITAMIN DAILY) 1 Each Tablet, 1 EACH PO 01/03/17 Budesonide/Formoterol Fumarate (SYMBICORT 160-4.5 MCG INHALER) 10.2 Gm Hfa.aer.ad, 1 PUFF IH BID, INHALER 01/03/17 Aspirin (ASPIRIN) 81 Mg Tab.chew, 325 TAB PO DAILY for heart, #30 TAB 3 Refills 09/05/14 Losartan Potassium (LOSARTAN POTASSIUM ) 25 Mg Tablet, 1 TAB PO DAILY, #90 TAB 1 Refill 09/05/14 CHRIS STEIN MD Apr 13, 2019 10:23
[2019-04-13] MEDS ORDERED: POTASSIUM CHLORIDE 20 MEQ TABLET.ER. PO ONE (10:30)
[2019-04-13] MEDS ORDERED: FUROSEMIDE 40 MG/4 ML VIAL. IVP ONE (10:30)
--- NOTE | 2019-04-13 10:30 | PDOC ---
Provider Note Provider Note discharge summary dictated # [id number] CHRIS STEIN MD Apr 13, 2019 10:30
[2019-04-13 11:00] VITALS: BP 135/90
[2019-04-13] MEDS: ISOSORBIDE MONONITRATE ER 30 MG TAB.ER.24H PO SCH (13:16)
[2019-04-13] MEDS: METOPROLOL SUCC 24HR ER 25 MG TAB.ER.24H. PO SCH (13:17)
--- NOTE | 2019-04-13 13:37 | NUR ---
SW following for discharge planning. Discussed with RN, pt is ready to discharge to [facility] today. PT/OT note needed for today so insurance can give auth. SW will continue to follow. RN notified.
--- NOTE | 2019-04-13 14:46 | DS ---
DATE OF DISCHARGE: 04/13/2019 CONSULTANTS: Include Dr. Vila and Dr. Keller, Dr. Balwinder Wong, Dr. Gil Wiseman and Dr. Antonio Wiseman also. FINAL DIAGNOSES: 1. Clostridium difficile colitis. 2. Acute kidney injury secondary to intravascular volume dehydration from the diarrhea and also contributing was the possible intake of a nonsteroidal anti-inflammatory drug and also an angiotensin receptor shaquille prior to admission. 3. Hyponatremia. 4. Metabolic acidosis secondary to diarrhea and acute kidney injury, which improved. 5. Hypertension. 6. Hyperlipidemia. 7. Coronary artery disease. 8. Asthma. 9. Morbid obesity. 10. Critical illness myopathy. 11. Benign prostatic hypertrophy. 12. Scrotal edema, most likely secondary to IV fluids. HOSPITAL COURSE: The patient is an 83-year-old white male, morbidly obese, with a history of hypertension, hyperlipidemia, coronary artery disease, and asthma, initially seen in the office on 03/20/2019 with an asthma exacerbation, acute bronchitis with bronchospasm, treated with a 7-day course of Augmentin, 8-day course of tapering prednisone, and was seen in the office 03/30/2019 with a 4-day history of loose stools. He has completed his Augmentin and stool sent for Clostridium difficile toxin. He was given a prescription for liquid vancomycin 125 mg every 6 hours for 10 days. Apparently, he could not fill it at a local pharmacy and I heard about that on , 04/02/2019, and we ordered Flagyl 500 mg p.o. every 8 hours for a 10-day course, but he did not like it with a bitter taste. Then, on Saturday morning, 04/03/2019, I received the stool for Clostridium difficile toxin was positive. The patient showed up on 04/05/2019 with continued diarrhea and was very weak and could not get up by himself, had decreased appetite and was noted to have acute kidney injury. He also had metabolic acidosis. The patient was admitted to the hospital and started on IV fluids. He was started on liquid vancomycin and seen in consultation by the Infectious Disease doctor, Dr. Gil Wiseman, web marketing manager Dr. Antonio Wiseman and Dr. Keller, and also seen by GI doctor, Dr. Balwinder Wong. He received IV fluids and also he had a hemodialysis catheter placed and received just 1 hemodialysis. His BUN and creatinine continued to improve. When he came in the serum creatinine was over 9, is currently 2.7. He developed scrotal edema with IV fluids, which were decreased and will be discontinued today. He received 40 mg of Lasix IV and had 3.1 liters of urine output yesterday and we will order a single dose of IV Lasix today and potassium chloride 40 mEq x 1 prior to his transfer to long-term facility today at [facility]. He received physical and occupational therapy. His diet was eventually advanced from clear liquids to full liquids and then he was placed on a lactose-free diet and he tolerated the diet and his diarrhea was better, was started on solid foods. The nurse will contact the web marketing manager to see if the hemodialysis catheter can be removed and if so the interventional radiologist can remove it. He will be dismissed to a long-term facility today and will have a CBC, BMP done every Saturday, Saturday and Saturday. He will be receiving physical and occupational therapy. He will be dismissed on calamine lotion to a rash on his back b.i.d., Tylenol 325 mg every 6 hours p.r.n., Imdur 30 mg every day, lactobacilli 1 b.i.d., metoprolol succinate 25 mg every day, multiple vitamin once a day, nystatin powder applied b.i.d., tamsulosin 0.4 mg every day, vancomycin 125 mg q.i.d. liquid for another 10 days. He should also be on a renal lactose-free diet and a cardiac diet too. BALWINDER STEIN MD DR: CHAPARRO/rhett JOB#: [id number] / [id number]
[2019-04-13 15:00] VITALS: BP 119/59
--- NOTE | 2019-04-13 15:30 | NUR ---
Wound care: Patient seen per wound care follow up. Wound is now closed at this time. And there are no other wounds noted upon complete head to toe assessment. Will follow up to make sure wound remains closed. Call light in reach and bed lowered. Spoke with RN regarding POC. n
--- NOTE | 2019-04-13 15:49 | PDOC ---
SUBJECTIVE ROS Significant Scrotal edema, Good response to IV lasix OBJECTIVE Vital Signs Vital Signs Date Time Temp Pulse Resp B/P (MAP) Pulse Ox O2 Delivery O2 Flow Rate FiO2 04/13/19 15:32 Room Air 04/13/19 13:17 98 135/90 04/13/19 11:00 99.2 18 95 99.2 I & 0 Intake and Output 04/13/19 07:00 Intake Total 570 ml Output Total 3152 ml Balance -2582 ml Intake Oral 570 ml Output Urine Total 3150 ml Stool Total 2 ml # Bowel Movements 4 PHYSICAL EXAM Physical Exam GENERAL: NAD HEENT: Oral cavity moist NECK: Supple. LUNGS: Clear. HEART: S1, S2 ABDOMEN: soft, NT, + BS EXTREMITIES: 1+ LE edema NEURO Alert, Grossly normal - Sharp, Scrotal edema /HDC- Rt DIAGNOSIS/ASSESSMENT Assessment & Plan HARVEY- ATN - Improving renal function and UOP S/P Renal Bx showed ATN , No GN HD x1 ,Monitor scrotal edema- IV Lasix May need Scrotal US if no improvement C DIF- On PO Vanc ID following Hypokalemia- replace as needed MET acidosis- Resolved Hypertension stable Hx of Cerebrovascular accident. COMMENT/RELEVANT DATA Meds Current Medications Medications (Trade) Dose Ordered Sig/Adri Start Time Stop Time Status Last Admin Dose Admin Acetaminophen (Tylenol) 325 mg PRN Q6HRS PRN 04/05/19 11:15 Albuterol/ Ipratropium (Duoneb) 3 ml RTQID 04/05/19 12:00 04/13/19 15:31 3 ML Calamine (Calamine Lotion) 1 dionna BID 04/08/19 11:00 04/13/19 08:12 1 DIONNA Calcium Acetate (Phoslo) 1,334 mg TIDWMEALS 04/06/19 12:00 04/13/19 10:14 DC 04/13/19 08:07 1,334 MG Colestipol HCl (Colestid) 1 gm BID@04/05/19 13:00 04/07/19 14:56 DC 04/06/19 22:22 1 GM Diphenhydramine HCl (Benadryl) 25 mg 1X PRN PRN 04/08/19 11:15 04/09/19 11:14 DC Fentanyl Citrate (Fentanyl 2ml Vial) 50 mcg 1X ONCE 04/07/19 13:30 04/07/19 13:31 DC 04/07/19 14:10 50 MCG Furosemide (Lasix) 40 mg 1X ONCE 04/13/19 10:30 04/13/19 10:31 DC 04/13/19 11:10 40 MG Gelatin (Gelfoam Size 12-7mm) 1 each STK-MED ONCE 04/07/19 12:34 04/07/19 12:35 DC Guaifenesin (Robitussin Dm) 10 ml PRN Q6HRS PRN 04/11/19 13:00 04/12/19 20:53 10 ML Heparin Sodium (Porcine) (Heparin Sodium) 2,500 unit 1X ONCE 04/07/19 14:15 04/07/19 14:16 DC 04/07/19 14:10 2,500 UNIT Info (PHARMACY MONITORING -- do not chart) 1 each PRN DAILY PRN 04/08/19 11:15 Isosorbide Mononitrate (Imdur) 30 mg DAILY 04/05/19 12:30 04/13/19 13:16 30 MG Lactobacillus Rhamnosus (Culturelle) 1 cap BID 04/11/19 09:00 04/13/19 08:07 1 CAP Lidocaine HCl (Glydo (Lidocaine) Jelly) 1 dionna 1X ONCE 04/05/19 11:45 04/05/19 11:46 DC 04/05/19 12:54 1 DIONNA Lidocaine/Sodium Bicarbonate (Buffered Lidocaine 1%) 12 ml 1X ONCE 04/07/19 14:15 04/07/19 14:16 DC 04/07/19 14:11 12 ML Magnesium Sulfate 50 ml @ 25 mls/hr PRN DAILY PRN 04/05/19 13:15 Magnesium Sulfate/ Dextrose 100 ml @ 25 mls/hr 1X ONCE 04/12/19 10:30 04/12/19 14:29 DC 04/12/19 11:27 25 MLS/HR Metoprolol Succinate (Toprol Xl) 25 mg DAILY 04/05/19 12:30 04/13/19 13:17 25 MG Metronidazole 100 ml @ 100 mls/hr Q8HRS 04/05/19 12:30 04/05/19 12:30 DC Midazolam HCl (Versed) 2 mg 1X ONCE 04/07/19 13:30 04/07/19 13:31 DC 04/07/19 14:10 2 MG Multivitamins (Thera M Plus) 1 tab DAILY 04/08/19 11:30 04/13/19 08:04 1 TAB Nystatin (Nystop) 1 dionna BID 04/05/19 12:30 04/13/19 08:12 1 DIONNA Ondansetron HCl (Zofran) 4 mg PRN Q6HRS PRN 04/05/19 11:15 Phytonadione (Mephyton Oral Soln) 5 mg 1X ONCE 04/06/19 09:30 04/06/19 09:31 DC 04/06/19 10:00 5 MG Potassium Chloride (Klor-Con) 40 meq 1X ONCE 04/13/19 10:30 04/13/19 10:31 DC 04/13/19 11:10 40 MEQ Sodium Bicarbonate 100 meq/Sodium Chloride 1,100 ml @ 125 mls/hr Q8H48M 04/05/19 16:00 04/07/19 10:17 DC 04/07/19 00:28 125 MLS/HR Sodium Bicarbonate (Sodium Bicarbonate) 1,300 mg BID 04/07/19 11:00 04/09/19 08:41 DC 04/08/19 21:12 1,300 MG Sodium Bicarbonate (Sodium Bicarb Adult 8.4% Syr) 50 meq Q2H 04/06/19 09:30 04/06/19 11:31 DC 04/06/19 13:17 50 MEQ Sodium Chloride 1,000 ml @ 400 mls/hr Q2H30M PRN 04/08/19 11:05 04/08/19 23:04 DC Tamsulosin HCl (Flomax) 0.4 mg DAILY 04/05/19 12:30 04/13/19 08:04 0.4 MG Vancomycin HCl (Vancomycin Oral Solution) 125 mg [id number] 04/05/19 13:00 04/05/19 13:00 DC Lab Laboratory Tests Test 04/13/19 05:22 04/13/19 05:23 Sodium Level 141 mmol/L (136-145) Potassium Level 3.5 mmol/L (3.5-5.1) Chloride Level 106 mmol/L (98-107) Carbon Dioxide Level 26 mmol/L (21-32) Anion Gap 9 (6-14) Blood Urea Nitrogen 40 mg/dL (8-26) Creatinine 2.7 mg/dL (0.7-1.3) Estimated GFR (Cockcroft-Gault) 22.7 Glucose Level 104 mg/dL (70-99) Calcium Level 7.9 mg/dL (8.5-10.1) Magnesium Level 2.0 mg/dL (1.8-2.4) White Blood Count 10.3 x10^3/uL (4.0-11.0) Red Blood Count 4.25 x10^6/uL (4.30-5.70) Hemoglobin 13.1 g/dL (13.0-17.5) Hematocrit 38.4 % (39.0-53.0) Mean Corpuscular Volume 90 fL (79-100) Mean Corpuscular Hemoglobin 31 pg (25-35) Mean Corpuscular Hemoglobin Concent 34 g/dL (31-37) Red Cell Distribution Width 14.4 % (11.5-14.5) Platelet Count 138 x10^3/uL (140-400) Neutrophils (%) (Auto) 77 % (31-73) Lymphocytes (%) (Auto) 10 % (24-48) Monocytes (%) (Auto) 11 % (0-9) Eosinophils (%) (Auto) 2 % (0-3) Basophils (%) (Auto) 0 % (0-3) Neutrophils # (Auto) 7.9 x10^3uL (1.8-7.7) Lymphocytes # (Auto) 1.0 x10^3/uL (1.0-4.8) Monocytes # (Auto) 1.1 x10^3/uL (0.0-1.1) Eosinophils # (Auto) 0.2 x10^3/uL (0.0-0.7) Basophils # (Auto) 0.0 x10^3/uL (0.0-0.2) Results All relevant outside records, renal labs, imaging studies, telemetry/EKG's were reviewed. KAYLA TERRAZAS MD Apr 13, 2019 15:48
[2019-04-13 19:00] VITALS: BP 129/55
[2019-04-13] MEDS: guaiFENesin DM 200MG/20MG 10 ML SYRUP PO PRN (21:10)
[2019-04-13 23:43] VITALS: BP 124/71
[2019-04-14 03:00] VITALS: BP 156/75
[2019-04-14 07:00] VITALS: BP 145/70
[2019-04-14] MEDS: IPRATRPIUM/ALBUTEROL 0.5/2.5MG 3 ML NEBU. NEB SCH ×2 (07:33→11:16)
[2019-04-14] MEDS: MULTIVITAMIN with MINERAL TABLET. PO SCH (07:49)
[2019-04-14] MEDS: LACTOBACILLUS RHAMNOSUS GG 1 CAPSULE. PO SCH (07:49)
[2019-04-14] MEDS: TAMSULOSIN 0.4 MG CAP.ER.24H. PO SCH (07:49)
[2019-04-14] MEDS: ISOSORBIDE MONONITRATE ER 30 MG TAB.ER.24H PO SCH (07:55)
[2019-04-14] MEDS: METOPROLOL SUCC 24HR ER 25 MG TAB.ER.24H. PO SCH (07:56)
[2019-04-14] MEDS: VANCOMYCIN 125 MG/2.5 ML ORAL SOLUTION. PO SCH ×2 (07:56→13:00)
[2019-04-14] MEDS: CALAMINE/ZINC OXIDE TOPICAL SUSPENSION 177ML BOTTLE. TP SCH (07:58)
[2019-04-14] MEDS: NYSTATIN TOPICAL POWDER 15GM BOTTLE. TP SCH (07:58)
[2019-04-14 08:08] VITALS: BP 145/70
--- NOTE | 2019-04-14 10:16 | PDOC ---
PROGRESS NOTES Subjective Subjective feels better. dialysis catheter removed. less scrotal edema. Objective Objective Vital Signs Date Time Temp Pulse Resp B/P (MAP) Pulse Ox O2 Delivery O2 Flow Rate FiO2 04/14/19 08:08 98.8 95 21 145/70 (95) 94 Room Air 98.8 04/07/19 14:17 2.0 Intake and Output 04/14/19 07:00 Intake Total 820 ml Output Total 3333 ml Balance -2513 ml Intake Oral 820 ml Output Urine Total 3330 ml Stool Total 3 ml Physical Exam Abdomen: Soft Heart: Regular rate, Normal S1, Normal S2 Extremities: Other (1 polus edema legs) General: Alert HEENT: Atraumatic Lungs: Clear to auscultation Neuro: Normal speech Psych/Mental Status: Mental status NL Skin: No rashes COMMENT scrotal edema Assessment Assessment ProblemsClostridium difficile colitis. stool for c. diff positive in office and neg in hospital. diarrhea worse today 2. Acute kidney injury due to ATN , most likely secondary to intravascular volume depletion from the diarrhea and also contributing could be the nonsteroidal anti-inflammatory drug that he took at home and also the losartan.creatinine better and improved urine output 3. Hyponatremia.resolved 4. Metabolic acidosis secondary to the diarrhea and acute kidney injury. imp roved 5. History of hypertension. 6. Hyperlipidemia. 7. Coronary artery disease. 8. Asthma. 9. Morbid obesity. 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 Labs Laboratory Tests Test 04/13/19 05:22 04/13/19 05:23 Sodium Level 141 mmol/L (136-145) Potassium Level 3.5 mmol/L (3.5-5.1) Chloride Level 106 mmol/L (98-107) Carbon Dioxide Level 26 mmol/L (21-32) Anion Gap 9 (6-14) Blood Urea Nitrogen 40 mg/dL (8-26) Creatinine 2.7 mg/dL (0.7-1.3) Estimated GFR (Cockcroft-Gault) 22.7 Glucose Level 104 mg/dL (70-99) Calcium Level 7.9 mg/dL (8.5-10.1) Magnesium Level 2.0 mg/dL (1.8-2.4) White Blood Count 10.3 x10^3/uL (4.0-11.0) Red Blood Count 4.25 x10^6/uL (4.30-5.70) Hemoglobin 13.1 g/dL (13.0-17.5) Hematocrit 38.4 % (39.0-53.0) Mean Corpuscular Volume 90 fL (79-100) Mean Corpuscular Hemoglobin 31 pg (25-35) Mean Corpuscular Hemoglobin Concent 34 g/dL (31-37) Red Cell Distribution Width 14.4 % (11.5-14.5) Platelet Count 138 x10^3/uL (140-400) Neutrophils (%) (Auto) 77 % (31-73) Lymphocytes (%) (Auto) 10 % (24-48) Monocytes (%) (Auto) 11 % (0-9) Eosinophils (%) (Auto) 2 % (0-3) Basophils (%) (Auto) 0 % (0-3) Neutrophils # (Auto) 7.9 x10^3uL (1.8-7.7) Lymphocytes # (Auto) 1.0 x10^3/uL (1.0-4.8) Monocytes # (Auto) 1.1 x10^3/uL (0.0-1.1) Eosinophils # (Auto) 0.2 x10^3/uL (0.0-0.7) Basophils # (Auto) 0.0 x10^3/uL (0.0-0.2) Microbiology 04/10/19 Stool Culture - Preliminary, Resulted 04/10/19 Stool Culture Result 1 (MARISELA) - Preliminary, Resulted 04/10/19 Campylobacter Antigen Assay - Preliminary, Resulted 04/10/19 Campylobactor Result 1 - Preliminary, Resulted 04/10/19 Shiga Toxin Test - Final, Resulted 04/05/19 Urine Culture - Final, Complete 04/05/19 Urine Culture Result 1 (MARISELA) - Final, Complete Medications Current Medications Sodium Chloride 1,000 ml @ 1,000 mls/hr 1X ONCE IV Last administered on 04/04/19at 22:55; Start 04/04/19 at 23:00; Stop 04/04/19 at 23:59; Status DC Vancomycin HCl (Vancomycin Oral Solution) 125 mg 1X ONCE PO Last administered on 04/04/19at 23:51; Start 04/05/19 at 00:00; Stop 04/05/19 at 00:01; Status DC Ondansetron HCl (Zofran) 4 mg PRN Q8HRS PRN IV NAUSEA/VOMITING 1ST CHOICE; Start 04/04/19 at 23:45; Stop 04/05/19 at 13:24; Status DC Fentanyl Citrate (Fentanyl 2ml Vial) 25 mcg PRN Q2HRS PRN IV SEVERE PAIN; Start 04/04/19 at 23:45; Stop 04/05/19 at 11:21; Status DC Vancomycin HCl (Vancomycin Oral Solution) 125 mg [id number] PO Last administered on 04/05/19at 08:04; Start 04/05/19 at 09:00; Stop 04/05/19 at 11:24; Status DC Sodium Bicarbonate 100 meq/Sodium Chloride 1,100 ml @ 125 mls/hr Q8H48M IV Last administered on 04/05/19at 08:05; Start 04/05/19 at 00:00; Stop 04/05/19 at 15:59; Status DC Sodium Bicarbonate 100 meq/Sodium Chloride 1,100 ml @ 125 mls/hr Q8H48M IV Last administered on 04/07/19at 00:28; Start 04/05/19 at 16:00; Stop 04/07/19 at 10:17; Status DC Fentanyl Citrate (Fentanyl 2ml Vial) 25 mcg PRN Q4HRS PRN IV MODERATE TO SEVERE PAIN; Start 04/05/19 at 11:15; Stop 04/07/19 at 10:18; Status DC Vancomycin HCl (Vancomycin Oral Solution) 125 mg [id number] PO Last administered on 04/14/19at 07:56; Start 04/05/19 at 13:00 Tamsulosin HCl (Flomax) 0.4 mg DAILY PO Last administered on 04/14/19at 07:49; Start 04/05/19 at 12:30 Metoprolol Succinate (Toprol Xl) 25 mg DAILY PO Last administered on 04/14/19at 07:56; Start 04/05/19 at 12:30 Isosorbide Mononitrate (Imdur) 30 mg DAILY PO Last administered on 04/14/19at 07:55; Start 04/05/19 at 12:30 Nystatin (Nystop) 1 gustavo BID TP Last administered on 04/14/19at 07:58; Start 04/05/19 at 12:30 Ondansetron HCl (Zofran) 4 mg PRN Q6HRS PRN IV NAUSEA/VOMITING; Start 04/05/19 at 11:15 Albuterol/ Ipratropium (Duoneb) 3 ml RTQID NEB Last administered on 04/14/19at 07:33; Start 04/05/19 at 12:00 Acetaminophen (Tylenol) 325 mg PRN Q6HRS PRN PO MILD PAIN / TEMP; Start 04/05/19 at 11:15 Lidocaine HCl (Glydo (Lidocaine) Jelly) 1 gustavo 1X ONCE MM Last administered on 04/05/19at 12:54; Start 04/05/19 at 11:45; Stop 04/05/19 at 11:46; Status DC Metronidazole 100 ml @ 100 mls/hr Q8HRS IV ; Start 04/05/19 at 12:30; Stop 04/05/19 at 12:30; Status DC Vancomycin HCl (Vancomycin Oral Solution) 125 mg [id number] PO ; Start 04/05/19 at 13:00; Stop 04/05/19 at 13:00; Status DC Colestipol HCl (Colestid) 1 gm BID@10,22 PO Last administered on 04/06/19at 22:22; Start 04/05/19 at 13:00; Stop 04/07/19 at 14:56; Status DC Sodium Chloride 500 ml @ 0 mls/hr PRN QID PRN IV UO< 30cc/hr over previous 6hrs; Start 04/05/19 at 13:15; Stop 04/07/19 at 10:18; Status DC Magnesium Sulfate 50 ml @ 25 mls/hr PRN DAILY PRN IV for Mag < 1.7 on am labs; Start 04/05/19 at 13:15 Phytonadione (Mephyton Oral Soln) 5 mg 1X ONCE PO Last administered on 04/06/19at 10:00; Start 04/06/19 at 09:30; Stop 04/06/19 at 09:31; Status DC Sodium Bicarbonate (Sodium Bicarb Adult 8.4% Syr) 50 meq Q2H IV Last administered on 04/06/19at 13:17; Start 04/06/19 at 09:30; Stop 04/06/19 at 11:31; Status DC Calcium Acetate (Phoslo) 1,334 mg TIDWMEALS PO Last administered on 04/13/19at 08:07; Start 04/06/19 at 12:00; Stop 04/13/19 at 10:14; Status DC Sodium Bicarbonate (Sodium Bicarbonate) 1,300 mg BID PO Last administered on 04/08/19at 21:12; Start 04/07/19 at 11:00; Stop 04/09/19 at 08:41; Status DC Potassium Chloride (Klor-Con) 20 meq 1X ONCE PO ; Start 04/07/19 at 10:15; Stop 04/07/19 at 10:24; Status DC Sodium Chloride 1,000 ml @ 40 mls/hr Q24H IV Last administered on 04/13/19at 01:14; Start 04/07/19 at 10:15; Stop 04/13/19 at 10:08; Status DC Lidocaine/Sodium Bicarbonate (Buffered Lidocaine 1%) 3 ml STK-MED ONCE .ROUTE ; Start 04/07/19 at 12:27; Stop 04/07/19 at 12:28; Status DC Midazolam HCl (Versed) 2 mg STK-MED ONCE .ROUTE ; Start 04/07/19 at 12:31; Stop 04/07/19 at 12:32; Status DC Fentanyl Citrate (Fentanyl 2ml Vial) 100 mcg STK-MED ONCE .ROUTE ; Start 04/07/19 at 12:32; Stop 04/07/19 at 12:33; Status DC Gelatin (Gelfoam Size 12-7mm) 1 each STK-MED ONCE .ROUTE ; Start 04/07/19 at 12:34; Stop 04/07/19 at 12:35; Status DC Lidocaine/Sodium Bicarbonate (Buffered Lidocaine 1%) 3 ml STK-MED ONCE .ROUTE ; Start 04/07/19 at 12:59; Stop 04/07/19 at 13:00; Status DC Heparin Sodium (Porcine) (Heparin Sodium) 10,000 unit STK-MED ONCE .ROUTE ; Start 04/07/19 at 13:00; Stop 04/07/19 at 13:01; Status DC Midazolam HCl (Versed) 2 mg 1X ONCE IV Last administered on 04/07/19at 14:10; Start 04/07/19 at 13:30; Stop 04/07/19 at 13:31; Status DC Fentanyl Citrate (Fentanyl 2ml Vial) 50 mcg 1X ONCE IV Last administered on 04/07/19at 14:10; Start 04/07/19 at 13:30; Stop 04/07/19 at 13:31; Status DC Lidocaine/Sodium Bicarbonate (Buffered Lidocaine 1%) 12 ml 1X ONCE IJ Last administered on 04/07/19at 14:11; Start 04/07/19 at 14:15; Stop 04/07/19 at 14:16; Status DC Heparin Sodium (Porcine) (Heparin Sodium) 2,500 unit 1X ONCE INT CAT Last administered on 04/07/19at 14:10; Start 04/07/19 at 14:15; Stop 04/07/19 at 14:16; Status DC Calamine (Calamine Lotion) 1 gustavo BID TP Last administered on 04/14/19at 07:58; Start 04/08/19 at 11:00 Multivitamins (Thera M Plus) 1 tab DAILY PO Last administered on 04/14/19at 07:49; Start 04/08/19 at 11:30 Potassium Chloride (Klor-Con) 20 meq 1X ONCE PO Last administered on 04/08/19at 15:35; Start 04/08/19 at 11:30; Stop 04/08/19 at 11:31; Status DC Sodium Chloride 1,000 ml @ 1,000 mls/hr Q1H PRN IV hypotension; Start 04/08/19 at 11:05; Stop 04/08/19 at 17:04; Status DC Diphenhydramine HCl (Benadryl) 25 mg 1X PRN PRN IV ITCHING; Start 04/08/19 at 11:15; Stop 04/09/19 at 11:14; Status DC Diphenhydramine HCl (Benadryl) 25 mg 1X PRN PRN IV ITCHING; Start 04/08/19 at 11:15; Stop 04/09/19 at 11:14; Status DC Sodium Chloride 1,000 ml @ 400 mls/hr Q2H30M PRN IV PATENCY; Start 04/08/19 at 11:05; Stop 04/08/19 at 23:04; Status DC Info (PHARMACY MONITORING -- do not chart) 1 each PRN DAILY PRN MC SEE COMMENTS; Start 04/08/19 at 11:15 Potassium Chloride (Klor-Con) 20 meq 1X ONCE PO Last administered on 04/09/19at 09:28; Start 04/09/19 at 08:45; Stop 04/09/19 at 08:46; Status DC Potassium Chloride (Klor-Con) 40 meq 1X ONCE PO Last administered on 04/10/19at 13:19; Start 04/10/19 at 11:45; Stop 04/10/19 at 11:46; Status DC Lactobacillus Rhamnosus (Culturelle) 1 cap BID PO Last administered on 04/14/19at 07:49; Start 04/11/19 at 09:00 Potassium Chloride (Klor-Con) 40 meq 1X ONCE PO Last administered on 04/11/19at 12:07; Start 04/11/19 at 11:15; Stop 04/11/19 at 11:16; Status DC Guaifenesin (Robitussin Dm) 10 ml PRN Q6HRS PRN PO COUGH Last administered on 04/13/19at 21:10; Start 04/11/19 at 13:00 Magnesium Sulfate/ Dextrose 100 ml @ 25 mls/hr 1X ONCE IV Last administered on 04/12/19at 11:27; Start 04/12/19 at 10:30; Stop 04/12/19 at 14:29; Status DC Furosemide (Lasix) 40 mg 1X ONCE IVP Last administered on 04/12/19at 11:24; Start 04/12/19 at 10:30; Stop 04/12/19 at 10:31; Status DC Potassium Chloride (Klor-Con) 40 meq 1X ONCE PO Last administered on 04/12/19at 11:25; Start 04/12/19 at 10:30; Stop 04/12/19 at 10:31; Status DC Furosemide (Lasix) 40 mg 1X ONCE IVP Last administered on 04/13/19at 11:10; Start 04/13/19 at 10:30; Stop 04/13/19 at 10:31; Status DC Potassium Chloride (Klor-Con) 40 meq 1X ONCE PO Last administered on 04/13/19at 11:10; Start 04/13/19 at 10:30; Stop 04/13/19 at 10:31; Status DC Active Scripts Active Aspir-Low (Aspirin) 81 Mg Tablet. 1 Tab PO DAILY 30 Days Calamine Lotion (Calamine/Zinc Oxide) 177 Ml Lotion 1 Gustavo TP BID 30 Days Nystop (Nystatin) 60 Gm Powder 1 Gustavo TP BID 30 Days Culturelle (Lactobacillus Rhamnosus Gg) 1 Each Cap.sprink 1 Cap PO BID 30 Days Isosorbide Mononitrate Er (Isosorbide Mononitrate) 30 Mg Tab.er.24h 30 Mg PO DA NICOLE Vancomycin Hcl 500 Mg Vial 125 Mg PO [id number] 14 Days Reported Proair Hfa Inhaler (Albuterol Sulfate) 8.5 Gm Hfa.aer.ad 1 Puff INH PRN Q6HRS PRN Metoprolol Tartrate 25 Mg Tablet 25 Mg PO BID Tamsulosin Hcl 0.4 Mg Cap.er.24h 0.4 Mg PO DAILY Fish Oil ([place]-3 Fatty Acids) 500 Mg Capsule.dr 1,000 Mg PO DAILY Multi Vitamin Daily (Multivitamin) 1 Each Tablet 1 Each PO Symbicort 160-4.5 Mcg Inhaler (Budesonide/Formoterol Fumarate) 10.2 Gm Hfa.aer.ad 1 Puff IH BID Vitals/I & O Vital Sign - Last 24 Hours 04/13/19 04/13/19 04/13/19 04/13/19 11:00 13:16 13:17 15:00 Temp 99.2 99.0 99.2 99.0 Pulse 98 98 98 97 Resp 18 18 B/P (MAP) 135/90 (105) 135/90 135/90 119/59 (79) Pulse Ox 95 92 O2 Delivery Room Air Room Air 04/13/19 04/13/19 04/13/19 04/13/19 15:32 19:00 19:30 20:03 Temp 98.5 98.5 Pulse 101 Resp 18 B/P (MAP) 129/55 (79) Pulse Ox 95 96 O2 Delivery Room Air Room Air Room Air Room Air 04/13/19 04/14/19 04/14/19 04/14/19 23:43 03:00 07:00 07:34 Temp 98.6 98.7 98.8 98.6 98.7 98.8 Pulse 103 90 95 Resp 18 18 21 B/P (MAP) 124/71 (88) 156/75 (102) 145/70 (95) Pulse Ox 95 92 94 96 O2 Delivery Room Air Room Air Room Air Room Air 04/14/19 04/14/19 04/14/19 07:55 07:56 08:08 Temp 98.8 98.8 Pulse 95 95 95 Resp 21 B/P (MAP) 145/70 145/70 145/70 (95) Pulse Ox 94 O2 Delivery Room Air Intake and Output 04/13/19 04/13/19 04/14/19 15:00 23:00 07:00 Intake Total 700 ml 120 ml Output Total 453 ml 2480 ml 400 ml Balance 247 ml -2360 ml -400 ml CHRIS STEIN MD Apr 14, 2019 10:16
--- NOTE | 2019-04-14 10:42 | PDOC ---
Objective: Objective: Reviewed w/ RN - awaiting insurance approval for DC to [facility], had two mucousy stools this morning, thinks scrotal edema is the main issue. Vital Signs: Vital Signs Date Time Temp Pulse Resp B/P (MAP) Pulse Ox O2 Delivery O2 Flow Rate FiO2 04/14/19 08:08 98.8 95 21 145/70 (95) 94 Room Air 98.8 PE: GEN: NAD NEURO/PSYCH: sleeping, not awakened A/P: C Diff, HARVEY -- DC per primary. Plans to continue vanco per ID through 04/16/19. JUSTIN SWEENEY Apr 14, 2019 10:41
[2019-04-14 11:00] VITALS: BP 132/61
--- NOTE | 2019-04-14 11:32 | NUR ---
SW following. Insurance approved for pt to go to SNU today. Pt will discharge to [facility] at 1230. RN and family notified.
--- NOTE | 2019-04-14 13:19 | NUR ---
Pt discharged approximately at 1230. Pt transported via wheelchair by staff. Pt transported to [facility] via transportation. VSS, A&Ox4, denies pain/nausea/vomiting. Pt d/c with ingrid per Dr. Mendoza. [facility] notified of lab draws needed & lactose free diet. Packet containing discharge instructions given to transportation.
--- NOTE | 2019-04-14 23:00 | PDOC ---
SUBJECTIVE ROS Scrotal edema improved OBJECTIVE Vital Signs Vital Signs Date Time Temp Pulse Resp B/P (MAP) Pulse Ox O2 Delivery O2 Flow Rate FiO2 04/14/19 11:17 97 Room Air 04/14/19 11:00 98.4 102 18 132/61 (84) 98.4 I & 0 Intake and Output 04/14/19 06:59 Intake Total 820 ml Output Total 3333 ml Balance -2513 ml Intake Oral 820 ml Output Urine Total 3330 ml Stool Total 3 ml PHYSICAL EXAM Physical Exam GENERAL: NAD HEENT: Oral cavity moist NECK: Supple. LUNGS: Clear. HEART: S1, S2 ABDOMEN: soft, NT, + BS EXTREMITIES: 1+ LE edema NEURO Alert, Grossly normal - Sharp, Scrotal edema /HDC- Rt DIAGNOSIS/ASSESSMENT Assessment & Plan HARVEY- ATN - Improving renal function and UOP S/P Renal Bx showed ATN , No GN HD x1 ,Monitor scrotal edema- IV Lasix x2 Lasix as needed C DIF- On PO Vanc ID following MET acidosis- Resolved Hypertension stable Hx of Cerebrovascular accident. COMMENT/RELEVANT DATA Meds Current Medications Medications (Trade) Dose Ordered Sig/Adri Start Time Stop Time Status Last Admin Dose Admin Acetaminophen (Tylenol) 325 mg PRN Q6HRS PRN 04/05/19 11:15 04/14/19 13:33 DC Albuterol/ Ipratropium (Duoneb) 3 ml RTQID 04/05/19 12:00 04/14/19 13:33 DC 04/14/19 11:16 3 ML Calamine (Calamine Lotion) 1 dionna BID 04/08/19 11:00 04/14/19 13:33 DC 04/14/19 07:58 1 DIONNA Calcium Acetate (Phoslo) 1,334 mg TIDWMEALS 04/06/19 12:00 04/13/19 10:14 DC 04/13/19 08:07 1,334 MG Colestipol HCl (Colestid) 1 gm BID@10,04/05/19 13:00 04/07/19 14:56 DC 04/06/19 22:22 1 GM Diphenhydramine HCl (Benadryl) 25 mg 1X PRN PRN 04/08/19 11:15 04/09/19 11:14 DC Fentanyl Citrate (Fentanyl 2ml Vial) 50 mcg 1X ONCE 04/07/19 13:30 04/07/19 13:31 DC 04/07/19 14:10 50 MCG Furosemide (Lasix) 40 mg 1X ONCE 04/13/19 10:30 04/13/19 10:31 DC 04/13/19 11:10 40 MG Gelatin (Gelfoam Size 12-7mm) 1 each STK-MED ONCE 04/07/19 12:34 04/07/19 12:35 DC Guaifenesin (Robitussin Dm) 10 ml PRN Q6HRS PRN 04/11/19 13:00 04/14/19 13:33 DC 04/13/19 21:10 10 ML Heparin Sodium (Porcine) (Heparin Sodium) 2,500 unit 1X ONCE 04/07/19 14:15 04/07/19 14:16 DC 04/07/19 14:10 2,500 UNIT Info (PHARMACY MONITORING -- do not chart) 1 each PRN DAILY PRN 04/08/19 11:15 04/14/19 13:33 DC Isosorbide Mononitrate (Imdur) 30 mg DAILY 04/05/19 12:30 04/14/19 13:33 DC 04/14/19 07:55 30 MG Lactobacillus Rhamnosus (Culturelle) 1 cap BID 04/11/19 09:00 04/14/19 13:33 DC 04/14/19 07:49 1 CAP Lidocaine HCl (Glydo (Lidocaine) Jelly) 1 dionna 1X ONCE 04/05/19 11:45 04/05/19 11:46 DC 04/05/19 12:54 1 DIONNA Lidocaine/Sodium Bicarbonate (Buffered Lidocaine 1%) 12 ml 1X ONCE 04/07/19 14:15 04/07/19 14:16 DC 04/07/19 14:11 12 ML Magnesium Sulfate 50 ml @ 25 mls/hr PRN DAILY PRN 04/05/19 13:15 04/14/19 13:33 DC Magnesium Sulfate/ Dextrose 100 ml @ 25 mls/hr 1X ONCE 04/12/19 10:30 04/12/19 14:29 DC 04/12/19 11:27 25 MLS/HR Metoprolol Succinate (Toprol Xl) 25 mg DAILY 04/05/19 12:30 04/14/19 13:33 DC 04/14/19 07:56 25 MG Metronidazole 100 ml @ 100 mls/hr Q8HRS 04/05/19 12:30 04/05/19 12:30 DC Midazolam HCl (Versed) 2 mg 1X ONCE 04/07/19 13:30 04/07/19 13:31 DC 04/07/19 14:10 2 MG Multivitamins (Thera M Plus) 1 tab DAILY 04/08/19 11:30 04/14/19 13:33 DC 04/14/19 07:49 1 TAB Nystatin (Nystop) 1 dionna BID 04/05/19 12:30 04/14/19 13:33 DC 04/14/19 07:58 1 DIONNA Ondansetron HCl (Zofran) 4 mg PRN Q6HRS PRN 04/05/19 11:15 04/14/19 13:33 DC Phytonadione (Mephyton Oral Soln) 5 mg 1X ONCE 04/06/19 09:30 04/06/19 09:31 DC 04/06/19 10:00 5 MG Potassium Chloride (Klor-Con) 40 meq 1X ONCE 04/13/19 10:30 04/13/19 10:31 DC 04/13/19 11:10 40 MEQ Sodium Bicarbonate 100 meq/Sodium Chloride 1,100 ml @ 125 mls/hr Q8H48M 04/05/19 16:00 04/07/19 10:17 DC 04/07/19 00:28 125 MLS/HR Sodium Bicarbonate (Sodium Bicarbonate) 1,300 mg BID 04/07/19 11:00 04/09/19 08:41 DC 04/08/19 21:12 1,300 MG Sodium Bicarbonate (Sodium Bicarb Adult 8.4% Syr) 50 meq Q2H 04/06/19 09:30 04/06/19 11:31 DC 04/06/19 13:17 50 MEQ Sodium Chloride 1,000 ml @ 400 mls/hr Q2H30M PRN 04/08/19 11:05 04/08/19 23:04 DC Tamsulosin HCl (Flomax) 0.4 mg DAILY 04/05/19 12:30 04/14/19 13:33 DC 04/14/19 07:49 0.4 MG Vancomycin HCl (Vancomycin Oral Solution) 125 mg [id number] 04/05/19 13:00 04/05/19 13:00 DC Results All relevant outside records, renal labs, imaging studies, telemetry/EKG's were reviewed. KAYLA TERRAZAS MD Apr 14, 2019 23:00
== END 2019-04-14 12:55 | DRG 371 ==
LOC: ER 21:46 → 4 NORTH 23:35
PROVIDERS: ADMIT Internal Medicine; ATTEND Internal Medicine
PROC: 0TB13ZX Excision of Left Kidney, Percutaneous Approach, Diagnostic (ICD-10-PCS; principal; 2019-04-08)
PROC: 02H633Z Insertion of Infusion Device into Right Atrium, Percutaneous Approach (ICD-10-PCS; 2019-04-08)
PROC: B2141ZZ Fluoroscopy of Right Heart using Low Osmolar Contrast (ICD-10-PCS; 2019-04-08)
PROC: B244ZZZ Ultrasonography of Right Heart (ICD-10-PCS; 2019-04-08)
DX: A04.72 Enterocolitis due to Clostridium difficile, not specified as recurrent (principal); N17.0 Acute kidney failure with tubular necrosis; E87.1 Hypo-osmolality and hyponatremia; E87.2 Acidosis; G72.81 Critical illness myopathy; N39.0 Urinary tract infection, site not specified; M19.90 Unspecified osteoarthritis, unspecified site; E66.01 Morbid (severe) obesity due to excess calories; E78.00 Pure hypercholesterolemia, unspecified; E78.5 Hyperlipidemia, unspecified; E86.0 Dehydration; E87.6 Hypokalemia; I10 Essential (primary) hypertension; I25.10 Atherosclerotic heart disease of native coronary artery without angina pectoris; Z96.1 Presence of intraocular lens; J44.9 Chronic obstructive pulmonary disease, unspecified; Z96.651 Presence of right artificial knee joint; N50.89 Other specified disorders of the male genital organs; N40.1 Benign prostatic hyperplasia with lower urinary tract symptoms; N39.498 Other specified urinary incontinence; Z68.39 Body mass index [BMI] 39.0-39.9, adult; Z79.51 Long term (current) use of inhaled steroids; Z79.899 Other long term (current) drug therapy; Z79.82 Long term (current) use of aspirin; Z85.828 Personal history of other malignant neoplasm of skin; Z86.73 Personal history of transient ischemic attack (TIA), and cerebral infarction without residual deficits; Z95.5 Presence of coronary angioplasty implant and graft; Z98.42 Cataract extraction status, left eye
CPT/HCPCS: 36415; 36556; 50200; 71045; 74176; 76770; 76937; 77001; 77012; 80048; 80053; 80069; 81001; 82274; 82550; 82962; 83520; 83605; 83690; 83735; 84165; 84300; 84550; 85007; 85025; 85027; 85610; 85651; 85730; 86021; 86160; 86334; 86704; 87045; 87086; 87328; 87340; 87493; 88300; 93005; 94640; 94760; 96360; 96361; 99152; 99153; C1769; C1892; J1940; J2250; J3010; J3475; J3490; J7030; J7620; 83516; 83876; 97110; 97116; 97530; 97535; 99285-25

== ENCOUNTER 2019-05-12 11:50 | Emergency (ER) | payer BC ==
[~2019-05-12] VITALS: Ht 172.7 cm; Wt 103.4 kg
[~2019-05-12 11:50] MED LIST changes: +ACET325T9 PO; +AMLO5TAB10 PO; +ASPI81TA50 PO; +BUDE0.5A NEB; +CEFEPIME HCL IVP; +CHOL4POW3 PO; +FAMO20TA5 PO; +FERR325T72 PO; +FINA5TAB4 PO; +FURO-68 PO; +IPRA0.2S5 NEB; +ISOS30TA4 PO; +LACT1CAP19 PO; +NYST60PO TP; +TAMS0.4C97 PO; +VANC125C3 PO; +VANC500V PO; +[UNRECOGNIZED DRUG - CODE] TP
--- NOTE | 2019-05-12 12:19 | PHYS DOC ---
Adult General Chief Complaint Chief Complaint: URINARY RETENTION HPI HPI Patient is a 84 year old male who presents from [facility] for Quintero placement. Patient was seen in ER recently and had difficulty having his Quintero placed and urology Dr. Carrillo had a come in and place it. Quintero was taken out for infectious disease reasons and attempted to be changed and they're unable to get back in. Denies any symptoms at this time. Patient denies any pain at this time. Review of Systems Review of Systems Constitutional: Denies fever or chills [] Eyes: Denies change in visual acuity, redness, or eye pain [] HENT: Denies nasal congestion or sore throat [] Respiratory: Denies cough or shortness of breath [] Cardiovascular: No additional information not addressed in HPI [] GI: Denies abdominal pain, nausea, vomiting, bloody stools or diarrhea [] : Denies dysuria or hematuria [] Musculoskeletal: Denies back pain or joint pain [] Integument: Denies rash or skin lesions [] Neurologic: Denies headache, focal weakness or sensory changes [] Endocrine: Denies polyuria or polydipsia [] Complete systems were reviewed and found to be within normal limits, except as documented in this note. Current Medications Current Medications Current Medications Medications (Trade) Dose Ordered Sig/Adri Start Time Stop Time Status Last Admin Dose Admin Lidocaine HCl (Glydo (Lidocaine) Jelly) 1 dionna 1X ONCE 05/12/19 14:15 05/12/19 14:16 DC 05/12/19 14:15 1 DIONNA Allergies Allergies Allergies Coded Allergies Type Severity Reaction Last Updated Verified No Known Drug Allergies 05/12/19 No Physical Exam Physical Exam Constitutional: Well developed, well nourished, no acute distress, non-toxic appearance. [] HENT: Normocephalic, atraumatic, bilateral external ears normal, oropharynx moist, no oral exudates, nose normal. [] Eyes: PERRLA, EOMI, conjunctiva normal, no discharge. [] Neck: Normal range of motion, no tenderness, supple, no stridor. [] Cardiovascular:Heart rate regular rhythm, no murmur [] Lungs & Thorax: Bilateral breath sounds clear to auscultation [] Abdomen: Bowel sounds normal, soft, no tenderness, no masses, no pulsatile masses. [] Skin: Warm, dry, no erythema, no rash. [] Back: No tenderness, no CVA tenderness. [] Extremities: No tenderness, no cyanosis, no clubbing, ROM intact, no edema. [] Neurologic: Alert and oriented X 3, normal motor function, normal sensory function, no focal deficits noted. [] Psychologic: Affect normal, judgement normal, mood normal. [] Current Patient Data Vital Signs Vital Signs Date Time Temp Pulse Resp B/P (MAP) Pulse Ox O2 Delivery O2 Flow Rate FiO2 05/12/19 12:35 98.6 84 16 131/59 (83) 99 Room Air 98.6 Lab Values Laboratory Tests Test 05/12/19 15:30 Urine Collection Type U cath Urine Color Yellow Urine Clarity Clear Urine pH 5.5 Urine Specific [place] 1.010 Urine Protein 100 mg/dL (NEG-TRACE) Urine Glucose (UA) Negative mg/dL (NEG) Urine Ketones (Stick) Negative mg/dL (NEG) Urine Blood Small (NEG) Urine Nitrite Negative (NEG) Urine Bilirubin Negative (NEG) Urine Urobilinogen Dipstick 0.2 mg/dL (0.2 mg/dL) Urine Leukocyte Esterase Negative (NEG) Urine RBC Rare /HPF (0-2) Urine WBC 1-4 /HPF (0-4) Urine Transitional Epithelial Cells Occ /LPF Urine Bacteria Few /HPF (0-FEW) EKG EKG [] Radiology/Procedures Radiology/Procedures [] Course & Med Decision Making Course & Med Decision Making Pertinent Labs and Imaging studies reviewed. (See chart for details) Dr. Hernandez was notified prior to patients arrival. He will come place quintero. Will also obtain UA. Called Urology to verify that Dr. Hernandez would come. Spoke to CLEMENT Garner who states he will not be able to make it till around 4 PM as he is in clinic. She asked us to try placement with 18 F coude quintero with [employer]. Relayed to nursing. Nursing staff was able to get Quintero in. Will d/c home after UA. UA is negative will d/c. Dragon Disclaimer Dragon Disclaimer This electronic medical record was generated, in whole or in part, using a voice recognition dictation system. Departure Departure Impression: Primary Impression: Urinary retention Disposition: HOME, SELF-CARE Condition: STABLE Referrals: CHRIS STEIN MD (PCP) Patient Instructions: Urinary Retention, Acute, Male Additional Instructions: Thank you for visiting [facility]. We appreciate you trusting us with your care. If any additional problems come up don't hesitate to return to visit us. Please follow up with your primary care provider so they can plan additional care if needed and know about the problem that you had. If symptoms worsen come back to the Emergency Department. Any concerning symptoms that start such as chest pain, shortness of Air, weakness or numbness on one side of the body, running high fevers or any other concerning symptoms return to the ER. Please keep Quintero in. CHRIS ROSA APRN May 12, 2019 12:19
[2019-05-12] MEDS ORDERED: LIDOCAINE 2% JELLY 6ML IN APPLICATOR. MM ONE (14:15)
[2019-05-12 15:43] LABS: BILIRUBIN,URINE NEGATIVE (NEG); CLARITY,URINE CLEAR; COLOR,URINE YELLOW; NITRITE,URINE NEGATIVE (NEG); PH,URINE 5.5; PROTEIN,URINE 100 mg/dL (NEG-TRACE); UROBILINOGEN,URINE 0.2 mg/dL (0.2 mg/dL)
[2019-05-12 15:54] LABS: BACTERIA,URINE FEW /HPF (0-FEW); RBC,URINE RARE /HPF (0-2)
[2019-05-12 17:00] VITALS: BP 111/77
== END 2019-05-12 17:28 | disposition home or self-care (01) ==
LOC: ER 11:50 → MERGE 11:50 → ER 17:28
DX: R33.9 Retention of urine, unspecified (principal)
CPT/HCPCS: 51702; 81001; 99285-25

== ENCOUNTER 2019-07-14 09:33 | Outpatient (CLI) | payer BC ==
[~2019-07-14] VITALS: Ht 175.3 cm; Wt 96.2 kg
[~2019-07-14 09:33] MED LIST changes: +FOLI0.8T21 PO; +PRED20TA PO
[2019-07-14 10:00] VITALS: BP 121/65
[2019-07-14 10:06] LABS: CALCIUM 9.3 mg/dL (8.5-10.1); CREATININE 2.4 mg/dL (0.7-1.3); GFR 25.9; POTASSIUM 4.1 mmol/L (3.5-5.1)
[2019-07-14 10:09] LABS: BASO # 0.1 x10^3/uL (0.0-0.2); BASO % 1 % (0-3); EOS # 0.3 x10^3/uL (0.0-0.7); EOS % 3 % (0-3); HEMATOCRIT 36.3 % (39.0-53.0); HEMOGLOBIN 12.1 g/dL (13.0-17.5); LYMPH # 5.1 x10^3/uL (1.0-4.8); LYMPH % 40 % (24-48); MEAN CORPUSCULAR HEMOGLOBIN 31 pg (25-35); MEAN CORPUSCULAR HGB CONC 34 g/dL (31-37); MEAN CORPUSCULAR VOLUME 92 fL (79-100); MONO % 8 % (0-9); NEUT # 6.1 x10^3/uL (1.8-7.7); NEUT % 49 % (31-73); PLATELET COUNT 219 x10^3/uL (140-400); RED BLOOD COUNT 3.95 x10^6/uL (4.30-5.70); RED CELL DISTRIBUTION WIDTH 14.9 % (11.5-14.5); WHITE BLOOD COUNT 12.6 x10^3/uL (4.0-11.0)
[2019-07-14 10:14] LABS: ALBUMIN 3.2 g/dL (3.4-5.0); ALBUMIN/GLOBULIN RATIO 0.8 (1.0-1.7); TOTAL BILIRUBIN 0.4 mg/dL (0.2-1.0); TOTAL PROTEIN 7.4 g/dL (6.4-8.2)
[2019-07-14 10:20] LABS: PROTHROMBIN TIME PATIENT 13.7 SEC (11.7-14.0)
[2019-07-14] MEDS ORDERED: LIDOCAINE 1%/EPI 1:100,000 20 ML VIAL. ONE (10:23)
[2019-07-14 10:30] VITALS: BP 117/60
[2019-07-14] MEDS ORDERED: LIDOCAINE 1%/EPI 1:100,000 20 ML VIAL. SQ ONE (10:45)
--- NOTE | 2019-07-14 11:07 | NUR ---
pt discharged to home. instructions reviewed with pt. Pt home in private vehicle
--- NOTE | 2019-07-14 14:57 | RAD ---
07/14/2019 12:53 PM Removal of right internal jugular tunnel dialysis catheter Indication: No longer requires dialysis access Discussion: The risks and benefits of the procedure were discussed the patient. Informed consent was obtained. A timeout procedure was performed. The right chest including the pre-existing dialysis catheter was prepped and draped using maximum sterile barrier technique. All elements of maximal sterile barrier technique including the use of a cap, mask, sterile gown, sterile gloves, large sterile sheet, appropriate hand hygiene, and 2% chlorhexidine for cutaneous antisepsis (or acceptable alternative antiseptic per current guidelines) were followed for this procedure. 1% lidocaine was administered for local anesthesia. Using blunt dissection the subcutaneous cuff was freed. The catheter was removed and manual pressure was held. Sterile dressings were applied. No immediate complications were identified Impression: Removal of right internal jugular tunnel dialysis catheter
== END 2019-07-14 11:19 | disposition home or self-care (01) ==
LOC: INTRAD 09:33
PROVIDERS: ATTEND Nurse Practitioner Adult Health
DX: Z45.2 Encounter for adjustment and management of vascular access device (principal); Z79.01 Long term (current) use of anticoagulants
CPT/HCPCS: 36415; 36589; 80053; 85025; 85610

== ENCOUNTER → 2019-08-18 | Outpatient (CLI) | payer BC ==
[~2019-08-18] MED LIST changes: +DOXY-96 PO; -DOXY100T9 PO
[2019-08-18 13:44] LABS: HEMOGLOBIN 10.6 g/dL (13.0-17.5)
[2019-08-18 13:48] LABS: BILIRUBIN,URINE NEGATIVE (NEG); CLARITY,URINE CLOUDY; COLOR,URINE YELLOW; NITRITE,URINE NEGATIVE (NEG); PH,URINE 5.5; PROTEIN,URINE 30 mg/dL (NEG-TRACE); UROBILINOGEN,URINE 0.2 mg/dL (0.2 mg/dL)
[2019-08-18 14:03] LABS: BACTERIA,URINE FEW /HPF (0-FEW); WBC,URINE TNTC /HPF (0-4); YEAST,URINE PRESENT /HPF
== END | disposition home or self-care (01) ==
LOC: SPEC 13:26
PROVIDERS: ATTEND Internal Medicine
DX: N39.0 Urinary tract infection, site not specified (principal)
CPT/HCPCS: 36415; 81001; 85014; 85018; 87086

== ENCOUNTER → 2019-09-15 | Outpatient (CLI) | payer BC ==
[2019-09-15 17:00] LABS: ALBUMIN 2.8 g/dL (3.4-5.0); CALCIUM 8.1 mg/dL (8.5-10.1); CREATININE 1.5 mg/dL (0.7-1.3); GFR 44.6; PHOSPHORUS 2.8 mg/dL (2.6-4.7); POTASSIUM 3.7 mmol/L (3.5-5.1)
[2019-09-15 17:25] LABS: BILIRUBIN,URINE NEGATIVE (NEG); CLARITY,URINE TURBID; COLOR,URINE YELLOW; NITRITE,URINE NEGATIVE (NEG); PROTEIN,URINE 30 mg/dL (NEG-TRACE); UROBILINOGEN,URINE 0.2 mg/dL (0.2 mg/dL)
[2019-09-15 17:38] LABS: BACTERIA,URINE MODERATE /HPF (0-FEW); WBC,URINE TNTC /HPF (0-4)
== END | disposition home or self-care (01) ==
LOC: SPEC 16:33
PROVIDERS: ATTEND Internal Medicine Nephrology
DX: N19 Unspecified kidney failure (principal)
CPT/HCPCS: 36415; 80069; 81001; 87086

== ENCOUNTER 2019-10-04 13:10 | Emergency (ER) | payer BC ==
[~2019-10-04] VITALS: Ht 175.3 cm; Wt 85.7 kg
[2019-10-04] MEDS ORDERED: IV NORMAL SALINE 1000ML BAG 1,000 ML IV SCH (14:00)
[2019-10-04] MEDS ORDERED: IV NORMAL SALINE 1000ML BAG 1,000 ML IV ONE (14:00)
[2019-10-04 14:12] LABS: BILIRUBIN,URINE NEGATIVE (NEG); CLARITY,URINE TURBID; COLOR,URINE YELLOW; NITRITE,URINE NEGATIVE (NEG); PH,URINE 5.5; PROTEIN,URINE 100 mg/dL (NEG-TRACE); UROBILINOGEN,URINE 0.2 mg/dL (0.2 mg/dL)
[2019-10-04] MEDS ORDERED: MORPHINE SULFATE 4 MG/ML VIAL. IV ONE (14:15)
[2019-10-04 14:18] LABS: BASO % 0 % (0-3); EOS # 0.1 x10^3/uL (0.0-0.7); EOS % 1 % (0-3); HEMATOCRIT 37.1 % (39.0-53.0); HEMOGLOBIN 12.5 g/dL (13.0-17.5); LYMPH # 2.2 x10^3/uL (1.0-4.8); LYMPH % 21 % (24-48); MEAN CORPUSCULAR HEMOGLOBIN 31 pg (25-35); MEAN CORPUSCULAR HGB CONC 34 g/dL (31-37); MEAN CORPUSCULAR VOLUME 92 fL (79-100); MONO % 10 % (0-9); NEUT # 7.2 x10^3/uL (1.8-7.7); NEUT % 68 % (31-73); PLATELET COUNT 142 x10^3/uL (140-400); RED BLOOD COUNT 4.02 x10^6/uL (4.30-5.70); WHITE BLOOD COUNT 10.5 x10^3/uL (4.0-11.0)
[2019-10-04 14:19] LABS: WBC,URINE TNTC /HPF (0-4)
[2019-10-04 14:21] LABS: BACTERIA,URINE FEW /HPF (0-FEW)
[2019-10-04 14:27] LABS: CALCIUM 8.9 mg/dL (8.5-10.1); CREATININE 1.7 mg/dL (0.7-1.3); GFR 38.6; POTASSIUM 3.8 mmol/L (3.5-5.1); PROTHROMBIN TIME PATIENT 13.6 SEC (11.7-14.0)
--- NOTE | 2019-10-04 14:28 | PHYS DOC ---
Past Medical History Past Medical History: Arthritis, Asthma, Bronchitis, CAD, COPD, GERD, Hypertension Past Surgical History: Knee Replacement Additional Past Surgical Histo: CARDIAC CATH WITH STENTS; cataracts Alcohol Use: None Drug Use: None Adult General Chief Complaint Chief Complaint: ABDOMINAL PAIN HPI HPI Patient is an 84-year-old male who presents to the emergency department for evaluation of lower abdominal pain. He states he began having lower abdominal discomfort yesterday evening, and had one episode of diarrhea. He has not had any bloody diarrhea, nausea, vomiting. He denies any chest pain or shortness of breath. He does have a Sharp catheter in place, having had one placed a few weeks ago for urinary retention. He last into the urine bag this morning, and has been having drainage of cloudy urine. There are no alleviating or exacerbating factors to his symptoms. Review of Systems Review of Systems Constitutional: Denies fever or chills [] Eyes: Denies change in visual acuity, redness, or eye pain [] HENT: Denies nasal congestion or sore throat [] Respiratory: Denies cough or shortness of breath [] Cardiovascular: The patient denies any shortness of breath, chest pain, palpitations, or orthopnea[] GI: No additional information not addressed in HPI [] : Denies dysuria or hematuria [] Musculoskeletal: Denies back pain or joint pain [] Integument: Denies rash or skin lesions [] Neurologic: Denies headache, focal weakness or sensory changes [] Endocrine: Denies polyuria or polydipsia [] All other systems were reviewed and found to be within normal limits, except as documented in this note. Current Medications Current Medications Current Medications Medications (Trade) Dose Ordered Sig/Adri Start Time Stop Time Status Last Admin Dose Admin Levofloxacin/ Dextrose 100 ml @ 100 mls/hr 1X ONCE 10/04/19 14:30 10/04/19 15:29 DC 10/04/19 15:44 100 MLS/HR Lidocaine HCl (Glydo (Lidocaine) Jelly) 1 dionna 1X ONCE 10/04/19 16:00 10/04/19 16:02 DC 10/04/19 16:00 1 DIONNA Morphine Sulfate (Morphine Sulfate) 4 mg 1X ONCE 10/04/19 14:15 10/04/19 14:16 DC 10/04/19 14:17 4 MG Sodium Chloride 1,000 ml @ 1,000 mls/hr 1X ONCE 10/04/19 14:00 10/04/19 14:59 DC 10/04/19 14:16 1,000 MLS/HR Allergies Allergies Allergies Coded Allergies Type Severity Reaction Last Updated Verified cefepime Allergy Intermediate 05/21/19 Yes Physical Exam Physical Exam PHYSICAL EXAM: CONSTITUTIONAL: Well developed, well nourished HEAD: normocephalic, atraumatic EENT: PERRL, EOMI. Conjunctivae normal color, sclerae non-icteric; moist mucous membranes. NECK: Supple, non-tender; no meningismus. LUNGS: Lungs CTA, breathing even and unlabored. Normal air movement. HEART: Regular rate and rhythm, no murmur CHEST: No deformity; non-tender ABDOMEN: The abdomen is soft, there is tenderness to palpation in lower abdomen, with some firmness to palpation as well, although bladder scan shows no residual, and the Sharp catheter is draining. The upper and mid abdomen are both soft and non-tender, no masses or bruits. EXTREM: Normal ROM; no deformity, no calf tenderness. Normal pulses palpable in all extremities. There is no pedal edema. SKIN: No rash; no diaphoresis NEURO: Alert; normal speech and cognition; CN's grossly intact; strength grossly intact without focal deficit. BACK: No CVA TTP. GENITOURINARY: There is a Sharp catheter in place, with drainage of cloudy- appearing urine. Current Patient Data Vital Signs Vital Signs Date Time Temp Pulse Resp B/P (MAP) Pulse Ox O2 Delivery O2 Flow Rate FiO2 10/04/19 15:21 146/85 (105) 10/04/19 13:25 98.1 92 16 98 Room Air 98.1 Lab Values Laboratory Tests Test 10/04/19 14:00 10/04/19 14:05 Urine Collection Type Unknown Urine Color Yellow Urine Clarity Turbid Urine pH 5.5 Urine Specific [place] 1.015 Urine Protein 100 mg/dL (NEG-TRACE) Urine Glucose (UA) Negative mg/dL (NEG) Urine Ketones (Stick) Negative mg/dL (NEG) Urine Blood Large (NEG) Urine Nitrite Negative (NEG) Urine Bilirubin Negative (NEG) Urine Urobilinogen Dipstick 0.2 mg/dL (0.2 mg/dL) Urine Leukocyte Esterase Large (NEG) Urine RBC 6-10 /HPF (0-2) Urine WBC Tntc /HPF (0-4) Urine Bacteria Few /HPF (0-FEW) White Blood Count 10.5 x10^3/uL (4.0-11.0) Red Blood Count 4.02 x10^6/uL (4.30-5.70) L Hemoglobin 12.5 g/dL (13.0-17.5) L Hematocrit 37.1 % (39.0-53.0) L Mean Corpuscular Volume 92 fL (79-100) Mean Corpuscular Hemoglobin 31 pg (25-35) Mean Corpuscular Hemoglobin Concent 34 g/dL (31-37) Red Cell Distribution Width 15.0 % (11.5-14.5) H Platelet Count 142 x10^3/uL (140-400) Neutrophils (%) (Auto) 68 % (31-73) Lymphocytes (%) (Auto) 21 % (24-48) L Monocytes (%) (Auto) 10 % (0-9) H Eosinophils (%) (Auto) 1 % (0-3) Basophils (%) (Auto) 0 % (0-3) Neutrophils # (Auto) 7.2 x10^3/uL (1.8-7.7) Lymphocytes # (Auto) 2.2 x10^3/uL (1.0-4.8) Monocytes # (Auto) 1.0 x10^3/uL (0.0-1.1) Eosinophils # (Auto) 0.1 x10^3/uL (0.0-0.7) Basophils # (Auto) 0.0 x10^3/uL (0.0-0.2) Prothrombin Time 13.6 SEC (11.7-14.0) Prothrombin Time INR 1.1 (0.8-1.1) Sodium Level 141 mmol/L (136-145) Potassium Level 3.8 mmol/L (3.5-5.1) Chloride Level 106 mmol/L (98-107) Carbon Dioxide Level 26 mmol/L (21-32) Anion Gap 9 (6-14) Blood Urea Nitrogen 55 mg/dL (8-26) H Creatinine 1.7 mg/dL (0.7-1.3) H Estimated GFR (Cockcroft-Gault) 38.6 BUN/Creatinine Ratio 32 (6-20) H Glucose Level 96 mg/dL (70-99) Calcium Level 8.9 mg/dL (8.5-10.1) Total Bilirubin 0.7 mg/dL (0.2-1.0) Aspartate Amino Transferase (AST) 33 U/L (15-37) Alanine Aminotransferase (ALT) 32 U/L (16-63) Alkaline Phosphatase 37 U/L (46-116) L Troponin I Quantitative < 0.017 ng/mL (0.000-0.055) Total Protein 6.3 g/dL (6.4-8.2) L Albumin 3.1 g/dL (3.4-5.0) L Albumin/Globulin Ratio 1.0 (1.0-1.7) Lipase 40 U/L (73-393) L Laboratory Tests 10/04/19 14:05 Laboratory Tests 10/04/19 14:05 EKG EKG Normal sinus rhythm at a rate of 79 beats for minute, normal axis, normal intervals. There are no acute ischemic ST/T changes.[] Radiology/Procedures Radiology/Procedures PROCEDURE: CT ABDOMEN PELVIS WO CONTRAST EXAM: CT ABDOMEN/PELVIS WITHOUT CONTRAST. HISTORY: Lower abdominal pain. TECHNIQUE: Computed tomography of the abdomen and pelvis was performed without intravenous contrast. COMPARISON: 04/23/2019. FINDINGS: Lung windows through the visualized portions of the bases reveal a 5 mm uncalcified nodule in the left lower lobe, unchanged. Bone windows reveal no suspicious lesions. 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 T12-L1 and L5-S1 appear to remain open. The prostate is severely enlarged at 7 x 6 cm. A Sharp balloon is inflated within the distal prostatic urethra. The bladder is moderately distended to the level of the umbilicus. Bladder wall thickening is consistent with chronic outlet obstruction. There is mild bilateral pelviectasis and hydroureter to the level of the ureterovesical junctions. No focal renal lesions are appreciated without contrast. There are calcified granulomas within the liver, the spleen, adrenal glands, pancreas and gallbladder are unremarkable. There are no pathologically enlarged lymph nodes. There is some wall thickening of the right colon and proximal transverse colon. The appendix is not inflamed. There is no small bowel obstruction. IMPRESSION: 1. The Sharp catheter balloon is inflated within the distal prostatic urethra. Recommend repositioning. 2. Severe benign prostatic hypertrophy. Findings suggesting chronic bladder outlet obstruction and at least mild urinary retention given mild bilateral renal pelviectasis. 3. Mild right colonic wall thickening suggests colitis. Correlate clinically. 4. A 5 mm left lower lobe nodule is stable and likely benign at this size in the absence of risk factors. 5. Findings suggesting ankylosing spondylitis. These findings were called to Dr. Saldivar by Eloy Trejo on 10/04/2019 at 3:50 PM. [] Course & Med Decision Making Course & Med Decision Making Pertinent Labs and Imaging studies reviewed. (See chart for details) [] 2:30 PM: The patient's renal function is stable to slightly improved compared to his more recent values. 4:00 PM: Received call from the radiologist that the patient's Sharp catheter is in the prostatic urethra and he has bladder distention and hydronephrosis, likely obstructive in nature. The patient's Sharp catheter will be replaced. The catheter imaged was the catheter that was previously placed and the patient arrived in the emergency department with the catheter in place. 5:05 PM: The patient's Sharp catheter was changed with return of greater than 1000 mL of urine and complete resolution of the patient's abdominal discomfort. He has no complaints at this time and his abdomen, which has been reexamined, is benign. I discussed importance of close follow-up with his PCP and return precautions were discussed in detail. Dragon Disclaimer Dragon Disclaimer This electronic medical record was generated, in whole or in part, using a voice recognition dictation system. Departure Departure Impression: Primary Impression: BPH with urinary obstruction Additional Impressions: Sharp catheter problem Abdominal pain UTI (urinary tract infection) Disposition: 01 HOME, SELF-CARE Condition: STABLE Referrals: CHRIS STEIN MD (PCP) Patient Instructions: Sharp Catheter Care, Adult, Urinary Retention, Acute, Male, Urinary Tract Infection Scripts Sulfamethoxazole/Trimethoprim (BACTRIM DS TABLET) 1 Each Tablet 1 TAB PO BID, #14 TAB Prov: ZAHRAA SALDIVAR MD 10/04/19 Problem Qualifiers ZAHRAA SALDIVAR MD Oct 04, 2019 14:28
[2019-10-04 14:34] LABS: ALBUMIN 3.1 g/dL (3.4-5.0); TOTAL BILIRUBIN 0.7 mg/dL (0.2-1.0); TOTAL PROTEIN 6.3 g/dL (6.4-8.2)
[2019-10-04] MEDS ORDERED: LIDOCAINE 2% JELLY 6ML IN APPLICATOR. MM ONE (16:00)
--- NOTE | 2019-10-04 16:02 | RAD ---
EXAM: CT ABDOMEN/PELVIS WITHOUT CONTRAST. HISTORY: Lower abdominal pain. TECHNIQUE: Computed tomography of the abdomen and pelvis was performed without intravenous contrast. COMPARISON: 04/23/2019. FINDINGS: Lung windows through the visualized portions of the bases reveal a 5 mm uncalcified nodule in the left lower lobe, unchanged. Bone windows reveal no suspicious lesions. 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 T12-L1 and L5-S1 appear to remain open. The prostate is severely enlarged at 7 x 6 cm. A Sharp balloon is inflated within the distal prostatic urethra. The bladder is moderately distended to the level of the umbilicus. Bladder wall thickening is consistent with chronic outlet obstruction. There is mild bilateral pelviectasis and hydroureter to the level of the ureterovesical junctions. No focal renal lesions are appreciated without contrast. There are calcified granulomas within the liver, the spleen, adrenal glands, pancreas and gallbladder are unremarkable. There are no pathologically enlarged lymph nodes. There is some wall thickening of the right colon and proximal transverse colon. The appendix is not inflamed. There is no small bowel obstruction. IMPRESSION: 1. The Sharp catheter balloon is inflated within the distal prostatic urethra. Recommend repositioning. 2. Severe benign prostatic hypertrophy. Findings suggesting chronic bladder outlet obstruction and at least mild urinary retention given mild bilateral renal pelviectasis. 3. Mild right colonic wall thickening suggests colitis. Correlate clinically. 4. A 5 mm left lower lobe nodule is stable and likely benign at this size in the absence of risk factors. 5. Findings suggesting ankylosing spondylitis. These findings were called to Dr. Saldivar by Eloy Trejo on 10/04/2019 at 3:50 PM. *One or more of the following individualized dose reduction techniques were utilized for this examination: 1. Automated exposure control. 2. Adjustment of the mA and/or kV according to patient size. 3. Use of iterative reconstruction technique. Electronically signed by: Debbie Trejo MD (10/04/2019 3:59 PM) [facility]
[2019-10-04] MEDS ORDERED: SULF1TAB24 PO (17:09)
[2019-10-04 17:45] VITALS: BP 137/77
--- NOTE | 2019-10-05 08:17 | EKG ---
[facility] [address] [place] [address] Test Date: 2019-10-04 Test Time: 14:30:17 Pat Name: SHAHEEN BATESSONIDOSAEED Department: Room: Gender: Director [employer]: : 1935 Requested By: ZAHRAA DOVER Order Number: [id number] Reading MD: Saulo Armenta Measurements Intervals [place] Rate: P: TX: QRS: QRSD: T: QT: QTc: Interpretive Statements SINUS RHYTHM Electronically Signed On 10-05-2019 14:03:21 SITE MONITOR by Saulo Armenta
== END 2019-10-04 18:19 | disposition home or self-care (01) ==
LOC: ER 13:10
DX: T83.098A Other mechanical complication of other urinary catheter, initial encounter (principal); N40.1 Benign prostatic hyperplasia with lower urinary tract symptoms; N13.8 Other obstructive and reflux uropathy; N39.0 Urinary tract infection, site not specified; M19.90 Unspecified osteoarthritis, unspecified site; J44.1 Chronic obstructive pulmonary disease with (acute) exacerbation; I25.10 Atherosclerotic heart disease of native coronary artery without angina pectoris; K21.9 Gastro-esophageal reflux disease without esophagitis; I10 Essential (primary) hypertension; Z88.1 Allergy status to other antibiotic agents
CPT/HCPCS: 36415; 51702; 74176; 80053; 81001; 83690; 84484; 85025; 85610; 87086; 93005; 96365; 96375; 99285; J1956; J2270; J7030; 87186

== ENCOUNTER 2020-05-06 12:07 | Emergency (ER) | payer BC ==
[~2020-05-06] VITALS: Ht 175.3 cm; Wt 91.3 kg
[~2020-05-06 12:07] MED LIST changes: -MECL12.52 PO; +MECL12.573 PO; +SULF1TAB24 PO
[2020-05-06 13:18] LABS: BASO # 0.1 x10^3/uL (0.0-0.2); BASO % 1 % (0-3); EOS # 0.2 x10^3/uL (0.0-0.7); EOS % 1 % (0-3); HEMATOCRIT 30.9 % (39.0-53.0); HEMOGLOBIN 10.6 g/dL (13.0-17.5); LYMPH % 15 % (24-48); MEAN CORPUSCULAR HEMOGLOBIN 32 pg (25-35); MEAN CORPUSCULAR HGB CONC 34 g/dL (31-37); MEAN CORPUSCULAR VOLUME 93 fL (79-100); MONO % 7 % (0-9); NEUT # 10.3 x10^3/uL (1.8-7.7); NEUT % 76 % (31-73); PLATELET COUNT 147 x10^3/uL (140-400); RED BLOOD COUNT 3.32 x10^6/uL (4.30-5.70); RED CELL DISTRIBUTION WIDTH 13.1 % (11.5-14.5); WHITE BLOOD COUNT 13.6 x10^3/uL (4.0-11.0)
[2020-05-06 13:18] LABS: BILIRUBIN,URINE NEGATIVE (NEG); CLARITY,URINE TURBID; COLOR,URINE YELLOW; NITRITE,URINE NEGATIVE (NEG); PH,URINE 6.5 (<5.0-8.0); PROTEIN,URINE 100 mg/dL (NEG-TRACE); UROBILINOGEN,URINE 0.2 mg/dL (0.2 mg/dL)
[2020-05-06 13:27] LABS: RBC,URINE FIELD OBSCURED /HPF (0-2)
[2020-05-06 13:28] LABS: BACTERIA,URINE MANY /HPF (0-FEW); WBC,URINE TNTC /HPF (0-4)
[2020-05-06 13:29] LABS: CALCIUM 8.5 mg/dL (8.5-10.1); CREATININE 2.2 mg/dL (0.7-1.3); GFR 28.6; POTASSIUM 4.2 mmol/L (3.5-5.1)
[2020-05-06 13:35] LABS: ALBUMIN 3.4 g/dL (3.4-5.0); ALBUMIN/GLOBULIN RATIO 1.1 (1.0-1.7); TOTAL BILIRUBIN 0.6 mg/dL (0.2-1.0); TOTAL PROTEIN 6.5 g/dL (6.4-8.2)
[2020-05-06] MEDS ORDERED: IV NORMAL SALINE 1000ML BAG 1,000 ML IV ONE (13:45)
--- NOTE | 2020-05-06 14:47 | PHYS DOC ---
Past Medical History Past Medical History: Arthritis, Asthma, Bronchitis, CAD, COPD, GERD, Hypertension, UTI Past Surgical History: Knee Replacement Additional Past Surgical Histo: CARDIAC CATH WITH STENTS; cataracts Smoking Status: Never Smoker Alcohol Use: None Drug Use: None General Adult EDM: Chief Complaint: ABDOMINAL PAIN HPI: HPI: Patient is a 85 year old male who presented to ER today for evaluation of left lower abdominal pain started 2 days ago. Patient has an indwelling Sharp catheter, he feels that he might have a bladder infection. Patient denies any fever, no nausea vomiting. Patient denies any cough, no recent exposure to anybody who tested positive for COVID-19. Patient denies any chest pain, no trouble breathing. Patient denies any diarrhea. Review of Systems: Review of Systems: Constitutional: Denies fever or chills. [] Eyes: Denies change in visual acuity. [] HENT: Denies nasal congestion or sore throat. [] Respiratory: Denies cough or shortness of breath. [] Cardiovascular: Denies chest pain or edema. [] GI: Positive for left side abdominal pain, no nausea vomiting. : Denies dysuria. [] Musculoskeletal: Denies back pain or joint pain. [] Integument: Denies rash. [] Neurologic: Denies headache, focal weakness or sensory changes. [] Endocrine: Denies polyuria or polydipsia. [] Lymphatic: Denies swollen glands. [] Psychiatric: Denies depression or anxiety. [] Heart Score: Risk Factors: Risk Factors: DM, Current or recent (<one month) smoker, HTN, HLP, family hist ory of CAD, obesity. Risk Scores: Score 0 - 3: 2.5% MACE over next 6 weeks - Discharge Home Score 4 - 6: 20.3% MACE over next 6 weeks - Admit for Clinical Observation Score 7 - 10: 72.7% MACE over next 6 weeks - Early Invasive Strategies Current Medications: Current Medications Medications (Trade) Dose Ordered Sig/Adri Start Time Stop Time Status Last Admin Dose Admin Levofloxacin/ Dextrose 150 ml @ 100 mls/hr 1X ONCE 05/06/20 13:45 05/06/20 15:14 05/06/20 14:15 100 MLS/HR Sodium Chloride 1,000 ml @ 1,000 mls/hr 1X ONCE 05/06/20 13:45 05/06/20 14:44 DC 05/06/20 14:15 1,000 MLS/HR Allergies: Allergies: Allergies Coded Allergies Type Severity Reaction Last Updated Verified cefepime Allergy Intermediate 05/21/19 Yes Physical Exam: PE: Constitutional: Well developed, well nourished, no acute distress, non-toxic appearance. [] HENT: Normocephalic, atraumatic, bilateral external ears normal, oropharynx moist, no oral exudates, nose normal. [] Eyes: PERRLA, EOMI, conjunctiva normal, no discharge. [] Neck: Normal range of motion, no tenderness, supple, no stridor. [] Cardiovascular:Heart rate regular rhythm, no murmur [] Lungs & Thorax: Bilateral breath sounds clear to auscultation [] Abdomen: Bowel sounds normal, soft, THERE IS LLQ tenderness TO PALPATION, NO REBOUND, NO GUARDING, no masses, no pulsatile masses. [] Skin: Warm, dry, no erythema, no rash. [] Back: No tenderness, no CVA tenderness. [] Extremities: No tenderness, no cyanosis, no clubbing, ROM intact, no edema. [] Neurologic: Alert and oriented X 3, normal motor function, normal sensory function, no focal deficits noted. [] Psychologic: Affect normal, judgement normal, mood normal. [] Current Patient Data: Labs: Laboratory Tests Test 05/06/20 13:05 05/06/20 13:10 White Blood Count 13.6 x10^3/uL (4.0-11.0) H Red Blood Count 3.32 x10^6/uL (4.30-5.70) L Hemoglobin 10.6 g/dL (13.0-17.5) L Hematocrit 30.9 % (39.0-53.0) L Mean Corpuscular Volume 93 fL (79-100) Mean Corpuscular Hemoglobin 32 pg (25-35) Mean Corpuscular Hemoglobin Concent 34 g/dL (31-37) Red Cell Distribution Width 13.1 % (11.5-14.5) Platelet Count 147 x10^3/uL (140-400) Neutrophils (%) (Auto) 76 % (31-73) H Lymphocytes (%) (Auto) 15 % (24-48) L Monocytes (%) (Auto) 7 % (0-9) Eosinophils (%) (Auto) 1 % (0-3) Basophils (%) (Auto) 1 % (0-3) Neutrophils # (Auto) 10.3 x10^3/uL (1.8-7.7) H Lymphocytes # (Auto) 2.0 x10^3/uL (1.0-4.8) Monocytes # (Auto) 1.0 x10^3/uL (0.0-1.1) Eosinophils # (Auto) 0.2 x10^3/uL (0.0-0.7) Basophils # (Auto) 0.1 x10^3/uL (0.0-0.2) Sodium Level 142 mmol/L (136-145) Potassium Level 4.2 mmol/L (3.5-5.1) Chloride Level 106 mmol/L (98-107) Carbon Dioxide Level 22 mmol/L (21-32) Anion Gap 14 (6-14) Blood Urea Nitrogen 63 mg/dL (8-26) H Creatinine 2.2 mg/dL (0.7-1.3) H Estimated GFR (Cockcroft-Gault) 28.6 BUN/Creatinine Ratio 29 (6-20) H Glucose Level 114 mg/dL (70-99) H Calcium Level 8.5 mg/dL (8.5-10.1) Total Bilirubin 0.6 mg/dL (0.2-1.0) Aspartate Amino Transferase (AST) 13 U/L (15-37) L Alanine Aminotransferase (ALT) 18 U/L (16-63) Alkaline Phosphatase 51 U/L (46-116) Total Protein 6.5 g/dL (6.4-8.2) Albumin 3.4 g/dL (3.4-5.0) Albumin/Globulin Ratio 1.1 (1.0-1.7) Lipase 36 U/L (73-393) L Urine Collection Type U cath Urine Color Yellow Urine Clarity Turbid Urine pH 6.5 (<5.0-8.0) Urine Specific [place] 1.010 (1.000-1.030) Urine Protein 100 mg/dL (NEG-TRACE) Urine Glucose (UA) Negative mg/dL (NEG) Urine Ketones (Stick) Negative mg/dL (NEG) Urine Blood Large (NEG) Urine Nitrite Negative (NEG) Urine Bilirubin Negative (NEG) Urine Urobilinogen Dipstick 0.2 mg/dL (0.2 mg/dL) Urine Leukocyte Esterase Large (NEG) Urine RBC Field obscured /HPF (0-2) Urine WBC Tntc /HPF (0-4) Urine Bacteria Many /HPF (0-FEW) Laboratory Tests 05/06/20 13:05 Laboratory Tests 05/06/20 13:05 Vital Signs: Vital Signs Date Time Temp Pulse Resp B/P (MAP) Pulse Ox O2 Delivery O2 Flow Rate FiO2 05/06/20 12:40 98.9 75 16 127/61 (83) 97 Room Air 98.9 EKG: EKG: [] Radiology/Procedures: Radiology/Procedures: [][facility] [address] [place] [address] IMAGING REPORT Signed PATIENT: SHAHEEN FORREST AACCOUNT: [id number] : 1935 LOCATION: ER AGE: 85 SEX: M EXAM STATUS: REG ER ORD. PHYSICIAN: COREY HOLLAND DO REASON: LLQ ABDOMINAL PAIN-indwelling Sharp catheter PROCEDURE: CT ABDOMEN PELVIS WO CONTRAST PQRS Compliance Statement: One or more of the following individualized dose reduction techniques were utilized for this examination: 1. Automated exposure control 2. Adjustment of the mA and/or kV according to patient size 3. Use of iterative reconstruction technique CT abdomen/pelvis without contrast 05/06/2020 2:44 PM INDICATION: Left lower quadrant abdominal pain. Indwelling Sharp catheter. COMPARISON: CT abdomen/pelvis 10/04/2019 TECHNIQUE: Multiple axial CT images of the abdomen and pelvis were obtained without intravenous contrast. Coronal and sagittal reformats are provided. FINDINGS: Stable 0.6 cm solid noncalcified pulmonary nodule in the left lower lobe. Heart size within normal limits. Evaluation of solid abdominal viscera is limited by lack of intravenous contrast. Liver, spleen, bilateral adrenal glands, pancreas and gallbladder are normal in appearance. Abdominal aorta is normal in course and caliber. No pathologically enlarged lymph nodes are identified in abdomen and pelvis. No free fluid or free intraperitoneal air. Small large bowel are normal in caliber. No bowel obstruction or inflammation. Appendix is normal in appearance. There is mild to moderate bilateral hydroureteronephrosis. No suspicious renal mass or obstructive renal calculi. Urinary bladder is distended measuring 9.8 x 10.1 x 13.4 cm. Pericystic inflammatory changes are identified suggestive of cystitis. Sharp catheter is identified with the catheter suspected to be within the prostatic portion of the urethra. Prostate is enlarged measuring 6.5 x 7.3 cm. No suspicious osseous abnormality is identified. Extensive degenerative changes of the lumbar spine are present. IMPRESSION: There is urinary retention within the bladder with distention of the urinary bladder and pericystic inflammatory changes suggestive of cystitis. There is mild to moderate bilateral hydroureteronephrosis possibly secondary bladder outlet obstruction. Sharp catheter is retracted within the prostatic urethra. Electronically signed by: Marcial Lujan MD (05/06/2020 3:16 PM) [facility] DICTATED and SIGNED BY: MARCIAL LUJAN MD DATE: 05/06/20 1516 Course & Med Decision Making: Course & Med Decision Making Pertinent Labs and Imaging studies reviewed. (See chart for details) Patient is an 85-year-old male who was evaluated in the ER due to abdominal pain, patient had Sharp catheter in place, it appear that the Sharp catheter was retracted in the prostrate area caused bladder outlet obstruction. The Sharp catheter was readjusted and good amount of urine output OBTAINED. Patient felt much better, will discharge him home with antibiotic. He will need to follow up with his urologist. Adriane Disclaimer: Adriane Disclaimer: This electronic medical record was generated, in whole or in part, using a voice recognition dictation system. Departure Departure Impression: Primary Impression: UTI (urinary tract infection) Additional Impression: Indwelling Sharp catheter present Disposition: 01 HOME, SELF-CARE Condition: IMPROVED Referrals: CHRIS STEIN MD (PCP) please follow up with your urologist for reevaluation next week. Patient Instructions: Sharp Catheter Care, Adult, Urinary Tract Infection Additional Instructions: Thank you for visiting our Emergency Department. We appreciate you trusting us with your care. If any additional problems come up don't hesitate to return to visit us. Please follow up with your primary care provider so they can plan additional care if needed and know about the problem that you had. If symptoms worsen come back to the Emergency Department. Any concerning symptoms that start such as chest pain, shortness of air, weakness or numbness on one side of the body, running high fevers or any other concerning symptoms return to the ER. Scripts Sulfamethoxazole/Trimethoprim (BACTRIM DS TABLET) 1 Each Tablet 1 TAB PO BID for 14 Days, #28 TAB 0 Refills Prov: COREY HOLLAND DO 05/06/20 Justicifation of Admission Dx: Justifications for Admission: Justification of Admission Dx: N/A COREY HOLLAND DO May 06, 2020 14:46
--- NOTE | 2020-05-06 15:19 | RAD ---
PQRS Compliance Statement: One or more of the following individualized dose reduction techniques were utilized for this examination: 1. Automated exposure control 2. Adjustment of the mA and/or kV according to patient size 3. Use of iterative reconstruction technique CT abdomen/pelvis without contrast 05/06/2020 2:44 PM INDICATION: Left lower quadrant abdominal pain. Indwelling Sharp catheter. COMPARISON: CT abdomen/pelvis 10/04/2019 TECHNIQUE: Multiple axial CT images of the abdomen and pelvis were obtained without intravenous contrast. Coronal and sagittal reformats are provided. FINDINGS: Stable 0.6 cm solid noncalcified pulmonary nodule in the left lower lobe. Heart size within normal limits. Evaluation of solid abdominal viscera is limited by lack of intravenous contrast. Liver, spleen, bilateral adrenal glands, pancreas and gallbladder are normal in appearance. Abdominal aorta is normal in course and caliber. No pathologically enlarged lymph nodes are identified in abdomen and pelvis. No free fluid or free intraperitoneal air. Small large bowel are normal in caliber. No bowel obstruction or inflammation. Appendix is normal in appearance. There is mild to moderate bilateral hydroureteronephrosis. No suspicious renal mass or obstructive renal calculi. Urinary bladder is distended measuring 9.8 x 10.1 x 13.4 cm. Pericystic inflammatory changes are identified suggestive of cystitis. Sharp catheter is identified with the catheter suspected to be within the prostatic portion of the urethra. Prostate is enlarged measuring 6.5 x 7.3 cm. No suspicious osseous abnormality is identified. Extensive degenerative changes of the lumbar spine are present. IMPRESSION: There is urinary retention within the bladder with distention of the urinary bladder and pericystic inflammatory changes suggestive of cystitis. There is mild to moderate bilateral hydroureteronephrosis possibly secondary bladder outlet obstruction. Sharp catheter is retracted within the prostatic urethra. Electronically signed by: Kareen Mosley MD (05/06/2020 3:16 PM) [facility]
[2020-05-06] MEDS ORDERED: SULF1TAB24 PO (16:56)
[2020-05-06 17:03] VITALS: BP 141/72
== END 2020-05-06 17:25 | disposition home or self-care (01) ==
LOC: ER 12:07
DX: N39.0 Urinary tract infection, site not specified (principal); R10.32 Left lower quadrant pain; M19.90 Unspecified osteoarthritis, unspecified site; J44.9 Chronic obstructive pulmonary disease, unspecified; I11.9 Hypertensive heart disease without heart failure; K21.9 Gastro-esophageal reflux disease without esophagitis; Z98.890 Other specified postprocedural states; Z88.8 Allergy status to other drugs, medicaments and biological substances; Z79.899 Other long term (current) drug therapy
CPT/HCPCS: 36415; 51702; 74176; 80053; 81001; 83690; 85025; 87086; 96365; 99285; J1956; J7030

== ENCOUNTER 2020-05-07 07:55 | Emergency (ER) | payer BC ==
[~2020-05-07] VITALS: Ht 175.3 cm; Wt 90.0 kg
--- NOTE | 2020-05-07 08:31 | PHYS DOC ---
Past Medical History Past Medical History: Arthritis, Asthma, Bronchitis, CAD, COPD, GERD, Hyp ertension, UTI Past Surgical History: Knee Replacement Additional Past Surgical Histo: CARDIAC CATH WITH STENTS; cataracts Smoking Status: Never Smoker Alcohol Use: None Drug Use: None General Adult EDM: Chief Complaint: URINE CATHETER PROBLEM HPI: HPI: Patient is a 85 year old 85-year-old male presenting to the ED with a chief complaint of urinary retention. Patient has a indwelling Sharp catheter. Patient was seen in the ER yesterday for similar complaints. At that time a CT scan was done which showed that the Sharp was retracted in the prostatic urethra. The Sharp was readjusted and patient had good urine flow. Patient also had a UTI and was discharged home on oral antibiotics. Patient was told to follow-up with his urologist as an outpatient. Patient states that the last time he urinated was last night. Patient denies fever, chills, nausea, vomiting, chest pain, shortness of breath. Patient states that he drove himself to the ER. Review of Systems: Review of Systems: Constitutional: Denies fever or chills. [] Eyes: Denies change in visual acuity. [] HENT: Denies nasal congestion or sore throat. [] Respiratory: Denies cough or shortness of breath. [] Cardiovascular: Denies chest pain or edema. [] GI: Denies abdominal pain, nausea, vomiting, bloody stools or diarrhea. [] : Complains of urinary retention. Heart Score: Risk Factors: Risk Factors: DM, Current or recent (<one month) smoker, HTN, HLP, family history of CAD, obesity. Risk Scores: Score 0 - 3: 2.5% MACE over next 6 weeks - Discharge Home Score 4 - 6: 20.3% MACE over next 6 weeks - Admit for Clinical Observation Score 7 - 10: 72.7% MACE over next 6 weeks - Early Invasive Strategies Allergies: Allergies: Allergies Coded Allergies Type Severity Reaction Last Updated Verified cefepime Allergy Intermediate 05/21/19 Yes Physical Exam: PE: Constitutional: Well developed, well nourished, no acute distress, non-toxic appearance. [] HENT: Normocephalic, atraumatic Eyes: EOMI Neck: Normal range of motion, Respiratory: No respiratory distress Abdomen: Bowel sounds normal, soft, no tenderness : Indwelling Sharp catheter Extremities: No tenderness, ROM intact Neurologic: Alert and oriented X 3 EKG: EKG: [] Radiology/Procedures: Radiology/Procedures: [] Course & Med Decision Making: Course & Med Decision Making Pertinent Labs and Imaging studies reviewed. (See chart for details) Reviewed CT results from yesterday. Ordered bladder scan in the ER. Did not order UA as patient has a known UTI from yesterday. Patient also has a prescription for oral Bactrim x14 days. Bladder scan shows 1000 cc urine in the bladder. We will try to replace the Sharp catheter. Balloon was deflated and Sharp was advanced. Immediately urine started flowing out. The balloon was reinflated. Patient states that he is feeling much better. Total of 1400 cc of urine is in the bag. Dose of Bactrim DS given in the ER. Patient is comfortable to be discharged home. Discussed plan of care with patient. Patient is instructed to follow up with PCP in one to 2 days. Appropriate discharge instructions given to patient to return to the ED or to seek immediate medical evaluation. Patient is instructed to return to the ED if symptoms worsen or if any concerns. Dragon Disclaimer: Dragon Disclaimer: This electronic medical record was generated, in whole or in part, using a voice recognition dictation system. Departure Departure Impression: Primary Impression: Sharp catheter problem Disposition: 01 HOME, SELF-CARE Condition: STABLE Referrals: CHRIS STEIN MD (PCP) Patient Instructions: Sharp Catheter Care, Adult Additional Instructions: Discussed plan of care with patient. Patient is instructed to follow up with PCP in one to 2 days. Appropriate discharge instructions given to patient to return to the ED or to seek immediate medical evaluation. Patient is instructed to return to the ED if symptoms worsen or if any concerns. Justicifation of Admission Dx: Justifications for Admission: Justification of Admission Dx: KIMBERLYN Marie DO May 07, 2020 08:31
[2020-05-07] MEDS ORDERED: MORPHINE SULFATE 4 MG/ML VIAL. IV ONE (09:00)
[2020-05-07] MEDS ORDERED: ONDANSETRON PF 4 MG/2 ML VIAL. IVP ONE (09:00)
[2020-05-07 11:30] VITALS: BP 111/54
[2020-05-07] MEDS ORDERED: SMZ/TMP 800/160MG TABLET. PO ONE (11:45)
== END 2020-05-07 12:05 | disposition home or self-care (01) ==
LOC: ER 09:38
DX: T83.098A Other mechanical complication of other urinary catheter, initial encounter (principal); R33.9 Retention of urine, unspecified; J44.9 Chronic obstructive pulmonary disease, unspecified; K21.9 Gastro-esophageal reflux disease without esophagitis; I10 Essential (primary) hypertension; I25.10 Atherosclerotic heart disease of native coronary artery without angina pectoris; Z95.5 Presence of coronary angioplasty implant and graft; Z88.8 Allergy status to other drugs, medicaments and biological substances; Y82.8 Other medical devices associated with adverse incidents; Y92.89 Other specified places as the place of occurrence of the external cause
CPT/HCPCS: 96374; 96375; 99285; J2270; J2405

== ENCOUNTER → 2020-08-01 | Outpatient (CLI) | payer BC ==
--- NOTE | 2020-08-01 15:34 | RAD ---
Examination: 2 views of the left shoulder, 2 views of the left knee HISTORY: History of pain, no injury COMPARISON: None available. FINDINGS: Moderate joint space loss identified in the medial, lateral compartments. Severe joint space loss identified in the patellofemoral compartments likely degenerative changes. Severe joint loss identified in the glenohumeral joint, acromioclavicular joint. There is mild superior translation of the humerus head in relation to the glenoid. IMPRESSION: 1. Tricompartmental degenerative changes knee joint most in the patellofemoral compartment. 2. Severe degenerative changes glenohumeral joint, acromioclavicular joint. There is mild superior translation of the humerus head in relation to glenoid could be secondary to chronic rotator cuff tear. Electronically signed by: Willie Smith MD (08/01/2020 3:31 PM) [id number]
== END | disposition home or self-care (01) ==
LOC: RAD 13:03
PROVIDERS: ATTEND Internal Medicine
DX: M17.12 Unilateral primary osteoarthritis, left knee (principal); M19.012 Primary osteoarthritis, left shoulder
CPT/HCPCS: 73030; 73560

== ENCOUNTER 2022-01-02 18:53 | Emergency (ER) | payer BC, MEDICARE ==
[~2022-01-02] VITALS: Ht 175.3 cm; Wt 83.4 kg
[~2022-01-02 18:53] MED LIST changes: +ALBU2.5V8 NEB; +AMLO-186 PO; +AMLO-187 PO; -AMLO10TA8 PO; -AMLO5TAB10 PO; +ASPI-886 PO; +ATOR40TA59 PO; +CEFD300C PO; +CLOP75TA PO; -ISOS30TA4 PO; +ISOS30TA68 PO; -MECL12.573 PO; +MECL12.582 PO
[2022-01-02 20:33] LABS: BILIRUBIN,URINE NEGATIVE (NEG); CLARITY,URINE CLOUDY; COLOR,URINE YELLOW; NITRITE,URINE POSITIVE (NEG); PROTEIN,URINE 30 mg/dL (NEG-TRACE); UROBILINOGEN,URINE 0.2 mg/dL (0.2 mg/dL)
[2022-01-02 20:42] LABS: BACTERIA,URINE MANY /HPF (0-FEW); WBC,URINE TNTC /HPF (0-4)
[2022-01-02] MEDS ORDERED: CEFD300C PO (21:16)
--- NOTE | 2022-01-02 21:16 | PHYS DOC ---
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 Earlier this afternoon he noticed that urine stopped passing through his suprapubic catheter, together with a sensation that his bladder was full and that he could not empty it. He acknowledges that he is overdue for a suprapubic catheter change. He denies any other focal or specific symptoms and specifically denies fevers, nausea or vomiting, upper respiratory congestion/rhinorrhea, cough, sore throat, shortness of breath or chest pain of any kind, abdominal pain of any kind, flank pain, midline back pain, dysuria, hematuria, polyuria or oliguria, changes in bowel habits. Vital signs are appropriate here and the patient is in no acute distress. Review of Systems Review of Systems A 12 point review of systems was completed and was negative except where noted in HPI above. Allergies Allergies Allergies Coded Allergies Type Severity Reaction Last Updated Verified No Known Drug Allergies 07/01/21 No Physical Exam Physical Exam 86-year-old male appearing nontoxic and in no acute distress. Head is normocephalic and atraumatic. Neck is supple and nontender. Oropharynx is moist. Lungs are clear to auscultation at all stations. There is a normal S1 and S2 without rubs or gallops and capillary refill is appropriate, less than 2 seconds globally. Abdomen is soft, nontender and nondistended. Skin is warm and dry without cyanosis or clubbing. Psychiatrically, the patient demonstrates appropriate mood and affect and is alert. Suprapubic catheter present with small amount of clear yellow urine in the leg bag. Current Patient Data Vital Signs Vital Signs Date Time Temp Pulse Resp B/P (MAP) Pulse Ox O2 Delivery O2 Flow Rate FiO2 01/02/22 19:25 98.2 71 18 124/59 (80) 99 Room Air 98.2 Lab Values Laboratory Tests Test 01/02/22 20:24 Urine Collection Type Unknown Urine Color Yellow Urine Clarity Cloudy Urine pH 8.0 (<5.0-8.0) Urine Specific [place] 1.015 (1.000-1.030) Urine Protein 30 mg/dL (NEG-TRACE) Urine Glucose (UA) Negative mg/dL (NEG) Urine Ketones (Stick) Negative mg/dL (NEG) Urine Blood Small (NEG) Urine Nitrite Positive (NEG) Urine Bilirubin Negative (NEG) Urine Urobilinogen Dipstick 0.2 mg/dL (0.2 mg/dL) Urine Leukocyte Esterase Large (NEG) Urine RBC 11-20 /HPF (0-2) Urine WBC Tntc /HPF (0-4) Urine Bacteria Many /HPF (0-FEW) EKG EKG [] Radiology/Procedures Radiology/Procedures [] Course & Med Decision Making Course & Med Decision Making Bladder scan shows 400 mL of urine retained. Suprapubic catheter changed out for a new one with immediate relief of obstruction. Large amount of urine drained into the catheter bag with complete relief of presenting symptoms. Urinalysis with some evidence of infection. We have sent a culture. Will treat with empiric cefdinir. Patient is to follow-up with his primary doctor and with his urologist as scheduled. He understands that if he feels worse instead of better or develops other new symptoms of concern that he should return to the emergency department immediately for reevaluation. All questions are answered. Dragon Disclaimer Dragon Disclaimer This electronic medical record was generated, in whole or in part, using a voice recognition dictation system. Departure Departure Impression: Primary Impression: Acute urinary retention Additional Impressions: Blocked suprapubic catheter Acute cystitis Disposition: HOME / SELF CARE / HOMELESS Condition: IMPROVED Referrals: CHRIS STEIN MD (PCP) Patient Instructions: Urinary Tract Infection Additional Instructions: Follow-up very closely with your primary doctor in the next 2 to 4 days for reevaluation of your symptoms and a discussion of next best steps in care. Follow-up closely with your urologist as scheduled as well. Take the cefdinir antibiotic daily for the next 1 week to treat your urinary tract infection. Return to the emergency department right away for worsening symptoms of any kind or with any other new symptoms of concern. Scripts Cefdinir (CEFDINIR) 300 Mg Capsule 1 CAP PO BID for 7 Days, #14 CAP Prov: TRENA SIMMONS MD 01/02/22 Problem Qualifiers Additional Impressions: Blocked suprapubic catheter Encounter type: initial encounter Qualified Codes: T83.090A - Other mechanical complication of cystostomy catheter, initial encounter Acute cystitis Hematuria presence: with hematuria Qualified Codes: N30.01 - Acute cystitis with hematuria TRENA SIMMONS MD Jan 02, 2022 21:16
[2022-01-02] MEDS: CEFDINIR 300 MG CAPSULE PO ONE ×2 (21:21→21:39)
[2022-01-02 21:51] VITALS: BP 137/96
== END 2022-01-02 21:48 | disposition home or self-care (01) ==
LOC: ER 18:53
DX: T83.090A Other mechanical complication of cystostomy catheter, initial encounter (principal); N30.01 Acute cystitis with hematuria; R33.9 Retention of urine, unspecified; J44.9 Chronic obstructive pulmonary disease, unspecified; K21.9 Gastro-esophageal reflux disease without esophagitis; I25.10 Atherosclerotic heart disease of native coronary artery without angina pectoris; I10 Essential (primary) hypertension; Z86.73 Personal history of transient ischemic attack (TIA), and cerebral infarction without residual deficits; Y83.3 Surgical operation with formation of external stoma as the cause of abnormal reaction of the patient, or of later complication, without mention of misadventure at the time of the procedure; Y92.89 Other specified places as the place of occurrence of the external cause
CPT/HCPCS: 51705; 81001; 87077; 87086; 87186; 99284; 99285-25